=== PATIENT | female | born 1945 | race Caucasian/White ===

== ENCOUNTER → 2017-10-06 06:12 | Outpatient (CLI) | payer MEDICARE, OTHER, SELFPAY ==
--- NOTE | 2017-10-06 14:08 | NEURO ---
NCS and/or EMG Patient Report Ordering Doctor: Salvador Barber DATE OF SERVICE: 10/06/17 Heather Brady is a 72-year-old female presents for electrodiagnostic testing of both upper limbs. She has chief complaint of numbness and tingling in both hands, worse in the left side Electrodiagnostic findings: Median motor nerve demonstrates prolonged distal latency with normal amplitude and conduction velocity on the left side. The right median motor nerve demonstrates prolonged distal latency with normal amplitude and reduced conduction velocity. Normal ulnar motor response bilaterally. Prolonged median sensory latencies are noted bilaterally. Normal ulnar and radial sensory responses. Prolonged right median F wave. Needle EMG testing reveals no evidence of denervation in any muscles muscles tested including the cervical paraspinals. Electrodiagnostic impression: This is an abnormal study in the upper limbs. 1. Electrodiagnostic findings demonstrate bilateral median mononeuropathy. This is consistent with a moderate to advanced right carpal tunnel syndrome and a moderate left carpal tunnel syndrome. 2. No electrodiagnostic evidence is noted for cervical radiculopathy. If there are any further questions, please do not hesitate to contact me..
== END ==
PROVIDERS: Family Provider Family Medicine; PCP Family Medicine; Visit Provider Family Medicine
DX: G56.03 Carpal tunnel syndrome, bilateral upper limbs (principal)
CPT/HCPCS: 95886; 95912

== ENCOUNTER → 2017-10-27 11:36 | Outpatient (CLI) | payer MEDICARE, OTHER, SELFPAY ==
[2017-10-27 12:53] LABS: ALB/GLOB Ratio 1.2 RATIO (0.9-2.4); AST(SGOT) 32 U/L (15-37); Alanine Aminotransfer ALT/SGPT 43 U/L (13-56); Albumin, Serum 3.5 g/dL (3.2-5.0); Alkaline Phosphatase 126 U/L (45-117); Anion Gap 10 (5-15); BUN 20 mg/dL (7-18); Calcium,Total 8.6 mg/dL (8.5-10.1); Chloride 107 mmol/L (98-107); Creatinine, Serum 0.91 mg/dL (0.55-1.02); EST Glomerular Filtration Rate 64 mL/min (>60); Est Glom Filt Rate - Afr Amer 78 mL/min (>60); Glucose 159 mg/dL (74-106); Potassium 3.6 mmol/L (3.5-5.1); Protein, Total 6.5 g/dL (6.4-8.2); Sodium Level 142 mmol/L (136-145)
== END ==
PROVIDERS: Family Provider Family Medicine; PCP Family Medicine; Visit Provider Family Medicine
DX: I10 Essential (primary) hypertension (principal)
CPT/HCPCS: 36415; 80053

== ENCOUNTER → 2018-03-14 10:35 | Outpatient (CLI) | payer MEDICARE, OTHER, SELFPAY ==
[2018-03-14 12:19] LABS: AST(SGOT) 27 U/L (15-37); Alanine Aminotransfer ALT/SGPT 34 U/L (13-56); Albumin, Serum 3.7 g/dL (3.2-5.0); Alkaline Phosphatase 114 U/L (45-117); Anion Gap 8 (5-15); BUN 17 mg/dL (7-18); BUN/Creat Ratio 22.4 RATIO (10-20); Bilirubin, Direct 0.28 mg/dL (0.00-0.30); Calcium,Total 8.6 mg/dL (8.5-10.1); Chloride 107 mmol/L (98-107); Creatinine, Serum 0.76 mg/dL (0.55-1.02); EST Glomerular Filtration Rate 79 mL/min (>60); Est Glom Filt Rate - Afr Amer 96 mL/min (>60); Globulin 3.1 g/dL (2.2-4.2); Glucose 94 mg/dL (74-106); Protein, Total 6.8 g/dL (6.4-8.2); Sodium Level 143 mmol/L (136-145); Thyroid Stim Hormone (TSH) 2.32 uIU/mL (0.358-3.74)
== END ==
PROVIDERS: Family Provider Family Medicine; PCP Family Medicine; Visit Provider Family Medicine
DX: I10 Essential (primary) hypertension (principal); E03.9 Hypothyroidism, unspecified; E78.5 Hyperlipidemia, unspecified
CPT/HCPCS: 36415; 80048; 80076; 84443

== ENCOUNTER 2018-04-13 13:30 | Outpatient (RCR) | payer MEDICARE, OTHER, SELFPAY ==
--- NOTE | 2018-03-23 09:25 | HP.OTEVAL_ITS ---
Patient's Visit Information DONOVAN RED is a 72 year old F, referred to Occupational Therapy by Salvador Barber, with a diagnosis of R hand swelling/decreased ROM R crpl tnl. Date of Evaluation: 03/22/18 Occupational Therapist: Abril Sim - Subjective Subjective: Pt seen for initial occupational therapy evaluation for increased pain and stiffness R hand. Pt states specific movements cause pain 10/10 but no other pain when at rest. Pt had carpel tunnel sx beginning of this year for L (November) and R hand (December) by Dr. Christianson. Pt states no numbness or tingling R hand. Pt states noticed increase in edema R hand and difficult time moving digits 3 and 4. Pt states having difficulty opening containers. Pt states has been washing goel ok. Pt lives w/ spouse 1 story house. Indep w/ BADLs/IADLs. Occassionally has pain with cutting food. - Pain R hand 10 Pain Intensity Range: 10 - Objective Objective/Observation: Pt R hand dominent. Having difficulty opening containers. Pt states has been washing goel ok. Pt lives w/ spouse 1 story house. Indep w/ BADLs/IADLs. Occassionally has pain with cutting food. Increased pain R hand started beginning of this year, Dr. Christianson thought might be from carpel tunnel so pt went through with carpel tunnel sx but continued to have increased pain primarily 2 middle fingers. Slight edema noted R hand/wrist. - ROM Wrist: L ext 40/flex 90, R ext 50/flex 108 ROM Comments: L MP flexion 2nd digit 70, 3rd digit 71, 4th digit 75 5th digit 68. L PIP flexion 2nd digit 54, 3rd digit 52, 4th digit 45, 5th digit 65. R MP flexion 2nd digit 85, 3rd digit 84, 4th digit 93, 5th digit 105. R PIP flexion 2nd digit 57, 3rd digit 61, 4th digit 52, 5th digit 54 - Strength Tomb Maker Helper: L 30#, R 10# Lateral Pinch: L 8#, R 8# Tripod Pinch: L 2#, R 2# Strength Comments: Pt demo decreased patient service associate strength R hand and R hand dominent - Edema Other: Slight edema noted R hand vs L hand, no pitting edema noted - Sensation Sensation Comments: No numbness or tingling R hand - DASH-Disabilities of Arm, Shoulder& Hand DASH Sum: 43 - Goals Goal:: Pt will progress w/ R hand patient service associate strength by 20# to assist with functional living tasks by d/c from OT services. Goal:: Pt will progress w/ R hand ROM flexion of digits 3 and 4 MP joints by 15 ' to increase functional independence with BADL tasks by d/c from OT services. Goal:: Pt will demo no pain R hand greater than 1/10 with movement by d/c from OT services. Goal:: Pt will be educated on joint protection/energy conservation techniques for R hand w/ good understanding and demo 100%x. Goal:: Pt will be educated on R hand HEP with good understanding and demo 100%x. - Rehabilitation General Assessment: Pt demo with R hand pain with sparatic movements, decreased ROM of R digits 3 and 4 with increased edema and decreased patient service associate strength all indicating a need for skilled OT interventions to increase R hand strength and ROM with decreasing pain R hand and education on HEP and energy conservation techniques. Rehabilitation Potential: Good - Anticipated Interventions Anticipated Interventions: A/AAROM/PROM, Strengthening, Edema Control, Massage, Modalities, Orthoses, Joint Protection/Energy Conservation, Fine Motor Coord/ Chilo, ADL Training, Education re assistive Equipment, Education re Self Massage Techniques, Home Program - Visit Plan Frequency: 1-2x /Week Duration: 4 Weeks General Plan: decrease R hand pain, increase R hand patient service associate strength, educate on adaptive techniques and compensatory strategies for decreasing R hand pain, increase R hand ROM TEXT: Thank you for the opportunity to evaluate your patient. For Medicare and Medicare HMO plans, please review the plan of care and approve it. It will need to be FAXED BACK to us at [phone] for Medicare purposes. Please let me know if there are questions or concerns regarding this plan of care. Physician Signature: Date:
--- NOTE | 2018-09-29 12:04 | HP.OT.NRP ---
HP - Discharge Summary - Patient Information DONOVAN RED was seen in my office for initial evaluation on 03/22/18. The following Plan of Care was established for this patient: Initial Frequency: 1-2x /Week Initial Duration: 4 Weeks Plan: cont w/ prior POC - Anticipated Interventions Anticipated Interventions: A/AAROM/PROM, Strengthening, Edema Control, Massage, Modalities, Orthoses, Joint Protection/Energy Conservation, Fine Motor Coord/Chilo, ADL Training, Education re assistive Equipment, Education re Self Massage Techniques, Home Program This patient was last seen in our office 04/13/18. Pertinent comments regarding their Occupational therapy will appear below: Pt last seen 04/13/18. Pt was participating with direct OT services to increase R hand education assistant strength and decrease R hand pain. Pt had been educated on theraputty exercises to complete to increase R hand education assistant strength. Pt did not meet all goals secondary to non-returning. D/C OT services at this time. At this point I will be discontinuing this patient from occupational therapy. I would be happy to see this patient again in the future if found appropriate by the physician. Thank you! Abril Sim
== END 2018-04-13 19:00 | disposition home or self-care (01) ==
LOC: OT 13:30
PROVIDERS: Family Provider Family Medicine; PCP Family Medicine; Visit Provider Family Medicine
DX: M79.89 Other specified soft tissue disorders (principal); M25.60 Stiffness of unspecified joint, not elsewhere classified
CPT/HCPCS: 97035; 97110; 97140; 97165; 97166; 97530; 97760

== ENCOUNTER → 2018-09-14 10:55 | Outpatient (CLI) | payer MEDICARE, OTHER, SELFPAY ==
[2017-11-30 13:39] VITALS: BMI 34.4
[2018-09-14 12:37] LABS: Thyroid Stim Hormone (TSH) 1.07 uIU/mL (0.358-3.74)
== END ==
PROVIDERS: Family Provider Family Medicine; PCP Family Medicine; Visit Provider Family Medicine
DX: E03.9 Hypothyroidism, unspecified (principal)
CPT/HCPCS: 36415; 84443

== ENCOUNTER → 2018-10-21 10:36 | Outpatient (CLI) | payer MEDICARE, OTHER, SELFPAY ==
[2018-10-21 09:48] VITALS: BMI 36.0
--- NOTE | 2018-10-21 10:39 | RAD_ITS ---
STUDY: X-RAY CHEST REASON FOR EXAM: Female, 73 years old. Chest pain and cough TECHNIQUE: PA and lateral views of the chest. COMPARISON: None. FINDINGS: There are interstitial fibrotic changes of the lungs. There is no demonstrated pleural abnormality. Normal size heart. Normal mediastinum and karlo. Normal visualized pulmonary arteries. Normal visualized aortic arch and descending thoracic aorta. There are diffuse degenerative changes of the visualized thoracic spine. Evidence of previous bilateral rotator cuff repair There is no demonstrated abnormality of the visualized soft tissue structures of the upper abdomen. RAD/Chest PA and Lateral IMPRESSION: Chronic changes, no superimposed acute pulmonary process Electronically Signed: Héctor Whelan MD at 15:33 EST , Service support ,
== END ==
PROVIDERS: Family Provider Family Medicine; PCP Family Medicine; Referring Provider Nurse Practitioner Family; Visit Provider Nurse Practitioner Family
DX: M25.512 Pain in left shoulder (principal)
CPT/HCPCS: 71046

== ENCOUNTER → 2019-02-10 | Outpatient (CLI) | payer MEDICARE, OTHER, SELFPAY ==
[2018-10-21 09:48] VITALS: BMI 36.0
--- NOTE | 2019-02-10 11:10 | RAD_ITS ---
STUDY: X-RAY - THORACIC SPINE REASON FOR EXAM: Female, 73 years old. Mid back pain. TECHNIQUE: 3 view(s) of the thoracic spine were obtained. COMPARISON: None. FINDINGS: Normal kyphosis of the thoracic spine. There is no substantial scoliosis. There is multilevel endplate spondylosis of the thoracic vertebrae. There is multilevel disc space narrowing of the thoracic spine. The soft tissue structures are unremarkable. RAD/Thoracic Spine 3 Views IMPRESSION: Degenerative changes. Electronically Signed: Niyah Allison MD at 23:21 EDT Tel , Service support ,
--- NOTE | 2019-02-10 11:19 | RAD_ITS ---
STUDY: X-RAY - LUMBAR SPINE REASON FOR EXAM: Female, 73 years old. Mid back pain. TECHNIQUE: 5 view(s) of the lumbar spine were obtained. COMPARISON: None FINDINGS: Normal lumbar lordosis. There is mild dextroscoliosis. There is minimal retrolisthesis of L5 in respect to L4 and S1. There is mild multilevel endplate spondylosis of the lumbar vertebrae. There is severe disc space narrowing of L1-L2, L2-L3, L4-L5 and L5-S1. There is no demonstrated fracture. There is no demonstrated spondylolysis of the pars interarticulares. There is atherosclerotic calcification of the abdominal aorta without a demonstrated aneurysm. RAD/L/S Spine Min 4 Views IMPRESSION: Degenerative changes of the spine, as detailed above. Electronically Signed: Boni Domínguez MD at 11:23 EDT Tel , Service support ,
== END | disposition home or self-care (01) ==
LOC: RAD 10:40
PROVIDERS: Family Provider Family Medicine; PCP Family Medicine; Referring Provider Anesthesiology Pain Medicine; Visit Provider Anesthesiology Pain Medicine
DX: M51.37 Other intervertebral disc degeneration, lumbosacral region (principal)
CPT/HCPCS: 72072; 72110

== ENCOUNTER → 2019-03-13 | Outpatient (CLI) | payer MEDICARE, OTHER, SELFPAY ==
[2018-10-21 09:48] VITALS: BMI 36.0
--- NOTE | 2019-03-13 12:02 | RAD_ITS ---
STUDY: X-RAY - THORACIC SPINE REASON FOR EXAM: Female, 73 years old. Radiculopathy TECHNIQUE: 5 view(s) of the thoracic spine were obtained. COMPARISON: 02/10/2019 FINDINGS: Normal alignment. Diffuse spondylosis. No compression deformities are seen. No abnormal motion between flexion and extension. RAD/Thoracic Spine Min 4 Views IMPRESSION: Diffuse spondylosis with normal alignment and no evidence of abnormal motion between flexion and extension. Electronically Signed: Corky Braun MD at 16:42 EDT Tel , Service support ,
== END | disposition home or self-care (01) ==
LOC: RAD 11:56
PROVIDERS: Family Provider Family Medicine; PCP Family Medicine; Referring Provider Anesthesiology Pain Medicine; Visit Provider Anesthesiology Pain Medicine
DX: M51.34 Other intervertebral disc degeneration, thoracic region (principal); M54.14 Radiculopathy, thoracic region
CPT/HCPCS: 72074

== ENCOUNTER → 2019-04-28 | Outpatient (CLI) | payer MEDICARE, OTHER, SELFPAY ==
[2018-10-21 09:48] VITALS: BMI 36.0
[2019-04-28 13:01] LABS: Vitamin D,25 Hydroxy 47.8 ng/mL (29.95-100.01)
[2019-04-28 13:03] LABS: Anion Gap 7 (5-15); BUN 23 mg/dL (7-18); BUN/Creat Ratio 29.7 RATIO (10-20); Calcium,Total 9.2 mg/dL (8.5-10.1); Chloride 107 mmol/L (98-107); Cholesterol 163 mg/dL (200); Creatinine, Serum 0.77 mg/dL (0.55-1.02); EST Glomerular Filtration Rate 77 mL/min (>60); Est Glom Filt Rate - Afr Amer 93 mL/min (>60); Glucose 98 mg/dL (74-106); High Density Lipoprotein 73 mg/dL; Potassium 3.9 mmol/L (3.5-5.1); Sodium Level 143 mmol/L (136-145); Thyroid Stim Hormone (TSH) 1.68 uIU/mL (0.358-3.74); Triglycerides 111 mg/dL; Very Low Density Lipoprotein 22 mg/dL (5-40)
== END | disposition home or self-care (01) ==
LOC: MFPLAB 10:54
PROVIDERS: Family Provider Family Medicine; PCP Family Medicine; Referring Provider Family Medicine; Visit Provider Family Medicine
DX: Z00.00 Encounter for general adult medical examination without abnormal findings (principal); E03.9 Hypothyroidism, unspecified; E55.9 Vitamin D deficiency, unspecified
CPT/HCPCS: 36415; 80048; 80061; 82306; 84443

== ENCOUNTER → 2019-07-27 12:15 | Outpatient (CLI) | payer MEDICARE, OTHER, SELFPAY ==
[2018-10-21 09:48] VITALS: BMI 36.0
--- NOTE | 2019-07-27 12:19 | RAD_ITS ---
STUDY: X-RAY - THORACIC SPINE REASON FOR EXAM: Female, 73 years old. Neck pain TECHNIQUE: 3 view(s) of the thoracic spine were obtained. COMPARISON: March 13, 2019 FINDINGS: Normal kyphosis of the thoracic spine. There is no substantial scoliosis. There is multilevel endplate spondylosis of the thoracic vertebrae. Normal disc space heights. The soft tissue structures are unremarkable. RAD/Thoracic Spine 3 Views IMPRESSION: Spondylosis Electronically Signed: Celso Wright MD at 23:49 EST , Service support ,
== END ==
PROVIDERS: Family Provider Family Medicine; PCP Family Medicine; Referring Provider Family Medicine; Visit Provider Family Medicine
DX: M54.9 Dorsalgia, unspecified (principal)
CPT/HCPCS: 72072

== ENCOUNTER → 2019-11-01 10:22 | Outpatient (CLI) | payer MEDICARE, OTHER, SELFPAY ==
[2018-10-21 09:48] VITALS: BMI 36.0
[2019-11-01 12:43] LABS: Anion Gap 5 (5-15); BUN 16 mg/dL (7-18); BUN/Creat Ratio 18.9 RATIO (10-20); Calcium,Total 9.1 mg/dL (8.5-10.1); Chloride 107 mmol/L (98-107); Cholesterol 142 mg/dL (200); Creatinine, Serum 0.85 mg/dL (0.55-1.02); EST Glomerular Filtration Rate 69 mL/min (>60); Est Glom Filt Rate - Afr Amer 84 mL/min (>60); Free T3 2.1 pg/mL (2.18-3.98); Glucose 106 mg/dL (74-106); High Density Lipoprotein 66 mg/dL; Potassium 3.9 mmol/L (3.5-5.1); Sodium Level 140 mmol/L (136-145); T4 Free Direct 1.37 ng/dL (0.76-1.46); Thyroid Stim Hormone (TSH) 2.35 uIU/mL (0.358-3.74); Triglycerides 89 mg/dL; Very Low Density Lipoprotein 18 mg/dL (5-40)
== END ==
PROVIDERS: PCP Family Medicine; Referring Provider Family Medicine; Visit Provider Family Medicine
DX: E03.9 Hypothyroidism, unspecified (principal); I10 Essential (primary) hypertension
CPT/HCPCS: 36415; 80048; 80061; 84439; 84443; 84481

== ENCOUNTER → 2020-05-16 11:05 | Outpatient (CLI) | payer MEDICARE, OTHER, SELFPAY ==
[2018-10-21 09:48] VITALS: BMI 36.0
[2020-05-16 13:15] LABS: Anion Gap 5 (5-15); BUN 19 mg/dL (7-18); BUN/Creat Ratio 25.4 RATIO (10-20); Calcium,Total 9.3 mg/dL (8.5-10.1); Chloride 105 mmol/L (98-107); Cholesterol 152 mg/dL (200); Creatinine, Serum 0.75 mg/dL (0.55-1.02); EST Glomerular Filtration Rate 80 mL/min (>60); Est Glom Filt Rate - Afr Amer 97 mL/min (>60); Free T3 2.3 pg/mL (2.18-3.98); Glucose 92 mg/dL (74-106); High Density Lipoprotein 68 mg/dL; Potassium 3.9 mmol/L (3.5-5.1); Sodium Level 140 mmol/L (136-145); T4 Total, Thyroxin 13.1 ug/dL (4.8-13.9); Thyroid Stim Hormone (TSH) 2.66 uIU/mL (0.358-3.74); Triglycerides 96 mg/dL; Very Low Density Lipoprotein 19 mg/dL (5-40)
== END ==
PROVIDERS: PCP Family Medicine; Referring Provider Family Medicine; Visit Provider Family Medicine
DX: I10 Essential (primary) hypertension (principal); E03.9 Hypothyroidism, unspecified
CPT/HCPCS: 36415; 80048; 80061; 84436; 84443; 84481

== ENCOUNTER → 2020-08-08 11:01 | Outpatient (CLI) | payer MEDICARE, OTHER, SELFPAY ==
[2018-10-21 09:48] VITALS: BMI 36.0
[2020-08-08 12:12] LABS: Erythrocyte Sedimentation Rate 3 mm/hr (0-30)
[2020-08-08 12:14] LABS: Absolute Lymphocyte Count 1.68 X10^3/uL (0.83-4.51); Absolute Neutrophil Count 3.9 X10^3/uL (2.0-7.7); Basophil# 0.03 X10^3/uL; Basophil% 0.5 % (0-1); Eosinophil# 0.18 X10^3/uL; Eosinophils% 2.9 % (0-5); Hematocrit 40.1 % (37-47); Hemoglobin 12.8 g/dL (12.0-15.0); Lymphocyte # 1.68 X10^3/ul (4.0); Mean Corp Hgb Conc 31.9 g/dL (32-36); Mean Corpuscular Hgb 30.9 pg (27.0-32.0); Mean Corpuscular Volume 96.9 fL (81-99); Mean Platelet Vol. 10.9 fl (6.2-12.0); Monocyte# 0.44 X10^3/uL; Monocyte% 7.1 % (0-10); NRBC Flagged by Analyzer 0 % (0-5); Neutrophil # 3.85 X10^3/uL (2.7-7.7); Neutrophil % 61.9 % (47-70); Platelet Count 220 K/mm3 (150-450); RBC Distribution Width CV 13.2 % (11.6-14.6); RBC Distribution Width SD 47.4 fl (35.1-43.9); Red Blood Count 4.14 M/mm3 (4.2-5.4); White Blood Count 6.2 K/mm3 (4.4-11.0)
[2020-08-08 12:50] LABS: CRP < 2.90 mg/L (0.0-3.0)
== END ==
PROVIDERS: PCP Family Medicine; Referring Provider Physician Assistant; Visit Provider Physician Assistant
DX: Z96.652 Presence of left artificial knee joint (principal)
CPT/HCPCS: 36415; 85025; 85652; 86140

== ENCOUNTER → 2020-09-05 11:56 | Outpatient (CLI) | payer MEDICARE, OTHER, SELFPAY ==
[2018-10-21 09:48] VITALS: BMI 36.0
--- NOTE | 2020-09-05 12:00 | RAD_ITS ---
STUDY: X-RAY - CERVICAL SPINE REASON FOR EXAM: Female, 74 years old. neck pain, patient states Hx of neck injury with ruptured discs many years ago TECHNIQUE: 5 view(s) of the cervical spine were obtained. COMPARISON: None FINDINGS: Normal anterior atlantoaxial articulation. Normal odontoid process. There is straightening of the normal cervical lordosis. 2 mm of anterolisthesis of C4 on C5. 2 mm retrolisthesis of C5 on C6. There is multi-level endplate spondylosis. There is multi-level degenerative disc disease with multilevel disc space narrowing. Normal visualized intervertebral neuroforamina. The soft tissue structures are unremarkable. RAD/Cerv Spine 4 or 5 Views IMPRESSION: Moderate degenerative disc disease with straightening of the normal lordotic curvature in 2 mm of anterolisthesis of C4 on C5 and 2 mm retrolisthesis of C5 on C6. Electronically Signed: Edouard Melvin MD at 16:49 EST Tel , Service support ,
== END ==
PROVIDERS: PCP Family Medicine; Referring Provider Family Medicine; Visit Provider Family Medicine
DX: M54.2 Cervicalgia (principal)
CPT/HCPCS: 72050

== ENCOUNTER → 2020-11-13 09:58 | Outpatient (CLI) | payer MEDICARE, OTHER, SELFPAY ==
[2018-10-21 09:48] VITALS: BMI 36.0
[2020-11-13 12:58] LABS: Anion Gap 6 (5-15); BUN 20 mg/dL (7-18); BUN/Creat Ratio 24.4 RATIO (10-20); Calcium,Total 9.5 mg/dL (8.5-10.1); Chloride 107 mmol/L (98-107); Cholesterol 164 mg/dL (200); Creatinine, Serum 0.82 mg/dL (0.55-1.02); EST Glomerular Filtration Rate 72 mL/min (>60); Est Glom Filt Rate - Afr Amer 87 mL/min (>60); Free T3 1.9 pg/mL (2.18-3.98); Glucose 99 mg/dL (74-106); High Density Lipoprotein 71 mg/dL; Potassium 4.1 mmol/L (3.5-5.1); Sodium Level 143 mmol/L (136-145); T4 Free Direct 1.14 ng/dL (0.76-1.46); Thyroid Stim Hormone (TSH) 2.19 uIU/mL (0.358-3.74); Triglycerides 85 mg/dL; Very Low Density Lipoprotein 17 mg/dL (5-40)
== END ==
PROVIDERS: PCP Family Medicine; Referring Provider Family Medicine; Visit Provider Family Medicine
DX: I10 Essential (primary) hypertension (principal); E03.9 Hypothyroidism, unspecified
CPT/HCPCS: 36415; 80048; 80061; 84439; 84443; 84481

== ENCOUNTER → 2020-12-19 16:02 | Outpatient (CLI) | payer MEDICARE, OTHER, SELFPAY ==
[2018-10-21 09:48] VITALS: BMI 36.0
--- NOTE | 2020-12-19 16:06 | RAD_ITS ---
HISTORY: PAIN ADDITIONAL HISTORY: None provided. EXAMINATION/TECHNIQUE: XR Hip Unilateral with Pelvis when performed; 2-3 Views Right Number of images including paperwork: 3 COMPARISON: None FINDINGS: BONES: No acute fracture. JOINTS: No subluxation. Mild to moderate degenerative changes of the hips. Chondrocalcinosis. Degenerative changes of the visible spine. SOFT TISSUES: No distinct foreign body. RAD/HIP, UNI W/ Pelvis 2-3 Views IMPRESSION: Degenerative changes without acute osseous abnormality. at 0005 Reported and signed by: Olena Chavez MD Electronically Signed: Olena Chavez MD at 0:05 EDT Tel , Service support ,
--- NOTE | 2020-12-19 16:07 | RAD_ITS ---
STUDY: X-RAY - RIGHT SHOULDER REASON FOR EXAM: Female, 75 years old. PAIN TECHNIQUE: 4 view(s) of the shoulder. COMPARISON: None. FINDINGS: Normal glenohumeral articulation. There is hypertrophic osteoarthrosis of the acromioclavicular joint with inferior osseous spur formation. Normal acromion. Decreased distance between the humeral head and acromion suggestive of rotator cuff pathology. There are metallic clips in the humeral head. Normal humeral head and visualized proximal humerus. The soft tissue structures are unremarkable. Normal visualized pulmonary apex. RAD/Shoulder min 2 Views IMPRESSION: Degenerative changes of the acromioclavicular joint. Findings suggestive of rotator cuff pathology. Electronically Signed: Pa Lewis MD at 15:32 EDT , Service support ,
== END ==
PROVIDERS: PCP Family Medicine; Referring Provider Family Medicine; Visit Provider Family Medicine
DX: M25.511 Pain in right shoulder (principal); M25.551 Pain in right hip
CPT/HCPCS: 73030; 73502

== ENCOUNTER → 2021-02-05 09:33 | Outpatient (CLI) | payer MEDICARE, OTHER, SELFPAY ==
[2018-10-21 09:48] VITALS: BMI 36.0
[2021-02-05 12:28] LABS: Free T3 2.6 pg/mL (2.18-3.98); T4 Free Direct 1.26 ng/dL (0.76-1.46); Thyroid Stim Hormone (TSH) 0.42 uIU/mL (0.358-3.74)
== END ==
PROVIDERS: PCP Family Medicine; Referring Provider Family Medicine; Visit Provider Family Medicine
DX: E03.9 Hypothyroidism, unspecified (principal)
CPT/HCPCS: 36415; 84439; 84443; 84481

== ENCOUNTER → 2021-03-20 10:46 | Outpatient (CLI) | payer MEDICARE, OTHER, SELFPAY ==
[2021-03-07 11:13] VITALS: BMI 32.9
--- NOTE | 2021-03-20 10:47 | ECHOD_ITS ---
Version 2 Reason For Study: HYPERTENSION Procedure This was a 2D Doppler, Color Flow transthoracic echocardiogram. Exam performed in department. Left Ventricle Normal LV size. Left ventricular systolic function is normal. The estimated ejection fraction is 55 %. Stage 1 diastolic dysfunction. No regional wall motion abnormalities noted. Right Ventricle Normal RV size. Normal systolic function. Atria Normal left atrium. Normal right atrium. Mitral Valve Normal mitral valve. Tricuspid Valve Normal tricuspid valve. Mild (1+) tricuspid valve insufficiency. Pulmonary artery systolic pressure is 28 mmHg. Aortic Valve Normal aortic valve. Trisinus/trileaflet aortic valve. Pulmonic Valve Normal pulmonic valve. Great Vessels Normal aortic root. The pulmonary artery is normal size. Normal inferior vena cava. Pericardium/Pleural No pericardial effusion. MMode/2D Measurements & Calculations LVIDd: 4.4 cm IVSd: 1.1 cm Ao root diam: 3.2 cm LVIDs: 2.9 cm LVPWd: 1.0 cm RVDd: 2.9 cm FS: 33.7 % LAV(MOD-bp): 37.7 ml LVAd ap4: 27.5 cm2 SV(MOD-sp4): 49.2 ml LAV(MOD-bp) Indexed: 19.3 ml/m2 LVLd ap4: 7.8 cm LAV(MOD-sp2): 34.8 ml EDV(MOD-sp4): 79.0 ml LAV(MOD-sp4): 33.0 ml EDV(sp4-el): 82.5 ml LVAs ap4: 15.3 cm2 LVLs ap4: 6.6 cm ESV(MOD-sp4): 29.8 ml ESV(sp4-el): 30.2 ml EF(MOD-sp4): 62.3 % EF(sp4-el): 63.4 % SV(sp4-el): 52.3 ml LA A4 area: 13.4 cm2 LA dimension(2D): 3.2 cm RA A4 area: 12.3 cm2 Time Measurements MV dec time: 0.20 sec Doppler Measurements & Calculations MV E max colin: 56.2 cm/sec Lat Peak E' Colin: 9.9 cm/sec Med Peak E' Colin: 5.6 cm/sec MV A max colin: 90.7 cm/sec E/E' lat: 5.7 E/E' med: 10.0 MV E/A: 0.62 Ao V2 max: 138.9 cm/sec LV V1 max: 107.5 cm/sec PA V2 max: 76.9 cm/sec Ao max P.7 mmHg LV V1 max P.6 mmHg TR max colin: 247.2 cm/sec TR max P.4 mmHg ECHO/Echo Complete Interpretation Summary Normal LV size. Left ventricular systolic function is normal. The estimated ejection fraction is 55 %. Stage 1 diastolic dysfunction. Pulmonary artery systolic pressure is 28 mmHg. Structurally normal valves. Ordering Physician: Albert Sweeney Referring Physician: TOMAS WALLER Performed By: Devorah Hannah RDCS
== END ==
PROVIDERS: PCP Family Medicine; Referring Provider Internal Medicine Cardiovascular Disease; Visit Provider Internal Medicine Cardiovascular Disease
DX: Z79.899 Other long term (current) drug therapy (principal)
CPT/HCPCS: 93306

== ENCOUNTER → 2021-05-19 10:33 | Outpatient (CLI) | payer MEDICARE, OTHER, SELFPAY ==
[2021-05-19 12:52] LABS: Anion Gap 8 (5-15); BUN 23 mg/dL (7-18); BUN/Creat Ratio 30.9 RATIO (10-20); Calcium,Total 9.4 mg/dL (8.5-10.1); Chloride 105 mmol/L (98-107); Cholesterol 162 mg/dL (200); Creatinine, Serum 0.74 mg/dL (0.55-1.02); EST Glomerular Filtration Rate 80 mL/min (>60); Est Glom Filt Rate - Afr Amer 97 mL/min (>60); Glucose 103 mg/dL (74-106); High Density Lipoprotein 77 mg/dL; Sodium Level 141 mmol/L (136-145); Thyroid Stim Hormone (TSH) 0.87 uIU/mL (0.358-3.74); Triglycerides 103 mg/dL; Very Low Density Lipoprotein 21 mg/dL (5-40)
== END ==
PROVIDERS: PCP Family Medicine; Referring Provider Family Medicine; Visit Provider Family Medicine
DX: I10 Essential (primary) hypertension (principal); E03.9 Hypothyroidism, unspecified
CPT/HCPCS: 36415; 80048; 80061; 84443

== ENCOUNTER 2021-08-06 14:02 | Emergency (ER) | payer MEDICARE, OTHER, SELFPAY ==
[2021-08-06 14:03] VITALS: BP 131/71; PULSE 79; RESP 16; TEMP 36.6; O2SAT 98; BMI 32.4
[2021-08-06 14:33] LABS: Absolute Lymphocyte Count 1.28 X10^3/uL (0.83-4.51); Absolute Neutrophil Count 5.3 X10^3/uL (2.0-7.7); Basophil# 0.03 X10^3/uL; Basophil% 0.4 % (0-1); Eosinophil# 0.12 X10^3/uL; Eosinophils% 1.7 % (0-5); Hematocrit 39.7 % (37-47); Hemoglobin 12.7 g/dL (12.0-15.0); Lymphocyte # 1.28 X10^3/ul (0.83-4.51); Lymphocyte % 17.6 % (19-41); Mean Corpuscular Hgb 30.6 pg (27.0-32.0); Mean Corpuscular Volume 95.7 fL (81-99); Mean Platelet Vol. 10.6 fl (6.2-12.0); Monocyte# 0.49 X10^3/uL; Monocyte% 6.7 % (0-10); NRBC Flagged by Analyzer 0 % (0-5); Neutrophil # 5.33 X10^3/uL (2.7-7.7); Neutrophil % 73.3 % (47-70); Platelet Count 238 K/mm3 (150-450); RBC Distribution Width CV 13.1 % (11.6-14.6); RBC Distribution Width SD 46.1 fl (35.1-43.9); Red Blood Count 4.15 M/mm3 (4.2-5.4); White Blood Count 7.3 K/mm3 (4.4-11.0)
[2021-08-06 14:50] LABS: Anion Gap 7 (5-15); BUN 19 mg/dL (7-18); BUN/Creat Ratio 23.7 RATIO (10-20); Calcium,Total 9.1 mg/dL (8.5-10.1); Chloride 109 mmol/L (98-107); EST Glomerular Filtration Rate 74 mL/min (>60); Est Glom Filt Rate - Afr Amer 89 mL/min (>60); Estimated Creatinine Clearance 50.85 ml/min; Glucose 135 mg/dL (74-106); Potassium 3.9 mmol/L (3.5-5.1); Sodium Level 144 mmol/L (136-145)
--- NOTE | 2021-08-06 15:12 | EKG12_ITS ---
Test Reason : NEURO Blood Pressure : / mmHG Vent. Rate : 062 BPM Atrial Rate : 062 BPM P-R Int : 182 ms QRS Dur : 112 ms QT Int : 404 ms P-R-T Axes : 047 -16 027 degrees QTc Int : 410 ms Normal sinus rhythm Normal ECG Confirmed by LEAH JUÁREZ, CHUN ([id number]), field map editor KRISTINE ALEMAN ([id number]) on 08/11/2021 9:19:16 AM Referred By: ISMA Confirmed By:NORA LYNN MD
--- NOTE | 2021-08-06 15:12 | CT_ITS ---
STUDY: CTA HEAD AND NECK WITH CONTRAST REASON FOR EXAM: Female, 75 years old. Stroke RADIATION DOSAGE (If Supplied By Facility): CTDIvol = ( 27.73 ) mGy, DLP = ( 1448.10 ) mGycm TECHNIQUE: CT angiography was performed with a multi-detector CT scanner. Data acquisition was obtained from the skull base through the vertex following intravenous administration of IV 100mL [id number]-[id number]. MIP images were reconstructed from the axial data set. Post-processing of the angiographic images was performed, with multiplanar reformation and 3D reconstruction. Individualized dose optimization techniques were used for this CT. COMPARISON: No relevant priors. FINDINGS: Normal bilateral petrous carotid arteries. There is calcified plaque formation of the right cavernous carotid artery, without a cross-sectional luminal stenosis. There is calcified plaque formation of the left cavernous carotid artery, without a cross-sectional luminal stenosis. Normal right A1 segments of the anterior cerebral artery. Normal left A1 segments of the anterior cerebral artery. Normal intact anterior communicating artery (ACOM). Normal bilateral A2 segments of the anterior cerebral arteries. Normal right M1 and M2 segments of the middle cerebral arteries, with a normal M1 bifurcation. Normal left M1 and M2 segments of the middle cerebral arteries, with a normal M1 bifurcation. Normal right posterior communicating artery (PCOM). Normal left posterior communicating artery (PCOM). Normal bilateral vertebral arteries. Normal basilar artery with a normal basilar bifurcation. The visualized bilateral superior cerebellar (SCA) arteries are normal. Normal bilateral P1, P2 and visualized P3 segments of the posterior cerebral arteries. There is no demonstrated aneurysm of the [place]. Atherosclerotic calcification of the vertebral arteries and cavernous portions of the common carotid arteries bilaterally. Mild degree of cerebral atrophy. AORTIC ARCH: Normal visualized aortic arch. Normal origins of the brachiocephalic, left common carotid, and left subclavian arteries. RIGHT CAROTID ARTERIES: Normal right common carotid artery (CCA). Normal right common carotid bulb. Normal origin of the right internal carotid (ICA) artery without a hemodynamically significant stenosis. Normal visualized cervical portion of the right internal carotid artery. Normal origin of the right external carotid artery (ECA). LEFT CAROTID ARTERIES: Normal left common carotid artery (CCA). Normal left common carotid bulb. Normal origin of the left internal carotid (ICA) artery without a hemodynamically significant stenosis. Normal visualized cervical portion of the left internal carotid artery. Normal origin of the left external carotid artery (ECA). VERTEBRAL ARTERIES: Normal bilateral vertebral arteries. CT/CTA Head AND Neck W/ Contrast IMPRESSION: Cerebral atrophy. Electronically Signed: Pa Lewis MD at 15:47 EST , Service support ,
--- NOTE | 2021-08-06 15:16 | EX.ED.DYSGE1 ---
HPI History of Present Illness Chief Complaint: Neuro S/Sx Informant: patient Onset/Context/Timing Onset: Today Current Severity: Mild Maximum Severity: Mild Narrative Narrative: Patient presents with concerns for her balance. She states yesterday she just felt off but has a hard time explaining what was wrong. This morning she woke up and felt like her balance was off, she was veering to the right or left when she walked. When she went to bed at midnight last evening she was able to walk normally. When she got up at 830 this morning she noted her gait was slightly altered. Patient did have a TIA 11 years ago and is currently on Plavix. She denies focal weakness, paresthesias, difficulty speaking or swallowing. [facility] Medical History Bone spur of ankle Dyslipidemia History of torn meniscus of right knee HTN (hypertension) Hyperlipidemia Patent foramen ovale Rotator cuff insufficiency of right shoulder TIA (transient ischemic attack) Home Medications clopidogrel 75 mg PO DAILY 05/13/14 [History Last Taken Unknown] losartan 100 mg PO DAILY 05/13/14 [History Last Taken Unknown] metoprolol succinate 25 mg PO DAILY 05/13/14 [History Last Taken Unknown] cholecalciferol (vitamin D3) 50 mcg (2,000 unit) capsule 2,000 unit PO DAILY 10/21/18 [History Last Taken Unknown] melatonin 10 mg capsule 10 mg PO HS PRN 10/21/18 [History Last Taken Unknown] multivitamin 1 tab PO DAILY 10/21/18 [History Last Taken Unknown] ascorbic acid (vitamin C) 500 mg capsule,extended release 1,000 mg PO DAILY cap 03/07/21 [History Last Taken Unknown] atorvastatin 80 mg tablet 80 mg PO QHS 90 Days #90 tab 03/07/21 [History Last Taken Unknown] calcium carbonate 600 mg calcium (1,500 mg) tablet 1,200 mg PO DAILY tab 03/07/21 [History Last Taken Unknown] gabapentin 800 mg tablet 1,600 mg PO QHS 90 Days #180 tab 03/07/21 [History Last Taken Unknown] levothyroxine 125 mcg tablet 125 mcg PO DAILY tab 03/07/21 [History Last Taken Unknown] nortriptyline 50 mg capsule 50 mg PO QHS cap 03/07/21 [History Last Taken Unknown] omeprazole 20 mg capsule,delayed release 40 mg PO QDAY cap 03/07/21 [History Last Taken Unknown] polyethylene glycol 3350 17 gram/dose oral powder 17 g PO DAILY 03/07/21 [History Last Taken Unknown] Allergy/AdvReac Type Severity Reaction Status Date / Time codeine AdvReac Severe Nausea Verified 08/06/21 14:03 morphine AdvReac Severe Nausea Verified 08/06/21 14:03 Family History Father Non-Hodgkin lymphoma Brother Leukemia Sister Breast cancer Mother Uterine cancer Other Cancer Heart disease Surgical History H/O section H/O left knee surgery History of bilateral carpal tunnel release History of cholecystectomy History of hip surgery History of left knee replacement History of nasal surgery Social History Smoking Status: Never smoker alcohol intake: current alcohol intake frequency: holidays/special occasions only substance use type: does not use caffeine: Yes Type: other Number of servings: 2 ROS ROS ED Constitutional Constitutional ED: Denies chills or fever(s) Eyes Eyes: Denies change in vision ENT ENT ED: Denies sore throat Cardiovascular Cardiovascular: Denies chest pain Respiratory/Chest Respiratory/Chest: Denies cough or dyspnea Gastrointestinal Gastrointestinal: Denies abdominal pain, diarrhea, nausea or vomiting Genitourinary Genitourinary ED: Denies dysuria Musculoskeletal Musculoskeletal: Denies back pain Integumentary Denies rash Neurologic Neurologic: Reports other Details: Balance problem ; Denies headache(s) or weakness Psychiatric Psychiatric: Denies anxiety or depression Allergic/Immunologic Allergic/Immunologic ED: Denies urticaria EXAM Physical Exam Const Vital Signs: 08/06/21 14:03 Temperature 97.8 F Temperature Source Temporal Pulse Rate 79 Respiratory Rate 16 Blood Pressure 131/71 H Blood Pressure Mean 91 Pulse Ox 98 Oxygen Delivery Method Room Air Positive well nourished and well developed General Appearance ED: well developed HEENT Reports normocephalic and head/scalp atraumatic Eyes PERRL and EOMs intact bilaterally Neck supple Chest Wall inspection of chest normal and palpation of chest normal Resp normal respiratory effort and clear to auscultation bilaterally Cardio regular rate and regular rhythm GI normal to inspection, nondistended, normoactive bowel sounds Palpation: soft Back/Spine no CVA tenderness Extremity normal to inspection Neuro oriented x3 and no sensory deficits noted Neuro Narrative: NIH equals 0 at time of my initial exam. Sensorium / Orientation: alert Motor Exam: strength 5/5 throughout Psych mental status grossly normal Skin no rashes or lesions noted MDM MDM MDM Narrative Medical decision making narrative: Lab work, EKG, CTA head and neck obtained. Lab Data Attestation: I reviewed the patient's lab results. Labs: Laboratory Results - last 24 hr 08/06/21 08/06/21 14:26 14:26 WBC 7.3 RBC 4.15 L Hgb 12.7 Hct 39.7 MCV 95.7 MCH 30.6 MCHC 32.0 RDW Std Deviation 46.1 H RDW Coeff of Dalila 13.1 Plt Count 238 MPV 10.6 Immature Gran % (Auto) 0.300 Neut % (Auto) 73.3 H Lymph % (Auto) 17.6 L Webster % (Auto) 6.7 Eos % (Auto) 1.7 Baso % (Auto) 0.4 Absolute Neuts (auto) 5.3 Absolute Lymphs (auto) 1.28 Nucleated RBC % 0 Sodium 144 Potassium 3.9 Chloride 109 H Carbon Dioxide 28.0 Anion Gap 7 BUN 19 H Creatinine 0.80 Estim Creat Clear Calc 50.85 Est GFR (MDRD) Af Amer 89 Est GFR (MDRD) Non-Af 74 BUN/Creatinine Ratio 23.7 H Glucose 135 H Calcium 9.1 Radiography Diagnostic Testing: Clinical Impression(s) from Imaging Studies Head/Neck CTA 08/06/21 15:12 IMPRESSION: Cerebral atrophy. Electronically Signed: Pa Lewis MD at 15:47 EST , Service support , EKG Initial EKG: Attestation: I personally reviewed and interpreted this EKG as follows: Interpretation: Sinus Rhythm (Sinus at 62 with no acute ischemia.) Treatment and Re-Evaluation Comments:: Repeat examination patient has no complaints. She was able to ambulate to the restroom and back with no difficulty with balance. Nursing staff states they did not appreciate any balance problems. Patient has negative work-up at this time including a normal CTA of the head and neck. She is already on Plavix. I did suggest close follow-up for outpatient MRI and obvious return if symptoms worsen. She is in agreement with this plan. Discharge Plan Triage Chief Complaint: Neuro S/Sx ED Provider: Chio Stuart Dx/Rx/DC Orders Clinical Impression: Brain TIA Instructions: ED TIA: Transient Ischemic Attack Prescriptions: No Action gabapentin 800 mg tablet 1,600 mg PO QHS 90 Days Qty: 180 RF: 0 omeprazole 20 mg capsule,delayed release(DR/EC) 40 mg PO QDAY RF: 0 multivitamin tablet 1 tab PO DAILY RF: 0 melatonin 10 mg capsule 10 mg PO HS PRNRF: 0 cholecalciferol (vitamin D3) 2,000 unit capsule 2,000 unit PO DAILY RF: 0 atorvastatin 80 mg tablet 80 mg PO QHS 90 Days Qty: 90 RF: 0 calcium carbonate [Calcium 600] 600 mg calcium (1,500 mg) tablet 1,200 mg PO DAILY RF: 0 ascorbic acid (vitamin C) [Vitamin C] 500 mg capsule, extended release 1,000 mg PO DAILY RF: 0 nortriptyline 50 mg capsule 50 mg PO QHS RF: 0 levothyroxine 125 mcg tablet 125 mcg PO DAILY RF: 0 polyethylene glycol 3350 [Miralax] 17 gram/dose powder 17 g PO DAILY RF: 0 clopidogrel 75 MG tablet 75 mg PO DAILY RF: 0 metoprolol succinate 25 MG tablet extended release 24 hr 25 mg PO DAILY RF: 0 losartan 100 MG tablet 100 mg PO DAILY RF: 0 Primary Care Provider: Salvador Barber Referrals: Salvador Barber MD [Primary Care Provider] - As soon as possible Disposition Disposition: Home, Self Care
[2021-08-06 15:29] VITALS: BMI 32.4
[2021-08-06 16:43] VITALS: BP 135/76; PULSE 63; RESP 19; O2SAT 99
== END 2021-08-06 16:48 | disposition home or self-care (01) ==
PROVIDERS: Emergency Provider Emergency Medicine; PCP Family Medicine
DX: G45.9 Transient cerebral ischemic attack, unspecified (principal); I10 Essential (primary) hypertension; E78.5 Hyperlipidemia, unspecified; Q21.1 Atrial septal defect; Z86.73 Personal history of transient ischemic attack (TIA), and cerebral infarction without residual deficits; Z79.02 Long term (current) use of antithrombotics/antiplatelets; Z79.899 Other long term (current) drug therapy
CPT/HCPCS: 70496; 70498; 80048; 85025; 93005; 99284; Q9967; A4216

== ENCOUNTER → 2021-08-07 14:23 | Outpatient (CLI) | payer MEDICARE, OTHER, SELFPAY ==
--- NOTE | 2021-08-07 14:25 | MRI_ITS ---
We are attempting to reach an attending provider to discuss findings. An addendum with communication details will be sent when the communication is complete. EXAM: MR HEAD WITHOUT INTRAVENOUS CONTRAST CLINICAL INDICATION: TIA TECHNIQUE: Multiplanar and multisequence MR images of the brain were obtained without intravenous contrast. This report was created using [employer] report generation technology. COMPARISON: 05.14.14 MRI and cta head 08.06.21 FINDINGS: BRAIN AND EXTRA-AXIAL SPACES: There is abnormal diffusion weighted signal in the Right medial cerebellar hemisphere. There is a correlation abnormal area of low ADC signal. This is consistent for an ischemic infarction. No intra- or extra-axial hemorrhage. No intracranial mass or mass effect. Ventricles are appropriate for age. No hydrocephalus. Basal cisterns are patent. SELLA: Unremarkable. Normal sella turcica, pituitary gland, infundibular stalk, optic chiasm and hypothalamus. AUDITORY SYSTEM: Unremarkable. The internal auditory canals are patent. BONES/JOINTS: Unremarkable. No discrete lytic or blastic abnormalities. SINUSES: Unremarkable as visualized. Clear. MASTOID AIR CELLS: Unremarkable as visualized. Clear. ORBITS: Unremarkable as visualized. Both globes, extraocular muscles, optic nerves and retrobulbar fat appear unremarkable. VASCULATURE: Unremarkable as visualized. Normal flow voids in the major intracranial circulation. MRI/Brain without Contrast IMPRESSION: Focal acute ischemic infarction of the Right medial cerebellar hemisphere. Electronically Signed: Agustin Yarbrough MD at 15:40 EST , Service support ,
== END ==
PROVIDERS: PCP Family Medicine; Visit Provider Family Medicine
DX: G45.9 Transient cerebral ischemic attack, unspecified (principal)
CPT/HCPCS: 70551

== ENCOUNTER → 2021-08-12 11:47 | Outpatient (CLI) | payer MEDICARE, OTHER, SELFPAY | PROVIDERS: PCP Family Medicine; Referring Provider Family Medicine; Visit Provider Psychiatry & Neurology Neurology | DX: I67.9 Cerebrovascular disease, unspecified (principal) | CPT/HCPCS: 36415 ==

== ENCOUNTER 2021-08-26 09:47 | Outpatient (RCR) | payer MEDICARE, OTHER, SELFPAY ==
--- NOTE | 2021-08-26 09:54 | BH.COMM_ITS ---
Communication Note - Communication with Client Communication Note: Met with patient to complete initial paperwork. No sig nificant changes since pre-admission screening. Completed [place] Suicide Screening. Low risk. No hx of SI/HI, plan or intent. Denies any current SI/HI. Case discussed with Dr. Russell with plan to admit to IOP level of care with dx of Generalized Anxiety Disorder F41.1
--- NOTE | 2021-08-26 09:54 | BH.COMM ---
Communication Note - Communication with Client Communication Note: Met with patient to complete initial paperwork. No significant changes since pre-admission screening. Completed [place] Suicide Screening. Low risk. No hx of SI/HI, plan or intent. Denies any current SI/HI. Case discussed with Dr. Russell with plan to admit to [facility] level of care with dx of Generalized Anxiety Disorder F41.1
--- NOTE | 2021-08-26 09:56 | BH.MTP_ITS ---
Master Treatment Plan - Patient Information Program Physician:: Dr. Litzy Russell Primary Therapist:: ROSI Rubio - Psychiatric Diagnoses Psychiatric Diagnoses:: 1. Generalized anxiety disorder. 2. Adjustment disorder with mixed anxiety and depressed mood (F 43.23) Diagnosis Code(s):: F41.1 - Estimated LOS Estimated LOS (in weeks):: 6 Problem/Goal #1 - Problem/Goal #1 Stated Goal:: Client will reduce overall frequency, intensity, and duration of anxiety to improve functioning. Description of Barriers: Pt feelings of disconnect and irrational guilt/feeling like a burden could be hindrance to progress given pt is struggling with attending IOP tx due to feeling like a burden for needing transportation from her . Coronavirus pandemic and pt physical health could be a barrier to progress because hinders pt's ability to leave the house and increases isolation. Pt reports difficulties in keeping up during group and struggles with connecting with materials discussed. Functional Impact: Pt's mental health symptoms are impacting her ability to find enjoyment in daily activities, causing unnecessary guilt and anxiety which has begun to impact her friendships and relationship with her , led to increased isolation and loneliness, may be contributing to increased physical pain, and resulted in difficulty completing household responsibilities. - Objectives Objective #1 Stated Objective: Client will learn and implement 2-3 calming skills to reduce overall anxiety and manage anxiety symptoms. Interventions: Therapist will teach client calming/relaxation skills and how to apply these skills to everyday life. Discharge Criteria: Client will have achieved this goal when can verbalize at least 2 calming strategies and reports skills successfully helping reduce anxious symptoms. Target Date: 10/07/21 Review Date: 09/23/21 Objective #2 Stated Objective: Pt will decrease anxious symptoms AEB pt?s score on the DSM 5 cross-cutting measure improve pt?s daily functioning. Interventions: Through groups and individual therapy, pt will be provided education about anxiety?s impact on body, common physiological reaction to anxiety, and distorted thinking patterns which reinforce anxiety. Therapist will teach pt appropriate breathing techniques and build healthy coping skills to manage daily anxieties, as well as aid pt in identifying and replacing personal distortions. Discharge Criteria: Pt will have met this goal when pt?s score on the DSM 5 cross cutting measure for anxiety has been decreased and per pt?s report daily functioning has improved. Target Date: 10/07/21 Review Date: 09/23/21 Problem/Goal #2 - Problem/Goal #2 Stated Goal:: Client will reduce depression, feelings of loneliness, and isolation through Intensive Outpatient Program. Description of Barriers: Pt feelings of disconnect and irrational guilt/feeling like a burden could be hindrance to progress given pt is struggling with attending IOP tx due to feeling like a burden for needing transportation from her . Coronavirus pandemic and pt physical health could be a barrier to progress because hinders pt's ability to leave the house and increases isolation. Pt reports difficulties in keeping up during group and struggles with connecting with materials discussed. Functional Impact: Pt's mental health symptoms are impacting her ability to find enjoyment in daily activities, causing unnecessary guilt and anxiety which has begun to impact her friendships and relationship with her , led to increased isolation and loneliness, may be contributing to increased physical pain, and resulted in difficulty completing household responsibilities. - Objectives Objective #1 Stated Objective: Client will learn and utilize 2-3 healthy coping strategies, including one activity of personal enjoyment, to manage depressive symptoms as shown by reduction of DSM-5 scores. Interventions: Therapist will help client identify triggers and warning signs of depression and will teach client various coping skills to manage client?s symptoms and give client tangible resources to use to regulate emotions. Therapist will help client explore activities enjoys engaging in and help conn ect to those activities. Discharge Criteria: Client will have achieved this goal when can verbalize at least 2 healthy coping strategies and reports coping skills successfully helping reduce depressive symptoms. Target Date: 10/07/21 Review Date: 09/23/21 Objective #2 Stated Objective: Client will identify and replace 2-3 negative thinking patterns that reinforce depressive symptoms, self-hate, and negative self-talk. Interventions: Therapist will assist client in recognizing triggers for increased self-deprecating and depressive thought patterns. Therapist will help client explore connection between thoughts, feelings, and actions and help client reframe depressive thought patterns. Discharge Criteria: Will have achieved goal when client can identify and successfully reframe 2-3 negative or distorted thought patterns reinforcing de pressive sx. Target Date: 10/07/21 Review Date: 09/23/21
--- NOTE | 2021-08-26 09:56 | BH.PSA ---
Development & Family of Origin - Family History Family History: Family History (Last Reviewed 08/12/21 @ 10:11 by Bonita Rubin) Father Non-Hodgkin lymphoma Brother Leukemia Sister Breast cancer Mother Uterine cancer Other Cancer Heart disease Suicide Assessment Treatment Plan Recommendations
--- NOTE | 2021-08-26 09:56 | BH.MDN ---
Multi-Disciplinary Note - Note 60-min Individual Time Started:: 08:30 Date: 08/26/21 Purpose of session/treatment goals addressed:: The purpose of this session was to gather information on client's current stressors, symptoms, and treatment goals. Another goal was to build rapport and provide psychoeducation on depression. Additionally, completed intake paperwork and CSSR risk assessment and lethal means screening. Eye Contact:: Good Motor Activity:: Appropriate Appearance:: Casual Speech:: Appropriate Mood:: Anxious, Dysthymic Affect:: Congruent Thoughts:: Linear, Logical, No evidence of hallucinations/delusions noted Staff Interventions:: motivational interviewing, psychoeducation on: - Depression, rapport building, strengths perspective, treatment planning, completed risk assessment / safety planning - completed CSSR, goal setting, other - initial paperwork Client Response:: Client responded well to session, open to meeting with therapist. Client reports looking forward to beginning group therapy and learning skills for better managing her symptoms of anxiety and depression. Discussed ?I never thought I had depression but know that I look back I?m starting to think I have?. Shared she was referred to the [facility] program by her PCP, Dr. Mccrary, after an incident in which she began experiencing increased anxiety ?that just wouldn?t go away?. Shared she is a ?worrier? by nature and her describes her as ?worrying about what she?s going to worry about?; but, recently has found her symptoms more difficult to manage. Client struggled with minimizing the extent of her anxiety and depression throughout the discussion but with time became more open to sharing. Expressed that her primary stressors and worries right now include; a recent stroke which she is still recovering from, worry she will be more isolated as a result of a nationwide influx in COVID-19 cases, a decline in her best friend?s healthy and memory, the health of a nephew how has been battling an unknown life-threatening illness, feeling disconnected from her , and not knowing what to do with herself/boredom. Client described feeling some of her symptoms have improve since beginning Trazodone a few weeks ago, as she had been struggling significantly with sleep over the past year. At time of session, client currently endorsing, feeling down/depressed most days, isolation and loneliness, sadness, difficulties finding enjoyment in activities, ruminating thoughts and increased worry, boredom, and lacking a sense of purpose. Shared that she is hopeful the IOP program will help her feel more enjoyment out of daily life, find activities she enjoys, better manage her anxiety, and feel more connected with her . Shared that her is ?a good judi? and ?very supportive? but is ?a loner? and doesn?t understand mental health or know how to best support her. Receptive of psychoeducation on depression and working to identify aspects of her current routine that may be contributing to maintaining depressive symptoms. Connected with relationship between boredom, and depression. Reports primary goals as improving engagement in healthy activities, increasing socialization with supports, and finding healthy ways for managing anxiety. Risks/Concerns:: Client denies any history of or current suicidal ideation, plan, or intent. No hx of self-harming. Completed initial paperwork. No significant changes since pre-admission screening. Denies any homicidal ideation, plan, or intent. Reports her family as primary protective factors. Completed [place] Suicide Screening with low risk. Future-oriented. Progress Toward Goals/Plan:: Client reports looking forward to the IOP program and discussed wanting to learn new skills for reducing boredom, depression, and better managing anxiety. Client?s first day of IOP tx, so no significant progress noted. Client endorses depressive symptoms such as loneliness, isolation, lack of purpose, and not feeling connected with others. Anxiety issues include worrying about ?everything? especially the health of her loved ones, restlessness, difficulties with sleep, and ruminating thoughts. Client would like to work on improving her relationship with self, learn coping skills, finding activities she enjoys, and feel more connected with her spouse. Client will continue IOP tx to prevent decompensation, improve mood stability, and learn healthy coping skills for decreasing depression and anxiety. Time Stopped:: 09:30
--- NOTE | 2021-08-26 10:15 | BH.SGPN.GN ---
Behaviors/Verbalizations/Mental Status: []Client alert and oriented, casually dressed and groomed. Eye contact good. Motor activity appropriate. Speech within normal limits. Affect congruent, mood anxious and depressed. Thoughts linear, logical, no signs of hallucinations or delusions Client Response/Progress/Benefit: [] Client was attentive throughout and taking notes. First day in IOP treatment and therefore remained passive throughout discussion portions of session. Appeared to connect with group topic of perspective and the impacts of one?s perspective on mental health. This is evidenced by nodding head at times and taking notes. Client attentive as the group worked to identify impact of a negative perspective which included: not believing treatment will work, giving up, negative self-talk, and unhealthy coping. Client appeared to benefit from increasing understanding of mental health benefits of a positive perspective. Shared feeling the group environment was encouraging but that she felt somewhat anxious to keep up with discussion. Responded well to support from fellow participants. Will continue IOP tx to continue to increase mental health insight and repertoire of healthy coping skills, improve symptom management, and prevent decompensation. Narrative Note: []
--- NOTE | 2021-08-26 11:15 | BH.SGPN.GN ---
Behaviors/Verbalizations/Mental Status: []Client alert and oriented, neatly dressed and groomed. Eye contact good. Motor activity appropriate. Speech within normal limits. Affect constricted, mood anxious. Thoughts linear, logical, no signs of hallucinations or delusions. Client Response/Progress/Benefit: []Pt did well to remain attentive throughout session, AEB providing input throughout discussion. Engaged as group reviewed the importance of taking a strengths-based approach in order to foster a healthier perspective and better manage mental health symptoms. Completed strengths exploration worksheet and identified personal strengths to include: honesty, sarcasm, common sense, self-control, empathy, and gratitude. Pt reported she will build her strengths by reaching out to healthy supports for validation. Benefited from identifying personal strengths and strategies for enhancing use of identified strengths. Pt?s fist day of IOP tx. Pt to continue IOP tx to prevent decompensation, improve overall functioning, and gain healthy coping skills. Narrative Note: []
--- NOTE | 2021-08-27 09:00 | BH.SGPN.GN ---
Behaviors/Verbalizations/Mental Status: [] Eye contact is good. Motor activity is appropriate. Appearance is casual. Speech is Appropriate. Mood is anxious. Affect is congruent. Thoughts are linear and logical. No evidence of psychosis. Reviewed daily check in sheet and pt denies any suicidal thoughts or intent. Client Response/Progress/Benefit: [] Pt participated when prompted. Attentive. Daily symptom tracker notes 10/11 for anxiety. This was patient first process group. She reports that she is here to work on her anxiety which leads to restlessness, rumination, and impacts her daily functioning. States I'm not sure why it started impacting me now ... I'm too old for this. Group was supportive and empathized with her concerns and anxiety which was beneficial. No progress noted. Will continue in IOP to prevent decompensation, provide support, increase healthy coping, and improve functioning. Narrative Note: []
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
[2021-08-27 11:59] VITALS: BP 173/77; PULSE 69
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
--- NOTE | 2021-08-27 12:41 | BH.DR.ITP ---
Initial Treatment Plan Patient Information Visit Information: ADMISSION DATE: EXPECTED LOS: 4-6 weeks Problems/Symptoms Problem #1:: Anxiety Symptom:: Worry, rumination, racing thoughts, Problem #2:: Depression Symptom:: Sadness, biological disruption of sleep and appetite, low energy, decreased concentration
--- NOTE | 2021-09-01 09:05 | BH.SGPN.GN ---
Behaviors/Verbalizations/Mental Status: []Client alert and oriented, neatly dressed and groomed. Eye contact fair. Motor activity appropriate. Speech within normal limits. Affect constricted, mood anxious. Thoughts linear, logical, no signs of hallucinations or delusions. Reviewed client?s symptom tracker, no risk for suicidal ideation, plan, or intent as of 09/01/21 Client Response/Progress/Benefit: []Client responded well to session, receptive to support from peers. Client reports feeling anxious this morning and shared I only feel anxious when I come here. Client reports she feels this way because this is new to me and client shared feeling guilty that her brings her here and has to wait. Group offered supportive statements and helped client combat guilt. Client shared her holiday was good and client had a fun time with her children. Client is new to [facility] and reports she is still learning the process of group, so client shared she did not know what else to share today. Appeared to benefit from connecting with peers and challenging guilt. Client has been reporting difficulty in the group sessions due difficulty seeing and self-report of a hard time retaining the information. Client will talk with her [facility] therapist Wednesday to discuss the program. Narrative Note: []
--- NOTE | 2021-09-01 10:16 | BH.SGPN.GN ---
Behaviors/Verbalizations/Mental Status: []Eye contact is fair to good. Motor activity is appropriate. Appearance is casual and grooming tended to. Speech is Appropriate. Mood is anxious and overwhelmed. Affect is congruent. Thoughts are often appearing confused and distracted as pt had difficulties in following materials discussed. No evidence of psychosis Client Response/Progress/Benefit: []Pt was a mostly passive participant throughout, discussing difficulties with following materials discussed and often becoming overwhelmed by trying to remember and take-in the information provided. Reports struggling to take notes and often feeling lost throughout session. Pt has requested copies of notes taken by other participants throughout group which has helped in reducing feelings of being overwhelmed some but continues to struggle to connect with topic at hand. Pt at times appears to zone out or shut down as a result, further impeding her ability to make connections with psychoeducational materials. Therapist will meet with pt prior to group next scheduled session to discuss concerns and possible accommodations to improve group experience and engagement. Will continue IOP tx to improve depression management, increase healthy coping skills, and prevent decompensation. Narrative Note: []
--- NOTE | 2021-09-01 11:20 | BH.SGPN.GN ---
Behaviors/Verbalizations/Mental Status: [] Eye contact is good. Motor activity is appropriate. Appearance is casual. Speech is Appropriate. Mood is anxious. Affect is congruent. Thoughts are linear and logical. No evidence of psychosis. Client Response/Progress/Benefit: [] Pt was attentive throughout group discussion and activity. Attentive during psychoeducation on cognitive distortions not discussed in previous group. Pt engaged when prompted by peers to participant in Cognitive Distortions Jeopardy, however struggles to recall information discussed in previous groups. Pt shared with this therapist after group that she is struggling to full comprehend most group topics discussed due to being too old as well as struggles with vision. Group members have been very helpful encouraging participation and taking notes however she reports the IOP is too long and causing her anxiety. We discussed her limited benefit further and she is agreeable to met with program therapist on 08/04/21 to discuss further. Will meet with program therapist on 09/03/21 to discuss if this level of care is most beneficial as she reports struggling to comprehend, anxiety surrounding groups, difficulty with 3 hour sessions, and other obstacles. Narrative Note: []
--- NOTE | 2021-09-03 11:44 | BH.MDN_ITS ---
Multi-Disciplinary Note - Note 60-min Individual Time Started:: 08:58 Date: 09/03/21 Purpose of session/treatment goals addressed:: To address client current symptoms, stressors, and treatment concerns. Additional purpose was to establish aftercare services. Eye Contact:: Good Motor Activity:: Appropriate Appearance:: Neat, Casual Speech:: Appropriate, Soft Mood:: Anxious Affect:: Congruent Thoughts:: Linear, Logical, Other - at times appearing overwhelmed and therapist having to repeat information discussed, No evidence of hallucinations/delusions noted Staff Interventions:: psychoeducation on: - resources in the area, discharge planning, other - provided reassurance regarding guilt about wanting to discharge from IOP services for individual outpatient treatment. Client Response:: Pt receptive of session and remained engaged throughout. Discussed concerns about remaining in the IOP program as she reports difficulties following along with the pace, not understanding materials presented, and struggling to concentrate throughout the duration of group. Pt explained she has had difficulties with memory and concentration since her stroke on 08/06/21 and believes this may be a contributing factor. Went on to discuss guilt about having her drive her to group multiple times a week as she is currently unable to drive due to ongoing medical issues. Discussed that her waits in the car for the 3 hours she attends group, further contributing to feelings of guilt and anxiety. Pt noted that she has felt welcomed and helped by staff and fellow participants while in the program, but feels that she would do better in an individual outpatient setting. Therapist eased pt's anxiety about disappointing program staff and her primary care physician for not completing the program. Discussed alternative outpatient counseling options and worked with pt to schedule an intake appointment with [facility] for 10/03/21. Pt will continue with her PCP for ongoing medication management. Risks/Concerns:: None noted. Pt denies any SI, plan, or intent as of this date 09/03/21 Progress Toward Goals/Plan:: Limited progress due to client voluntarily discha rging for IOP tx after three days of treatment. Client unable to accomplish her treatment goals due to not completing full IOP program. Client reported difficulties in connecting to treatment materials due to struggling to keep up with group pace as well as difficulties with memory and comprehension client attributes to a recent stroke. Time Stopped:: 09:58
--- NOTE | 2021-09-03 14:29 | BH.DS ---
Discharge Summary - Demographics Date of Admission:: 08/26/21 Discharge Date: 09/03/21 Presenting Problems at Admission:: Client is a 75-year-old female who was referred to the [facility] behavioral health IOP program by her primary care doctor due to worsening anxiety which has been decreasing her ability to function well. Client lives with her and states that her is supportive but is a ?loner? and does not understand how to best help support her. Shared her adult children are sometimes able to provide support but often she feels alone. Client indicated that she has struggled with anxiety much of her life but that it grew significantly worse in June,. She has been somewhat down and anxious since the winter 2019 secondary to the Covid pandemic and feeling increasingly isolated from friends and family as a result. Reports an additional stressor as ongoing difficulties with memory and concentration impacting her ability to continue readying which is a primary coping activity. Currently endorses symptoms of feeling down in the evenings, increased difficulties sleeping due to anxiety, ruminating thoughts and worry lasting all day, decreased energy and motivation, reduced motivation, isolation, and guilt about seeking treatment as her provides transportation. Client current symptoms have been impacting her ability to function at baseline and has impacted her ability to complete daily responsibilities. Discharge Diagnoses:: 1. Generalized anxiety disorder. 2. Adjustment disorder with mixed anxiety and depressed mood (F 43.23) Reason for Discharge:: Client voluntarily discharged from IOP program due to difficulties with engagement, increased anxiety in the group environment, transportation issues, and struggling to commit to length of treatment services. Client discussed concerns with this therapist and treatment team. It was determined that client would most benefit from dropping down to individual outpatient level to best meet client?s specific treatment needs. - Treatment Progress During Treatment & Response: Limited progress due to client voluntarily discharging for IOP tx after three days of treatment. Client unable to accomplish her treatment goals due to not completing full IOP program. Client reported difficulties in connecting to treatment materials due to struggling to keep up with group pace as well as difficulties with memory and comprehension client attributes to a recent stroke. Issues Still to be Addressed:: Client can benefit from learning coping skills to manage increased rumination impacting chronic anxiety levels,, as well as focus on depression management skills. Client would additionally benefit from treatment focusing on improving engagement in self-care activities, increase self-kindness, reduce guilt, and learning how to challenge negative thinking. There is a concern that client's mental health will continue to decompensate if client does not take time to address her mental health symptoms. Discharge Recommendations/Instructions:: Client was encouraged to continue with individual outpatient counseling and was connected to [facility]. Client's initial intake session is scheduled for 10/03/21. CLient will continue to follow-up with primary care for ongoing medication management. Discharge Handout: Complete Discharge Handout with client on aftercare options and continuity of care.
== END 2021-09-03 10:33 | disposition home or self-care (01) ==
LOC: BHIOP 09:47
PROVIDERS: PCP Family Medicine; Referring Provider Psychiatry & Neurology Psychiatry; Visit Provider Psychiatry & Neurology Psychiatry
DX: F41.1 Generalized anxiety disorder (principal); F43.23 Adjustment disorder with mixed anxiety and depressed mood
CPT/HCPCS: S9480; 90837; 90853

== ENCOUNTER 2021-11-21 14:46 | Outpatient (CLI) | payer MEDICARE, OTHER, SELFPAY ==
[2021-11-21 18:25] LABS: Anion Gap 4 (5-15); BUN 27 mg/dL (7-18); BUN/Creat Ratio 31.4 RATIO (10-20); Calcium,Total 9.1 mg/dL (8.5-10.1); Chloride 108 mmol/L (98-107); Cholesterol 128 mg/dL (200); Creatinine, Serum 0.86 mg/dL (0.55-1.02); EST Glomerular Filtration Rate 68 mL/min (>60); Est Glom Filt Rate - Afr Amer 82 mL/min (>60); Free T3 2.1 pg/mL (2.18-3.98); Glucose 91 mg/dL (74-106); High Density Lipoprotein 69 mg/dL; Sodium Level 141 mmol/L (136-145); T4 Free Direct 1.66 ng/dL (0.76-1.46); Thyroid Stim Hormone (TSH) 0.32 uIU/mL (0.358-3.74); Triglycerides 70 mg/dL; Very Low Density Lipoprotein 14 mg/dL (5-40)
== END 2021-11-21 23:59 | disposition home or self-care (01) ==
LOC: MFPLAB 14:48
PROVIDERS: PCP Family Medicine; Referring Provider Family Medicine; Visit Provider Family Medicine
DX: E03.9 Hypothyroidism, unspecified (principal); E78.5 Hyperlipidemia, unspecified
CPT/HCPCS: 36415; 80048; 80061; 84439; 84443; 84481

== ENCOUNTER 2021-12-04 15:58 | Outpatient (CLI) | payer MEDICARE, OTHER, SELFPAY ==
--- NOTE | 2021-12-04 16:04 | CT_ITS ---
STUDY: CT Abdomen And Pelvis W/ Contrast Injection 12/04/2021 7:01 PM REASON FOR EXAM: Female, 76 years old. LOW ABD PAIN,DIARRHEA SURG-GB, HX-HTNPAIN DIVERTICULITIS STAT TECHNIQUE: Transaxial images were obtained with oral contrast, and with Oral and IV Gastrografin and 00mL Isovue-370 intravenous contrast. Individualized dose optimization techniques were used for this CT. COMPARISON: None. FINDINGS: There are atherosclerotic calcifications of visualized coronary arteries. The visualized portions of the heart are within normal limits. Normal liver. There is non-visualization of the gallbladder, which may be secondary to either contraction or a prior cholecystectomy. Normal spleen. Normal pancreas. Normal bilateral adrenal glands. No acute findings of the right kidney. There are hypodensities in the left kidney. These are consistent for cysts. No follow up required. Focal wall thickening of the antrum of stomach. This can suggest a gastritis. Normal small intestine. There are multiple colonic diverticula consistent with diverticulosis. The appendix is visualized and appears normal. There are calcifications of the abdominal aorta. This is consistent for atherosclerotic disease. There is no abdominal aortic aneurysm. Normal inferior vena cava. Subcentimeter mesenteric lymph nodes. Normal urinary bladder. There is atrophy of the uterus.There is bilateral neural foraminal stenosis at L4-5 and L5-S1. Vacuum disc phenomenon. There is an umbilical hernia containing fat. There are diffuse degenerative changes of the visualized lumbar spine. IMPRESSION: (NOT LISTED IN ORDER OF SIGNIFICANCE) Gastritis. There are multiple colonic diverticula consistent with diverticulosis Other findings as above. Electronically Signed: Agustin Yarbrough MD at 19:06 EDT , CT/Abdomen/Pelvis WITH Contrast
[2021-12-04 17:59] LABS: Hematocrit 36.5 % (37-47); Mean Corp Hgb Conc 32.9 g/dL (32-36); Mean Corpuscular Hgb 30.8 pg (27.0-32.0); Mean Corpuscular Volume 93.6 fL (81-99); Mean Platelet Vol. 10.7 fl (6.2-12.0); Platelet Count 222 K/mm3 (150-450); RBC Distribution Width CV 13.4 % (11.6-14.6); RBC Distribution Width SD 46.1 fl (35.1-43.9); White Blood Count 7.5 K/mm3 (4.4-11.0)
[2021-12-04 18:42] LABS: ALB/GLOB Ratio 1.4 RATIO (0.9-2.4); AST(SGOT) 30 U/L (15-37); Alanine Aminotransfer ALT/SGPT 30 U/L (13-56); Albumin, Serum 4.1 g/dL (3.2-5.0); Alkaline Phosphatase 107 U/L (45-117); Anion Gap 5 (5-15); BUN 24 mg/dL (7-18); BUN/Creat Ratio 25.8 RATIO (10-20); Calcium,Total 9.1 mg/dL (8.5-10.1); Chloride 106 mmol/L (98-107); Creatinine, Serum 0.93 mg/dL (0.55-1.02); EST Glomerular Filtration Rate 62 mL/min (>60); Est Glom Filt Rate - Afr Amer 75 mL/min (>60); Free T3 1.5 pg/mL (2.18-3.98); Glucose 113 mg/dL (74-106); Lipase 209 U/L (73-393); Potassium 3.9 mmol/L (3.5-5.1); Protein, Total 7.1 g/dL (6.4-8.2); Sodium Level 139 mmol/L (136-145); T4 Total, Thyroxin 12.8 ug/dL (4.8-13.9); Thyroid Stim Hormone (TSH) 1.45 uIU/mL (0.358-3.74)
== END 2021-12-04 23:59 | disposition home or self-care (01) ==
LOC: CT 16:01
PROVIDERS: PCP Family Medicine; Referring Provider Family Medicine; Visit Provider Family Medicine
DX: K57.92 Diverticulitis of intestine, part unspecified, without perforation or abscess without bleeding (principal); E03.9 Hypothyroidism, unspecified; R10.9 Unspecified abdominal pain
CPT/HCPCS: 36415; 74177; 80053; 83690; 84436; 84443; 84481; 85027; Q9967; A4216

== ENCOUNTER 2021-12-19 12:22 | Emergency (ER) | payer MEDICARE, OTHER, SELFPAY ==
[2021-12-19 12:24] VITALS: BP 160/70; PULSE 74; RESP 18; TEMP 36.7; O2SAT 95; BMI 30.3
[2021-12-19 12:29] VITALS: BMI 30.3
--- NOTE | 2021-12-19 12:31 | EKG12_ITS ---
Test Reason : NEURO S/SX Blood Pressure : / mmHG Vent. Rate : 061 BPM Atrial Rate : 061 BPM P-R Int : 190 ms QRS Dur : 110 ms QT Int : 404 ms P-R-T Axes : 035 -12 032 degrees QTc Int : 406 ms Normal sinus rhythm Normal ECG Confirmed by LEAH JUÁREZ, CHUN ([id number]), supervising editor news reel KRISTINE ALEMAN ([id number]) on 12/22/2021 1:55:35 PM Referred By: FREDERIC Confirmed By:NORA LYNN MD
--- NOTE | 2021-12-19 12:33 | EX.ED.DYSGE1 ---
HPI History of Present Illness Chief Complaint: Neuro S/Sx Informant: patient Narrative Narrative: 76-year-old female states that yesterday at 2300 hrs. she began to have a hard feeling in her right jawline. She states that it feels that it goes slightly behind her right ear along the mandible. She states its not tingling. She has had no speech or vision changes since this started. She denies any arm or leg symptoms. She denies any dental pain. She denies any facial twitching. She reports that she had this 13 years ago when she was told that she had a stroke. She states she also had a stroke in August. She denies any rashes. [facility] Medical History Adjustment disorder with mixed anxiety and depressed mood Bone spur of ankle [id number] ultra-rapid metabolizer Degenerative disc disease, cervical Dyslipidemia Generalized anxiety disorder History of torn meniscus of right knee HTN (hypertension) Hyperlipidemia Nosebleed Obstructive sleep apnea on CPAP Occipital headache Patent foramen ovale Rotator cuff insufficiency of right shoulder Stroke TIA (transient ischemic attack) Home Medications losartan 100 mg PO DAILY 05/13/14 [History Last Taken Unknown] metoprolol succinate 25 mg PO DAILY 05/13/14 [History Last Taken Unknown] cholecalciferol (vitamin D3) 50 mcg (2,000 unit) capsule 2,000 unit PO DAILY 10/21/18 [History Last Taken Unknown] melatonin 10 mg capsule 10 mg PO HS PRN 10/21/18 [History Last Taken Unknown] multivitamin 1 tab PO DAILY 10/21/18 [History Last Taken Unknown] ascorbic acid (vitamin C) 500 mg capsule,extended release 1,000 mg PO DAILY cap 03/07/21 [History Last Taken Unknown] atorvastatin 80 mg tablet 80 mg PO QHS 90 Days #90 tab 03/07/21 [History Last Taken Unknown] calcium carbonate 600 mg calcium (1,500 mg) tablet 1,200 mg PO DAILY tab 03/07/21 [History Last Taken Unknown] levothyroxine 125 mcg tablet 112 mcg PO DAILY tab 03/07/21 [History Last Taken Unknown] polyethylene glycol 3350 17 gram/dose oral powder 17 g PO DAILY 03/07/21 [History Last Taken Unknown] clonazepam 0.5 mg tablet 0.5 mg PO BID 12/07/21 [History Last Taken Unknown] trazodone 150 mg tablet 150 mg PO DAILY 08/12/21 [History Last Taken Unknown] aspirin 81 mg tablet,delayed release 162 mg PO DAILY tab 09/23/21 [History Last Taken Unknown] pantoprazole 20 mg tablet,delayed release 20 mg PO DAILY #90 tab 09/23/21 [Rx Last Taken Unknown] sertraline 50 mg tablet 50 mg PO DAILY tab 10/27/21 [History Last Taken Unknown] famotidine 20 mg tablet 20 mg PO QHS 12/16/21 [History Last Taken Unknown] baclofen 10 mg PO QHS 12/19/21 [History Last Taken Unknown] Allergy/AdvReac Type Severity Reaction Status Date / Time codeine AdvReac Severe Nausea Verified 12/19/21 12:27 morphine AdvReac Severe Nausea Verified 12/19/21 12:27 Family History (Updated 12/16/21 @ 15:41 by Rosemarie Robledo ELECTROPLATING LABORER, ELECTROPLATING LABORER-C) Father Non-Hodgkin lymphoma Heart disease Brother Leukemia Sister Breast cancer Mother Uterine cancer Other Cancer Surgical History H/O section H/O left knee surgery History of bilateral carpal tunnel release History of cholecystectomy History of left knee replacement History of nasal surgery Social History Smoking Status: Never smoker alcohol intake: current alcohol intake frequency: holidays/special occasions only substance use type: does not use caffeine: Yes Type: other Number of servings: 2 ROS ROS ED Constitutional Constitutional ED: Denies chills, fever(s) or weight loss Eyes Eyes: Denies change in vision or diplopia ENT ENT ED: Denies ear pain, rhinorrhea or sore throat Cardiovascular Cardiovascular: Denies chest pain, orthopnea, palpitations or racing heartbeat Respiratory/Chest Respiratory/Chest: Denies cough, dyspnea or orthopnea Gastrointestinal Gastrointestinal: Denies abdominal pain, diarrhea, nausea or vomiting Genitourinary Genitourinary ED: Denies dysuria, hematuria or urinary frequency Musculoskeletal Musculoskeletal: Denies arthralgias or myalgias Integumentary Denies abscess or rash Neurologic Neurologic: Reports paresthesias; Denies headache(s) or weakness Psychiatric Psychiatric: Denies anxiety, depression, suicidal ideation or suicidal thoughts Endocrine Endocrinology: Denies polydipsia, polyphagia or polyuria Allergic/Immunologic Allergic/Immunologic ED: Denies mouth swelling, tongue swelling or urticaria EXAM Physical Exam Const Vital Signs: 12/19/21 12:24 Temperature 98.1 F Temperature Source Temporal Pulse Rate 74 Respiratory Rate 18 Blood Pressure 160/70 H Blood Pressure Mean 100 Pulse Ox 95 Oxygen Delivery Method Room Air Positive well nourished and well developed General Appearance ED: well developed HEENT Reports normocephalic, head/scalp atraumatic, TM's clear and moist mucous membranes HEENT Narrative: I do not appreciate any rash or swelling along the mandible or periauricular area able to smile. Able to raise her eyebrows. Negative for trauma Tympanic Membrane ED: Yes TM's clear Eyes PERRL and EOMs intact bilaterally Neck no lymphadenopathy, supple and no JVD Resp normal respiratory effort and clear to auscultation bilaterally Cardio regular rate, regular rhythm and no murmurs GI normal to inspection, nondistended, normoactive bowel sounds and non-tender Palpation: soft Back/Spine no CVA tenderness and normal ROM Extremity normal to inspection General Extremety ED: Negative for edema General Extremity: Negative for edema Neuro oriented x3, CN's II-XII intact bilaterally and no sensory deficits noted Neuro Narrative: NIH 0 Sensorium / Orientation: alert; Negative for orientation impaired Motor Exam: strength 5/5 throughout Psych mental status grossly normal Mood & Affect: Negative for depressed or tearful Skin no rashes or lesions noted and no wounds MDM MDM MDM Narrative Medical decision making narrative: CT of brain was negative for acute. CBC shows a normal white count of 8.8. Electrolytes showed a potassium of 4.5 calcium 9.5 glucose 9.5. Troponin negative. Interpretation the chest x-ray is no acute process. Her EKG is a normal sinus rhythm. Patient has a NIH of 1. She continues to say that she feels a hardness along her mandible. I do not feel that this is really specific or sensitive for anything I do not think it represents stroke as there is no deficit. Patient was advised to monitor for rash or pain any neurologic changes. Lab Data Attestation: I reviewed the patient's lab results. Labs: Laboratory Results - last 24 hr 12/19/21 12/19/21 12:25 12:25 WBC 8.8 RBC 4.20 Hgb 12.7 Hct 38.1 MCV 90.7 MCH 30.2 MCHC 33.3 RDW Std Deviation 45.6 H RDW Coeff of Dalila 13.7 Plt Count 237 MPV 10.8 Immature Gran % (Auto) 0.300 Neut % (Auto) 65.9 Lymph % (Auto) 23.0 Tillman % (Auto) 8.4 Eos % (Auto) 1.9 Baso % (Auto) 0.5 Absolute Neuts (auto) 5.8 Absolute Lymphs (auto) 2.02 Nucleated RBC % 0 Sodium 140 Potassium 4.5 Chloride 108 H Carbon Dioxide 28.0 Anion Gap 4 L BUN 25 H Creatinine 0.76 Estim Creat Clear Calc 40.04 Est GFR (MDRD) Af Amer 94 Est GFR (MDRD) Non-Af 78 BUN/Creatinine Ratio 32.7 H Glucose 94 Calcium 9.5 Total Bilirubin 1.80 H AST 29 ALT 26 Alkaline Phosphatase 138 H Troponin I High Sens < 3 L Total Protein 6.9 Albumin 3.8 Globulin 3.1 Albumin/Globulin Ratio 1.2 Radiography Diagnostic Testing: Clinical Impression(s) from Imaging Studies Brain CT 12/19/21 12:50 IMPRESSION: Chronic involutional changes of the brain. Electronically Signed: Pa Lewis MD at 13:14 EDT , Chest X-Ray 12/19/21 12:52 IMPRESSION: No acute abnormality is seen. Electronically Signed: Pa Lewis MD at 13:07 EDT , EKG Initial EKG: Attestation: I personally reviewed and interpreted this EKG as follows: Comments: Normal sinus rhythm with a ventricular rate of 61 bpm Discharge Plan Triage Chief Complaint: Neuro S/Sx ED Provider: Samuel Gonzalez Dx/Rx/DC Orders Clinical Impression: Facial paresthesia Instructions: ED Paraesthesias Prescriptions: No Action multivitamin tablet 1 tab PO DAILY RF: 0 melatonin 10 mg capsule 10 mg PO HS PRN (Reason: Insomnia) RF: 0 cholecalciferol (vitamin D3) 2,000 unit capsule 2,000 unit PO DAILY RF: 0 atorvastatin 80 mg tablet 80 mg PO QHS 90 Days Qty: 90 RF: 0 calcium carbonate [Calcium 600] 600 mg calcium (1,500 mg) tablet 1,200 mg PO DAILY RF: 0 ascorbic acid (vitamin C) [Vitamin C] 500 mg capsule, extended release 1,000 mg PO DAILY RF: 0 levothyroxine 125 mcg tablet 112 mcg PO DAILY RF: 0 polyethylene glycol 3350 [Miralax] 17 gram/dose powder 17 g PO DAILY RF: 0 trazodone 150 mg tablet 150 mg PO DAILY RF: 0 clonazepam 0.5 mg tablet 0.5 mg PO BID RF: 0 pantoprazole 20 mg tablet,delayed release (DR/EC) 20 mg PO DAILY Qty: 90 RF: 2 aspirin [Adult Low Dose Aspirin] 81 mg tablet,delayed release (DR/EC) 162 mg PO DAILY RF: 0 sertraline 50 mg tablet 50 mg PO DAILY RF: 0 famotidine 20 mg tablet 20 mg PO QHS RF: 0 metoprolol succinate 25 MG tablet extended release 24 hr 25 mg PO DAILY RF: 0 losartan 100 MG tablet 100 mg PO DAILY RF: 0 baclofen 5 mg tablet 10 mg PO QHS RF: 0 Primary Care Provider: Salvador Barber Referrals: Salvador Barber MD [Primary Care Provider] - 3-5 Days if not improving Disposition Disposition: Home, Self Care
[2021-12-19 12:46] LABS: Absolute Lymphocyte Count 2.02 X10^3/uL (0.83-4.51); Absolute Neutrophil Count 5.8 X10^3/uL (2.0-7.7); Basophil# 0.04 X10^3/uL; Basophil% 0.5 % (0-1); Eosinophil# 0.17 X10^3/uL; Eosinophils% 1.9 % (0-5); Hematocrit 38.1 % (37-47); Hemoglobin 12.7 g/dL (12.0-15.0); Lymphocyte # 2.02 X10^3/ul (0.83-4.51); Mean Corp Hgb Conc 33.3 g/dL (32-36); Mean Corpuscular Hgb 30.2 pg (27.0-32.0); Mean Corpuscular Volume 90.7 fL (81-99); Mean Platelet Vol. 10.8 fl (6.2-12.0); Monocyte# 0.74 X10^3/uL; Monocyte% 8.4 % (0-10); NRBC Flagged by Analyzer 0 % (0-5); Neutrophil # 5.79 X10^3/uL (2.7-7.7); Neutrophil % 65.9 % (47-70); Platelet Count 237 K/mm3 (150-450); RBC Distribution Width CV 13.7 % (11.6-14.6); RBC Distribution Width SD 45.6 fl (35.1-43.9); White Blood Count 8.8 K/mm3 (4.4-11.0)
--- NOTE | 2021-12-19 12:50 | CT_ITS ---
STUDY: CT BRAIN WITHOUT CONTRAST REASON FOR EXAM: Female, 76 years old. Right facial paresthesia RADIATION DOSAGE (If Supplied By Facility): CTDIvol = ( 44.99 ) mGy, DLP = ( 779.24 ) mGycm TECHNIQUE: Transaxial CT imaging of the brain was performed without administration of intravenous contrast material. Individualized dose optimization techniques were used for this CT. COMPARISON: Comparison is made with prior study dated 10/08/2015. FINDINGS: Normal soft tissue structures. Normal calvarium. There is mild cerebral atrophy with widening of the extra-axial spaces and ventricular dilatation. There are areas of decreased attenuation within the white matter tracts of the supratentorial brain, consistent with microvascular disease changes. Stable punctate calcification in the anterior roof of the third ventricle. Normal basal ganglia and thalami. Normal brainstem. Normal cerebellum. There is no intracranial hemorrhage. There are no findings of an acute ischemic infarction. Atherosclerotic calcification of the vertebral arteries and cavernous portions of the internal carotid arteries bilaterally. Normal visualized paranasal sinuses. CT/Brain/Head without Contrast IMPRESSION: Chronic involutional changes of the brain. Electronically Signed: Pa Lewis MD at 13:14 EDT ,
--- NOTE | 2021-12-19 12:52 | RAD_ITS ---
STUDY: X-RAY CHEST REASON FOR EXAM: Female, 76 years old. Hypertension TECHNIQUE: Single AP portable view of the chest. COMPARISON: Comparison is made with prior examination dated 10/21/2018. FINDINGS: EKG electrodes are seen. The lungs are clear and expanded. There is no demonstrated pleural abnormality. Normal size heart. Normal mediastinum and karlo. Normal visualized pulmonary arteries. There is atherosclerotic calcification of the aortic arch with tortuosity. There are diffuse degenerative changes of the visualized thoracic spine. Metallic anchors are seen overlying both humeral heads suggestive of prior bilateral rotator cuff repair. There is no demonstrated abnormality of the visualized soft tissue structures of the upper abdomen. RAD/Chest 1 View (Portable) IMPRESSION: No acute abnormality is seen. Electronically Signed: Pa Lewis MD at 13:07 EDT ,
[2021-12-19 13:07] LABS: ALB/GLOB Ratio 1.2 RATIO (0.9-2.4); AST(SGOT) 29 U/L (15-37); Alanine Aminotransfer ALT/SGPT 26 U/L (13-56); Albumin, Serum 3.8 g/dL (3.2-5.0); Alkaline Phosphatase 138 U/L (45-117); Anion Gap 4 (5-15); BUN 25 mg/dL (7-18); BUN/Creat Ratio 32.7 RATIO (10-20); Calcium,Total 9.5 mg/dL (8.5-10.1); Chloride 108 mmol/L (98-107); Creatinine, Serum 0.76 mg/dL (0.55-1.02); EST Glomerular Filtration Rate 78 mL/min (>60); Est Glom Filt Rate - Afr Amer 94 mL/min (>60); Estimated Creatinine Clearance 40.04 ml/min; Globulin 3.1 g/dL (2.2-4.2); Glucose 94 mg/dL (74-106); Potassium 4.5 mmol/L (3.5-5.1); Protein, Total 6.9 g/dL (6.4-8.2); Sodium Level 140 mmol/L (136-145); Troponin-I HS < 3 pg/mL (3.0-54.0)
[2021-12-19 14:39] VITALS: BP 148/73; PULSE 61; RESP 18; O2SAT 97
[2021-12-22 08:31] LABS: Bedside Glucose 106 mg/dL (74-106)
== END 2021-12-19 14:42 | disposition home or self-care (01) ==
PROVIDERS: Emergency Provider Emergency Medicine; PCP Family Medicine; Visit Provider Emergency Medicine
DX: R20.2 Paresthesia of skin (principal); E78.5 Hyperlipidemia, unspecified; I10 Essential (primary) hypertension; G47.33 Obstructive sleep apnea (adult) (pediatric); Z86.73 Personal history of transient ischemic attack (TIA), and cerebral infarction without residual deficits; Q21.1 Atrial septal defect; M50.30 Other cervical disc degeneration, unspecified cervical region; F43.23 Adjustment disorder with mixed anxiety and depressed mood; Z79.899 Other long term (current) drug therapy; Z79.82 Long term (current) use of aspirin
CPT/HCPCS: 70450; 71045; 80053; 82962; 84484; 85025; 93005; 99284; A4216

== ENCOUNTER → 2022-03-05 | Outpatient (CLI) | payer MEDICARE, OTHER, SELFPAY ==
--- NOTE | 2022-03-05 13:15 | MRI_ITS ---
STUDY: MRI LUMBAR SPINE WITHOUT CONTRAST REASON FOR EXAM: Female, 76 years old. pain, pre surgical TECHNIQUE: Standardized fat and water weighted pulse sequences were obtained in the sagittal and axial planes. COMPARISON: X-ray 02/16/2022 FINDINGS: T12-L1: Normal endplates. Normal disc height, hydration and morphology. Normal bilateral facet joints. Normal central canal and bilateral lateral recesses. Normal bilateral intervertebral neural foramina. Normal lumbar lordosis. Moderate levoscoliosis centered at L4. Normal conus medullaris that terminates at the L1/L2. L1-2: Mild bilateral facet hypertrophy and severe ligament flavum hypertrophy. Moderate bilobed disc protrusion asymmetric to the left produces moderate spinal stenosis with moderate right lateral recess stenosis with abutment of the right L2 nerve root, severe left lateral recess stenosis with effacement of the left L2 nerve root, mild right neural foraminal stenosis and moderate left neural foraminal stenosis. L2-3: Moderate bilateral facet hypertrophy and severe ligament flavum hypertrophy. 2 mm retrolisthesis of L2 on L3 with a moderate bilobed disc protrusion produces severe spinal stenosis with severe bilateral lateral recess stenosis with effacement of the L3 nerve roots bilaterally and moderate bilateral neural foraminal stenosis. L3-4: Mild bilateral facet V and severe ligament flavum hypertrophy. Moderate broad disc protrusion with with an inferiorly extending central disc extrusion produces severe spinal stenosis with severe bilateral lateral recess stenosis with effacement of the L4 nerve roots bilaterally and moderate bilateral neural foraminal stenosis. L4-5: Severe bilateral facet hypertrophy and moderate ligament flavum hypertrophy. 2 mm of anterolisthesis of L4 on L5 with a moderate broad disc protrusion produces severe spinal stenosis and severe right neural foraminal stenosis and moderate left neural foraminal stenosis. L5-S1: Mild bilateral facet hypertrophy and ligament flavum hypertrophy. 2 mm retrolisthesis of L5 on S1 with a mild broad disc protrusion produces moderate spinal stenosis with moderate bilateral lateral recess stenosis with abutment of the S1 nerve roots bilaterally and moderate bilateral neural foraminal stenosis. Normal visualized sacral ala. Normal visualized paraspinous soft tissue structures. MRI/Spine Lumbar (Routine) IMPRESSION: Moderate levoscoliosis and degenerative disc disease as described above. Electronically Signed: Edouard Melvin MD at 16:49 EDT ,
== END | disposition home or self-care (01) ==
LOC: MRI 13:15
PROVIDERS: PCP Family Medicine; Referring Provider Orthopaedic Surgery; Visit Provider Orthopaedic Surgery
DX: M51.26 Other intervertebral disc displacement, lumbar region (principal)
CPT/HCPCS: 72148

== ENCOUNTER 2022-03-16 10:56 | Observation (INO) | payer MEDICARE, OTHER, SELFPAY ==
--- NOTE | 2022-03-03 13:02 | EKG12_ITS ---
Test Reason : PREOP Blood Pressure : / mmHG Vent. Rate : 067 BPM Atrial Rate : 067 BPM P-R Int : 178 ms QRS Dur : 112 ms QT Int : 402 ms P-R-T Axes : 036 -04 038 degrees QTc Int : 424 ms Normal sinus rhythm Normal ECG Confirmed by NAOMI JUÁREZ, TOMAS ([id number]), food editor KRISTINE ALEMAN ([id number]) on 03/04/2022 8:53:01 AM Referred By: Hari Christie Confirmed By:TOMAS SALGADO MD
[2022-03-03 13:44] LABS: Absolute Lymphocyte Count 1.52 X10^3/uL (0.83-4.51); Absolute Neutrophil Count 5.2 X10^3/uL (2.0-7.7); Basophil# 0.03 X10^3/uL; Basophil% 0.4 % (0-1); Eosinophil# 0.15 X10^3/uL; Eosinophils% 2.1 % (0-5); Hematocrit 37.4 % (37-47); Hemoglobin 12.5 g/dL (12.0-15.0); Lymphocyte # 1.52 X10^3/ul (0.83-4.51); Lymphocyte % 20.9 % (19-41); Mean Corp Hgb Conc 33.4 g/dL (32-36); Mean Corpuscular Hgb 31.3 pg (27.0-32.0); Mean Corpuscular Volume 93.5 fL (81-99); Mean Platelet Vol. 10.4 fl (6.2-12.0); Monocyte# 0.41 X10^3/uL; Monocyte% 5.6 % (0-10); NRBC Flagged by Analyzer 0 % (0-5); Neutrophil # 5.15 X10^3/uL (2.7-7.7); Neutrophil % 70.7 % (47-70); Platelet Count 213 K/mm3 (150-450); RBC Distribution Width CV 13.9 % (11.6-14.6); RBC Distribution Width SD 48.7 fl (35.1-43.9); White Blood Count 7.3 K/mm3 (4.4-11.0)
[2022-03-03 13:53] LABS: International Normalized Ratio 1.1; Partial Thromboplast Time 23.7 Seconds (24.1-36.2); Prothrombin Time (Protime)PT. 13.4 SECONDS (11.7-14.9)
[2022-03-03 14:03] LABS: Anion Gap 7 (5-15); BUN 22 mg/dL (7-18); BUN/Creat Ratio 23.8 RATIO (10-20); Calcium,Total 9.2 mg/dL (8.5-10.1); Chloride 106 mmol/L (98-107); Creatinine, Serum 0.92 mg/dL (0.55-1.02); EST Glomerular Filtration Rate 62 mL/min (>60); Est Glom Filt Rate - Afr Amer 76 mL/min (>60); Glucose 183 mg/dL (74-106); Sodium Level 141 mmol/L (136-145)
[2022-03-03 14:20] LABS: AST(SGOT) 23 U/L (15-37); Alanine Aminotransfer ALT/SGPT 21 U/L (13-56); Alkaline Phosphatase 91 U/L (45-117); Bilirubin, Direct 0.39 mg/dL (0.00-0.30); Globulin 2.9 g/dL (2.2-4.2); Magnesium 2.2 mg/dL (1.6-2.6); Protein, Total 6.9 g/dL (6.4-8.2); Thyroid Stim Hormone (TSH) 1.61 uIU/mL (0.358-3.74)
[2022-03-03 14:44] LABS: HIV - WCH Non-Reactive (Nonreactive); Hepatitis B Surface Antibody Non-Reactive; Hepatitis C Antibody Non-Reactive (Nonreactive)
[2022-03-05 10:43] LABS: Hepatitis A AB, Total Negative (Negative)
--- NOTE | 2022-03-13 10:24 | PCM.HP.BLA ---
History and Physical Addendum MR#: [id number] Acct: [id number] Name:DONOVAN CROOKS Rep #: [id number] : 1945 ? ? Provider: Dr. Hari Christie, DO Age/Sex:? 76/F ? ? [place] [facility] [place] Status: Signed Intake Vital Signs ? 02/16/2210:33 Height 5 ft 4 in Weight: 179 lb BMI 30.7 Intake Visit Reasons:?low back pain Is patient in pain?: Yes Pain scale (1-10): 10 Allergies codeine Adverse Reaction (Severe, Verified 12/19/21 12:27) Nauseamorphine Adverse Reaction (Severe, Verified 12/19/21 12:27) Nausea Medications losartan 100 mg PO DAILY 05/13/14 [History Confirmed 02/16/22] metoprolol succinate 25 mg PO DAILY 05/13/14 [History Confirmed 02/16/22] cholecalciferol (vitamin D3) 50 mcg (2,000 unit) capsule 2,000 unit PO DAILY 10/21/18 [History Confirmed 02/16/22] melatonin 10 mg capsule 10 mg PO HS PRN 10/21/18 [History Confirmed 02/16/22] multivitamin 1 tab PO DAILY 10/21/18 [History Confirmed 02/16/22] ascorbic acid (vitamin C) 500 mg capsule,extended release 1,000 mg PO DAILY? cap 03/07/21 [History Confirmed 02/16/22] atorvastatin 80 mg tablet 80 mg PO QHS 90 Days #90 tab 03/07/21 [History Confirmed 02/16/22] calcium carbonate 600 mg calcium (1,500 mg) tablet 1,200 mg PO DAILY? tab 03/07/21 [History Confirmed 02/16/22] levothyroxine 125 mcg tablet 112 mcg PO DAILY? tab 03/07/21 [History Confirmed 02/16/22] clonazepam 0.5 mg tablet 0.5 mg PO BID 08/12/21 [History Confirmed 02/16/22] trazodone 150 mg tablet 150 mg PO DAILY 08/12/21 [History Confirmed 02/16/22] aspirin 81 mg tablet,delayed release 162 mg PO DAILY? tab 09/23/21 [History Confirmed 02/16/22] pantoprazole 20 mg tablet,delayed release 20 mg PO DAILY #90 tab 09/23/21 [Rx Confirmed 02/16/22] sertraline 50 mg tablet 50 mg PO DAILY? tab 10/27/21 [History Confirmed 02/16/22] famotidine 20 mg tablet 20 mg PO QHS 12/16/21 [History Confirmed 02/16/22] baclofen 10 mg PO QHS 12/19/21 [History Confirmed 02/16/22] PFSH Medical History? Adjustment disorder with mixed anxiety and depressed mood Bone spur of ankle [id number] ultra-rapid metabolizer Degenerative disc disease, cervical Dyslipidemia Generalized anxiety disorder History of torn meniscus of right knee HTN (hypertension) Hyperlipidemia Nosebleed Obstructive sleep apnea on CPAP Occipital headache Patent foramen ovale Rotator cuff insufficiency of right shoulder Stroke TIA (transient ischemic attack) Surgical History? H/O section H/O left knee surgery History of bilateral carpal tunnel release History of cholecystectomy History of left knee replacement History of nasal surgery Family History?(Updated 12/16/21 @ 15:41 by Rosemarie Robledo CATHODE MAKER, CATHODE MAKER-C) Father Non-Hodgkin lymphoma Heart diseaseBrother LeukemiaSister?? Breast cancerMother Uterine cancerOther Cancer Social History? Smoking Status:? Never smoker alcohol intake:? current alcohol intake frequency: holidays/special occasions only substance use type:? does not use caffeine:? Yes Type: other Number of servings: 2 HPI low back pain Details: Parts of this documentation were recorded by a scribe, this documentation accurately reflects the service provided and the decisions made by me, Dr. Hari Christie, 02/16/22 1025. DONOVAN BRADY is a 76 year old F here today new patient for low back pain and left leg pain. Patient notes that she has pain over her lateral foot, lateral calf, lateral thigh and into her tailbone. Patient states that she has had pain for a few months with her pain progressively worsening. Patient has increased pain with sitting and bending over. She is unable to drive her car due to her pain. Patient has tried heating which is helpful. She has had a caudal injection by Dr Ludwig in December which was not helpful. Patient denies any recent physical therapy. Patient denies any home care administrator. Patient had an MRI which she brought with her. Patient had xrays in 2019. Mrs. Brady is a most pleasant lady 76 years old and has a chief complaint of pain in the left side of her back that radiates in her buttocks and down her left leg and what seems to be an S1 dermatome.? This is been going on for some time and is gradually gotten worse over time.? The epidurals that she has had in the past have not helped her of late.? Medrol Dosepaks have not helped her either.? Even Vicodin does not seem to have helped her much.? She is quite miserable.? She denies any bowel or bladder dysfunction.? She denies history of unexplained weight loss night fever sweats or chills. On examination she has more pain with extension and flexion of her lumbar spine.? She has reasonable motor strength of all the major muscle groups of both lower extremities.? Barely has perceptible Achilles and posterior tibialis and patellar reflexes bilaterally.? She has no long tract signs.? Clonus is absent Babinski's are downgoing.? She can stand on her toes and she can stand on her heels. Reviewed her MRI scan.? The quality was questionable.? Nonetheless it was enough to see that she has a disc protrusion at L5-S1 on the left side which seems to be consistent with the pain down her leg.? However she has severe stenosis at L4-5 and almost as severe at L3-4.? She will need all 3 levels decompressed.? I believe that I will order a new MRI scan of the lumbar spine to get better study prior to her surgery.? I will see her again 1 week before the surgery. Coding Level of Care Code
[2022-03-16] VITALS (11 sets, daily range): BP systolic 111–135; BP diastolic 52–73; PULSE 62–80; RESP 15–18; TEMP 36–36.6; O2SAT 94–100; BMI 29.5
--- NOTE | 2022-03-16 06:30 | RAD_ITS ---
STUDY: X-RAY - LUMBAR SPINE REASON FOR EXAM: Female, 76 years old. LAMINECTOMY L5-S1, DECOMPRESSION LAMINECTOMY L3-5, LEFT TECHNIQUE: 1 view(s) of the lumbar spine were obtained. COMPARISON: Comparison is made with prior study dated 02/16/2022. FINDINGS: The localization instrument is seen posterior to the L4-L5 disc space level. RAD/Spine 1 View Any Level IMPRESSION: The localization instrument is seen posterior to the L4-L5 disc space level. Electronically Signed: Pa Lewis MD at 9:17 EDT ,
[2022-03-16] MEDS: Lactated Ringers 1,000 ML 15 ML IV ×2 (06:37→09:00)
[2022-03-16] MEDS: Acetaminophen 500 MG Tablet 1000 MG PO ×3 (06:37→22:09)
[2022-03-16 07:00] LABS: Bedside Glucose 87 mg/dL (74-106)
[2022-03-16] MEDS: Cefazolin 2 GM in 0.9% Normal Saline 100 ML IV (08:00)
[2022-03-16] MEDS: THROMBIN (RECOMBINANT) 20,000 UNIT VIAL 20000 UNIT TOPICAL (08:20)
--- NOTE | 2022-03-16 11:05 | OP.PCM_ITS ---
Report of Operation Description of Surgical Findings:: Preoperative diagnosis: Severe spinal stenosis L4-5 and L3-4 Postoperative diagnosis: The same Procedures: #1 lumbar laminectomy decompression L4-5 CPT code 06276 #2 lumbar laminectomy decompression L3-4 CPT code 03491/51 Surgeon: Dr. Christie certified surgical tech/first assistant: Megan LUTHER Anesthesia: General endotracheal administered by [facility] Estimated blood loss: 100 cc Drains: Medium Hemovac Complications: None Procedure: Patient was taken to the OR where she was placed under general endotracheal anesthesia. Neuro monitoring placed their leads to the patient. A Sanford catheter was inserted. We then placed her in the prone position on the Derrell frame. After appropriate positioning with care to protect her bony prominences her breasts her brachial plexus bilaterally and the ulnar nerves bilaterally and the cervical spine and facial features the back was prepped and draped in standard fashion. I then made a longitudinal incision centered over what I thought would be L4-5. Subcutaneous tissues were incised the length of the skin incision I then opened the lumbar fascia using cautery to the left of the spinous processes elevated the paravertebral muscles off of the spinous process and lamina of 4. I then put a marker at the interspace between L4-5 took an intraoperative x-ray. This was confirmed by radiology that it was indeed at L4-5. I went ahead and extended the incision cephalad opened the lumbar fascia to the left of the spinous process of L3 and out over the lamina of L3. Bleeders were controlled with cautery. Thorough irrigation was carried out we then packed the left side and we opened the right side elevating the paravertebral muscles off of the lamina of 4 and the lamina of L3. Again thorough irrigation was carried out we then put the super slide retractors in place. We then removed the spinous process of L4 and the spinous process of L3. This was done using double-action rongeurs we then thinned down the lamina at both levels on both sides. Again using double-action rongeurs. I then elevated the ligamentum flavum off the underside of the lamina of L4 I started with a laminectomy using both #3 is #4's and even #5 Kerrisons to perform the laminectomy. I then split the ligamentum flavum in the midline note that it was quite severe stenosis and great care was taken to try to prevent a tear of the dura. I began the removal using 45 degree Kerrison rongeurs. I oftentimes placed cottonoids under it between the dura and the ligamentum flavum to protect the dura. Completely opened the right side from the left side of the patient where I was standing. Left side would be finished when I moved to the other side of the table. In the meantime however I did the same thing at L3 releasing the ligamentum flavum off the underside of the lamina carried out the laminotomy laminectomy with 45 degree Kerrison rongeurs again the ligamentum flavum was split in the middle and cottonoids were used to protect it as I remove the ligamentum flavum all the way out to the lateral recess on the right side and some on the left. I then moved to the opposite side of the table went back to the L4 and removed the remaining ligamentum flavum with 45 degree Kerrison rongeurs this was done also at the L3 level this completely opened up the canal and we could see the difference from the beginning until we finish the case. Thorough irrigation was carried out. Bleeders were controlled with bipolar cautery and thrombin-soaked Gelfoam. Neotic membranes were placed at both laminotomy sites followed by Gelfoam placed over the top of this. A medium Hemovac drain was inserted. I then closed the lumbar fascia using [id number] suture with #1 Vicryl followed by closure of subcutaneous tissues in layers with first 0 Vicryl for the deep layer and 2-0 Vicryl for the upper layer in interrupted fashion. The skin was approximated using skin clips sterile dressings were applied the Hemovac drain was secured. She was then recovered in the OR moved to her hospital bed and taken to recovery in satisfactory condition. This end of operative summary on Heather Brady. This is Dr. Christie dictating.
[2022-03-16] MEDS: Lactated Ringers 1,000 ML 100 ML IV (14:26)
--- NOTE | 2022-03-16 16:25 | PCM.PN.HOSP ---
Subjective Subjective Patient is a 76-year-old lady with past medical history is again for severe spinal stenosis involving L4-5 and L3-4 who underwent lumbar laminectomy decompression involving L4-5 and L3-4. The hospitalist service was consulted to assist with management of patient medical comorbidities Objective Data Objective Data Vital Signs: Vital Signs Temp Pulse Resp BP Pulse Ox O2 Del Method O2 Flow Rate 97.6 F L 73 15 125/63 H 100 Nasal Cannula 2 03/16/22 14:57 03/16/22 14:57 03/16/22 14:57 03/16/22 14:57 03/16/22 14:57 03/16/22 14:57 03/16/22 14:57 Oxygen Flow Rate (L/min) 2 Oxygen Delivery Method Nasal Cannula Weight: 77.9 kg Body Mass Index (BMI) 29.5 Intake & Output: Intake and Output for Last 24 Hours 03/14/22 03/15/22 03/16/22 23:59 23:59 23:59 Intake Total 1212 / 1212 Output Total 390 / 390 Balance 822 / 822 Medical Nutrition Assessment Dietitian: Malnutrition Criteria Met Start: 03/16/22 15:20 Freq: Status: Active Protocol: Document 03/16/22 15:21 HENRY (Rec: 03/16/22 15:21 SLA [id number]) Nutrition Malnutrition Evidence of Malnutrition Exists Yes Malnutrition (severe): Acute Illness/Injury Evidenced By Suboptimal Energy Intake ( Severe),Weight Loss (Severe), Physical Changes (Mild) Clinical Problem Acute Disease or Injury Related Malnutrition Etiology related to inadequate energy intake Signs/Symptoms as evidenced by est po intake meeting <75% of energy needs and 12.5% unintended wt loss; appears to have fat/muscle loss in upper arms, temporal/ orbital/buccal areas on face. Status Active Problem Recommendation Dietitian Recommendations/Changes Will continue liberal Regular diet Will continue Ensure Surgery w / medpass tid for increased nutrition if consumed. Lab / Micro Data Result Diagrams: 03/03/22 13:19 03/03/22 13:19 Labs: Laboratory Results - last 24 hr 03/16/22 06:17: POC Glucose 87 Micro: Microbiology 03/03/22 13:19 Swab (Method) Nasal Screen MRSA/MSSA - Final Radiography Diagnostic Testing: Radiology Impression Spine X-Ray 03/16/22 06:30 IMPRESSION: The localization instrument is seen posterior to the L4-L5 disc space level. Electronically Signed: Pa Lewis MD at 9:17 EDT , Physical Exam Narrative GENERAL: cooperative HEENT: Atraumatic; EYES; Anicteric, Normal Conjunctiva NECK; supple, normal thyroid, RESPIRATORY: Diminished to auscultation CARDIOVASCULAR: Regular S1 S2, GI: soft, normoactive bowel sounds, : No Renal angle tenderness; EXTREMITIES: No edema, no clubbing, MUSCULOSKELETAL: no muscle wasting NEURO: Awake; no lateralizing signs. SKIN: No Rash PSYCH; Flat affect Assessment & Plan Assessment/Plan (1) Spinal stenosis of lumbar region at multiple levels: PLAN: Plan Patient is a 76-year-old lady with past medical history is again for severe spinal stenosis involving L4-5 and L3-4 who underwent lumbar laminectomy decompression involving L4-5 and L3-4. The hospitalist service was consulted to assist with management of patient medical comorbidities 1. Spinal stenosis ? Status post lumbar laminectomy decompression involving L4-5 and L3-[address] Christie on 03/16/2022 2. Hypertension - Blood pressure controlled, home medications continued with dose adjustment as needed 3. Dyslipidemia -Patient is on statin therapy, continued at home dose 4. Hypothyroidism - Patient is on levothyroxine home dose continued 5. DVT prophylaxis ? Bilateral SCDs Charges/Coding Visit Charges Inpatient E&M: 30553 Subs Hosp L2
[2022-03-16] MEDS: Cefazolin 1 GM/50 ML BAG IV (17:09)
[2022-03-16] MEDS: Ensure Surgery 237 ML LIQUID PO (17:10)
[2022-03-16] MEDS: traMADol 50 MG Tablet PO (20:47)
[2022-03-16] MEDS: clonazePAM 0.5 MG Tablet PO (22:09)
[2022-03-16] MEDS: Losartan Potassium 100 MG Tablet PO (22:09)
[2022-03-16] MEDS: Atorvastatin Calcium 80 MG Tablet PO (22:09)
[2022-03-16] MEDS: Famotidine 20 MG Tablet PO (22:09)
[2022-03-16] MEDS: traZODone 50 MG Tablet 150 MG PO (22:10)
[2022-03-17] MEDS: Lactated Ringers 1,000 ML 100 ML IV (01:13)
[2022-03-17] MEDS: Cefazolin 1 GM/50 ML BAG IV (01:19)
[2022-03-17] MEDS: Acetaminophen 500 MG Tablet 1000 MG PO ×3 (05:13→20:52)
[2022-03-17] MEDS: Levothyroxine 112 MCG Tablet PO (05:14)
[2022-03-17 06:00] VITALS: BP 135/60; PULSE 64; RESP 16; TEMP 36.6; O2SAT 97
[2022-03-17 07:20] VITALS: O2SAT 97
--- NOTE | 2022-03-17 07:27 | PN.HOSP_ITS ---
Subjective Subjective Postoperative day 1. Patient seen complains of some stiffness in the low back Objective Data Objective Data Vital Signs: Vital Signs Temp Pulse Resp BP Pulse Ox O2 Del Method O2 Flow Rate 98 F 64 16 135/60 H 97 Room Air 3 03/17/22 06:00 03/17/22 06:00 03/17/22 06:00 03/17/22 06:00 03/17/22 06:00 03/17/22 06:00 03/16/22 15:52 Oxygen Flow Rate (L/min) 3 Oxygen Delivery Method Room Air Weight: 77.9 kg Body Mass Index (BMI) 29.5 Intake & Output: Intake and Output for Last 24 Hours 03/15/22 03/16/22 03/17/22 23:59 23:59 23:59 Intake Total 1535.33 / 1535.33 776.67 / 776.67 Output Total 750 / 1680 1405 / 1405 Balance 785.33 / -144.67 -628.33 / -628.33 Medical Nutrition Assessment Dietitian: Malnutrition Criteria Met Start: 03/16/22 15:20 Freq: Status: Active Protocol: Document 03/16/22 15:21 [facility] (Rec: 03/16/22 15:21 [facility] [id number]) Nutrition Malnutrition Evidence of Malnutrition Exists Yes Malnutrition (severe): Acute Illness/Injury Evidenced By Suboptimal Energy Intake ( Severe),Weight Loss (Severe), Physical Changes (Mild) Clinical Problem Acute Disease or Injury Related Malnutrition Etiology related to inadequate energy intake Signs/Symptoms as evidenced by est po intake meeting <75% of energy needs and 12.5% unintended wt loss; appears to have fat/muscle loss in upper arms, temporal/ orbital/buccal areas on face. Status Active Problem Recommendation Dietitian Recommendations/Changes Will continue liberal Regular diet Will continue Ensure Surgery w / medpass tid for increased nutrition if consumed. Lab / Micro Data Result Diagrams: 03/03/22 13:19 03/03/22 13:19 Micro: Microbiology 03/03/22 13:19 Swab (Method) Nasal Screen MRSA/MSSA - Final Radiography Diagnostic Testing: Radiology Impression Spine X-Ray 03/16/22 06:30 IMPRESSION: The localization instrument is seen posterior to the L4-L5 disc space level. Electronically Signed: Pa Lewis MD at 9:17 EDT , Physical Exam Narrative GENERAL: cooperative HEENT: Atraumatic; EYES; Anicteric, Normal Conjunctiva NECK; supple, normal thyroid, RESPIRATORY: Diminished to auscultation CARDIOVASCULAR: Regular S1 S2, GI: soft, normoactive bowel sounds, : No Renal angle tenderness; EXTREMITIES: No edema, no clubbing, MUSCULOSKELETAL: no muscle wasting NEURO: Awake; no lateralizing signs. SKIN: No Rash PSYCH; Flat affect Assessment & Plan Assessment/Plan (1) Spinal stenosis of lumbar region at multiple levels: PLAN: Plan Patient is a 76-year-old lady with past medical history is again for severe spinal stenosis involving L4-5 and L3-4 who underwent lumbar laminectomy decompression involving L4-5 and L3-4. The hospitalist service was consulted to assist with management of patient medical comorbidities 1. Spinal stenosis ? Status post lumbar laminectomy decompression involving L4-5 and L3-[address] Christie on 03/16/2022 2. Hypertension - Blood pressure controlled, home medications continued with dose adjustment as needed 3. Dyslipidemia -Patient is on statin therapy, continued at home dose 4. Hypothyroidism - Patient is on levothyroxine home dose continued 5. DVT prophylaxis ? Bilateral SCDs 6. Obstructive sleep apnea ? Patient is on CPAP at night Charges/Coding Visit Charges Inpatient E&M: 47096 Subs Hosp L2
[2022-03-17 09:23] VITALS: PULSE 64
[2022-03-17] MEDS: Pantoprazole Sodium 20 MG Tablet PO (09:23)
[2022-03-17] MEDS: Sertraline 50 MG Tablet PO (09:23)
[2022-03-17] MEDS: Metoprolol(XL)Succ 25 MG Tablet PO (09:23)
[2022-03-17] MEDS: clonazePAM 0.5 MG Tablet PO ×2 (09:27→20:56)
[2022-03-17] MEDS: Ensure Surgery 237 ML LIQUID PO ×2 (09:27→15:47)
--- NOTE | 2022-03-17 10:20 | CASEMGMT ---
RN CM Face to Face with patient for initial transition planning/care coordination assessment. RN CM introduced self and role at [facility]. Patient sitting in chair, alert and oriented. Patient willing to participate in assessment and is able to answer all questions appropriately. Care providers, pharmacy, and demographics verified. Patient wishes to discharge home, denies need for home health at this time. Patient states she has no further needs or concerns at this time. CM to follow for discharge planning needs that may arise. PCP: Sunil Specialists: Pratik, spinal surgeon; Patel, population geneticist; Sergey, Neuro; Stephan, rotary furnace tender Preferred Pharmacy: [facility] Insurance: [employer], [employer] Prescription Benefit: yes Living Will/HPOA: yes, Jaziel Brady LNOK: Living Arrangements: Patient lives with in a single story home with 2 steps and railingx2 to enter the home. Patient states she was independent at home prior to surgery Transportation: self, DME/HHC: Patient states she has shower chair, raised toilet, grab bars, walker, cpap at home. Patient states her walker is older and would like a FWW. DME agencies reviewed with patient and prefers [employer]. CM to assist patient with new walker. Disposition Plan: Patient to discharge home with family support and follow-up plans in place. Anita HICKEY, RN, CM
--- NOTE | 2022-03-17 10:25 | CASEMGMT ---
NITHYA CM in to complete HUMPHREY form with patient. RN JOSE explained HUMPHREY form to patient, patient voiced understanding. Patient signed HUMPHREY form and filed in chart. Patient provided with copy of signed HUMPHREY form. Patient had no further questions or concerns at this time.
[2022-03-17 11:00] VITALS: BP 143/80; PULSE 71; RESP 16; TEMP 36.3; O2SAT 99
--- NOTE | 2022-03-17 15:09 | PCM.PN.ORT ---
Objective Data Objective Data Postop day 9 or 1. Patient is seen on rounds and she is doing quite well. She has been up and walking around the hallways with her walker and has hardly any complaints. She relates that her leg pain is all gone. She is very pleased about that as I am to. Her back pain is tolerable. I told her to continue her ambulation I do not feel that she is quite ready to go home just yet. I will see her tomorrow around noon time and hopefully be able to send her home. I will change her dressings and remove her drain at that time as the drain is not ready to come out today. Neuro is intact in both lower extremities. The dressing is dry. I will see her again tomorrow. Vital Signs: Vital Signs Temp Pulse Resp BP Pulse Ox O2 Del Method O2 Flow Rate 97.3 F L 71 16 143/80 H 99 Room Air 3 03/17/22 11:00 03/17/22 11:00 03/17/22 11:00 03/17/22 11:00 03/17/22 11:00 03/17/22 11:00 03/16/22 15:52 Oxygen Flow Rate (L/min) 3 Oxygen Delivery Method Room Air Weight: 171 lb 11.841 oz Body Mass Index (BMI) 29.5 Intake & Output: Intake and Output for Last 24 Hours 03/15/22 03/16/22 03/17/22 23:59 23:59 23:59 Intake Total 1535.33 / 1535.33 2776.67 / 2776.67 Output Total 750 / 1680 1405 / 1405 Balance 785.33 / -144.67 1371.67 / 1371.67 Medical Nutrition Assessment Dietitian: Malnutrition Criteria Met Start: 03/16/22 15:20 Freq: Status: Active Protocol: Document 03/16/22 15:21 HENRY (Rec: 03/16/22 15:21 HENRY [id number]) Nutrition Malnutrition Evidence of Malnutrition Exists Yes Malnutrition (severe): Acute Illness/Injury Evidenced By Suboptimal Energy Intake ( Severe),Weight Loss (Severe), Physical Changes (Mild) Clinical Problem Acute Disease or Injury Related Malnutrition Etiology related to inadequate energy intake Signs/Symptoms as evidenced by est po intake meeting <75% of energy needs and 12.5% unintended wt loss; appears to have fat/muscle loss in upper arms, temporal/ orbital/buccal areas on face. Status Active Problem Recommendation Dietitian Recommendations/Changes Will continue liberal Regular diet Will continue Ensure Surgery w / medpass tid for increased nutrition if consumed. Lab / Micro Data Result Diagrams: 03/03/22 13:19 03/03/22 13:19 Micro: Microbiology 03/03/22 13:19 Swab (Method) Nasal Screen MRSA/MSSA - Final
[2022-03-17 17:00] VITALS: BP 125/75; PULSE 76; RESP 16; TEMP 36.4; O2SAT 99
[2022-03-17 20:48] VITALS: BP 142/60; PULSE 79; RESP 18; TEMP 36.7; O2SAT 99
[2022-03-17] MEDS: Atorvastatin Calcium 80 MG Tablet PO (20:52)
[2022-03-17] MEDS: Fluticasone 0.05% 1 SPRAY NASAL.SRY 2 SPRAY NASAL (20:52)
[2022-03-17] MEDS: Famotidine 20 MG Tablet PO (20:53)
[2022-03-17] MEDS: Losartan Potassium 100 MG Tablet PO (20:53)
[2022-03-17] MEDS: traZODone 50 MG Tablet 150 MG PO (22:20)
[2022-03-18 03:37] VITALS: BP 122/53; PULSE 78; RESP 18; TEMP 36.4; O2SAT 98
[2022-03-18] MEDS: Acetaminophen 500 MG Tablet 1000 MG PO ×2 (06:10→13:33)
[2022-03-18] MEDS: Levothyroxine 112 MCG Tablet PO (06:10)
--- NOTE | 2022-03-18 07:27 | PCM.PN.HOSP ---
Subjective Subjective Patient seen had a relatively unremarkable night. Pain is well tolerated. Objective Data Objective Data Vital Signs: Vital Signs Temp Pulse Resp BP Pulse Ox O2 Del Method O2 Flow Rate 97.6 F L 78 18 122/53 H 98 Room Air 3 03/18/22 03:37 03/18/22 03:37 03/18/22 03:37 03/18/22 03:37 03/18/22 03:37 03/18/22 03:40 03/16/22 15:52 Oxygen Flow Rate (L/min) 3 Oxygen Delivery Method Room Air Weight: 77.9 kg Body Mass Index (BMI) 29.5 Intake & Output: Intake and Output for Last 24 Hours 03/16/22 03/17/22 03/18/22 23:59 23:59 23:59 Intake Total 1535.33 / 1535.33 2776.67 / 2776.67 Output Total 750 / 1680 2004 0 / 0 Balance 785.33 / -144.67 771.67 / 771.67 0 / 0 Medical Nutrition Assessment Dietitian: Malnutrition Criteria Met Start: 03/16/22 15:20 Freq: Status: Active Protocol: Document 03/16/22 15:21 [facility] (Rec: 03/16/22 15:21 [facility] [id number]) Nutrition Malnutrition Evidence of Malnutrition Exists Yes Malnutrition (severe): Acute Illness/Injury Evidenced By Suboptimal Energy Intake ( Severe),Weight Loss (Severe), Physical Changes (Mild) Clinical Problem Acute Disease or Injury Related Malnutrition Etiology related to inadequate energy intake Signs/Symptoms as evidenced by est po intake meeting <75% of energy needs and 12.5% unintended wt loss; appears to have fat/muscle loss in upper arms, temporal/ orbital/buccal areas on face. Status Active Problem Recommendation Dietitian Recommendations/Changes Will continue liberal Regular diet Will continue Ensure Surgery w / medpass tid for increased nutrition if consumed. Lab / Micro Data Result Diagrams: 03/03/22 13:19 03/03/22 13:19 Micro: Microbiology 03/03/22 13:19 Swab (Method) Nasal Screen MRSA/MSSA - Final Physical Exam Narrative GENERAL: cooperative HEENT: Atraumatic; EYES; Anicteric, Normal Conjunctiva NECK; supple, normal thyroid, RESPIRATORY: Diminished to auscultation CARDIOVASCULAR: Regular S1 S2, GI: soft, normoactive bowel sounds, : No Renal angle tenderness; EXTREMITIES: No edema, no clubbing, MUSCULOSKELETAL: no muscle wasting NEURO: Awake; no lateralizing signs. SKIN: No Rash PSYCH; Flat affect Assessment & Plan Assessment/Plan (1) Spinal stenosis of lumbar region at multiple levels: PLAN: Plan Patient is a 76-year-old lady with past medical history is again for severe spinal stenosis involving L4-5 and L3-4 who underwent lumbar laminectomy decompression involving L4-5 and L3-4. The hospitalist service was consulted to assist with management of patient medical comorbidities 1. Spinal stenosis ? Status post lumbar laminectomy decompression involving L4-5 and L3-[address] Christie on 03/16/2022 2. Hypertension - Blood pressure controlled, home medications continued with dose adjustment as needed 3. Dyslipidemia -Patient is on statin therapy, continued at home dose 4. Hypothyroidism - Patient is on levothyroxine home dose continued 5. DVT prophylaxis ? Bilateral SCDs 6. Obstructive sleep apnea ? Patient is on CPAP at night Charges/Coding Visit Charges Inpatient E&M: 08039 Subs Hosp L2
[2022-03-18 07:45] VITALS: O2SAT 97
[2022-03-18] MEDS: Ensure Surgery 237 ML LIQUID PO (08:37)
[2022-03-18] MEDS: Sertraline 50 MG Tablet PO (08:40)
[2022-03-18 08:41] VITALS: PULSE 69
[2022-03-18] MEDS: Metoprolol(XL)Succ 25 MG Tablet PO (08:41)
[2022-03-18] MEDS: Pantoprazole Sodium 20 MG Tablet PO (08:41)
[2022-03-18] MEDS: clonazePAM 0.5 MG Tablet PO (08:44)
--- NOTE | 2022-03-18 09:08 | CASEMGMT ---
Faxed [email or web address] rx for FWW at this time with request to be delivered to the room for dc today. Also emailed [employer] at local [employer].
[2022-03-18 09:40] VITALS: BP 146/61; PULSE 71; RESP 18; TEMP 36.8; O2SAT 99
--- NOTE | 2022-03-18 10:45 | CASEMGMT ---
Social Work LW/Medical POA in [facility], Jaziel Brady listed as medical POA. SW printed LW/Medical POA and placed on chart to be scanned into summary tab at discharge. RADHA Douglas
--- NOTE | 2022-03-18 13:10 | DCINST_ITS ---
Discharge Instructions Follow Up Care Test Results: Test results from this visit will be discussed in further detail at your follow- up appointment, if applicable. Discharge Plan Admission Admit Date/Time: 03/16/22 10:56 Primary Reason for Your Visit: back surgery Attending Provider: Hari Christie Primary Care Provider: Salvador Barber Consulting Providers: Thomas Chavez Discharge Orders/Prescriptions Prescriptions: No Action multivitamin tablet 1 tab PO DAILY melatonin 10 mg capsule 10 mg PO HS PRN (Reason: Insomnia) cholecalciferol (vitamin D3) 2,000 unit capsule 2,000 unit PO LUNCH atorvastatin 80 mg tablet 80 mg PO QHS 90 Days Qty: 90 calcium carbonate [Calcium 600] 600 mg calcium (1,500 mg) tablet 1,200 mg PO LUNCH ascorbic acid (vitamin C) [Vitamin C] 500 mg capsule, extended release 500 mg PO BID levothyroxine 125 mcg tablet 112 mcg PO DAILY trazodone 150 mg tablet 150 mg PO QHS clonazepam 0.5 mg tablet 0.5 mg PO BID aspirin [Adult Low Dose Aspirin] 81 mg tablet,delayed release (DR/EC) 162 mg PO DAILY sertraline 50 mg tablet 50 mg PO DAILY famotidine 20 mg tablet 20 mg PO QHS metoprolol succinate 25 MG tablet extended release 24 hr 25 mg PO DAILY losartan 100 MG tablet 100 mg PO QHS pantoprazole 20 mg tablet,delayed release (DR/EC) 20 mg PO DAILY polyethylene glycol 3350 [Miralax] 17 gram/dose Powder 17 g PO QHS Nasacort 55 mcg/actuation Aerosol 55 mcg INTRANASAL QHS hydrocodone-acetaminophen 5-325 mg tablet 0.5 - 1 tab PO TID PRN (Reason: Pain) Label Comments: TAKE 1/2-1 TABLET BY MOUTH 3 TIMES A DAY NEEDED FOR PAIN Referrals / Follow Up: Salvador Barber MD [Primary Care Provider] - Disposition Disposition (needs filled in before D/C Order can be placed): Home, Self Care
--- NOTE | 2022-03-18 13:12 | PCM.DC.SUM ---
Providers Date of Admission: 03/16/22 Primary Care Physician: Dr. Salvador Barber MD Attending Physician: Jose Antonio was admitted on March 16 and is being discharged on March 18. Date of admission she underwent lumbar laminectomy at L3-4 and L4-5. Operatively she is done very well her leg pain is all gone she has been walking around well. I change her dressing today and remove the drain it is healing well. Gave her and her directions regarding her activities when to shower when to return to my clinic etc. I will give her tramadol for pain as its all she has needed in the hospital. He was told that she could eat a regular diet. She is to remove the dressing on Wednesday and on Wednesday she can start taking showers. This is the end of discharge summary on Heather Brady. This is Dr. Christie dictating. Consultations 03/16/22 12:54 Consult: Hospitalist Routine Consulting Provider: Thomas Chavez Reason for Consult: Medical Management EMERGENT Consult: No MD Notified: Yes Date Notified: 03/16/22 Time Notified: 16:10 Method of Notification: vis spok Reason For Visit: LUMBAR LAMINECTOMY L5-S1 LEFT AND DECOMPRESSION LA Diagnosis Discharge Diagnosis (1) Spinal stenosis of lumbar region at multiple levels: Status: Acute Code(s): M48.061 - Spinal stenosis, lumbar region without neurogenic claudication Medications at Discharge Home Medications losartan 100 mg tablet 100 mg PO QHS HTN 05/13/14 metoprolol succinate 25 mg tablet,extended release 24 hr 25 mg PO DAILY HTN 05/13/14 cholecalciferol (vitamin D3) 50 mcg (2,000 unit) capsule 2,000 unit PO LUNCH supplement 10/21/18 melatonin 10 mg capsule 10 mg PO HS PRN Insomnia 10/21/18 multivitamin 1 tab PO DAILY supplement 10/21/18 ascorbic acid (vitamin C) 500 mg capsule,extended release (Vitamin C) 500 mg PO BID supplement 03/07/21 atorvastatin 80 mg tablet 80 mg PO QHS cholesterol 90 days #90 tabs 03/07/21 calcium carbonate 600 mg calcium (1,500 mg) tablet (Calcium) 1,200 mg PO LUNCH supplement 03/07/21 levothyroxine 125 mcg tablet 112 mcg PO DAILY thyroid 03/07/21 clonazepam 0.5 mg tablet 0.5 mg PO BID anxiety 08/12/21 trazodone 150 mg tablet 150 mg PO QHS rest 08/12/21 aspirin 81 mg tablet,delayed release (Adult Low Dose Aspirin) 162 mg PO DAILY heart health 09/23/21 sertraline 50 mg tablet 50 mg PO DAILY depression 10/27/21 famotidine 20 mg tablet 20 mg PO QHS GERD 12/16/21 hydrocodone-acetaminophen 5-325mg 5mg-325mg 0.5 - 1 tab PO TID PRN Pain 03/02/22 pantoprazole 20 mg tablet,delayed release 20 mg PO DAILY GERD 03/02/22 polyethylene glycol 3350 17 gram/dose oral powder (Miralax) 17 g PO QHS stool softener 03/02/22 triamcinolone acetonide 55 mcg/actuation nasal spray,aerosol 55 mcg intranasal QHS nasal congestion 03/02/22 Medical Records Data Medical Nutrition Assessment Dietitian: Malnutrition Criteria Met Start: 03/16/22 15:20 Freq: Status: Active Protocol: Document 03/16/22 15:21 HENRY (Rec: 03/16/22 15:21 [facility] [id number]) Nutrition Malnutrition Evidence of Malnutrition Exists Yes Malnutrition (severe): Acute Illness/Injury Evidenced By Suboptimal Energy Intake ( Severe),Weight Loss (Severe), Physical Changes (Mild) Clinical Problem Acute Disease or Injury Related Malnutrition Etiology related to inadequate energy intake Signs/Symptoms as evidenced by est po intake meeting <75% of energy needs and 12.5% unintended wt loss; appears to have fat/muscle loss in upper arms, temporal/ orbital/buccal areas on face. Status Active Problem Recommendation Dietitian Recommendations/Changes Will continue liberal Regular diet Will continue Ensure Surgery w / medpass tid for increased nutrition if consumed. Weight / BMI Weight Weight: 171 lb 11.841 oz Body Mass Index (BMI) 29.5 ABG / Lab / Microbiology Data Result Diagrams: 03/03/22 13:19 03/03/22 13:19 Microbiology: Microbiology 03/03/22 13:19 Swab (Method) Nasal Screen MRSA/MSSA - Final Meaningful Use Info Meaningful Use Diagnoses (Choose all that apply): None applicable Discharge Plan Admission Admit Date/Time: 03/16/22 10:56 Primary Reason for Your Visit: back surgery Attending Provider: Hari Christie Primary Care Provider: Salvador Barber Consulting Providers: Thomas Chavez Discharge Orders/Prescriptions Prescriptions: No Action multivitamin tablet 1 tab PO DAILY melatonin 10 mg capsule 10 mg PO HS PRN (Reason: Insomnia) cholecalciferol (vitamin D3) 2,000 unit capsule 2,000 unit PO LUNCH atorvastatin 80 mg tablet 80 mg PO QHS 90 Days Qty: 90 calcium carbonate [Calcium 600] 600 mg calcium (1,500 mg) tablet 1,200 mg PO LUNCH ascorbic acid (vitamin C) [Vitamin C] 500 mg capsule, extended release 500 mg PO BID levothyroxine 125 mcg tablet 112 mcg PO DAILY trazodone 150 mg tablet 150 mg PO QHS clonazepam 0.5 mg tablet 0.5 mg PO BID aspirin [Adult Low Dose Aspirin] 81 mg tablet,delayed release (DR/EC) 162 mg PO DAILY sertraline 50 mg tablet 50 mg PO DAILY famotidine 20 mg tablet 20 mg PO QHS metoprolol succinate 25 MG tablet extended release 24 hr 25 mg PO DAILY losartan 100 MG tablet 100 mg PO QHS pantoprazole 20 mg tablet,delayed release (DR/EC) 20 mg PO DAILY polyethylene glycol 3350 [Miralax] 17 gram/dose Powder 17 g PO QHS Nasacort 55 mcg/actuation Aerosol 55 mcg INTRANASAL QHS hydrocodone-acetaminophen 5-325 mg tablet 0.5 - 1 tab PO TID PRN (Reason: Pain) Label Comments: TAKE 1/2-1 TABLET BY MOUTH 3 TIMES A DAY NEEDED FOR PAIN Referrals / Follow Up: Salvador Barber MD [Primary Care Provider] - Disposition Disposition (needs filled in before D/C Order can be placed): Home, Self Care
== END 2022-03-18 13:53 | disposition home or self-care (01) ==
LOC: SDC 11:22 → MS3 11:22
PROVIDERS: Anesthesiology; Admitting Provider Orthopaedic Surgery; PCP Family Medicine; Referring Provider Orthopaedic Surgery; Visit Provider Orthopaedic Surgery
PROC: (CPT 63030; principal; 2022-03-16 07:00)
DX: M48.061 Spinal stenosis, lumbar region without neurogenic claudication (principal); E88.89 Other specified metabolic disorders; M51.27 Other intervertebral disc displacement, lumbosacral region; F43.23 Adjustment disorder with mixed anxiety and depressed mood; E78.5 Hyperlipidemia, unspecified; I10 Essential (primary) hypertension; G47.33 Obstructive sleep apnea (adult) (pediatric); Z79.899 Other long term (current) drug therapy; Z79.82 Long term (current) use of aspirin; Q21.1 Atrial septal defect; K21.9 Gastro-esophageal reflux disease without esophagitis; E03.9 Hypothyroidism, unspecified; Z79.890 Hormone replacement therapy; R32 Unspecified urinary incontinence; M50.30 Other cervical disc degeneration, unspecified cervical region; G25.81 Restless legs syndrome; Z92.89 Personal history of other medical treatment; R60.0 Localized edema; Z01.818 Encounter for other preprocedural examination; Z86.73 Personal history of transient ischemic attack (TIA), and cerebral infarction without residual deficits; M79.18 Myalgia, other site; R51.9 Headache, unspecified; M19.90 Unspecified osteoarthritis, unspecified site; M77.9 Enthesopathy, unspecified; R25.2 Cramp and spasm
CPT/HCPCS: 63047; 63048; 00670; 36415; 72020; 80048; 80076; 82962; 83735; 84443; 85025; 85610; 85730; 86703; 86706; 86708; 86803; 87081; 93005; 96361; 96365; 96366; 97162; 97530; 97802; 99218; 99251; J7120; G0378; G0463; J2405; J3475; J3490

== ENCOUNTER → 2022-04-14 | Outpatient (CLI) | payer MEDICARE, OTHER, SELFPAY ==
--- NOTE | 2022-04-14 08:03 | VDLE_ITS ---
Reason For Study: pain RIGHT GSV is normal. CFV is compressible, spontaneous, phasic, competent and demonstrates normal augmentation. FV is compressible, spontaneous, phasic, competent and demonstrates normal augmentation. POP V is compressible, spontaneous, phasic, competent and demonstrates normal augmentation. T/P Trunk is compressible. PTV is compressible. RT PerV is compressible. Short segment of the SSV is dilated and noncompressible behind the knee. Procedure This is a venous duplex using B-mode, color flow and spectral Doppler. Exam performed in department. The exam was abbreviated due to the COVID 19 protocol. The exam was diagnostic. A preliminary report was called and/or faxed to Dr. Barber's office. VL/Venous Duplex US, Unilateral Interpretation Summary Deep veins of the right lower extremity are patent and compressible segmentally . There is no evidence of right lower extremity deep vein thrombosis. Valvular competence evelyn ears intact within the proximal deep venous system on the right . The right great saphenous vein a ppears patent and compressible segmentally. Acute superficial thrombophlebitis is noted involving a short segment of the right small saphenous vein in the popliteal area. Ordering Physician: Salvador Barber Performed By: Andrea Aragon RVT
== END | disposition home or self-care (01) ==
LOC: CVS 07:58
PROVIDERS: PCP Family Medicine; Referring Provider Family Medicine; Visit Provider Family Medicine
DX: M79.604 Pain in right leg (principal)
CPT/HCPCS: 93971

== ENCOUNTER → 2022-08-17 | Outpatient (CLI) | payer MEDICARE, OTHER, SELFPAY ==
[2022-08-17 17:53] LABS: Hematocrit 36.7 % (37-47); Hemoglobin 11.5 g/dL (12.0-15.0); Mean Corp Hgb Conc 31.3 g/dL (32-36); Mean Corpuscular Hgb 30.3 pg (27.0-32.0); Mean Corpuscular Volume 96.8 fL (81-99); Mean Platelet Vol. 11.2 fl (6.2-12.0); Platelet Count 248 K/mm3 (150-450); RBC Distribution Width CV 13.4 % (11.6-14.6); RBC Distribution Width SD 48.2 fl (35.1-43.9); Red Blood Count 3.79 M/mm3 (4.2-5.4); White Blood Count 8.3 K/mm3 (4.4-11.0)
[2022-08-17 18:17] LABS: Vitamin B12 391 pg/mL (211-911)
[2022-08-17 18:52] LABS: ALB/GLOB Ratio 1.4 RATIO (0.9-2.4); AST(SGOT) 22 U/L (15-37); Alanine Aminotransfer ALT/SGPT 23 U/L (13-56); Albumin, Serum 3.9 g/dL (3.2-5.0); Alkaline Phosphatase 97 U/L (45-117); Anion Gap 6 (5-15); BUN 22 mg/dL (7-18); BUN/Creat Ratio 28.3 RATIO (10-20); Chloride 104 mmol/L (98-107); Creatinine, Serum 0.78 mg/dL (0.55-1.02); EST Glomerular Filtration Rate 76 mL/min (>60); Est Glom Filt Rate - Afr Amer 92 mL/min (>60); Globulin 2.7 g/dL (2.2-4.2); Glucose 95 mg/dL (74-106); Potassium 3.9 mmol/L (3.5-5.1); Protein, Total 6.6 g/dL (6.4-8.2); Sodium Level 140 mmol/L (136-145); Thyroid Stim Hormone (TSH) 0.65 uIU/mL (0.358-3.74)
[2022-08-21 11:54] LABS: Vitamin B1, Thiamine 148.7 nmol/L (66.5-200.0)
== END | disposition home or self-care (01) ==
LOC: MFPLAB 14:58
PROVIDERS: PCP Family Medicine; Visit Provider Psychiatry & Neurology Neurology
DX: E78.5 Hyperlipidemia, unspecified (principal); G31.84 Mild cognitive impairment of uncertain or unknown etiology
CPT/HCPCS: 36415; 80053; 82607; 82746; 84425; 84443; 85027

== ENCOUNTER → 2022-08-25 | Outpatient (CLI) | payer MEDICARE, OTHER, SELFPAY ==
--- NOTE | 2022-08-25 12:48 | ECHOD_ITS ---
Reason For Study: CEREBROVASCULAR DISEASE Procedure This was a 2D Doppler, Color Flow transthoracic echocardiogram. The exam was of adequate technical quality. Exam performed in department. Left Ventricle Normal LV size. Apical false tendon noted. Left ventricular systolic function is normal. The estimated ejection fraction is 60 %. No evidence for diastolic dysfunction. No regional wall motion abnormalities noted. Right Ventricle Normal RV size. Normal systolic function. Atria Normal left atrium. Normal right atrium. Lipomatous hypertrophy of the atrial septum. No doppler evidence for ASD. Mitral Valve There is mild mitral annular calcification. Normal mitral valve. Trivial mitral valve insufficiency. Tricuspid Valve Normal tricuspid valve. Trivial tricuspid valve insufficiency. Right ventricular systolic pressure estimated to be 35 mmHg. Aortic Valve Trisinus/trileaflet aortic valve. Normal aortic valve. Pulmonic Valve The pulmonic valve is not well visualized. Mild (1+) pulmonic valve insufficiency. Great Vessels Normal sized aortic root. Pericardium/Pleural No pericardial effusion. MMode/2D Measurements & Calculations LVIDd: 4.6 cm IVSd: 0.77 cm Ao root diam: 3.1 cm LVIDs: 2.9 cm LVPWd: 0.79 cm RVDd: 3.3 cm FS: 36.5 % LAV(MOD-bp): 28.6 ml LVAd ap4: 32.3 cm2 SV(MOD-sp4): 64.5 ml LAV(MOD-bp) Indexed: 15.8 ml/m2 LVLd ap4: 8.0 cm LAV(MOD-sp2): 28.0 ml EDV(MOD-sp4): 104.1 ml LAV(MOD-sp4): 26.8 ml EDV(sp4-el): 110.4 ml LVAs ap4: 18.0 cm2 LVLs ap4: 6.8 cm ESV(MOD-sp4): 39.6 ml ESV(sp4-el): 40.6 ml EF(MOD-sp4): 62.0 % EF(sp4-el): 63.2 % SV(sp4-el): 69.7 ml LA A4 area: 12.6 cm2 LA dimension(2D): 3.6 cm RA A4 area: 10.4 cm2 Time Measurements MV dec time: 0.26 sec Doppler Measurements & Calculations MV E max colin: 59.0 cm/sec Lat Peak E' Colin: 9.5 cm/sec Med Peak E' Colin: 7.3 cm/sec MV A max colin: 74.4 cm/sec E/E' lat: 6.2 E/E' med: 8.1 MV E/A: 0.79 Ao V2 max: 114.8 cm/sec LV V1 max: 99.6 cm/sec PA V2 max: 81.6 cm/sec Ao max P.3 mmHg LV V1 max P.0 mmHg TR max colin: 283.5 cm/sec TR max P.2 mmHg ECHO/Echo Complete Interpretation Summary Left ventricular systolic function is normal. The estimated ejection fraction is 60 %. Apical false tendon noted. Lipomatous hypertrophy of the atrial septum. There is mild mitral annular calcification. Trivial mitral valve insufficiency. Trivial tricuspid valve insufficiency. Mild (1+) pulmonic valve insufficiency. Right ventricular systolic pressure estimated to be 35 mmHg. No evidence for diastolic dysfunction. Ordering Physician: Ck Rothman V Referring Physician: Ck Rothman V Performed By: Devorah Hannah RDCS
== END | disposition home or self-care (01) ==
PROVIDERS: PCP Family Medicine; Referring Provider Internal Medicine Pulmonary Disease; Visit Provider Internal Medicine Pulmonary Disease
DX: I67.9 Cerebrovascular disease, unspecified (principal); R09.02 Hypoxemia; G47.33 Obstructive sleep apnea (adult) (pediatric)
CPT/HCPCS: 93306

== ENCOUNTER → 2022-09-16 | Outpatient (CLI) | payer MEDICARE, OTHER, SELFPAY ==
--- NOTE | 2022-09-16 10:24 | MRI_ITS ---
HISTORY: history of stroke, memory difficulty x 6 months. TECHNIQUE: Multiplanar and multisequence MR images of the brain were obtained before and after the intravenous administration of 15 cc Clariscan. 343 images. COMPARISON: CT 12/19/2021, MR 08/07/2021. FINDINGS: BRAIN PARENCHYMA: Mild chronic periventricular white matter changes. Small chronic right cerebellar infarct. No enhancing lesion in the brain parenchyma. No abnormal focus of restricted diffusion. No acute intracranial hemorrhage identified. CSF SPACES: Mild generalized volume loss. No significant midline shift or other mass effect.No extra-axial fluid collection. VASCULAR SYSTEM: Major intracranial flow voids are maintained. PARANASAL SINUSES AND MASTOID AIR CELLS: No significant air fluid levels. ORBITS: Symmetric contents. MRI/Brain W/WO Contrast IMPRESSION: No evidence for acute infarct, acute intracranial hemorrhage, or enhancing intracranial mass. Mild chronic involutional and white matter changes. Electronically Signed: Katie Allison MD at 11:56 EST ,
== END | disposition home or self-care (01) ==
LOC: MRI 10:24
PROVIDERS: PCP Family Medicine; Referring Provider Psychiatry & Neurology Neurology; Visit Provider Psychiatry & Neurology Neurology
DX: Z86.79 Personal history of other diseases of the circulatory system (principal); R90.89 Other abnormal findings on diagnostic imaging of central nervous system; G31.84 Mild cognitive impairment of uncertain or unknown etiology
CPT/HCPCS: 70553; A9575

== ENCOUNTER → 2023-04-15 | Outpatient (CLI) | payer MEDICARE, OTHER, SELFPAY ==
[2023-04-15 16:10] LABS: ALB/GLOB Ratio 0.9 RATIO (0.9-2.4); AST(SGOT) 24 U/L (15-37); Alanine Aminotransfer ALT/SGPT 28 U/L (13-56); Albumin, Serum 3.2 g/dL (3.2-5.0); Alkaline Phosphatase 105 U/L (45-117); Anion Gap 6 (5-15); BUN 22 mg/dL (7-18); BUN/Creat Ratio 24.8 RATIO (10-20); Calcium,Total 8.9 mg/dL (8.5-10.1); Chloride 108 mmol/L (98-107); Creatinine, Serum 0.89 mg/dL (0.55-1.02); EST Glomerular Filtration Rate 65 mL/min (>60); Est Glom Filt Rate - Afr Amer 79 mL/min (>60); Globulin 3.4 g/dL (2.2-4.2); Glucose 87 mg/dL (74-106); Protein, Total 6.6 g/dL (6.4-8.2); Sodium Level 141 mmol/L (136-145); Thyroid Stim Hormone (TSH) 1.44 uIU/mL (0.358-3.74)
== END | disposition home or self-care (01) ==
LOC: MFPLAB 11:53
PROVIDERS: PCP Family Medicine; Visit Provider Family Medicine
DX: R60.9 Edema, unspecified (principal); E03.9 Hypothyroidism, unspecified
CPT/HCPCS: 36415; 80053; 84443

== ENCOUNTER → 2023-05-12 | Outpatient (CLI) | payer MEDICARE, OTHER, SELFPAY ==
--- NOTE | 2023-05-12 12:50 | RAD_ITS ---
INDICATION: R HIP PAIN EXAMINATION/TECHNIQUE: X-RAY - XR Hip Unilateral with Pelvis when performed; 2-3 Views COMPARISON: Prior study dated: Right hip series 12/19/2020 FINDINGS: PELVIC BONES: No displaced fracture, destructive or sclerotic lesions. Sacroiliac joints are unremarkable. No widening of the pubic symphysis. HIPS: Hip joint spaces symmetrically maintained bilaterally. No acute fracture. SOFT TISSUES: No soft tissue swelling or gas. RAD/HIP, UNI W/ Pelvis 2-3 Views IMPRESSION: Stable examination. No acute bony abnormality or significant arthropathy. Electronically Signed: Marcos Rueda MD at 0:15 EDT ,
== END | disposition home or self-care (01) ==
LOC: RAD 12:43
PROVIDERS: PCP Family Medicine; Referring Provider Anesthesiology Pain Medicine; Visit Provider Anesthesiology Pain Medicine
DX: M25.551 Pain in right hip (principal)
CPT/HCPCS: 73502

== ENCOUNTER 2023-06-21 14:30 | Outpatient (CLI) | payer MEDICARE, OTHER, SELFPAY ==
[2023-06-21 17:35] LABS: Absolute Lymphocyte Count 1.14 X10^3/uL (0.83-4.51); Absolute Neutrophil Count 6.8 X10^3/uL (2.0-7.7); Basophil# 0.02 X10^3/uL; Basophil% 0.2 % (0-1); Eosinophil# 0.09 X10^3/uL; Hematocrit 29.4 % (37-47); Hemoglobin 8.8 g/dL (12.0-15.0); Lymphocyte # 1.14 X10^3/ul (0.83-4.51); Lymphocyte % 13.1 % (19-41); Mean Corp Hgb Conc 29.9 g/dL (32-36); Mean Corpuscular Hgb 27.8 pg (27.0-32.0); Mean Platelet Vol. 10.2 fl (6.2-12.0); Monocyte# 0.61 X10^3/uL; NRBC Flagged by Analyzer 0 % (0-5); Neutrophil # 6.78 X10^3/uL (2.7-7.7); Neutrophil % 78.1 % (47-70); Platelet Count 362 K/mm3 (150-450); RBC Distribution Width CV 15.9 % (11.6-14.6); RBC Distribution Width SD 54.6 fl (35.1-43.9); Red Blood Count 3.16 M/mm3 (4.2-5.4); White Blood Count 8.7 K/mm3 (4.4-11.0)
[2023-06-21 17:36] LABS: Erythrocyte Sedimentation Rate 27 mm/hr (0-30)
[2023-06-21 17:49] LABS: Vitamin D,25 Hydroxy 86.9 ng/mL
[2023-06-21 18:02] LABS: ALB/GLOB Ratio 0.7 RATIO (0.9-2.4); AST(SGOT) 25 U/L (15-37); Alanine Aminotransfer ALT/SGPT 24 U/L (13-56); Albumin, Serum 2.9 g/dL (3.2-5.0); Alkaline Phosphatase 101 U/L (45-117); Anion Gap 4 (5-15); BUN 19 mg/dL (7-18); BUN/Creat Ratio 23.1 RATIO (10-20); CPK Total, Creatine Kinase 71 U/L (26-192); Calcium,Total 8.6 mg/dL (8.5-10.1); Chloride 110 mmol/L (98-107); Creatinine, Serum 0.82 mg/dL (0.55-1.02); EST Glomerular Filtration Rate 71 mL/min (>60); Est Glom Filt Rate - Afr Amer 86 mL/min (>60); Globulin 3.9 g/dL (2.2-4.2); Glucose 164 mg/dL (74-106); Protein, Total 6.8 g/dL (6.4-8.2); Sodium Level 142 mmol/L (136-145); Thyroid Stim Hormone (TSH) 2.06 uIU/mL (0.358-3.74)
[2023-06-23 12:08] LABS: ANTINUCLEAR ANTIBODIES DIRECT Negative (Negative)
== END 2023-06-21 23:59 | disposition home or self-care (01) ==
PROVIDERS: PCP Family Medicine; Visit Provider Nurse Practitioner Acute Care
DX: M46.96 Unspecified inflammatory spondylopathy, lumbar region (principal); M79.10 Myalgia, unspecified site; M16.11 Unilateral primary osteoarthritis, right hip; E55.9 Vitamin D deficiency, unspecified
CPT/HCPCS: 36415; 80053; 82306; 82550; 84443; 85025; 85652; 86038; 86140

== ENCOUNTER → 2023-07-09 | Outpatient (CLI) | payer MEDICARE, OTHER, SELFPAY ==
[2023-07-09 17:36] LABS: Absolute Lymphocyte Count 1.39 X10^3/uL (0.83-4.51); Absolute Neutrophil Count 6.5 X10^3/uL (2.0-7.7); Basophil# 0.04 X10^3/uL; Basophil% 0.5 % (0-1); Eosinophil# 0.17 X10^3/uL; Eosinophils% 1.9 % (0-5); Hematocrit 32.6 % (37-47); Hemoglobin 9.8 g/dL (12.0-15.0); Lymphocyte # 1.39 X10^3/ul (0.83-4.51); Lymphocyte % 15.7 % (19-41); Mean Corp Hgb Conc 30.1 g/dL (32-36); Mean Corpuscular Volume 93.1 fL (81-99); Mean Platelet Vol. 10.6 fl (6.2-12.0); Monocyte# 0.69 X10^3/uL; Monocyte% 7.8 % (0-10); NRBC Flagged by Analyzer 0 % (0-5); Neutrophil # 6.51 X10^3/uL (2.7-7.7); Neutrophil % 73.5 % (47-70); Platelet Count 256 K/mm3 (150-450); RBC Distribution Width CV 16.6 % (11.6-14.6); RBC Distribution Width SD 56.4 fl (35.1-43.9); White Blood Count 8.9 K/mm3 (4.4-11.0)
[2023-07-09 18:13] LABS: Iron 34 ug/dL (50-170); Iron Binding Capacity,Total 247 ug/dL (250-450); PERCENT IRON SATURATION 13.8 % (15.0-55.0)
== END | disposition home or self-care (01) ==
LOC: MFPLAB 13:57
PROVIDERS: PCP Family Medicine; Visit Provider Family Medicine
DX: D64.9 Anemia, unspecified (principal)
CPT/HCPCS: 36415; 83540; 83550; 85025

== ENCOUNTER → 2023-07-21 | Outpatient (CLI) | payer MEDICARE, OTHER, SELFPAY ==
[2023-07-21 18:18] LABS: BNP,B-Type NATRIURETIC PEPTIDE 34.1 pg/mL (0-100)
== END | disposition home or self-care (01) ==
LOC: MTLAB 12:49
PROVIDERS: PCP Family Medicine; Referring Provider Internal Medicine Pulmonary Disease; Visit Provider Internal Medicine Pulmonary Disease
DX: R05.9 Cough, unspecified (principal); R06.02 Shortness of breath
CPT/HCPCS: 36415; 83880

== ENCOUNTER → 2023-08-12 | Outpatient (CLI) | payer MEDICARE, OTHER, SELFPAY ==
[2023-08-16 16:08] LABS: Acetylcholine Receptor Binding < 0.03 nmol/L (0.00-0.24)
== END | disposition home or self-care (01) ==
LOC: MTLAB 13:18
PROVIDERS: PCP Family Medicine; Referring Provider Family Medicine; Visit Provider Family Medicine
DX: H02.403 Unspecified ptosis of bilateral eyelids (principal)
CPT/HCPCS: 36415; 84238

== ENCOUNTER → 2023-08-18 | Outpatient (CLI) | payer MEDICARE, OTHER, SELFPAY ==
--- NOTE | 2023-08-18 10:14 | RAD_ITS ---
INDICATION: INFLAMMATORY POLYARTHROPATHY -- ATTN WRIST EXAMINATION/TECHNIQUE: X-RAY - LEFT XR Hand Min 3 Views 3 VIEWS COMPARISON: No relevant prior comparison study available FINDINGS: SOFT TISSUES: No soft tissue swelling or gas. No radiopaque foreign body. BONES/JOINTS: No acute fracture or subluxation.. Normal alignment throughout the hand. The carpal rows are well aligned. Small osteophytes with mild narrowing throughout the interphalangeal joints. Mild degenerative change at the triscaphe joint and first carpometacarpal joint with osteophytes present. Mild chondrocalcinosis at the TFCC. No sclerotic or destructive changes observed. RAD/Hand Min 3 Views IMPRESSION: Mild degenerative change of the hand and wrist. No osseous erosions. Mild chondrocalcinosis at the TFCC. Electronically Signed: Romel Wilkins MD at 17:36 EST ,
--- NOTE | 2023-08-18 10:14 | RAD_ITS ---
INDICATION: INFLAMMATORY POLYARTHROPATHY -- ATTN WRIST EXAMINATION/TECHNIQUE: X-RAY - RIGHT XR Hand Min 3 Views 3 VIEWS COMPARISON: No relevant prior comparison study available FINDINGS: SOFT TISSUES: No soft tissue swelling or gas. No radiopaque foreign body. BONES/JOINTS: No acute fracture or subluxation.. Normal alignment throughout the hand. The carpal rows are well aligned. Mild narrowing and osteophytes of the interphalangeal joints. Mild degenerative change of the triscaphe joint and first carpometacarpal joint.. No sclerotic or destructive changes observed. RAD/Hand Min 3 Views IMPRESSION: Mild degenerative change of the interphalangeal joints and at the wrist. No osseous erosion. Electronically Signed: Romel Wilkins MD at 17:35 EST ,
--- NOTE | 2023-08-18 10:14 | RAD_ITS ---
INDICATION: Bilateral primary osteoarthritis of hip -- ATTN HIPS EXAMINATION/TECHNIQUE: X-RAY - XR Pelvis 1 or 2 Views COMPARISON: Prior study dated: 05/12/2023 FINDINGS: PELVIC BONES: No displaced fracture, destructive or sclerotic lesions. Note that overlapping bowel shadows may however obscure fine detail. Sacroiliac joints are unremarkable. No widening of the pubic symphysis. HIPS: The hips are well aligned. Mild to moderate degenerative change at both hips with subchondral sclerosis and osteophytes present. No significant narrowing. No displaced fracture seen in this frontal view. SOFT TISSUES: No soft tissue swelling or gas. RAD/Pelvis 1 or 2 Views IMPRESSION: No evidence of displaced pelvic or hip fracture. Degenerative change of both hips, unchanged from prior. Electronically Signed: Romel Wilkins MD at 17:34 EST ,
[2023-08-18 12:10] LABS: Absolute Lymphocyte Count 1.49 X10^3/uL (0.83-4.51); Absolute Neutrophil Count 7.5 X10^3/uL (2.0-7.7); Basophil# 0.03 X10^3/uL; Basophil% 0.3 % (0-1); Eosinophil# 0.12 X10^3/uL; Eosinophils% 1.2 % (0-5); Hematocrit 35.8 % (37-47); Hemoglobin 10.6 g/dL (12.0-15.0); Lymphocyte # 1.49 X10^3/ul (0.83-4.51); Lymphocyte % 15.2 % (19-41); Mean Corp Hgb Conc 29.6 g/dL (32-36); Mean Corpuscular Hgb 27.2 pg (27.0-32.0); Mean Corpuscular Volume 91.8 fL (81-99); Mean Platelet Vol. 9.8 fl (6.2-12.0); Monocyte# 0.64 X10^3/uL; Monocyte% 6.5 % (0-10); NRBC Flagged by Analyzer 0 % (0-5); Neutrophil # 7.46 X10^3/uL (2.7-7.7); Neutrophil % 76.3 % (47-70); Platelet Count 343 K/mm3 (150-450); RBC Distribution Width CV 15.9 % (11.6-14.6); RBC Distribution Width SD 53.8 fl (35.1-43.9); White Blood Count 9.8 K/mm3 (4.4-11.0)
[2023-08-18 12:39] LABS: ALB/GLOB Ratio 0.8 RATIO (0.9-2.4); AST(SGOT) 19 U/L (15-37); Alanine Aminotransfer ALT/SGPT 19 U/L (13-56); Albumin, Serum 3.3 g/dL (3.2-5.0); Alkaline Phosphatase 117 U/L (45-117); Anion Gap 5 (5-15); BUN 29 mg/dL (7-18); BUN/Creat Ratio 37.4 RATIO (10-20); Calcium,Total 9.2 mg/dL (8.5-10.1); Chloride 107 mmol/L (98-107); Creatinine, Serum 0.78 mg/dL (0.55-1.02); EST Glomerular Filtration Rate 76 mL/min (>60); Est Glom Filt Rate - Afr Amer 92 mL/min (>60); Globulin 4.1 g/dL (2.2-4.2); Glucose 90 mg/dL (74-106); Potassium 4.1 mmol/L (3.5-5.1); Protein, Total 7.4 g/dL (6.4-8.2); Rheumatoid Factor < 10.0 IU/mL (<15); Sodium Level 141 mmol/L (136-145)
[2023-08-18 15:42] LABS: Hepatitis B Surface Antibody Non-Reactive; Hepatitis B Surface Antigen Non-Reactive (Nonreactive); Hepatitis C Antibody Non-Reactive (Nonreactive)
[2023-08-19 12:09] LABS: CCP IgG Antibodies 2 units (0-19)
== END | disposition home or self-care (01) ==
LOC: MTLAB 10:12
PROVIDERS: PCP Family Medicine; Referring Provider Internal Medicine Rheumatology; Visit Provider Internal Medicine Rheumatology
DX: M06.4 Inflammatory polyarthropathy (principal); M17.0 Bilateral primary osteoarthritis of knee; M16.0 Bilateral primary osteoarthritis of hip; M47.897 Other spondylosis, lumbosacral region
CPT/HCPCS: 36415; 72170; 73130; 80053; 85025; 86200; 86431; 86706; 86803; 87340

== ENCOUNTER → 2023-10-25 | Outpatient (CLI) | payer MEDICARE, OTHER, SELFPAY ==
--- NOTE | 2023-10-25 15:20 | RAD_ITS ---
INDICATION: Left rib pain, no known injury EXAMINATION/TECHNIQUE: X-RAY - XR Ribs Unilateral Min 2 Views COMPARISON: Chest x-ray 12/19/2021 FINDINGS: SOFT TISSUES: No soft tissue swelling or gas. BONES: No displaced fracture. No sclerotic or destructive changes observed. Stable surgical screws in the left humeral head. VISUALIZED LUNGS: Clear. No pneumothorax. RAD/Ribs Unil 2V No CXR IMPRESSION: No acute bony abnormality. Electronically Signed: Marcos Rueda MD at 17:31 EST ,
== END | disposition home or self-care (01) ==
PROVIDERS: PCP Family Medicine; Referring Provider Family Medicine; Visit Provider Family Medicine
DX: R07.81 Pleurodynia (principal)
CPT/HCPCS: 71100

== ENCOUNTER → 2024-01-10 | Outpatient (CLI) | payer MEDICARE, OTHER, SELFPAY ==
[2024-01-10 15:24] LABS: Absolute Lymphocyte Count 1.69 X10^3/uL (0.83-4.51); Absolute Neutrophil Count 4.8 X10^3/uL (2.0-7.7); Basophil# 0.03 X10^3/uL; Basophil% 0.4 % (0-1); Eosinophil# 0.12 X10^3/uL; Eosinophils% 1.7 % (0-5); Hematocrit 36.9 % (37-47); Hemoglobin 11.9 g/dL (12.0-15.0); Lymphocyte # 1.69 X10^3/ul (0.83-4.51); Lymphocyte % 23.4 % (19-41); Mean Corp Hgb Conc 32.2 g/dL (32-36); Mean Corpuscular Hgb 31.4 pg (27.0-32.0); Mean Corpuscular Volume 97.4 fL (81-99); Mean Platelet Vol. 10.1 fl (6.2-12.0); Monocyte# 0.56 X10^3/uL; Monocyte% 7.8 % (0-10); NRBC Flagged by Analyzer 0 % (0-5); Neutrophil # 4.77 X10^3/uL (2.7-7.7); Platelet Count 279 K/mm3 (150-450); RBC Distribution Width CV 14.8 % (11.6-14.6); RBC Distribution Width SD 51.8 fl (35.1-43.9); Red Blood Count 3.79 M/mm3 (4.2-5.4); White Blood Count 7.2 K/mm3 (4.4-11.0)
[2024-01-10 16:30] LABS: ALB/GLOB Ratio 1.4 RATIO (0.9-2.4); AST(SGOT) 32 U/L (15-37); Alanine Aminotransfer ALT/SGPT 38 U/L (13-56); Albumin, Serum 3.8 g/dL (3.2-5.0); Alkaline Phosphatase 89 U/L (45-117); Anion Gap 6 (5-15); BUN 26 mg/dL (7-18); BUN/Creat Ratio 26.2 RATIO (10-20); Calcium,Total 9.3 mg/dL (8.5-10.1); Chloride 106 mmol/L (98-107); Creatinine, Serum 0.99 mg/dL (0.55-1.02); EST Glomerular Filtration Rate 57 mL/min (>60); Est Glom Filt Rate - Afr Amer 69 mL/min (>60); Globulin 2.8 g/dL (2.2-4.2); Glucose 132 mg/dL (74-106); Protein, Total 6.6 g/dL (6.4-8.2); Sodium Level 139 mmol/L (136-145)
== END | disposition home or self-care (01) ==
LOC: MFPLAB 11:38
PROVIDERS: PCP Family Medicine; Visit Provider Internal Medicine Rheumatology
DX: M06.4 Inflammatory polyarthropathy (principal); Z79.899 Other long term (current) drug therapy
CPT/HCPCS: 36415; 80053; 85025

== ENCOUNTER → 2024-03-07 | Outpatient (CLI) | payer MEDICARE, OTHER, SELFPAY ==
[2024-03-07 17:44] LABS: Absolute Neutrophil Count 5.4 X10^3/uL (2.0-7.7); Basophil# 0.02 X10^3/uL; Basophil% 0.3 % (0-1); Eosinophils% 1.3 % (0-5); Hematocrit 36.7 % (37-47); Hemoglobin 11.8 g/dL (12.0-15.0); Mean Corp Hgb Conc 32.2 g/dL (32-36); Mean Corpuscular Hgb 32.2 pg (27.0-32.0); Mean Corpuscular Volume 100.3 fL (81-99); Mean Platelet Vol. 10.2 fl (6.2-12.0); Monocyte# 0.53 X10^3/uL; Monocyte% 6.9 % (0-10); NRBC Flagged by Analyzer 0 % (0-5); Neutrophil # 5.35 X10^3/uL (2.7-7.7); Neutrophil % 70.1 % (47-70); Platelet Count 251 K/mm3 (150-450); RBC Distribution Width CV 13.9 % (11.6-14.6); RBC Distribution Width SD 50.3 fl (35.1-43.9); Red Blood Count 3.66 M/mm3 (4.2-5.4); White Blood Count 7.6 K/mm3 (4.4-11.0)
[2024-03-07 18:04] LABS: ALB/GLOB Ratio 1.4 RATIO (0.9-2.4); AST(SGOT) 41 U/L (15-37); Alanine Aminotransfer ALT/SGPT 51 U/L (13-56); Alkaline Phosphatase 114 U/L (45-117); Anion Gap 7 (5-15); BUN 23 mg/dL (7-18); Calcium,Total 9.6 mg/dL (8.5-10.1); Chloride 108 mmol/L (98-107); Creatinine, Serum 0.92 mg/dL (0.55-1.02); EST Glomerular Filtration Rate 62 mL/min (>60); Est Glom Filt Rate - Afr Amer 75 mL/min (>60); Globulin 2.8 g/dL (2.2-4.2); Glucose 102 mg/dL (74-106); Potassium 4.6 mmol/L (3.5-5.1); Protein, Total 6.8 g/dL (6.4-8.2); Sodium Level 140 mmol/L (136-145)
== END | disposition home or self-care (01) ==
LOC: MFPLAB 14:27
PROVIDERS: PCP Family Medicine; Visit Provider Internal Medicine Rheumatology
DX: M06.4 Inflammatory polyarthropathy (principal); Z79.899 Other long term (current) drug therapy
CPT/HCPCS: 36415; 80053; 85025

== ENCOUNTER → 2024-03-21 | Outpatient (CLI) | payer MEDICARE, OTHER, SELFPAY ==
--- NOTE | 2024-03-21 09:18 | US_ITS ---
STUDY: ABDOMINAL ULTRASOUND - RIGHT UPPER QUADRANT REASON FOR VISIT: Female, 78 years old ELEVEATED LIVER ENZYME TECHNIQUE: Ultrasound evaluation of the right upper quadrant was performed with real-time and static patricio-scale imaging. TECHNICAL QUALITY: Adequate. COMPARISON: None. FINDINGS: Liver: The liver measures 12.2 cm. There is normal echogenicity of the liver. The bile ducts are within normal limits. There is hepatic color flow. The direction of portal flow is hepatopetal. There is no demonstrated mass lesion. Gallbladder: The patient is status post cholecystectomy. s. Common Bile Duct (C.B.D.): The common bile duct measures 2 mm. Pancreas: Normal size of the head, body and tail of the pancreas. There is normal echogenicity of the pancreas. There is no demonstrated pancreatic mass or cyst. Right Kidney: Normal size of the right kidney. The right kidney measures 10.5 cm. Normal renal cortex. The right cortex measures 1.3 cm. There is no demonstrated renal mass or cyst. There is no right hydronephrosis. US/Abdomen Limited IMPRESSION: Normal right upper quadrant ultrasound examination after cholecystectomy. Electronically Signed: Edouard Melvin MD at 8:41 EDT ,
== END | disposition home or self-care (01) ==
LOC: US 09:15
PROVIDERS: PCP Family Medicine; Referring Provider Internal Medicine Rheumatology; Visit Provider Internal Medicine Rheumatology
DX: M06.4 Inflammatory polyarthropathy (principal); M17.0 Bilateral primary osteoarthritis of knee; M16.0 Bilateral primary osteoarthritis of hip; Z79.899 Other long term (current) drug therapy
CPT/HCPCS: 76705

== ENCOUNTER → 2024-03-28 | Outpatient (CLI) | payer MEDICARE, OTHER, SELFPAY ==
--- NOTE | 2024-03-28 11:02 | MRI_ITS ---
STUDY: MRI LUMBAR SPINE WITH AND WITHOUT CONTRAST REASON FOR EXAM: Female, 78 years old. low back pain; R lumb radic; Hx lumbar laminectomy TECHNIQUE: Standardized fat and water weighted pulse sequences were obtained in the sagittal and axial planes. IV 17cc clariscan was administered for the contrast portion of the examination. COMPARISON: 03/05/2022 FINDINGS: T12-L1: Interval development of a moderate broad disc protrusion which produces moderate spinal stenosis with abutment of the central spinal cord and moderate left neural foraminal stenosis with abutment of the left T12 nerve root laterally. Normal lumbar lordosis. Moderate dextroscoliosis of the thoracolumbar spine. Normal conus medullaris that terminates at the L2. L1-2: Mild bilateral facet hypertrophy and moderate ligament flavum hypertrophy. No change in the moderate bilobed disc protrusion asymmetric to the left which produces moderate spinal stenosis with moderate left lateral recess stenosis and moderate left neural foraminal stenosis. L2-3: Moderate bilateral facet hypertrophy and severe ligament flavum hypertrophy. No change in the 2 mm retrolisthesis of L2 on L3 with a moderate bilobed disc protrusion which produces severe spinal stenosis, severe bilateral lateral recess stenosis with effacement of the L3 nerve roots bilaterally and moderate bilateral neural foraminal stenosis. L3-4: Interval posterior decompression. Severe right facet hypertrophy and mild left facet hypertrophy. 2 mm retrolisthesis of L3 on L4. Markedly improved disc protrusion and a mild bilobed disc protrusion produces mild spinal stenosis relieved by the posterior decompression, moderate right neural foraminal stenosis and mild left neural foraminal stenosis. L4-5: Interval posterior decompression. Moderate bilateral facet hypertrophy. No change in 2 mm of anterolisthesis of L4 on L5 with a mild broad disc protrusion which produces mild spinal stenosis relieved by the posterior decompression, severe right neural foraminal stenosis and mild left neural foraminal stenosis. L5-S1: Mild bilateral facet hypertrophy and moderate ligament flavum hypertrophy. No change in the 2 mm retrolisthesis of L5 on S1 with a mild broad disc protrusion which produces moderate spinal stenosis with moderate bilateral lateral recess stenosis with abutment of the S1 nerve roots bilaterally and moderate bilateral neural foraminal stenosis. Normal visualized sacral ala. Normal visualized paraspinous soft tissue structures. No abnormal contrast enhancement with mass effect or nerve root encasement. MRI/Spine Lumbar W/WO Contrast IMPRESSION: Interval posterior decompression at L3 and L4 with degenerative disc disease as described above. Electronically Signed: Edouard Melvin MD at 10:20 EDT ,
== END | disposition home or self-care (01) ==
LOC: MRI 12:54
PROVIDERS: PCP Family Medicine; Referring Provider Psychiatry & Neurology Neurology; Visit Provider Psychiatry & Neurology Neurology
DX: M54.50 Low back pain, unspecified (principal); M54.16 Radiculopathy, lumbar region; Z98.1 Arthrodesis status
CPT/HCPCS: 72158; A9575

== ENCOUNTER → 2024-04-03 | Outpatient (CLI) | payer MEDICARE, OTHER, SELFPAY ==
[2024-04-03 17:59] LABS: ALB/GLOB Ratio 1.2 RATIO (0.9-2.4); AST(SGOT) 35 U/L (15-37); Alanine Aminotransfer ALT/SGPT 37 U/L (13-56); Albumin, Serum 3.7 g/dL (3.2-5.0); Alkaline Phosphatase 122 U/L (45-117); Anion Gap 6 (5-15); BUN 21 mg/dL (7-18); BUN/Creat Ratio 21.2 RATIO (10-20); Calcium,Total 9.1 mg/dL (8.5-10.1); Chloride 105 mmol/L (98-107); Creatinine, Serum 0.99 mg/dL (0.55-1.02); EST Glomerular Filtration Rate 57 mL/min (>60); Est Glom Filt Rate - Afr Amer 69 mL/min (>60); Globulin 3.1 g/dL (2.2-4.2); Glucose 153 mg/dL (74-106); Potassium 3.9 mmol/L (3.5-5.1); Protein, Total 6.8 g/dL (6.4-8.2); Sodium Level 140 mmol/L (136-145)
== END | disposition home or self-care (01) ==
LOC: MFPLAB 14:25
PROVIDERS: PCP Family Medicine; Visit Provider Internal Medicine Rheumatology
DX: M06.4 Inflammatory polyarthropathy (principal); M17.0 Bilateral primary osteoarthritis of knee; M16.0 Bilateral primary osteoarthritis of hip; Z79.899 Other long term (current) drug therapy
CPT/HCPCS: 36415; 80053

== ENCOUNTER → 2024-05-29 | Outpatient (CLI) | payer MEDICARE, OTHER, SELFPAY ==
[2024-05-29 15:31] LABS: Absolute Lymphocyte Count 1.39 X10^3/uL (0.83-4.51); Absolute Neutrophil Count 4.5 X10^3/uL (2.0-7.7); Basophil# 0.03 X10^3/uL; Basophil% 0.5 % (0-1); Eosinophil# 0.17 X10^3/uL; Eosinophils% 2.6 % (0-5); Hematocrit 34.3 % (37-47); Hemoglobin 10.9 g/dL (12.0-15.0); Lymphocyte # 1.39 X10^3/ul (0.83-4.51); Lymphocyte % 20.9 % (19-41); Mean Corp Hgb Conc 31.8 g/dL (32-36); Mean Corpuscular Hgb 31.5 pg (27.0-32.0); Mean Corpuscular Volume 99.1 fL (81-99); Mean Platelet Vol. 9.9 fl (6.2-12.0); Monocyte# 0.49 X10^3/uL; Monocyte% 7.4 % (0-10); NRBC Flagged by Analyzer 0 % (0-5); Neutrophil # 4.53 X10^3/uL (2.7-7.7); Neutrophil % 68.1 % (47-70); Platelet Count 252 K/mm3 (150-450); RBC Distribution Width CV 13.8 % (11.6-14.6); RBC Distribution Width SD 49.4 fl (35.1-43.9); Red Blood Count 3.46 M/mm3 (4.2-5.4); White Blood Count 6.6 K/mm3 (4.4-11.0)
[2024-05-29 16:04] LABS: ALB/GLOB Ratio 1.4 RATIO (0.9-2.4); AST(SGOT) 24 U/L (15-37); Alanine Aminotransfer ALT/SGPT 24 U/L (13-56); Albumin, Serum 3.7 g/dL (3.2-5.0); Alkaline Phosphatase 117 U/L (45-117); Anion Gap 4 (5-15); BUN 22 mg/dL (7-18); BUN/Creat Ratio 22.9 RATIO (10-20); Calcium,Total 9.3 mg/dL (8.5-10.1); Chloride 107 mmol/L (98-107); Creatinine, Serum 0.96 mg/dL (0.55-1.02); EST Glomerular Filtration Rate 59 mL/min (>60); Est Glom Filt Rate - Afr Amer 72 mL/min (>60); Globulin 2.7 g/dL (2.2-4.2); Glucose 101 mg/dL (74-106); Potassium 4.2 mmol/L (3.5-5.1); Protein, Total 6.4 g/dL (6.4-8.2); Sodium Level 140 mmol/L (136-145)
== END | disposition home or self-care (01) ==
LOC: MFPLAB 12:16
PROVIDERS: PCP Family Medicine; Visit Provider Internal Medicine Rheumatology
DX: M06.4 Inflammatory polyarthropathy (principal); Z79.899 Other long term (current) drug therapy
CPT/HCPCS: 36415; 80053; 85025

== ENCOUNTER 2024-06-21 10:02 | Outpatient (CLI) | payer MEDICARE, OTHER, SELFPAY ==
--- NOTE | 2024-06-21 10:16 | BD_ITS ---
STUDY: DUAL ENERGY X-RAY ABSORPTIOMETRY / DXA REASON FOR EXAM: Female, 78 years old. 733.00OsteoporosisBONE DENSITY REASON FOR EXAM TECHNIQUE: Bone Mineral Density (BMD) measurements of lumbar spine and bilateral hips were obtained. COMPARISON: None. FINDINGS: Lumbar Spine (L1-L4): g/cm2 (1.181) / T-score (1.2) / Z-score (3.9) Findings are suggestive of normal bone density with a low fracture risk. Left Femur Total: g/cm2 (0.819) / T-score (-1.0) / Z-score (1.1) Left Femoral Neck: g/cm2 (0.717) / T-score (-1.2) / Z-score (1.1) Right Femur Total: g/cm2 (0.868) / T-score (-0.6) / Z-score (1.5) Right Femoral Neck: g/cm2 (0.818) / T-score (-0.3) / Z-score (2.1) BD/Dexa Bone Density Study IMPRESSION: The patient is considered osteopenic as outlined below according to World Amadou Organization (WHO) criteria with a low fracture risk. Reference Information: The T-score is the number of standard deviations above or below the standard which is normal for young adults at their peak bone mineral density. The World Health Organization (WHO) interprets the T-scores as follows: Above -1 Normal bone density Between -1 and -2.5 Osteopenia Equal to / or below -2.5 Osteoporosis As a practical clinical guideline, osteopenia may be graded as follows: Mild -1 through -1.5 Moderate -1.6 through -2.0 Severe -2.1 through -2.4 The Z-score is the number of standard deviations above or below age-matched controls. A Z-score of less than -1.5 would be considered abnormal. References: 1. NIH Osteoporosis and Related Bone Diseases www osteo.org 2. International Society for Clinical Densitometry www iscd.org 3. National Osteoporosis Foundation www nof.org Electronically Signed: Pa Lewis MD at 13:19 EDT ,
== END 2024-06-21 23:59 | disposition home or self-care (01) ==
LOC: OPBD 10:06
PROVIDERS: PCP Family Medicine; Referring Provider Family Medicine; Visit Provider Family Medicine
DX: M81.0 Age-related osteoporosis without current pathological fracture (principal)
CPT/HCPCS: 77080

== ENCOUNTER 2024-06-27 12:00 | Outpatient (RCR) | payer MEDICARE, OTHER, SELFPAY ==
--- NOTE | 2024-05-24 15:30 | HP.PTEVAL ---
Patient's Visit Information Visit Information Visit Information: DONOVAN RED is a 78 year old F referred to Physical Therapy by Dr. Herson Macedo MD with a diagnosis of SPINAL STENOSIS ,SPONDYLOLISTEHISIS ,LUMBAR ,SCOLIOSIS. Date of Evaluation: 05/24/24 Physical Therapist: Jaziel Vann, PT, Cert MDT, OCS Visit Plan Frequency: 2x /Week Duration: 4 Weeks Plan: PT INTERVENTIONS MODALITIES FOR PAIN DLS ,POSTURAL EX'S ,LE FLEXABILITY AND ACTIVITY MODIFICATION Subjective Subjective: This 78 y/o female presents to physical therapy with lumbar radicular symptoms right leg. Patient for many years 40 years. Patient has had lumbar surgery laminectomy ~ [address] rear[address] Patient has had Dr Lowe pain management ~ 10 years multiple injections and ablashia . Patient seen DR Macedo had MRI DDD ,spondylolisthesis ,severe stenosis. Patient DR recommended PT but has complications in order to have surgery. Patient has multiple comorbities to influence condition one density will increase her risk for hardware failure. Patient has multiple strokes and is on Plavix and also has cardiac comorbidities which will increase risk. DR Dickey recommended pain pump and possible pain stimulator. Patient pain location located right glut to hip leg described as stabbing. Aggravating factors walking/standing 5mins . Alleviating factors rest. Denies paresthesia/tingling-. Bowel/bladder-. Coughing/sneezing -.Patient pain can affects sleeping unable to lay on side. Patient pain affects QOL and function. Pain goals control pain. SOCIAL: VOCATION: RETIRED Pain Right Back: Pain Intensity (Out of 10): 9 Pain Intensity Range: 10 Right Lower Extremity: Pain Intensity (Out of 10): 9 Objective Objective: POSTURE: mild forward posture scoliosis hips/knee flexed GAIT: mild forward posture scoliosis hips/knee flexed slow uli with antalgic gait SYMMETRIES : pelvis/hips NEURO: denies paresthesia/tingling , reflexes L3-4,L4-5,L5-S1 1/3 MMT: quads/hams 4/5 ,hip flexion 4-/5 ,ankle 4/5 FLEXABILITY: hamstrings mod tight PROM: hip IR 10 degrees LUMBAR ROM: flexion min loss ,extension severe loss ,side glides min loss Special Tests L/S Slump test left side: Negative L/S Slump test right side: Negative L/S Left Straight Leg Raise: Negative L/S Right Straight Leg Raise: Negative Balance/Special Test Scores Oswestry Low Back Score: 26 Goals Goal 1:: Patient to be I with HEP Goal Time Frame: 4-6 Weeks Goal 2:: Patient to demonstrate 40 % improvement with less pain and improved function Goal Time Frame: 4-6 Weeks Goal 3:: Patient to improve back oswestry score by 3-5 points to improve QOL. Goal Time Frame: 4-6 Weeks Goal 4:: Patient to improve lumbar ROM for function of recovery to put on shoes Goal Time Frame: 4-6 Weeks Goal 5:: Patient to be able to walk/stand > 5 MINS to improve QOL and function Goal Time Frame: 4-6 Weeks Rehabilitation Potential Physical Therapy Diagnosis: This patient has multiple complexity issue to influence condition along severe stenosis and involved lumbar spine thus unable to have surgery due to complications with pain poor ROM ,weakness affects walking/standing impairs housework activities thus benefit from skilled PT Rehabilitation Potential: Fair Anticipated Interventions Patient/Client Instruction: Educate patient on: Condition and Plan of Care For the Purpose of:: To decrease pain, To increase ROM, To improve muscle performance and motor function, To improve ability to perform ADL's, To increase tolerance to activity/condition/position, To improve ability of physical actions for home/community/work/leisure, To improve gait and locomotor functions, To improve health of tissue, To decrease soft tissue restriction, To increase flexibility/ROM, To reduce risk of recurrence, To improve health and function and To improve tolerance to ADL's Therapeutic Exercise to Include: Strength training, Endurance training, Balance training, Postural training, Flexibilty training and Dynamic Lumbar Stabilization For the Purpose of:: To decrease swelling/inflammation, To increase ROM, To improve nutrient delivery to tissue, To increase oxygenation perfusion, To improve muscle performance and motor function, To increase tolerance to activity/condition/position, To improve ability of physical actions for home/community/work/leisure, To improve health of tissue, To decrease soft tissue restriction, To increase flexibility/ROM, To reduce risk of recurrence and To improve tolerance to ADL's TENS: Yes IF ES: Yes Cryotherapy (ice pack, ice massage): Yes Thermo therapy (hot pack): Yes For the Purpose of:: To decrease pain, To increase ROM, To improve health of tissue and To decrease soft tissue restriction Text: Thank you for the opportunity to evaluate your patient. For Medicare and Medicare HMO plans, please review the plan of care and approve it. It will need to be FAXED BACK to us at [phone] for Medicare purposes. For Medicare only, by signing this I certify the plan of care. Please let me know if there are questions or concerns regarding this plan of care. Physician Signature: Date:
--- NOTE | 2024-08-16 13:31 | HP.PT.NRP ---
Patient Information Patient Information: DONOVAN RED was seen in my office for initial evaluation on 05/24/24. The following Plan of Care was established for this patient: POC Established Initial Frequency: 2x /Week Initial Duration: 4 Weeks Anticipated Interventions Patient/Client Instruction: Educate patient on: Condition and Plan of Care For the Purpose of:: To decrease pain, To increase ROM, To improve muscle performance and motor function, To improve ability to perform ADL's, To increase tolerance to activity/condition/position, To improve ability of physical actions for home/community/work/leisure, To improve gait and locomotor functions, To improve health of tissue, To decrease soft tissue restriction, To increase flexibility/ROM, To reduce risk of recurrence, To improve health and function and To improve tolerance to ADL's Therapeutic Exercise to Include: Strength training, Endurance training, Balance training, Postural training, Flexibilty training and Dynamic Lumbar Stabilization For the Purpose of:: To decrease swelling/inflammation, To increase ROM, To improve nutrient delivery to tissue, To increase oxygenation perfusion, To improve muscle performance and motor function, To increase tolerance to activity/condition/position, To improve ability of physical actions for home/community/work/leisure, To improve health of tissue, To decrease soft tissue restriction, To increase flexibility/ROM, To reduce risk of recurrence and To improve tolerance to ADL's TENS: Yes IF ES: Yes Cryotherapy (ice pack, ice massage): Yes Thermo therapy (hot pack): Yes For the Purpose of:: To decrease pain, To increase ROM, To improve health of tissue and To decrease soft tissue restriction Last Seen Last Seen: This patient was last seen in our office . Pertinent comments regarding their Physical therapy will appear below: Patient was seen for PT for back pain with DLS ,strengthening thus d/c to HEP At this point I will be discontinuing this patient from physical therapy. I would be happy to see this patient again in the future if found appropriate by the physician. Thank you! Jaziel Vann, PT, Cert MDT, OCS Balance/Gait/Functional tests Balance/Special Test Scores Oswestry Low Back Score: 16
== END 2024-06-27 19:00 | disposition home or self-care (01) ==
LOC: PT 12:00
PROVIDERS: PCP Family Medicine; Referring Provider Orthopaedic Surgery Orthopaedic Surgery of the Spine; Visit Provider Orthopaedic Surgery Orthopaedic Surgery of the Spine
DX: M48.062 Spinal stenosis, lumbar region with neurogenic claudication (principal); M43.16 Spondylolisthesis, lumbar region; M41.56 Other secondary scoliosis, lumbar region
CPT/HCPCS: 97110; 97162; 97530

== ENCOUNTER → 2024-07-19 | Outpatient (CLI) | payer MEDICARE, OTHER, SELFPAY ==
--- NOTE | 2024-07-19 13:14 | BI_ITS ---
MAMMOGRAPHY - BILATERAL SCREENING REASON FOR EXAM: Female, 78 years old. Routine annual screening examination. PERTINENT HISTORY: Sister with breast cancer. Aunt with breast cancer. TECHNIQUE: Digital bilateral breast christina (3D mammographic acquisition) in the CC and MLO projections. 2-D mediolateral oblique (MLO) and craniocaudad (CC) views of both breasts were obtained. CAD: Full Field Digital Mammography with Computer Added Detection was performed. COMPARISON: Comparison is made with prior outside examination dated May 13, 2022. FINDINGS: Breast Composition: There are scattered areas of fibroglandular density. There are no dominant masses or suspicious calcifications. Stable partially calcified nodule in the upper lateral aspect of the right breast suggestive of fibroadenoma. No other significant abnormalities are identified. There has been no significant change since the prior study. BI/SCRN MAMM (CAD)W/CHRISTINA BILAT IMPRESSION: Stable bilateral screening mammogram. Yearly follow-up mammogram recommended. (A) ASSESSMENT CATEGORY: BIRADS Category 2: Benign. A letter regarding these results will be sent to the patient by the facility within 30 days. Approximately 10% of breast cancers are not detected by mammography. A normal mammogram should not delay biopsy of a clinically suspicious abnormality. [id number] Electronically Signed: Pa Lewis MD at 14:51 EST ,
== END | disposition home or self-care (01) ==
PROVIDERS: PCP Family Medicine
DX: Z12.31 Encounter for screening mammogram for malignant neoplasm of breast (principal)
CPT/HCPCS: 77063; 77067

== ENCOUNTER → 2024-07-31 | Outpatient (CLI) | payer MEDICARE, OTHER, SELFPAY ==
[2024-07-31 15:16] LABS: Absolute Lymphocyte Count 1.65 X10^3/uL (0.83-4.51); Absolute Neutrophil Count 5.2 X10^3/uL (2.0-7.7); Basophil# 0.05 X10^3/uL; Basophil% 0.6 % (0-1); Eosinophil# 0.25 X10^3/uL; Eosinophils% 3.2 % (0-5); Hematocrit 35.7 % (37-47); Hemoglobin 11.6 g/dL (12.0-15.0); Lymphocyte # 1.65 X10^3/ul (0.83-4.51); Lymphocyte % 21.3 % (19-41); Mean Corp Hgb Conc 32.5 g/dL (32-36); Mean Corpuscular Hgb 32.2 pg (27.0-32.0); Mean Corpuscular Volume 99.2 fL (81-99); Mean Platelet Vol. 10.3 fl (6.2-12.0); Monocyte# 0.58 X10^3/uL; Monocyte% 7.5 % (0-10); NRBC Flagged by Analyzer 0 % (0-5); Neutrophil # 5.16 X10^3/uL (2.7-7.7); Neutrophil % 66.9 % (47-70); Platelet Count 243 K/mm3 (150-450); RBC Distribution Width CV 14.4 % (11.6-14.6); RBC Distribution Width SD 52.6 fl (35.1-43.9); White Blood Count 7.7 K/mm3 (4.4-11.0)
[2024-07-31 15:31] LABS: ALB/GLOB Ratio 1.2 RATIO (0.9-2.4); AST(SGOT) 25 U/L (15-37); Alanine Aminotransfer ALT/SGPT 34 U/L (13-56); Albumin, Serum 3.6 g/dL (3.2-5.0); Alkaline Phosphatase 112 U/L (45-117); Anion Gap 4 (5-15); BUN 22 mg/dL (7-18); BUN/Creat Ratio 26.4 RATIO (10-20); Calcium,Total 9.1 mg/dL (8.5-10.1); Chloride 108 mmol/L (98-107); Creatinine, Serum 0.83 mg/dL (0.55-1.02); EST Glomerular Filtration Rate 70 mL/min (>60); Est Glom Filt Rate - Afr Amer 85 mL/min (>60); Glucose 89 mg/dL (74-106); Potassium 4.3 mmol/L (3.5-5.1); Protein, Total 6.6 g/dL (6.4-8.2); Sodium Level 141 mmol/L (136-145)
== END | disposition home or self-care (01) ==
LOC: MFPLAB 12:16 → MTLAB 12:38
PROVIDERS: PCP Family Medicine; Referring Provider Internal Medicine Rheumatology; Visit Provider Internal Medicine Rheumatology
DX: M06.4 Inflammatory polyarthropathy (principal); M17.0 Bilateral primary osteoarthritis of knee; M16.0 Bilateral primary osteoarthritis of hip; Z79.899 Other long term (current) drug therapy
CPT/HCPCS: 36415; 80053; 85025

== ENCOUNTER → 2024-10-30 | Outpatient (CLI) | payer MEDICARE, OTHER, SELFPAY ==
[2024-10-30 18:27] LABS: T4 Free Direct 1.24 ng/dL (0.76-1.46)
== END | disposition home or self-care (01) ==
LOC: MFPLAB 14:44
PROVIDERS: PCP Family Medicine; Referring Provider Family Medicine; Visit Provider Family Medicine
DX: E03.9 Hypothyroidism, unspecified (principal)
CPT/HCPCS: 36415; 84439; 84443; 84481

== ENCOUNTER → 2024-11-09 | Outpatient (CLI) | payer MEDICARE, OTHER, SELFPAY ==
[2024-11-09 17:41] LABS: Absolute Neutrophil Count 4.6 X10^3/uL (2.0-7.7); Basophil# 0.03 X10^3/uL; Basophil% 0.4 % (0-1); Eosinophil# 0.21 X10^3/uL; Eosinophils% 2.9 % (0-5); Hematocrit 36.8 % (37-47); Hemoglobin 11.8 g/dL (12.0-15.0); Lymphocyte % 24.8 % (19-41); Mean Corp Hgb Conc 32.1 g/dL (32-36); Mean Corpuscular Hgb 32.1 pg (27.0-32.0); Mean Platelet Vol. 10.5 fl (6.2-12.0); Monocyte# 0.55 X10^3/uL; Monocyte% 7.6 % (0-10); NRBC Flagged by Analyzer 0 % (0-5); Neutrophil # 4.64 X10^3/uL (2.7-7.7); Platelet Count 249 K/mm3 (150-450); RBC Distribution Width CV 13.9 % (11.6-14.6); RBC Distribution Width SD 50.1 fl (35.1-43.9); Red Blood Count 3.68 M/mm3 (4.2-5.4); White Blood Count 7.3 K/mm3 (4.4-11.0)
[2024-11-09 20:06] LABS: ALB/GLOB Ratio 1.7 RATIO (0.9-2.4); AST(SGOT) 34 U/L (<=31); Alanine Aminotransfer ALT/SGPT 26 U/L (<=34); Albumin, Serum 4.3 g/dL (3.4-4.8); Alkaline Phosphatase 123 U/L (35-104); Anion Gap 14 (5-15); BUN 25 mg/dL (4-19); BUN/Creat Ratio 25.3 RATIO (10-20); Calcium,Total 9.7 mg/dL (7.6-11.0); Carbon Dioxide 24.4 mmol/L (21.0-32.0); Chloride 103 mmol/L (98-108); EST Glomerular Filtration Rate 57 (>60); Globulin 2.4 g/dL (2.2-4.2); Glucose 119 mg/dL (70-99); Protein, Total 6.7 g/dL (5.9-8.4); Sodium Level 142 mmol/L (133-145); Total Bilirubin 1.45 mg/dL (0.00-1.30)
== END | disposition home or self-care (01) ==
LOC: MFPLAB 15:18
PROVIDERS: PCP Family Medicine; Visit Provider Internal Medicine Rheumatology
DX: M06.4 Inflammatory polyarthropathy (principal); I10 Essential (primary) hypertension; Z79.899 Other long term (current) drug therapy
CPT/HCPCS: 36415; 80053; 85025

== ENCOUNTER → 2024-11-16 | Outpatient (CLI) | payer MEDICARE, OTHER, SELFPAY ==
--- NOTE | 2024-11-16 10:33 | US_ITS ---
PROCEDURE: ABDOMEN LIMITED REASON FOR EXAM: ELEVATED LIVER ENZ/LONG-TERM DRUG TX COMPARISON: None FINDINGS: Liver: Grossly normal size and echotexture. Gallbladder: Surgically absent. Common bile duct: Normal measuring 7.8 mm. This is normal for the post cholecystectomy state.. Pancreas: Visualized portions are sonographically unremarkable. Visualized portions of the right kidney are unremarkable. No right upper quadrant ascites. US/Abdomen Limited IMPRESSION: Status post cholecystectomy. No acute abnormality is seen. Reading Location: [id number]
== END | disposition home or self-care (01) ==
LOC: US 10:27
PROVIDERS: PCP Family Medicine; Referring Provider Internal Medicine Rheumatology; Visit Provider Internal Medicine Rheumatology
DX: R74.8 Abnormal levels of other serum enzymes (principal); Z79.899 Other long term (current) drug therapy
CPT/HCPCS: 76705

== ENCOUNTER → 2025-01-05 | Outpatient (CLI) | payer MEDICARE, OTHER, SELFPAY ==
[2025-01-05 17:53] LABS: Absolute Lymphocyte Count 1.48 X10^3/uL (0.83-4.51); Absolute Neutrophil Count 4.4 X10^3/uL (2.0-7.7); Basophil# 0.03 X10^3/uL; Basophil% 0.5 % (0-1); Eosinophil# 0.16 X10^3/uL; Eosinophils% 2.4 % (0-5); Hematocrit 34.9 % (37-47); Hemoglobin 11.2 g/dL (12.0-15.0); Lymphocyte # 1.48 X10^3/ul (0.83-4.51); Lymphocyte % 22.3 % (19-41); Mean Corp Hgb Conc 32.1 g/dL (32-36); Mean Corpuscular Hgb 32.1 pg (27.0-32.0); Mean Platelet Vol. 10.4 fl (6.2-12.0); Monocyte# 0.48 X10^3/uL; Monocyte% 7.2 % (0-10); NRBC Flagged by Analyzer 0 % (0-5); Neutrophil # 4.44 X10^3/uL (2.7-7.7); Platelet Count 232 K/mm3 (150-450); RBC Distribution Width CV 14.3 % (11.6-14.6); RBC Distribution Width SD 52.1 fl (35.1-43.9); Red Blood Count 3.49 M/mm3 (4.2-5.4); White Blood Count 6.6 K/mm3 (4.4-11.0)
== END | disposition home or self-care (01) ==
PROVIDERS: PCP Family Medicine; Referring Provider Internal Medicine Pulmonary Disease; Visit Provider Internal Medicine Pulmonary Disease
DX: G25.81 Restless legs syndrome (principal)
CPT/HCPCS: 36415; 85025

== ENCOUNTER → 2025-01-11 | Outpatient (CLI) | payer MEDICARE, OTHER, SELFPAY ==
[2025-01-11 17:51] LABS: Absolute Lymphocyte Count 1.72 X10^3/uL (0.83-4.51); Absolute Neutrophil Count 4.7 X10^3/uL (2.0-7.7); Basophil# 0.02 X10^3/uL; Basophil% 0.3 % (0-1); Eosinophil# 0.15 X10^3/uL; Eosinophils% 2.1 % (0-5); Hematocrit 34.8 % (37-47); Hemoglobin 11.2 g/dL (12.0-15.0); Lymphocyte # 1.72 X10^3/ul (0.83-4.51); Lymphocyte % 24.3 % (19-41); Mean Corp Hgb Conc 32.2 g/dL (32-36); Mean Corpuscular Hgb 32.3 pg (27.0-32.0); Mean Corpuscular Volume 100.3 fL (81-99); Mean Platelet Vol. 10.4 fl (6.2-12.0); Monocyte# 0.45 X10^3/uL; Monocyte% 6.4 % (0-10); NRBC Flagged by Analyzer 0 % (0-5); Neutrophil # 4.69 X10^3/uL (2.7-7.7); Neutrophil % 66.3 % (47-70); Platelet Count 250 K/mm3 (150-450); RBC Distribution Width CV 13.9 % (11.6-14.6); RBC Distribution Width SD 50.7 fl (35.1-43.9); Red Blood Count 3.47 M/mm3 (4.2-5.4); White Blood Count 7.1 K/mm3 (4.4-11.0)
[2025-01-11 18:05] LABS: ALB/GLOB Ratio 1.7 RATIO (0.9-2.4); AST(SGOT) 29 U/L (<=31); Alanine Aminotransfer ALT/SGPT 21 U/L (<=34); Albumin, Serum 4.1 g/dL (3.4-4.8); Alkaline Phosphatase 115 U/L (35-104); Anion Gap 11 (5-15); BUN 24 mg/dL (4-19); BUN/Creat Ratio 25.1 RATIO (10-20); Calcium,Total 9.5 mg/dL (7.6-11.0); Carbon Dioxide 26.8 mmol/L (21.0-32.0); Chloride 102 mmol/L (98-108); Creatinine, Serum 0.97 mg/dL (0.70-1.20); EST Glomerular Filtration Rate 59 (>60); Globulin 2.5 g/dL (2.2-4.2); Glucose 104 mg/dL (70-99); Potassium 4.2 mmol/L (3.3-5.1); Protein, Total 6.5 g/dL (5.9-8.4); Sodium Level 140 mmol/L (133-145); Total Bilirubin 1.61 mg/dL (0.00-1.30)
== END | disposition home or self-care (01) ==
LOC: MFPLAB 14:56
PROVIDERS: PCP Family Medicine; Visit Provider Internal Medicine Rheumatology
DX: M06.4 Inflammatory polyarthropathy (principal); M17.0 Bilateral primary osteoarthritis of knee; Z79.899 Other long term (current) drug therapy
CPT/HCPCS: 36415; 80053; 85025

== ENCOUNTER → 2025-02-02 | Outpatient (CLI) | payer MEDICARE, OTHER, SELFPAY ==
[2025-02-02 20:37] LABS: ALB/GLOB Ratio 1.6 RATIO (0.9-2.4); AST(SGOT) 27 U/L (<=31); Alanine Aminotransfer ALT/SGPT 16 U/L (<=34); Albumin, Serum 3.9 g/dL (3.4-4.8); Alkaline Phosphatase 91 U/L (35-104); Anion Gap 10 (5-15); BUN 23 mg/dL (4-19); BUN/Creat Ratio 24.3 RATIO (10-20); Calcium,Total 9.2 mg/dL (7.6-11.0); Carbon Dioxide 26.7 mmol/L (21.0-32.0); Chloride 100 mmol/L (98-108); Cholesterol 153 mg/dL (<=200); Creatinine, Serum 0.96 mg/dL (0.70-1.20); EST Glomerular Filtration Rate 59 (>60); Globulin 2.4 g/dL (2.2-4.2); Glucose 80 mg/dL (70-99); High Density Lipoprotein 77 mg/dL; Low Density Lipoprotein Calc. 51 mg/dL; Potassium 4.2 mmol/L (3.3-5.1); Protein, Total 6.3 g/dL (5.9-8.4); Sodium Level 137 mmol/L (133-145); Total Bilirubin 0.78 mg/dL (0.00-1.30); Triglycerides 123 mg/dL; Very Low Density Lipoprotein 25 mg/dL (5-40); cholesterol:hdl ratio screen 1.98
== END | disposition home or self-care (01) ==
LOC: MFPLAB 14:33
PROVIDERS: PCP Family Medicine; Visit Provider Family Medicine
DX: I10 Essential (primary) hypertension (principal); E03.9 Hypothyroidism, unspecified
CPT/HCPCS: 36415; 80053; 80061; 84439; 84443; 84481

== ENCOUNTER → 2025-03-01 | Outpatient (CLI) | payer MEDICARE, OTHER, SELFPAY | END | disposition home or self-care (01) | LOC: LABSPEC 16:16 | PROVIDERS: PCP Family Medicine; Referring Provider Nurse Practitioner Family; Visit Provider Nurse Practitioner Family | DX: N89.8 Other specified noninflammatory disorders of vagina (principal) | CPT/HCPCS: 87070; 87205 ==

== ENCOUNTER → 2025-03-06 | Outpatient (CLI) | payer MEDICARE, OTHER, SELFPAY ==
--- NOTE | 2025-03-06 08:56 | US_ITS ---
EXAM: DIAG MAMM W/CAD, BILAT; BREAST LIMITED UNILATERAL; BILAT BRST CHRISTINA STAND ALONE 03/06/2025 CLINICAL HISTORY: F, Age 79 y/o , BREAST PAIN; PAIN TECHNIQUE: DIAG MAMM W/CAD, BILAT; BREAST LIMITED UNILATERAL; BILAT BRST CHRISTINA STAND ALONE. COMPARISON: Prior exam(s) dated 07/19/2024. FINDINGS: MAMMOGRAM: TISSUE DENSITY: There are scattered areas of fibroglandular density. Bilateral Breast Mammographic Findings: The patient presents with bilateral inferior breast pain. Also, the clinician reports bilateral nipple discoloration. On the present examination, there are no suspicious mammographic findings in the inferior bilateral breast to account for the patient's pain. Also, there are no suspicious mammographic findings in the retroareolar regions of the bilateral breast. Overall, there are no suspicious masses, grouped calcifications or architectural distortions in either breast. ULTRASOUND: Bilateral breast: There are no suspicious sonographic findings in the area of patient's reported pain in the inferior breast bilaterally. Also, there are no suspicious findings in the retroareolar regions of the bilateral breast to account for the patient's nipple discoloration. US/Breast Limited Unilateral IMPRESSION: 1. There are no suspicious mammographic or sonographic findings to account for the patient's bilateral breast pain. Clinical management is recommended for the pain. 2. There are no suspicious mammographic or sonographic findings to account for the patient's bilateral nipple discoloration. Clinical management is recommended. 3. There is no evidence of malignancy in either breast. OVERALL FINAL ASSESSMENT BI-RADS 1: NEGATIVE. RECOMMEND ANNUAL MAMMOGRAPHIC SCREENING. RECOMMENDATION: Routine annual follow-up in 1 Year A letter with findings and recommendations will be mailed to the patient. Reading Location: [id number]
--- NOTE | 2025-03-06 09:00 | BI_ITS ---
EXAM: DIAG MAMM W/CAD, BILAT; BREAST LIMITED UNILATERAL; BILAT BRST CHRISTINA STAND ALONE 03/06/2025 CLINICAL HISTORY: F, Age 79 y/o , BREAST PAIN; PAIN TECHNIQUE: DIAG MAMM W/CAD, BILAT; BREAST LIMITED UNILATERAL; BILAT BRST CHRISTINA STAND ALONE. COMPARISON: Prior exam(s) dated 07/19/2024. FINDINGS: MAMMOGRAM: TISSUE DENSITY: There are scattered areas of fibroglandular density. Bilateral Breast Mammographic Findings: The patient presents with bilateral inferior breast pain. Also, the clinician reports bilateral nipple discoloration. On the present examination, there are no suspicious mammographic findings in the inferior bilateral breast to account for the patient's pain. Also, there are no suspicious mammographic findings in the retroareolar regions of the bilateral breast. Overall, there are no suspicious masses, grouped calcifications or architectural distortions in either breast. ULTRASOUND: Bilateral breast: There are no suspicious sonographic findings in the area of patient's reported pain in the inferior breast bilaterally. Also, there are no suspicious findings in the retroareolar regions of the bilateral breast to account for the patient's nipple discoloration. BI/Bilat Brst Christina Stand Alone IMPRESSION: 1. There are no suspicious mammographic or sonographic findings to account for the patient's bilateral breast pain. Clinical management is recommended for the pain. 2. There are no suspicious mammographic or sonographic findings to account for the patient's bilateral nipple discoloration. Clinical management is recommended. 3. There is no evidence of malignancy in either breast. OVERALL FINAL ASSESSMENT BI-RADS 1: NEGATIVE. RECOMMEND ANNUAL MAMMOGRAPHIC SCREENING. RECOMMENDATION: Routine annual follow-up in 1 Year A letter with findings and recommendations will be mailed to the patient. Reading Location: [id number]
== END | disposition home or self-care (01) ==
LOC: OPBI 08:54
PROVIDERS: PCP Family Medicine; Referring Provider Nurse Practitioner Family; Visit Provider Nurse Practitioner Family
DX: N64.4 Mastodynia (principal)
CPT/HCPCS: 76642; 77062; 77066; G0279

== ENCOUNTER 2025-03-15 15:05 | Emergency (ER) | payer MEDICARE, OTHER, SELFPAY ==
[2025-03-15 15:05] VITALS: BP 156/74; PULSE 73; RESP 18; TEMP 36.6; O2SAT 97; BMI 34.9
--- NOTE | 2025-03-15 16:40 | ED.VIS.FEGU ---
HPI HPI - Female History of Present Illness Chief Complaint: Vag Bleeding Detail of Chief Complaint: Pelvic cramping and vaginal bleeding Informant: patient Pain Pain: Positive for Pelvic Pain Onset: Today Context: Sudden Onset Timing: Intermittent Quality: Positive for Cramping Location: Suprapubic Current Severity: Mild Maximum Severity: Severe Worsened by: - (Using the restroom) Relieved by: - (Nothing) Bleeding Issue: Positive for Vaginal bleeding; Negative for Passing clots or Passing tissue Onset: Today and Hours Vaginal Discharge Onset: - (Patient seen by nurse practitioner Minnie for mastodynia and vaginal yeast infection March 02, 2025) Associated Symptoms Associated Symptoms: Negative for Dysuria, Frequency, Urgency or Hematuria Narrative Narrative: Patient is an 79-year-old female. She presents because of cramping pain in the suprapubic pelvic area with vaginal bleeding. First noted blood 9 AM. She has not had a Pap smear in some time. She never had abnormal Pap smear. She denies weight loss. She has had some recent weight gain. She denies dysuria, frequency, urgency or hematuria. She denies fever, chills or night sweats. She denies nausea, vomiting or diarrhea. She denies constipation. She denies change in the caliber, consistency or color of her stool. Prior similar symptoms: No Recent Illness/Hospitalization: Yes [facility] Medical History Sacroiliitis Wears partial dentures Arthritis Urinary incontinence Restless legs Injury of head and neck Gastric reflux Non-smoker History of stress test History of echocardiogram Leg cramps History of edema Cardiology follow-up encounter Nosebleed Degenerative disc disease, cervical Occipital headache [id number] ultra-rapid metabolizer Obstructive sleep apnea on CPAP Adjustment disorder with mixed anxiety and depressed mood Generalized anxiety disorder Stroke History of torn meniscus of right knee Rotator cuff insufficiency of right shoulder Bone spur of ankle Hyperlipidemia Patent foramen ovale HTN (hypertension) TIA (transient ischemic attack) Dyslipidemia Home Medications ?Medication ?Instructions ?Recorded ?Last Taken ?Type losartan 100 mg tablet 100 mg PO QHS HTN 05/13/14 03/15/22 History cholecalciferol (vitamin D3) 50 2,000 unit PO LUNCH supplement 10/21/18 03/15/22 History mcg (2,000 unit) capsule multivitamin 1 tab PO DAILY supplement 10/21/18 03/15/22 History ascorbic acid (vitamin C) 500 mg 500 mg PO BID supplement 03/07/21 03/15/22 History capsule,extended release (Vitamin C) atorvastatin 80 mg tablet 80 mg PO QHS cholesterol 90 days 03/07/21 03/15/22 History #90 tabs calcium carbonate (Calcium 600) 1,200 mg PO LUNCH supplement 03/07/21 03/15/22 History levothyroxine 125 mcg tablet 112 mcg PO DAILY thyroid 03/07/21 03/16/22 History clonazepam 0.5 mg tablet 0.5 mg PO BID anxiety 08/12/21 03/15/22 History trazodone 150 mg tablet 150 mg PO QHS rest 08/12/21 03/15/22 History polyethylene glycol 3350 17 17 g PO QHS stool softener 03/02/22 03/15/22 History gram/dose oral powder (Miralax) triamcinolone acetonide 55 55 mcg intranasal QHS nasal 03/02/22 03/15/22 History mcg/actuation nasal spray,aerosol congestion mv-mn-folic 200 mcg-vit K 15 cap PO 02/25/23 Unknown History mcg-lutein 5 mg-zeaxanthin 1 mg capsule (PreserVision AREDS 2 Plus Multivit) duloxetine 60 mg capsule,delayed 60 mg PO DAILY 09/23/23 Unknown History release folic acid 1 mg tablet 2 mg PO DAILY 09/23/23 Unknown History furosemide 20 mg tablet 20 mg PO DAILY 09/23/23 Unknown History montelukast 10 mg tablet 10 mg PO QHS 09/23/23 Unknown History cetirizine 10 mg capsule (Zyrtec) 10 mg PO DAILY PRN 05/04/24 Unknown History oxycodone-acetaminophen 5 mg-325 1 tab PO TID PRN 05/04/24 Unknown History mg tablet sennosides 8.6 mg tablet (Senna 8.6 mg PO QDAY 05/04/24 Unknown History Laxative) clopidogrel 75 mg tablet 75 mg PO .Every other day #45 tabs 12/14/24 Unknown Rx pantoprazole 20 mg tablet,delayed 20 mg PO DAILY #90 tabs 12/24/24 Unknown Rx release baclofen 20 mg tablet 10 mg PO QDAY PRN muscle 03/01/25 Unknown History pain/muscle spasm ropinirole 0.25 mg tablet 0.25 mg PO QHS 03/01/25 Unknown History fluconazole 150 mg tablet 150 mg PO Q3D 2 doses #2 tabs 03/05/25 Unknown Rx Allergy/AdvReac Type Severity Reaction Status Date / Time oxycodone (From Percocet) Allergy Other Verified 03/15/25 15:07 codeine AdvReac Severe Nausea Verified 03/15/25 15:07 morphine AdvReac Severe Nausea Verified 03/15/25 15:07 Family History Father Non-Hodgkin lymphoma Heart disease Brother Leukemia Sister Breast cancer Mother Uterine cancer Other Cancer Surgical History History of cataract extraction (~02/2023) History of back surgery History of hip surgery History of meniscectomy of right knee History of rotator cuff surgery History of Achilles tendon repair History of nasal surgery History of bilateral carpal tunnel release History of left knee replacement History of cholecystectomy H/O left knee surgery H/O section Social History (Updated 03/15/25 @ 16:[address] Kobi Drake MD) household members: spouse Smoking Status: Never smoker second hand exposure: No alcohol intake: current alcohol intake frequency: holidays/special occasions only substance use type: does not use caffeine: Yes Type: other Number of servings: 2 dianna/hoahaoism: Rastafarian seatbelt use: always ROS ROS ED Constitutional Constitutional ED: Denies chills, fever(s), subjective or sweats Gastrointestinal Gastrointestinal: Reports abdominal pain; Denies diarrhea, melena, nausea or vomiting Genitourinary Genitourinary ED: Reports other Details: HPI narrative ; Denies dysuria, hematuria or urinary frequency Integumentary Denies Abrasions or rash Neurologic Neurologic: Denies paresthesias or weakness Hematologic/Lymphatic Hematologic/Lymphatic: Reports other Details: Patient is on Plavix every other day. She is on no antithrombotic. ; Denies easy bleeding or easy bruising EXAM Physical Exam Const Vital Signs: 03/15/25 15:05 03/15/25 17:05 03/15/25 18:57 Temperature 97.8 F Temperature Source Oral Pulse Rate 73 72 65 Respiratory Rate 18 18 Blood Pressure 156/74 H 165/78 H 159/72 H Blood Pressure Mean 101 107 101 Pulse Ox 97 99 Oxygen Delivery Method Room Air Room Air Positive well nourished and well developed General Appearance ED: well developed and NAD; Negative for pallor HEENT Reports moist mucous membranes HEENT Narrative: Head is atraumatic normocephalic. Ears normal. Eyes PERRL and EOMs intact bilaterally General Eye ED: Negative for pale conjunctiva or scleral icterus Neck no lymphadenopathy, supple and no JVD Chest Wall inspection of chest normal and palpation of chest normal Resp normal respiratory effort and clear to auscultation bilaterally Cardio regular rate, regular rhythm, S1 normal heart sound, no murmurs and no JVD GI normal to inspection, nondistended, normoactive bowel sounds, soft to palpation, non-distended and no masses; Negative for non-tender Palpation: tender suprapubic Narrative: External genitalia appears normal. There is blood noted at the introitus and labia. Speculum exam reveals blood to be coming from the cervix. Exam is limited because of her limited mobility and body habitus. Bimanual exam was limited. Unable to appreciate size of uterus. Will obtain ultrasound to evaluate her postmenopausal bleeding. 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 Back/Spine no CVA tenderness Extremity normal to inspection and full ROM Neuro oriented x3 and CN's II-XII intact bilaterally Sensorium / Orientation: alert Psych mental status grossly normal Skin no rashes or lesions noted and no wounds General Skin Exam: Negative for jaundice or pallor MDM MDM MDM Narrative Medical decision making narrative: Patient with postmenopausal bleeding. Need to evaluate for cancer. Will perform pelvic exam. Depending on findings obtain ultrasound versus contacting Dr. Salazar who is on-call for [facility]. Reviewed nurse practitioner Minnie's note for OB visit March 02. History & Record Review Additional record(s) reviewed:: Prior outpatient record and Prior labs Lab Data Attestation: I reviewed the patient's lab results. Lab results narrative: H&H reveals mild anemia with normal indices. Labs: Laboratory Results - last 24 hr 03/15/25 16:50 WBC 7.5 RBC 3.52 L Hgb 11.2 L Hct 34.5 L MCV 98.0 MCH 31.8 MCHC 32.5 RDW Std Deviation 49.6 H RDW Coeff of Dalila 14.0 Plt Count 234 MPV 10.1 Immature Gran % (Auto) 0.500 Neut % (Auto) 70.7 H Lymph % (Auto) 20.1 [place] % (Auto) 6.7 Eos % (Auto) 1.5 Baso % (Auto) 0.5 Absolute Neuts (auto) 5.3 Absolute Lymphs (auto) 1.51 Nucleated RBC % 0 Radiography Diagnostic Testing: Clinical Impression(s) from Imaging Studies Transvaginal US 03/15/25 17:45 IMPRESSION: Slightly thickened endometrium containing fluid. Probable small uterine fibroid adjacent to the lower uterine segment measuring 13 x 7 by 11 mm Reading Location: [facility] Management Discussion w/another healthcare provider: Dairy Husbandry Teacher (Spoke with Dr. Bernard. Patient to call the office in the morning for endometrial biopsy.) Discharge Plan Triage Chief Complaint: Vag Bleeding ED Provider: Kobi Drake Dx/Rx/DC Orders Clinical Impression: Abnormal vaginal bleeding in postmenopausal patient, HTN (hypertension), Hyperlipidemia, Fibroid uterus Instructions: Endometrial Biopsy Prescriptions: No Action multivitamin tablet 1 tab PO DAILY cholecalciferol (vitamin D3) 2,000 unit capsule 2,000 unit PO LUNCH atorvastatin 80 mg tablet 80 mg PO QHS 90 Days Qty: 90 calcium carbonate [Calcium 600] 600 mg calcium (1,500 mg) tablet 1,200 mg PO LUNCH ascorbic acid (vitamin C) [Vitamin C] 500 mg capsule, extended release 500 mg PO BID levothyroxine 125 mcg tablet 112 mcg PO DAILY trazodone 150 mg tablet 150 mg PO QHS clonazepam 0.5 mg tablet 0.5 mg PO BID PreserVision AREDS 2 Plus MV 200 mcg-15 mcg- 5 mg-1 mg capsule PO montelukast 10 mg tablet 10 mg PO QHS Patient Comments: 1 TABLET DAILY folic acid 1 mg tablet 2 mg PO DAILY Rx Instructions: Take for 30 days furosemide 20 mg tablet 20 mg PO DAILY duloxetine 60 mg capsule,delayed release(DR/EC) 60 mg PO DAILY sennosides [Senna Laxative] 8.6 mg tablet 8.6 mg PO QDAY oxycodone-acetaminophen 5-325 mg tablet 1 tab PO TID PRN Zyrtec 10 mg capsule 10 mg PO DAILY PRN clopidogrel 75 mg tablet 75 mg PO .Every other day Qty: 45 1RF pantoprazole 20 mg tablet,delayed release (DR/EC) 20 mg PO DAILY Qty: 90 1RF baclofen 20 mg tablet 10 mg PO QDAY PRN (Reason: muscle pain/muscle spasm) ropinirole 0.25 mg tablet 0.25 mg PO QHS losartan 100 MG tablet 100 mg PO QHS polyethylene glycol 3350 [Miralax] 17 gram/dose Powder 17 g PO QHS Nasacort 55 mcg/actuation Aerosol 55 mcg INTRANASAL QHS fluconazole 150 mg tablet 150 mg PO Q3D Qty: 2 0RF Rx Instructions: may repeat second dose 72 hrs after first dose if symptoms persist Primary Care Provider: Salvador Barber Referrals: Chio Snyder DO [Med Staff - Active Staff] - As soon as possible Salvador Barber MD [Primary Care Provider] - Print Language: Maori Disposition Disposition: Home, Self Care
[2025-03-15 17:03] LABS: Hematocrit 34.5 % (37-47); Hemoglobin 11.2 g/dL (12.0-15.0); Immature Granulocytes Count 0.040 X10^3/uL (0.0-0.0); Mean Corp Hgb Conc 32.5 g/dL (32-36); Mean Corpuscular Volume 98.0 fL (81-99); Mean Platelet Vol. 10.1 fl (6.2-12.0); NRBC Flagged by Analyzer 0 % (0-5); Platelet Count 234 K/mm3 (150-450); RBC Distribution Width CV 14.0 % (11.6-14.6); RBC Distribution Width SD 49.6 fl (35.1-43.9); Red Blood Count 3.52 M/mm3 (4.2-5.4); White Blood Count 7.5 K/mm3 (4.4-11.0)
[2025-03-15 17:05] VITALS: BP 165/78; PULSE 72
--- NOTE | 2025-03-15 17:45 | US_ITS ---
PROCEDURE: TRANSVAGINAL NON- 03/15/2025 REASON FOR EXAM: POSTMENOPAUSAL BLEEDING TECHNIQUE: TRANSVAGINAL NON- FINDINGS: The uterus measures 7.4 x 3.5 x 3.7 cm. The right and left ovaries were not visualized. There is no free-fluid. Endometrial thickness is 8 mm which is slightly enlarged for age. There is a small amount of fluid present. US/Transvaginal Non- IMPRESSION: Slightly thickened endometrium containing fluid. Probable small uterine fibroi d adjacent to the lower uterine segment measuring 13 x 7 by 11 mm Reading [facility]
[2025-03-15 18:57] VITALS: BP 159/72; PULSE 65; RESP 18; O2SAT 99
[2025-03-15 19:59] VITALS: BP 180/66; PULSE 66; RESP 16; TEMP 36.6; O2SAT 99
== END 2025-03-15 20:08 | disposition home or self-care (01) ==
PROVIDERS: Emergency Provider Emergency Medicine; PCP Family Medicine; Visit Provider Emergency Medicine
DX: N95.0 Postmenopausal bleeding (principal); D25.9 Leiomyoma of uterus, unspecified; I10 Essential (primary) hypertension; E78.5 Hyperlipidemia, unspecified; K21.9 Gastro-esophageal reflux disease without esophagitis; Z79.890 Hormone replacement therapy; Z79.899 Other long term (current) drug therapy; Z86.73 Personal history of transient ischemic attack (TIA), and cerebral infarction without residual deficits
CPT/HCPCS: 36415; 76830; 85025; 99282

== ENCOUNTER → 2025-03-20 | Outpatient (CLI) | payer MEDICARE, OTHER, SELFPAY ==
--- NOTE | 2025-03-20 16:08 | EMB_PTH ---
PATIENT: DONOVAN RED [id number] AGE/SX: 79/F ROOM: RE03/20/[address]: EVER Duval : 1945 BED: DIS: 03/20/2025 SPEC #: [id number] RECD: 03/20/25 16:47 STATUS: WILD REQ #: [id number] ENRIQUE: 03/20/25 16:[address]: Annalise Salazar NP DEPT: SURGICAL PATHOLOGY RECD BY: Miguel Smith ENTERED: 03/21/25 08:59 SP TYPE: ENDOM BX/C OT DR: Dr. Salvador Barber MD Tissues: A - Endometrium, NOS Procedures: Surgery Specimen Level IV HEADER OPERATION: Endometrial biopsy PRE-OP DIAGNOSIS: Postmenopausal bleeding TISSUE SUBMITTED: A- Endometrial lining MICROSCOPIC DIAGNOSIS A. Endometrium, biopsy: * Few pieces of benign inactive endometrium * Endocervical tissue with chronic endocervicitis MICROSCOPIC DESCRIPTION Slides are reviewed. GROSS DESCRIPTION A. Received in formalin labeled with the patient's name and date of . Designated as EMB is a 2.9 x 1.8 x 0.2 cm aggregate of mucoid material and flecks of of red-brown tissue. Entirely submitted in 1 cassette. [place] 03/21/2025 CPT:38592
--- NOTE | 2025-03-20 16:08 | EMB_PTH ---
PATIENT: DONOVAN RED [facility]: [facility][id number] AGE/SX: 79/F ROOM: RE03/20/[address]: EVER Duval : 1945 BED: DIS: 03/20/2025 SPEC #: [id number] RECD: 03/20/25 16:47 STATUS: WILD REQ #: [id number] ENRIQUE: 03/20/25 16:[address]: Annalise Salazar NP DEPT: SURGICAL PATHOLOGY RECD BY: Miguel Smith ENTERED: 03/21/25 08:59 SP TYPE: ENDOM BX/C OT DR: Dr. Salvador Barber MD Tissues: A - Endometrium, NOS Procedures: Surgery Specimen Level IV HEADER OPERATION: Endometrial biopsy PRE-OP DIAGNOSIS: Postmenopausal bleeding TISSUE SUBMITTED: A- Endometrial lining MICROSCOPIC DIAGNOSIS A. Endometrium, biopsy: * Few pieces of benign inactive endometrium * Endocervical tissue with chronic endocervicitis MICROSCOPIC DESCRIPTION Slides are reviewed. GROSS DESCRIPTION A. Received in formalin labeled with the patient's name and date of . Designated as EMB is a 2.9 x 1.8 x 0.2 cm aggregate of mucoid material and flecks of of red-brown tissue. Entirely submitted in 1 cassette. [place] 03/21/2025 CPT:48938
--- OUTSIDE RECORDS SUMMARY | 2025-03-20 22:21 | XMS RPT_ITS | CCD ---
Author Organization [facility] Care Team Providers Care Finance Associate Name Role Phone SUNIL JUÁREZ, DR SALVADOR Enriquez Primary Care Physician [phone] Isra PT, Aruna Unavailable Unavailable SUNIL JUÁREZ, DR SALVADOR Enriquez Attending Unavailparadise WALLER MD, DR SALVADOR Enriquez Primary Care Unavailparadise WALLER MD, DR SALVADOR Enriquez Primary Care Unavailparadise WALLER MD, DR SALVADOR Enriquez Attending Unavailparadise WALLER MD, DR SALVADOR Enriquez Primary Care Unavailparadise WALLER MD, DR SALVADOR Enriquez Attending Unavailparadise WALLER MD, DR SALVADOR Enriquez Primary Care Unavailparadise WALLER MD, DR SALVADOR Enriquez Attending UnavailSalvador Ryan Primary Care Unavailable Salvador Waller Referring Unavailable Marie SENIOR RISK MANAGER, Annalise Attending Unavailable Sunil, Salvador Primary Care Unavailable Salvador Waller Referring Unavailable Herson Macedo Attending Unavailable Keily Winter Referring Unavailable Waller, Salvador Primary Care Unavailable Keily Winter Attending Unavailable Salvador Waller Primary Care Unavailable Albert Sweeney Attending Unavailable Salvador Waller Primary Care Unavailable Salvador Waller Attending Unavailable Salvador Waller Primary Care Unavailable SibiliaHolly V Referring Unavailable SibiliaHolly V Attending Unavailable Salvador Waller Primary Care Unavailable Keily Winter Referring Unavailable Keily Winter Attending Unavailable Chin, Ade Referring Unavailable WallerSalvador bejarano Primary Care Unavailable Chin, Ade Attending Unavailable Sunil, Salvador Primary Care Unavailable Chin, Ade Attending Unavailable Keily Winter Referring Unavailable Waller, Salvador Primary Care Unavailable Keily Winter Attending Unavailable Sunil, Salvador Primary Care Unavailable Keri Hartman Referring Unavailable Keri Hartman Attending Unavailable Sunil, Salvador Primary Care Unavailable Keri Hartman Referring Unavailable Keri Hartman Attending Unavailable Salvador Waller Primary Care Unavailable Chin, Ade Attending Unavailable BOWEN MARIE Referring Unavailable BOWEN MARIE Attending Unavailable Salvador Waller Primary Care Unavailable Velgary, Ade Referring Unavailable Salvador Waller Primary Care Unavailable Chin, Ade Attending Unavailable Salvador Waller Primary Care Unavailable Chin, Ade Attending Unavailable Waller, Salvador Primary Care Unavailable Vellanki, Ade Referring Unavailable Chin, Ade Attending Unavailable Waller, Salvador Primary Care Unavailable Macedo, Herson Referring Unavailable Remington, Herson Attending Unavailable Waller, Salvador Primary Care Unavailable Waller, Salvador Referring Unavailable Waller, Salvador Attending Unavailable Waller, Salvador Primary Care Unavailable Waller, Salvador Referring Unavailable Waller, Salvador Attending Unavailable Waller, Salvador Primary Care Unavailable Vellanki, Ade Attending Unavailable Drake, Kobi Attending Unavailable Sunil, Salvador Primary Care Unavailable Waller, Salvador Primary Care Unavailable Waller, Salvador Referring Unavailable Keri Hartman Attending Unavailable Allergies Allergy Classification Reported Allergen(s) Allergy Type Date of Onset Reaction(s) Facility (8 sources) Acetaminophen / HYDROcodone; Translations: [acetaminophen-hy drocodone] Drug Allergy [facility] (8 sources) Acetaminophen / Propoxyphene; Translations: [acetaminophen-pr opoxyphene] Drug Allergy [facility] (8 sources) Codeine; Translations: [codeine] Drug Allergy [facility] (8 sources) Morphine; Translations: [morphine] Drug Allergy N/V [facility] (8 sources) nabumetone; Translations: [nabumetone] Drug Allergy [facility] (8 sources) oxyCODONE; Translations: [oxycodone] Drug Allergy UPSET STOMACH [facility] (8 sources) rofecoxib; Translations: [rofecoxib] Drug Allergy Nausea (finding) [facility] (8 sources) traMADol; Translations: [tramadol] Drug Allergy Nausea (finding) [facility] (1 source) Codeine Drug Allergy 5 [facility] (1 source) Morphine Drug Allergy 5 [facility] (1 source) oxyCODONE Drug Allergy 5 [facility] Medications Current Medications Medication Drug Class(es) Dates Sig (Normalized) Sig (Original) atorvastatin 80 mg oral tablet (8 sources) HMG-CoA Reductase Inhibitor Start: 06-09-2018 atorvastatin 80 mg oral tablet Dose : 80 mg = 1 tab(s), Oral, qDay, # 30 tab(s), 0 Refill(s) Start Date: 06/09/18 Status: Ordered busPIRone hydrochloride 5 mg oral tablet (3 sources) Start: 09-11-2022 busPIRone 5 mg oral tablet Dose : 5 mg = 1 tab(s), Oral, BID Start Date: 09/11/22 Status: Ordered calcium carbonate 1500 mg oral tablet (5 sources) Start: 09-11-2022 calcium (as carbonate) 600 mg oral tablet Dose : 1,200 mg = 2 tab(s), Oral, qDay Start Date: 09/11/22 Status: Ordered Zyrtec (2 sources) Histamine-1 Receptor Antagonist Start: 06-01-2023 ZyrTEC qDay, 0 Refill(s) Start Date: 06/01/23 Status: Ordered clonazePAM 0.5 mg oral tablet (5 sources) Benzodiazepine Start: 09-11-2022 take 1 dose by mouth twice daily clonazePAM Dose : 0.5 mg =, Oral, BID, 74.2 Start Date: 09/11/22 Status: Ordered clopidogrel 75 mg oral tablet (8 sources) P2Y12 Platelet Inhibitor Start: 06-09-2018 Plavix 75 mg oral tablet Dose : 75 mg = 1 tab(s), Oral, qDay, # 30 tab(s), 0 Refill(s) Start Date: 06/09/18 Status: Ordered famotidine 20 mg oral tablet (2 sources) Histamine-2 Receptor Antagonist Start: 06-01-2023 famotidine 20 mg oral tablet 0 Refill(s) Start Date: 06/01/23 Status: Ordered gabapentin 800 mg oral tablet (3 sources) Anti-epileptic Agent Start: 06-09-2018 gabapentin 800 mg oral tablet Dose : 1,600 mg = 2 tab(s), Oral, qDay, 0 Refill(s) Start Date: 06/09/18 Status: Ordered levothyroxine sodium 0.112 mg oral tablet (8 sources) l-Thyroxine Start: 06-09-2018 levothyroxine 112 mcg (0.112 mg) oral tablet Dose : 112 mcg = 1 tab(s), Oral, qDay, # 30 tab(s), 0 Refill(s) Start Date: 06/09/18 Status: Ordered losartan potassium 100 mg oral tablet (8 sources) Angiotensin 2 Receptor Millie Start: 06-09-2018 losartan 100 mg oral tablet Dose : 100 mg = 1 tab(s), Oral, qDay, # 30 tab(s), 0 Refill(s) Start Date: 06/09/18 Status: Ordered melatonin 10 mg oral capsule (7 sources) Start: 06-01-2023 melatonin 10 mg oral capsule Dose : 10 mg = 1 cap(s), Oral, qHS, PRN for insomnia, # 90 cap(s), 0 Refill(s) Start Date: 06/01/23 Status: Ordered Start: 09-11-2022 melatonin Dose : 10 mg =, qHS Start Date: 09/11/22 Status: Ordered montelukast 10 mg oral tablet (2 sources) Leukotriene Receptor Antagonist Start: 06-01-2023 montelukast 10 mg oral tablet Dose : 10 mg = 1 tab(s), Oral, qDay, 0 Refill(s) Start Date: 06/01/23 Status: Ordered Multivitamin preparation (2 sources) Start: 06-01-2023 take 1 tablet by mouth once daily Multivitamin Dose = 1 tab(s), Oral, Daily, 0 Refill(s) Start Date: 06/01/23 Status: Ordered omeprazole 20 mg delayed release oral capsule (3 sources) Proton Pump Inhibitor Start: 06-09-2018 omeprazole 20 mg oral delayed release capsule (NF) Dose : 20 mg = 1 cap(s), Oral, qDay, # 30 cap(s), 0 Refill(s) Start Date: 06/09/18 Status: Ordered pantoprazole 20 mg delayed release oral tablet (5 sources) Proton Pump Inhibitor Start: 09-11-2022 take 1 dose by mouth once daily pantoprazole Dose : 20 mg =, Oral, qDay Start Date: 09/11/22 Status: Ordered polyethylene glycol 3350 29303 mg powder for oral solution (5 sources) Osmotic Laxative Start: 09-11-2022 take 17 doses by mouth once daily Miralax Powder Packet Dose : 17 gram(s) =, Oral, qDay Start Date: 09/11/22 Status: Ordered PreserVision AREDS (2 sources) Start: 06-01-2023 PreserVision AREDS 0 Refill(s) Start Date: 06/01/23 Status: Ordered sertraline 50 mg oral tablet (5 sources) Serotonin Reuptake Inhibitor Start: 09-11-2022 sertraline 50 mg oral tablet Dose : 50 mg = 1 tab(s), Oral, Daily Start Date: 09/11/22 Status: Ordered traZODone hydrochloride 50 mg oral tablet (5 sources) Serotonin Reuptake Inhibitor Start: 09-11-2022 traZODone 50 mg oral tablet Dose : 150 mg = 3 tab(s), Oral, qHS Start Date: 09/11/22 Status: Ordered triamcinolone acetonide 0.055 mg/actuat metered dose nasal spray (5 sources) Corticosteroid Start: 09-11-2022 Nasacort Allergy 24HR 55 mcg/inh nasal spray 110 mcg Dose = 2 spray(s), Nostril, each, qDay, # 16.9 mL, 0 Refill(s) Start Date: 09/11/22 Status: Ordered Vitamin C 500 mg oral tablet (5 sources) Start: 09-11-2022 Vitamin C 500 mg oral tablet Dose : 1,000 mg = 2 tab(s), Oral, qDay Start Date: 09/11/22 Status: Ordered Vitamin D3 (5 sources) Start: 09-11-2022 Vitamin D3 Dose : 50 mcg = 1 cap(s), Oral, Daily Start Date: 09/11/22 Status: Ordered Completed/Discontinued Medications Medication Drug Class(es) Dates Sig (Normalized) Sig (Original) 24 hr metoprolol succinate 25 mg extended release oral tablet (9 sources) beta-Adrenergic Millie Start: 09-12-2022 End: 09-12-2022 metoprolol succinate 25 mg oral TABLET extended release Start: 09/12/22 8:00:00 EST, Dose = 25 mg, = 0.5 tab(s), Oral, 0, 09/11/22 18:09:00 EST Start Date: 09/12/22 Stop Date: 09/12/22 Status: Completed Start: 06-09-2018 metoprolol suc cinate 25 mg oral capsule, extended release Dose : 25 mg = 1 cap(s), Oral, qDay, 0 Refill(s) Start Date: 06/09/18 Status: Ordered Problems Active Problems Problem Classification Problem Date Documented Date Episodic/Chronic Disorders of lipid metabolism (9 sources) Hypercholesterolemia; Translations: [Pure hypercholesterolemia] Onset: 09-11-2022 06-09-2018 Chronic Esophageal disorders (9 sources) Gastroesophageal reflux disease; Translations: [Gastro-esophageal reflux disease without esophagitis] Onset: 01-10-2025 06-09-2018 Chronic Essential hypertension (10 sources) Hypertensive disorder; Translations: [Essential hypertension] Onset: 09-11-2022 06-09-2018 Chronic Nonmalignant breast conditions (1 source) Mastodynia; Translations: [Mastodynia] Onset: 03-13-2025 Episodic Osteoporosis (1 source) Age-related osteoporosis without current pathological fracture; Translations: [Age-related osteoporosis without current pathological fracture] Onset: 07-22-2024 Chronic Other and ill-defined cerebrovascular disease (1 source) Cerebrovascular disease; Translations: [Cerebrovascular disease, unspecified] Chronic Other circulatory disease (1 source) Personal history of other diseases of the circulatory system; Translations: [Personal history of other diseases of the circulatory system] Onset: 01-10-2025 Episodic Other connective tissue disease (8 sources) Fibromyalgia 06-09-2018 Episodic Other female genital disorders (1 source) Other specified noninflammatory disorders of vagina; Translations: [Other specified noninflammatory disorders of vagina] Onset: 03-11-2025 Episodic Other hereditary and degenerative nervous system conditions (1 source) Restless legs syndrome; Translations: [Restless legs syndrome] Onset: 01-11-2025 Chronic Other hereditary and degenerative nervous system conditions (1 source) Mild cognitive impairment, so stated; Translations: [Mild cognitive impairment of uncertain or unknown etiology] Onset: 08-29-2024 Chronic Other nervous system disorders (1 source) Abnormal gait; Translations: [Other abnormalities of gait and mobility] Episodic Rheumatoid arthritis and related disease (1 source) Inflammatory polyarthropathy; Translations: [Inflammatory polyarthropathy] Onset: 01-16-2025 Chronic Spondylosis; intervertebral disc disorders; other back problems (2 sources) Occipital neuralgia; Translations: [Radiculopathy, lumbar region] Onset: 01-10-2025 Episodic Thyroid disorders (9 sources) Hypothyroidism; Translations: [Hypothyroidism, unspecified] Onset: 11-08-2024 06-09-2018 Chronic Transient cerebral ischemia (1 source) Transient cerebral ischemia; Translations: [Transient cerebral ischemic attack, unspecified] Onset: 09-11-2022 Chronic Unclassified (1 source) Low back pain, unspecified; Translations: [Low back pain, unspecified] Onset: 01-10-2025 Past or Other Problems Problem Classification Problem Date Documented Da te Episodic/Chronic Other connective tissue disease (1 source) Trigger finger, unspecified finger; Translations: [Trigger finger, unspecified finger] Onset: 08-29-2024 Episodic Other liver diseases (1 source) Abnormal levels of other serum enzymes; Translations: [Abnormal levels of other serum enzymes] Onset: 11-25-2024 Episodic Other screening for suspected conditions (not mental disorders or infectious disease) (1 source) Encounter for screening mammogram for malignant neoplasm of breast; Translations: [Encounter for screening mammogram for malignant neoplasm of breast] Onset: 12-11-2024 Episodic Results Test Name Value Interpretation Reference Range Facility CBC W/Diff, Automatedon 03-06 Absolute Lymph 1.51 X10 3/uL Normal 0.83-4.51 [facility] Comment on above: Performed By: #### L 100.0100 ####[facility] [address] [place], [address] Absolute Neut 5.3 X10 3/uL Normal 2.0-7.7 [facility] Comment on above: Performed By: #### L 100.0100 ####[facility] [address] [place], [address] Basophils/100 WBC (Bld) 0.5 % Normal 0-1 [facility] Comment on above: Performed By: #### L 100.0100 ####[facility] [address] [place], [address] Eosinophils/100 WBC (Bld) 1.5 % Normal 0-5 [facility] Comment on above: Performed By: #### L 100.0100 ####[facility] [address] [place], [address] Erythrocyte distribution width (RBC) [Ratio] 14.0 % Normal 11.6-14.6 [facility] Comment on above: Performed By: #### L 100.0100 ####[facility] [address] [place], [address] Hematocrit (Bld) [Volume fraction] 34.5 % Low 37-47 [facility] Comment on above: Performed By: #### L 100.0100 ####[facility] [address] [place], [address] Hemoglobin (Bld) [Mass/Vol] 11.2 g/dL Low 12.0-15.0 [facility] Comment on above: Performed By: #### L 100.0100 ####[facility] [address] [place], [address] IG% 0.500 Normal 0.0-0.9 [facility] Comment on above: Result Comment: IG% - Immature Granulocytes (promyelocytes, myelocytes and metamyelocytes) > 1% indicates that a LEFT SHIFT is Present. Performed By: #### L 100.0100 ####[facility] [address] [place], [address] Lymphocytes/100 WBC (Bld) 20.1 % Normal 19-41 [facility] Comment on above: Performed By: #### L 100.0100 ####[facility] [address] [place], [address] MCH (RBC) [Entitic mass] 31.8 pg Normal 27.0-32.0 [facility] Comment on above: Performed By: #### L 100.0100 ####[facility] [address] [place], [address] MCHC (RBC) [Mass/Vol] 32.5 g/dL Normal 32-36 [facility] Comment on above: Performed By: #### L 100.0100 ####[facility] [address] [place], [address] MCV (RBC) [Entitic vol] 98.0 fL Normal 81-99 [facility] Comment on above: Performed By: #### L 100.0100 ####[facility] [address] [place], [address] Monocytes/100 WBC (Bld) 6.7 % Normal 0-10 [facility] Comment on above: Performed By: #### L 100.0100 ####[facility] [address] [place], [address] Neutrophils/100 WBC (Bld) 70.7 % High 47-70 [facility] Comment on above: Performed By: #### L 100.0100 ####[facility] [address] [place], [address] Nucleated RBC (Bld) [#/Vol] 0 10*3/uL Normal 0-5 [facility] Comment on above: Performed By: #### L 100.0100 ####[facility] [address] [place], [address] Platelet mean volume (Bld) [Entitic vol] 10.1 fL Normal 6.2-12.0 [facility] Comment on above: Performed By: #### L 100.0100 ####[facility] [address] [place], [address] Platelets (Bld) [#/Vol] 234 10*3/uL Normal 150-450 [facility] Comment on above: Performed By: #### L 100.0100 ####[facility] [address] [place], [address] RBC (Bld) [#/Vol] 3.52 10*6/uL Low 4.2-5.4 [facility] Comment on above: Performed By: #### L 100.0100 ####[facility] [address] [place], [address] RDW SD 49.6 fl High 35.1-43.9 [facility] Comment on above: Performed By: #### L 100.0100 ####[facility] [address] [place], [address] WBC (Bld) [#/Vol] 7.5 10*3/uL Normal 4.4-11.0 [facility] Comment on above: Performed By: #### L 100.0100 ####[facility] [address] [place], [address] Emergency Department Summary on 03-15-2025 Emergency Department Summary [facility] Department [address] [place] [address] Emergency Department Summary 03/15/25 MR#: [id number] Acct: [id number] Name: HEATHER RED Rep #: [id number] : 1945 79 From: Kobi Drake MD PCP: Dr. Salvador Waller MD Status:REG ER Location: ED HPI HPI - Female History of Present Illness Chief Complaint: Vag Bleeding Detail of Chief Complaint: Pelvic cramping and vaginal bleeding Informant: patient Pain Pain: Positive for Pelvic Pain Onset: Today Context: Sudden Onset Timing: Intermittent Quality: Positive for Cramping Location: Suprapubic Current Severity: Mild Maximum Severity: Severe Worsened by: - (Using the restroom) Relieved by: - (Nothing) Bleeding Issue: Positive for Vaginal bleeding; Negative for Passing clots or Passing tissue Onset: Today and Hours Vaginal Discharge Onset: - (Patient seen by nurse practitioner Minnie for mastodynia and vaginal yeast infection March 02, 2025) Associated Symptoms Associated Symptoms: Negative for Dysuria, Frequency, Urgency or Hematuria Narrative Narrative: Patient is an 79-year-old female. She presents because of cramping pain in the suprapubic pelvic area with vaginal bleeding. First noted blood 9 AM. She has not had a Pap smear in some time. She never had abnormal Pap smear. She denies weight loss. She has had some recent weight gain. She denies dysuria, frequency, urgency or hematuria. She denies fever, chills or night sweats. She denies nausea, vomiting or diarrhea. She denies constipation. She denies change in the caliber, consistency or color of her stool. Prior similar symptoms: No Recent Illness/Hospitalizat ion: Yes [facility] Medical History Sacroiliitis Wears partial dentures Arthritis Urinary incontinence Restless legs Injury of head and neck Gastric reflux Non-smoker History of stress test History of echocardiogram Leg cramps History of edema Cardiology follow-up encounter Nosebleed Degenerative disc disease, cervical Occipital headache [id number] ultra-rapid metabolizer Obstructive sleep apnea on CPAP Adjustment disorder with mixed anxiety and depressed mood Generalized anxiety disorder Stroke History of torn meniscus of right knee Rotator cuff insufficiency of right shoulder Bone spur of ankle Hyperlipidemia Patent foramen ovale HTN (hypertension) TIA (transient ischemic attack) Dyslipidemia Home Medications ???Medication ???Instructions ???Recorded ???Last Taken ???Type losartan 100 mg tablet 100 mg PO QHS HTN 05/13/14 2 History cholecalciferol (vitamin D3) 50 2,000 unit PO LUNCH supplement 03/15/22 History mcg (2,000 unit) capsule multivitamin 1 tab PO DAILY supplement 10/21/18 03/15/22 History ascorbic acid (vitamin C) 500 mg 500 mg PO BID supplement 03/07/21 03/15/22 History capsule,extended release (Vitamin C) atorvastatin 80 mg tablet 80 mg PO QHS cholesterol 90 days 0 03/07/21 03/15/22 History #90 tabs calcium carbonate (Calcium 600) 1,200 mg PO LUNCH supplement 03/0703/15/22 History levothyroxine 125 mcg tablet 112 mcg PO DAILY thyroid 03/07/21 03/16/22 History clonazepam 0.5 mg tablet 0.5 mg PO BID anxiety 08/12/2106/27 History trazodone 150 mg tablet 150 mg PO QHS rest 08/12/21 History polyethylene glycol 3350 17 17 g PO QHS stool softener 2 03/15/22 History gram/dose oral powder (Miralax) triamcinolone acetonide 55 55 mcg intranasal QHS nasal 03/15/22 History mcg/actuation nasal spray,aerosol congestion mv-mn-folic 200 mcg-vit K 15 cap PO 02/25/23 Unknown History mcg-lutein 5 mg-zeaxanthin 1 mg capsule (PreserVision AREDS 2 Plus Multivit) duloxetine 60 mg capsule,delayed 60 mg PO DAILY 09/23/23 Unknown Hi story release folic acid 1 mg tablet 2 mg PO DAILY 09/23/23 Unknown His tory furosemide 20 mg tablet 20 mg PO DAILY 09/23/23 Unknown Hi story montelukast 10 mg tablet 10 mg PO QHS 09/23/23 Unknown Hist ory cetirizine 10 mg capsule (Zyrtec) 10 mg PO DAILY PRN 05/04/24 Unkno wn History oxycodone-acetaminop hen 5 mg-325 1 tab PO TID PRN 05/04/24 Unknown History mg tablet sennosides 8.6 mg tablet (Senna 8.6 mg PO QDAY 05/04/24 Unknown Hi story Laxative) clopidogrel 75 mg tablet 75 mg PO .Every other day #45 tabs 12/14/24 Unknown Rx pantoprazole 20 mg tablet,delayed 20 mg PO DAILY #90 tabs 12/24/24 Unknown Rx release baclofen 20 mg tablet 10 mg PO QDAY PRN muscle 03/01/25 Unknown History pain/muscle spasm ropinirole 0.25 mg tablet 0.25 mg PO QHS 03/01/25 Unknown Hi story fluconazole 150 mg tablet 150 mg PO Q3D 2 doses #2 tabs 02/06 Unknown Rx Allergy/AdvReac Type Severity Reaction Status Edgard (more content not included)... Normal [facility] Transvaginal Non-on 03-15-2025 Transvaginal Non- [facility] Imaging Services [address] [place] [address] Transvaginal Non- MR#: [id number] Acct: [id number] Name: HEATHER RED Rep #: [id number] : 1945 F 79 From: Alberto Brandon MD PCP: Dr. Salvador Waller MD Status: REG ER Study: Transvaginal Non- Date of Exam: Exam# [id number] Ordering Dr: Kobi Drake MD PROCEDURE: TRANSVAGINAL NON- 03/15/2025 REASON FOR EXAM: POSTMENOPAUSAL BLEEDING TECHNIQUE: TRANSVAGINAL NON- FINDINGS: The uterus measures 7.4 x 3.5 x 3.7 cm. The right and left ovaries were not visualized. There is no free-fluid. Endometrial thickness is 8 mm which is slightly enlarged for age. There is a small amount of fluid present. US/Transvaginal Non- IMPRESSION: Slightly thickened endometrium containing fluid. Probable small uterine fibroid adjacent to the lower uterine segment measuring 13 x 7 by 11 mm Reading Location: [facility] CC: Dr. Salvador Waller MD; Dr. Kobi Drake MD Wrap Yarn Sorter: Signed Normal [facility] Bilat Brst Godfrey Stand Aloneo n 03-06-2025 Bilat Brst [facility]frey Stand Alone [facility] Imaging Services [address] [place] [address] [id number] Bilat Brst [facility] Stand Alone MR#: [id number] Acct: [id number] Name: HEATHER RED Rep #: [id number] : 1945 F 79 From: Elvira Jamison MD PCP: Dr. Salvador Waller MD Status: REG CLI Study: Bilat Brst Godfrey Stand Alone Date of Exam: 09/30 Exam# [id number] Ordering Dr: Keri Hartman SENIOR RISK MANAGER-C EXAM: DIAG MAMM W/CAD, BILAT; BREAST LIMITED UNILATERAL; BILAT BRST GODFREY STAND ALONE 03/06/2025 CLINICAL HISTORY: F, Age 79 y/o , BREAST PAIN; PAIN TECHNIQUE: DIAG MAMM W/CAD, BILAT; BREAST LIMITED UNILATERAL; BILAT BRST GODFREY STAND ALONE. COMPARISON: Prior exam(s) dated 07/19/2024. FINDINGS: MAMMOGRAM: TISSUE DENSITY: There are scattered areas of fibroglandular density. Bilateral Breast Mammographic Findings: The patient presents with bilateral inferior breast pain. Also, the clinician reports bilateral nipple discoloration. On the present examination, there are no suspicious mammographic findings in the inferior bilateral breast to account for the patient's pain. Also, there are no suspicious mammographic findings in the retroareolar regions of the bilateral breast. Overall, there are no suspicious masses, grouped calcifications or architectural distortions in either breast. ULTRASOUND: Bilateral breast: There are no suspicious sonographic findings in the area of patient's reported pain in the inferior breast bilaterally. Also, there are no suspicious findings in the retroareolar regions of the bilateral breast to account for the patient's nipple discoloration. BI/Bilat Brst Godfrey Stand Alone IMPRESSION: 1. There are no suspicious mammographic or sonographic findings to account for the patient's bilateral breast pain. Clinical management is recommended for the pain. 2. There are no suspicious mammographic or sonographic findings to account for the patient's bilateral nipple discoloration. Clinical management is recommended. 3. There is no evidence of malignancy in either breast. OVERALL FINAL ASSESSMENT BI-RADS 1: NEGATIVE. RECOMMEND ANNUAL MAMMOGRAPHIC SCREENING. RECOMMENDATION: Routine annual follow-up in 1 Year A letter with findings and recommendations will be mailed to the patient. Reading Location: [id number] CC: SENIOR RISK MANAGER-C Keri Hartman; Dr. Salvador Waller MD Wrap Yarn Sorter: Signed Normal [facility] Breast Limited Unilateralon 03-06-2025 Breast Limited Unilateral [facility] Imaging Services [address] [place], [place] [address] Breast Limited Unilateral MR#: [id number] Acct: [id number] Name: HEATHER RED Rep #: [id number] : 1945 F 79 From: Elvira Jamison MD PCP: Dr. Salvador Waller MD Status: [facility] CL Study: Breast Limited Unilateral Date of Exam: Exam# [id number] Ordering Dr: Keri Hartman SENIOR RISK MANAGER-C EXAM: DIAG MAMM W/CAD, BILAT; BREAST LIMITED UNILATERAL; BILAT BRST GODFREY STAND ALONE 03/06/2025 CLINICAL HISTORY: F, Age 79 y/o , BREAST PAIN; PAIN TECHNIQUE: DIAG MAMM W/CAD, BILAT; BREAST LIMITED UNILATERAL; BILAT BRST GODFREY STAND ALONE. COMPARISON: Prior exam(s) dated 07/19/2024. FINDINGS: MAMMOGRAM: TISSUE DENSITY: There are scattered areas of fibroglandular density. Bilateral Breast Mammographic Findings: The patient presents with bilateral inferior breast pain. Also, the clinician reports bilateral nipple discoloration. On the present examination, there are no suspicious mammographic findings in the inferior bilateral breast to account for the patient's pain. Also, there are no suspicious mammographic findings in the retroareolar regions of the bilateral breast. Overall, there are no suspicious masses, grouped calcifications or architectural distortions in either breast. ULTRASOUND: Bilateral breast: There are no suspicious sonographic findings in the area of patient's reported pain in the inferior breast bilaterally. Also, there are no suspicious findings in the retroareolar regions of the bilateral breast to account for the patient's nipple discoloration. US/Breast Limited Unilateral IMPRESSION: 1. There are no suspicious mammographic or sonographic findings to account for the patient's bilateral breast pain. Clinical management is recommended for the pain. 2. There are no suspicious mammographic or sonographic findings to account for the patient's bilateral nipple discoloration. Clinical management is recommended. 3. There is no evidence of malignancy in either breast. OVERALL FINAL ASSESSMENT BI-RADS 1: NEGATIVE. RECOMMEND ANNUAL MAMMOGRAPHIC SCREENING. RECOMMENDATION: Routine annual follow-up in 1 Year A letter with findings and recommendations will be mailed to the patient. Reading Location: [id number] CC: EVER Hartman; Dr. Salvador Waller MD Wrap Yarn Sorter: Signed Normal [facility] Breast Limited Unilateral [facility] Imaging Services [address] [place] [address] Breast Limited Unilateral MR#: [id number] Acct: [id number] Name: HEATHER RED Rep #: [id number] : 1945 F 79 From: Elvira Jamison MD PCP: Dr. Salvador Waller MD Status: REG CLI Study: Breast Limited Unilateral Date of Exam: Exam# [id number] Ordering Dr: Keri Hartman SENIOR RISK MANAGER-Luis A EXAM: DIAG MAMM W/CAD, BILAT; BREAST LIMITED UNILATERAL; BILAT BRST GODFREY STAND ALONE 03/06/2025 CLINICAL HISTORY: F, Age 79 y/o , BREAST PAIN; PAIN TECHNIQUE: DIAG MAMM W/CAD, BILAT; BREAST LIMITED UNILATERAL; BILAT BRST GODFREY STAND ALONE. COMPARISON: Prior exam(s) dated 07/19/2024. FINDINGS: MAMMOGRAM: TISSUE DENSITY: There are scattered areas of fibroglandular density. Bilateral Breast Mammographic Findings: The patient presents with bilateral inferior breast pain. Also, the clinician reports bilateral nipple discoloration. On the present examination, there are no suspicious mammographic findings in the inferior bilateral breast to account for the patient's pain. Also, there are no suspicious mammographic findings in the retroareolar regions of the bilateral breast. Overall, there are no suspicious masses, grouped calcifications or architectural distortions in either breast. ULTRASOUND: Bilateral breast: There are no suspicious sonographic findings in the area of patient's reported pain in the inferior breast bilaterally. Also, there are no suspicious findings in the retroareolar regions of the bilateral breast to account for the patient's nipple discoloration. US/Breast Limited Unilateral IMPRESSION: 1. There are no suspicious mammographic or sonographic findings to account for the patient's bilateral breast pain. Clinical management is recommended for the pain. 2. There are no suspicious mammographic or sonographic findings to account for the patient's bilateral nipple discoloration. Clinical management is recommended. 3. There is no evidence of malignancy in either breast. OVERALL FINAL ASSESSMENT BI-RADS 1: NEGATIVE. RECOMMEND ANNUAL MAMMOGRAPHIC SCREENING. RECOMMENDATION: Routine annual follow-up in 1 Year A letter with findings and recommendations will be mailed to the patient. Reading Location: [id number] CC: SENIOR RISK MANAGER-Luis A Hartman; Dr. Salvador Waller MD Wrap Yarn Sorter: Signed Normal [facility] DIAG MAMM W/CAD, BILATon DIAG MAMM W/CAD, BILAT [facility] Imaging Services [address] [place] [address] DIAG MAMM W/CAD, BILAT MR#: [id number] Acct: [id number] Name: HEATHER RED Rep #: [id number] : 1945 F 79 From: Elvira Jamison MD PCP: Dr. Salvador Waller MD Status: REG CLI Study: DIAG MAMM W/CAD, BILAT Date of Exam: 03/06/25 Exam# [id number] Ordering Dr: Keri Hartman SENIOR RISK MANAGER-C EXAM: DIAG MAMM W/CAD, BILAT; BREAST LIMITED UNILATERAL; BILAT BRST GODFREY STAND ALONE 03/06/2025 CLINICAL HISTORY: F, Age 79 y/o , BREAST PAIN; PAIN TECHNIQUE: DIAG MAMM W/CAD, BILAT; BREAST LIMITED UNILATERAL; BILAT BRST GODFREY STAND ALONE. COMPARISON: Prior exam(s) dated 07/19/2024. FINDINGS: MAMMOGRAM: TISSUE DENSITY: There are scattered areas of fibroglandular density. Bilateral Breast Mammographic Findings: The patient presents with bilateral inferior breast pain. Also, the clinician reports bilateral nipple discoloration. On the present examination, there are no suspicious mammographic findings in the inferior bilateral breast to account for the patient's pain. Also, there are no suspicious mammographic findings in the retroareolar regions of the bilateral breast. Overall, there are no suspicious masses, grouped calcifications or architectural distortions in either breast. ULTRASOUND: Bilateral breast: There are no suspicious sonographic findings in the area of patient's reported pain in the inferior breast bilaterally. Also, there are no suspicious findings in the retroareolar regions of the bilateral breast to account for the patient's nipple discoloration. BI/DIAG MAMM W/CAD, BILAT IMPRESSION: 1. There are no suspicious mammographic or sonographic findings to account for the patient's bilateral breast pain. Clinical management is recommended for the pain. 2. There are no suspicious mammographic or sonographic findings to account for the patient's bilateral nipple discoloration. Clinical management is recommended. 3. There is no evidence of malignancy in either breast. OVERALL FINAL ASSESSMENT BI-RADS 1: NEGATIVE. RECOMMEND ANNUAL MAMMOGRAPHIC SCREENING. RECOMMENDATION: Routine annual follow-up in 1 Year A letter with findings and recommendations will be mailed to the patient. Reading Location: [id number] CC: EVER Hartman; Dr. Salvador Waller MD Wrap Yarn Sorter: Signed Normal [facility] Genital Culture Comprehensiv kavon 03-05-2025 VAC Reason for Exam: vaginal itching No Gardnerella, Neisseria or beta-hemolytic Streptococcus isolated. Presumptive C albicans Amount Growth 3+ Normal [facility] Comment on above: Performed By: #### L 501.16646, L506.0400, L501.9520 #### [facility] Laboratory [address] [place], [address] Gram Stainon 03-02-2025 GS Reason for Exam: vaginal itching Gram Stain 2+ Yeast Like Organisms 2+ Gram variable hossein No Gram negative diplococci Normal [facility] Comment on above: Performed By: #### L 501.95297, L506.0400, L501.9520 #### [facility] [address] [place], [address] Limousine Rental Clerk Office Visit Reporton 03-01-2025 Limousine Rental Clerk Office Visit Report [facility] [address], [address] [place] [address] OFFICE VISIT Date of Service: 03/01/25 MR#: [id number] Acct: [id number] Name: HEATHER RED Yumiko Rep #: [id number] : 1945 Provider: EVER Khan Age/Sex: 79/F Location: [facility] Status: Signed Intake Vital Signs 12/14/24 13:30 03/01/25 14:51 Height 5 ft 4 in 5 ft 4 in Weight: 190 lb 196 lb 2 oz BMI 32.5 33.6 BP 122/76 H 145/75 H Blood Pressure Location Lt brachial Position Sitting Respiration 15 Pulse 86 Pulse Source Monitor Temp 98.2 F Pulse Oximetry (%) 94 Oxygen Delivery Method room air Intake Visit Reasons: Left Breast Cyst ([place]) *ok per CB Chief Complaint: Vaginal itching, breast pain Copper Tapper Required: No Is patient in pain?: No Allergies oxycodone (From Percocet) Allergy (Verified 03/01/25 14:55) Other codeine Adverse Reaction (Severe, Verified 03/01/25 14:55) Nausea morphine Adverse Reaction (Severe, Verified 03/01/25 14:55) Nausea Medications ???Medication ???Instructions ???Recorded ???Confirmed ???Type losartan 100 mg tablet 100 mg PO QHS HTN 05/13/14 5 History cholecalciferol (vitamin D3) 50 2,000 unit PO LUNCH supplement 03/01/25 History mcg (2,000 unit) capsule multivitamin 1 tab PO DAILY supplement 10/21/18 03/01/25 History ascorbic acid (vitamin C) 500 mg 500 mg PO BID supplement 03/07/21 03/01/25 History capsule,extended release (Vitamin C) atorvastatin 80 mg tablet 80 mg PO QHS cholesterol 90 days 0 03/07/21 03/01/25 History #90 tabs calcium carbonate (Calcium 600) 1,200 mg PO LUNCH supplement 03/0703/01/25 History levothyroxine 125 mcg tablet 112 mcg PO DAILY thyroid 03/07/21 03/01/25 History clonazepam 0.5 mg tablet 0.5 mg PO BID anxiety 08/12/21 History trazodone 150 mg tablet 150 mg PO QHS rest 08/12/21 History polyethylene glycol 3350 17 17 g PO QHS stool softener 2 03/01/25 History gram/dose oral powder (Miralax) triamcinolone acetonide 55 55 mcg intranasal QHS nasal 03/01/25 History mcg/actuation nasal spray,aerosol congestion mv-mn-folic 200 mcg-vit K 15 cap PO 02/25/23 03/01/25 History mcg-lutein 5 mg-zeaxanthin 1 mg capsule (PreserVision AREDS 2 Plus Multivit) duloxetine 60 mg capsule,delayed 60 mg PO DAILY 09/23/23 03/01/25 H istory release folic acid 1 mg tablet 2 mg PO DAILY 01/18/24 06/26/25 Hi story furosemide 20 mg tablet 20 mg PO DAILY 09/23/23 03/01/25 H istory montelukast 10 mg tablet 10 mg PO QHS 09/23/23 03/01/25 His tory cetirizine 10 mg capsule (Zyrtec) 10 mg PO DAILY PRN 05/04/2403/01 History oxycodone-acetaminop hen 5 mg-325 1 tab PO TID PRN 05/04/24 03/01/25 History mg tablet sennosides 8.6 mg tablet (Senna 8.6 mg PO QDAY 05/04/24 03/01/25 H istory Laxative) clopidogrel 75 mg tablet 75 mg PO .Every other day #45 tabs 12/14/24 03/01/25 Rx pantoprazole 20 mg tablet,delayed 20 mg PO DAILY #90 tabs 12/24/24 03/01/25 Rx release baclofen 20 mg tablet 10 mg PO QDAY PRN muscle 03/01/25 History pain/muscle spasm ropinirole 0.25 mg tablet 0.25 mg PO QHS 03/01/25 03/01/25 H istory Is last menstrual period known: No Post menopausal: Yes Patient : No : No [facility] Medical History Sacroiliitis Wears partial dentures Arthritis Urinary incontinence Restless legs Injury of head and neck Gastric reflux Non-smoker History of stress test History of echocardiogram Leg cramps History of edema Cardiology follow-up encounter Nosebleed Degenerative disc disease, cervical Occipital headache [id number] ultra-rapid metabolizer Obstructive sleep apnea on CPAP Adjustment disorder with mixed anxiety and depressed mood Generalized anxiety disorder Stroke History of torn meniscus of right knee Rotator cuff insufficiency of right shoulder Bone spur of ankle Hyperlipidemia Patent foramen ovale HTN (hypertension) TIA (transient ischemic attack) Dyslipidemia Surgical History History of cataract extraction ( 02/2023) History of back surgery History of hip surgery History of meniscectomy of right knee History of rotator cuff surgery History of Achilles tendon repair History of nasal surgery History of bilateral carpal tunnel release History of left knee replacement History of cholecystectomy H/O left knee surgery H/O section Family History Father Non-Hodgkin lymphoma Heart disease Brother Leukemia Sister Breast cancer Mother Uterine cancer Other Cancer Social History (Reviewed 03/01/25 (more content not included)... Normal [facility] Comprehensive Metabolic Prof ekaterina 02-02-2025 Albumin [Mass/Vol] 3.9 g/dL Normal 3.4-4.8 [facility] Comment on above: Performed By: #### L 500.4100, L500.4050, L501.38060, L501.9520, L506.0400 #### [facility] Laboratory [address] [place], [address] Albumin/Globulin [Mass ratio] 1.6 {ratio} Normal 0.9-2.4 [facility] Comment on above: Performed By: #### L 500.4100, L500.4050, L501.56897, L501.9520, L506.0400 #### [facility] [address] [place], [address] ALK PHOS 91 U/L Normal 35-104 [facility] Comment on above: Performed By: #### L 500.4100, L500.4050, L501.75207, L501.9520, L506.0400 #### [facility] [address] [place], [address] ALT [Catalytic activity/Vol] 16 U/L Normal <=34 [facility] Comment on above: Performed By: #### L 500.4100, L500.4050, L501.66408, L501.9520, L506.0400 #### [facility] [address] [place], [address] AST [Catalytic activity/Vol] 27 U/L Normal <=31 [facility] Comment on above: Performed By: #### L 500.4100, L500.4050, L501.46276, L501.9520, L506.0400 #### [facility] [address] [place], [address] Bilirubin [Mass/Vol] 0.78 mg/dL Normal 0.00-1.30 [facility] Comment on above: Performed By: #### L 500.4100, L500.4050, L501.48083, L501.9520, L506.0400 #### [facility] [address] [place], [address] BUN/CRE 24.3 RATIO High 10-20 [facility] Comment on above: Performed By: #### L 500.4100, L500.4050, L501.17835, L501.9520, L506.0400 #### [facility] [address] [place], [address] Calcium [Mass/Vol] 9.2 mg/dL Normal 7.6-11.0 [facility] Comment on above: Performed By: #### L 500.4100, L500.4050, L501.69520, L501.9520, L506.0400 #### [facility] [address] [place], [address] Chloride [Moles/Vol] 100 mmol/L Normal 98-108 [facility] Comment on above: Performed By: #### L 500.4100, L500.4050, L501.89953, L501.9520, L506.0400 #### [facility] [address] [place], [address] CO2 [Moles/Vol] 26.7 mmol/L Normal 21.0-32.0 [facility] Comment on above: Performed By: #### L 500.4100, L500.4050, L501.72787, L501.9520, L506.0400 #### [facility] [address] [place], [address] Creatinine [Mass/Vol] 0.96 mg/dL Normal 0.70-1.20 [facility] Comment on above: Performed By: #### L 500.4100, L500.4050, L501.41488, L501.9520, L506.0400 #### [facility] [address] [place], [address] GAP 10 Normal 5-15 [facility] Comment on above: Performed By: #### L 500.4100, L500.4050, L501.25469, L501.9520, L506.0400 #### [facility] [address] [place], [address] GFR/1.73 sq M.predicted among non-blacks MDRD (S/P/Bld) [Vol rate/Area] 59 mL/min/{1.73_m2} Low >60 [facility] Comment on above: Result Comment: mL/m in/1.73m2 CKD-EPI Creatinine Equation (2020) Performed By: #### L 500.4100, L500.4050, L501.06284, L501.9520, L506.0400 #### [facility] [address] [place], [address] Globulin (S) [Mass/Vol] 2.4 g/dL Normal 2.2-4.2 [facility] Comment on above: Performed By: #### L 500.4100, L500.4050, L501.67876, L501.9520, L506.0400 #### [facility] [address] [place], [address] Glucose [Mass/Vol] 80 mg/dL Normal 70-99 [facility] Comment on above: Performed By: #### L 500.4100, L500.4050, L501.94764, L501.9520, L506.0400 #### [facility] [address] [place], [address] Potassium [Moles/Vol] 4.2 mmol/L Normal 3.3-5.1 [facility] Comment on above: Performed By: #### L 500.4100, L500.4050, L501.71868, L501.9520, L506.0400 #### [facility] [address] [place], [address] Sodium [Moles/Vol] 137 mmol/L Normal 133-145 [facility] Comment on above: Performed By: #### L 500.4100, L500.4050, L501.05267, L501.9520, L506.0400 #### [facility] [address] [place], [address] T PROT 6.3 g/dL Normal 5.9-8.4 [facility] Comment on above: Performed By: #### L 500.4100, L500.4050, L501.33498, L501.9520, L506.0400 #### [facility] [address] [place], [address] Urea nitrogen [Mass/Vol] 23 mg/dL High 4-19 [facility] Comment on above: Performed By: #### L 500.4100, L500.4050, L501.77190, L501.9520, L506.0400 #### [facility] [address] [place], [address] Free T3on 02-02-2025 Free T3 [Mass/Vol] 2.0 pg/mL Low 2.18-3.98 [facility] Comment on above: Performed By: #### L 500.4100, L500.4050, L501.32683, L501.9520, L506.0400 #### [facility] [address] [place], [address] Lipid Profileon 02-02-2025 CHOL:HDL 1.98 Normal [facility] Comment on above: Performed By: #### L 500.4100, L500.4050, L501.25210, L501.9520, L506.0400 #### [facility] [address] [place], [address] Cholesterol [Mass/Vol] 153 mg/dL Normal <=200 [facility] Comment on above: Result Comment: Chol esterol level, Desirable <200 mg/dL Borderline high cholesterol 200-239 mg/dL High cholesterol >=240 mg/dL Recommendations of the NCEP Adult Treatment Panel for the following risk-cutoff thresholds for the [place] population. Performed By: #### L 500.4100, L500.4050, L501.52110, L501.9520, L506.0400 #### [facility] [address] [place], [address] Cholesterol in HDL [Mass/Vol] 77 mg/dL Normal [facility] Comment on above: Result Comment: Wanda onal Cholesterol Education Program (NCEP) guidelines: <40 mg/dL: Low HDL-cholesterol (major risk factor for CHD) >= 60 mg/dL: High HDL-cholesterol (negative risk factor for CHD) HDL-cholesterol is affected by a number of factors, e.g. smoking, exercise, hormones, sex and age. Performed By: #### L 500.4100, L500.4050, L501.49094, L501.9520, L506.0400 #### [facility] [address] [place], [address] Cholesterol in LDL [Mass/Vol] 51 mg/dL Normal [facility] Comment on above: Result Comment: Bord qtldam=446-121 mg/dL Higher Kwde=640 mg/dL or greater Performed By: #### L 500.4100, L500.4050, L501.38947, L501.9520, L506.0400 #### [facility] [address] [place], [address] Cholesterol in VLDL [Mass/Vol] 25 mg/dL Normal 5-40 [facility] Comment on above: Performed By: #### L 500.4100, L500.4050, L501.92297, L501.9520, L506.0400 #### [facility] [address] [place], [address] Triglyceride [Mass/Vol] 123 mg/dL Normal [facility] Comment on above: Result Comment: The drugs N-Acetylcysteine and Metamizole may falsely depress this assay. Normal range: <150 mg/dL Borderline High: 150-199 mg/dL High: 200-499 mg/dL Very High: >500 mg/dL Performed By: #### L 500.4100, L500.4050, L501.63666, L501.9520, L506.0400 #### [facility] [address] [facility] [place], [address] T4 Free Directon 02-02-2025 T4 FREE DIRECT 1.20 ng/dL Normal 0.76-1.46 [facility] Comment on above: Performed By: #### L 500.4100, L500.4050, L501.20143, L501.9520, L506.0400 #### [facility] [address] [facility] [place], [address] Thyroid Stim Hormone (TSH)on 02-02-2025 TSH 3.740 uIU/mL Normal 0.300-4.200 [facility] Comment on above: Performed By: #### L 500.4100, L500.4050, L501.90710, L501.9520, L506.0400 #### [facility] [address] [place], [address] CBC W/Diff, Automatedon Absolute Lymph 1.72 X10 3/uL Normal 0.83-4.51 [facility] Comment on above: Performed By: #### L 500.4050, L100.0100 ####[facility] [id number] [place], [address] Absolute Neut 4.7 X10 3/uL Normal 2.0-7.7 [facility] Comment on above: Performed By: #### L 500.4050, L100.0100 ####[facility] [address] [place], [address] Basophils/100 WBC (Bld) 0.3 % Normal 0-1 [facility] Comment on above: Performed By: #### L 500.4050, L100.0100 ####[facility] [address] [place], [address] Eosinophils/100 WBC (Bld) 2.1 % Normal 0-5 [facility] Comment on above: Performed By: #### L 500.4050, L100.0100 ####[facility] [address] [place], [address] Erythrocyte distribution width (RBC) [Ratio] 13.9 % Normal 11.6-14.6 [facility] Comment on above: Performed By: #### L 500.4050, L100.0100 ####[facility] [address] [place], [address] Hematocrit (Bld) [Volume fraction] 34.8 % Low 37-47 [facility] Comment on above: Performed By: #### L 500.4050, L100.0100 ####[facility] [address] [place], [address] Hemoglobin (Bld) [Mass/Vol] 11.2 g/dL Low 12.0-15.0 [facility] Comment on above: Performed By: #### L 500.4050, L100.0100 ####[facility] [address] [place], [address] IG% 0.600 Normal 0.0-0.9 [facility] Comment on above: Result Comment: IG% - Immature Granulocytes (promyelocytes, myelocytes and metamyelocytes) > 1% indicates that a LEFT SHIFT is Present. Performed By: #### L 500.4050, L100.0100 ####[facility] [address] [place], [address] Lymphocytes/100 WBC (Bld) 24.3 % Normal 19-41 [facility] Comment on above: Performed By: #### L 500.4050, L100.0100 ####[facility] [address] [place], [address] MCH (RBC) [Entitic mass] 32.3 pg High 27.0-32.0 [facility] Comment on above: Performed By: #### L 500.4050, L100.0100 ####[facility] [address] [place], [address] MCHC (RBC) [Mass/Vol] 32.2 g/dL Normal 32-36 [facility] Comment on above: Performed By: #### L 500.4050, L100.0100 ####[facility] [address] [place], [address] MCV (RBC) [Entitic vol] 100.3 fL High 81-99 [facility] Comment on above: Performed By: #### L 500.4050, L100.0100 ####[facility] [address] [place], [address] Monocytes/100 WBC (Bld) 6.4 % Normal 0-10 [facility] Comment on above: Performed By: #### L 500.4050, L100.0100 ####[facility] [address] [place], [address] Neutrophils/100 WBC (Bld) 66.3 % Normal 47-70 [facility] Comment on above: Performed By: #### L 500.4050, L100.0100 ####[facility] [address] [place], [address] Nucleated RBC (Bld) [#/Vol] 0 10*3/uL Normal 0-5 [facility] Comment on above: Performed By: #### L 500.4050, L100.0100 ####[facility] [address] [place], [address] Platelet mean volume (Bld) [Entitic vol] 10.4 fL Normal 6.2-12.0 [facility] Comment on above: Performed By: #### L 500.4050, L100.0100 ####[facility] [address] [place], [address] Platelets (Bld) [#/Vol] 250 10*3/uL Normal 150-450 [facility] Comment on above: Performed By: #### L 500.4050, L100.0100 ####[facility] [address] [place], [address] RBC (Bld) [#/Vol] 3.47 10*6/uL Low 4.2-5.4 [facility] Comment on above: Performed By: #### L 500.4050, L100.0100 ####[facility] [address] [place], [address] RDW SD 50.7 fl High 35.1-43.9 [facility] Comment on above: Performed By: #### L 500.4050, L100.0100 ####[facility] [address] [place], [address] WBC (Bld) [#/Vol] 7.1 10*3/uL Normal 4.4-11.0 [facility] Comment on above: Performed By: #### L 500.4050, L100.0100 ####[facility] [address] [place], [address] Comprehensive Metabolic Prof il 01-11-2025 Albumin [Mass/Vol] 4.1 g/dL Normal 3.4-4.8 [facility] Comment on above: Performed By: #### L 500.4050, L100.0100 ####[facility] [address] [place], [address] Albumin/Globulin [Mass ratio] 1.7 {ratio} Normal 0.9-2.4 [facility] Comment on above: Performed By: #### L 500.4050, L100.0100 ####[facility] [address] [place], [address] ALK PHOS 115 U/L High 35-104 [facility] Comment on above: Performed By: #### L 500.4050, L100.0100 ####[facility] [address] [place], [address] ALT [Catalytic activity/Vol] 21 U/L Normal <=34 [facility] Comment on above: Performed By: #### L 500.4050, L100.0100 ####[facility] [address] [place], [address] AST [Catalytic activity/Vol] 29 U/L Normal <=31 [facility] Comment on above: Performed By: #### L 500.4050, L100.0100 ####[facility] [address] [place], [address] Bilirubin [Mass/Vol] 1.61 mg/dL High 0.00-1.30 [facility] Comment on above: Performed By: #### L 500.4050, L100.0100 ####[facility] [address] [place], [address] BUN/CRE 25.1 RATIO High 10-20 [facility] Comment on above: Performed By: #### L 500.4050, L100.0100 ####[facility] [address] [place], [address] Calcium [Mass/Vol] 9.5 mg/dL Normal 7.6-11.0 [facility] Comment on above: Performed By: #### L 500.4050, L100.0100 ####[facility] [address] [place], [address] Chloride [Moles/Vol] 102 mmol/L Normal 98-108 [facility] Comment on above: Performed By: #### L 500.4050, L100.0100 ####[facility] [address] [place], [address] CO2 [Moles/Vol] 26.8 mmol/L Normal 21.0-32.0 [facility] Comment on above: Performed By: #### L 500.4050, L100.0100 ####[facility] [address] [place], [address] Creatinine [Mass/Vol] 0.97 mg/dL Normal 0.70-1.20 [facility] Comment on above: Performed By: #### L 500.4050, L100.0100 ####[facility] [address] [place], [address] GAP 11 Normal 5-15 [facility] Comment on above: Performed By: #### L 500.4050, L100.0100 ####[facility] [address] [place], [address] GFR/1.73 sq M.predicted among non-blacks MDRD (S/P/Bld) [Vol rate/Area] 59 mL/min/{1.73_m2} Low >60 [facility] Comment on above: Result Comment: mL/m in/1.73m2 CKD-EPI Creatinine Equation (2020) Performed By: #### L 500.4050, L100.0100 ####[facility] [address] [place], [address] Globulin (S) [Mass/Vol] 2.5 g/dL Normal 2.2-4.2 [facility] Comment on above: Performed By: #### L 500.4050, L100.0100 ####[facility] [address] [place], [address] Glucose [Mass/Vol] 104 mg/dL High 70-99 [facility] Comment on above: Performed By: #### L 500.4050, L100.0100 ####[facility] [address] [place], [address] Potassium [Moles/Vol] 4.2 mmol/L Normal 3.3-5.1 [facility] Comment on above: Performed By: #### L 500.4050, L100.0100 ####[facility] [address] [place], [address] Sodium [Moles/Vol] 140 mmol/L Normal 133-145 [facility] Comment on above: Performed By: #### L 500.4050, L100.0100 ####[facility] [address] [place], [address] T PROT 6.5 g/dL Normal 5.9-8.4 [facility] Comment on above: Performed By: #### L 500.4050, L100.0100 ####[facility] [address] [place], [address] Urea nitrogen [Mass/Vol] 24 mg/dL High 4-19 [facility] Comment on above: Performed By: #### L 500.4050, L100.0100 ####[facility] [address] [place], [address] CBC W/Diff, Automatedon 05-0 2-2025 Absolute Lymph 1.48 X10 3/uL Normal 0.83-4.51 [facility] Comment on above: Performed By: #### L 503.6030, L100.0100 ####[facility] [address] [place], [address] Absolute Neut 4.4 X10 3/uL Normal 2.0-7.7 [facility] Comment on above: Performed By: #### L 503.6030, L100.0100 ####[facility] [address] [place], [address] Basophils/100 WBC (Bld) 0.5 % Normal 0-1 [facility] Comment on above: Performed By: #### L 503.6030, L100.0100 ####[facility] [address] [place], [address] Eosinophils/100 WBC (Bld) 2.4 % Normal 0-5 [facility] Comment on above: Performed By: #### L 503.6030, L100.0100 ####[facility] [address] [place], [address] Erythrocyte distribution width (RBC) [Ratio] 14.3 % Normal 11.6-14.6 [facility] Comment on above: Performed By: #### L 503.6030, L100.0100 ####[facility] [address] [place], [address] Hematocrit (Bld) [Volume fraction] 34.9 % Low 37-47 [facility] Comment on above: Performed By: #### L 503.6030, L100.0100 ####[facility] [address] [place], [address] Hemoglobin (Bld) [Mass/Vol] 11.2 g/dL Low 12.0-15.0 [facility] Comment on above: Performed By: #### L 503.6030, L100.0100 ####[facility] [address] [place], [address] IG% 0.600 Normal 0.0-0.9 [facility] Comment on above: Result Comment: IG% - Immature Granulocytes (promyelocytes, myelocytes and metamyelocytes) > 1% indicates that a LEFT SHIFT is Present. Performed By: #### L 503.6030, L100.0100 ####[facility] [address] [place], [address] Lymphocytes/100 WBC (Bld) 22.3 % Normal 19-41 [facility] Comment on above: Performed By: #### L 503.6030, L100.0100 ####[facility] [address] [place], [address] MCH (RBC) [Entitic mass] 32.1 pg High 27.0-32.0 [facility] Comment on above: Performed By: #### L 503.6030, L100.0100 ####[facility] [address] [place], [address] MCHC (RBC) [Mass/Vol] 32.1 g/dL Normal 32-36 [facility] Comment on above: Performed By: #### L 503.6030, L100.0100 ####[facility] [address] [place], [address] MCV (RBC) [Entitic vol] 100.0 fL High 81-99 [facility] Comment on above: Performed By: #### L 503.6030, L100.0100 ####[facility] [address] [place], [address] Monocytes/100 WBC (Bld) 7.2 % Normal 0-10 [facility] Comment on above: Performed By: #### L 503.6030, L100.0100 ####[facility] [address] [place], [address] Neutrophils/100 WBC (Bld) 67.0 % Normal 47-70 [facility] Comment on above: Performed By: #### L 503.6030, L100.0100 ####[facility] [address] [place], [address] Nucleated RBC (Bld) [#/Vol] 0 10*3/uL Normal 0-5 [facility] Comment on above: Performed By: #### L 503.6030, L100.0100 ####[facility] [address] [place], [address] Platelet mean volume (Bld) [Entitic vol] 10.4 fL Normal 6.2-12.0 [facility] Comment on above: Performed By: #### L 503.6030, L100.0100 ####[facility] [address] [place], [address] Platelets (Bld) [#/Vol] 232 10*3/uL Normal 150-450 [facility] Comment on above: Performed By: #### L 503.6030, L100.0100 ####[facility] [address] [place], [address] RBC (Bld) [#/Vol] 3.49 10*6/uL Low 4.2-5.4 [facility] Comment on above: Performed By: #### L 503.6030, L100.0100 ####[facility] [address] [place], [address] RDW SD 52.1 fl High 35.1-43.9 [facility] Comment on above: Performed By: #### L 503.6030, L100.0100 ####[facility] [address] [place], [address] WBC (Bld) [#/Vol] 6.6 10*3/uL Normal 4.4-11.0 [facility] Comment on above: Performed By: #### L 503.6030, L100.0100 ####[facility] [address] [place], [address] Iron+Iron Binding Capacityon 01-05-2025 IRON Normal 50-170 [facility] Comment on above: Result Comment: PER PT Performed By: #### L 503.6030, L100.0100 ####[facility] [address] [place], [address] IRON SATURATION Normal 13-59 [facility] Comment on above: Result Comment: PER PT Performed By: #### L 503.6030, L100.0100 ####[facility] [address] [place], [address] TIBC Normal 250-450 [facility] Comment on above: Result Comment: PER PT Performed By: #### L 503.6030, L100.0100 ####[facility] [address] [place], [address] UIBC Normal 228-428 [facility] Comment on above: Result Comment: PER PT Performed By: #### L 503.6030, L100.0100 ####[facility] [address] [place], [address] Neurology Visit Reporton Neurology Visit Report [facility] [address], [address] [place] [address] OFFICE VISIT Date of Service: 12/14/24 MR#: [id number] Acct: [id number] Name: HEATHER RED Rep #: [id number] : 1945 Provider: Dr. Keily prince MD Age/Sex: 79/F Location: [facility]. Status: Signed HPI [facility] Chief Complaint: Details: Interim History: Heather returns for follow-up. She has a history of hypertension, hypothyroidism, hyperlipidemia, sleep apnea (she uses ASV), cervical degenerative disc disease, ruptured cervical discs, TIA (2009), and right cerebellar stroke (08/2021). On 08/06/2021, she had the onset of gait imbalance and disequilibrium; this resolved over the following 2 weeks. A head MRI on 08/07/2021 revealed a small right superior cerebellar acute ischemic infarct. A head/neck CTA (08/06/2021) did not reveal any hemodynamically significant lesions. She denied having incoordination in the upper extremities, numbness, weakness or dizziness. She had a TIA in 2009; symptoms at that time included a generalized unwell feeling and right- sided facial tingling. She was placed on clopidogrel following her TIA (2009) and had continued clopidogrel until September 2021. Following her stroke in August 2021, aspirin 81 mg daily was added to her antiplatelet regimen. She takes atorvastatin for hyperlipidemia. A cardiac echo (March 2021) did not reveal any clear cardioembolic source. A 30-day cardiac event monitor showed sinus rhythm with no critical or serious events, and no evidence of atrial fibrillation. A cytochrome P450 [id number] isoenzyme test revealed a *1/*17 genotype indicating ultrarapid metabolic activity. Clopidogrel was discontinued in September 2021 and her aspirin was increased to 162mg daily. In 2021, she had nosebleeds; these resolved. She did not have melena or bloody stools. Due to easy bruising, aspirin was reduced to 81mg daily in August 2022. She had the onset of gait imbalance on 09/11/22. Due to concern that this may be a cerebrovascular ischemic event, clopidogrel 75mg daily was resumed and aspirin 81mg daily was continued. She then had easy bruising and aspirin was discontinued in 2022. She had physical therapy in September 2022 and had improvement of her gait. A head MRI on 09/16/22 did not reveal an acute cerebrovascular ischemic event (full report below). She now reports having continued easy bruising. She has had low back pain and left lower extremity radicular pain and underwent a lumbar surgery (L3-4 and L4-5 lumbar laminectomies) in 2021 and had resolution of her left lower extremity radicular pain and her low back pain diminished modestly. Since 2023, she has had increased low back pain and has right lower extremity radicular pain extending to the knee. She sees a face painter, Dr. Ludwig; lumbar radiofrequency ablation and/or injections were initially of modest benefit; her last lumbar radiofrequency ablation, however, was not of benefit. She had a dorsal column stimulator placed and this has been of moderate benefit. She is able to ambulate independently but also has a walker. She had a right tensor fascia hien trigger point injection at this office in 2022 for her right hip region pain. A course of prednisone was of benefit for her pain. Cyclobenzaprine was not of benefit. Baclofen 10mg TID has not been of benefit. Her lumbar MRI in March 2024 reveals a T12-L1 disc herniation with moderate spinal canal stenosis at this level, a disc herniation at L1-2 with moderate spinal canal stenosis at this level, a disc herniation at L2-3 with severe spinal canal stenosis at this level, prior surgical posterior decompression at L3-4 and L4-5, 2mm retrolisthesis at L3-4, 2mm anterolisthesis at L4-5, disc herniation at L4-5 with mild central canal stenosis, disc herniation L5-S1 with moderate central canal stenosis at this level, 2mm retrolisthesis at L5-S1, multilevel degenerative joint disease, and multilevel bilateral foraminal stenosis ranging from mild to severe. She has osteopenia on bone density test. She saw an wildlife removal specialist, Dr. Macedo, in 2023 regarding her low back pain and right lower extremity radicular pain and surgery was not recommended. She has rheumatoid arthritis. She sees a personal health coach, Dr. Neely, and is prescribed methotrexate and folic acid. She takes hydrocodone/acetamin ophen. She has had occipital pressure-type headaches that began in 2018. She denied associated photophobia, phonophobia or nausea. Previously, these headaches were occurring least a few days per week. Since 2021, her headaches have overall diminished. Naproxen (used occasionally) was of benefit. She has also used acetaminophen. Her headaches are triggered by pressure to the occipital head region. Cervical spine x-rays from 08/2020 revealed moderate degenerative disc disease, straightening of the normal lordotic curvature, 2mm anterolisthesis of (more content not included)... Normal [facility] Abdomen Limitedon 11-16-2024 Abdomen Limited [facility] Imaging Services [address] [place] [address] [facility] MR#: [id number] Acct: [id number] Name: HEATHER RED Rep #: [id number] : 1945 F 79 From: Pa mejia MD PCP: Dr. Salvador Waller MD Status: REG CLI Study: Abdomen Limited Date of Exam: 11/16/24 Exam# [id number] Ordering Dr: Ade Neely MD PROCEDURE: ABDOMEN LIMITED REASON FOR EXAM: ELEVATED LIVER ENZ/LONG-TERM DRUG TX COMPARISON: None FINDINGS: Liver: Grossly normal size and echotexture. Gallbladder: Surgically absent. Common bile duct: Normal measuring 7.8 mm. This is normal for the post cholecystectomy state.. Pancreas: Visualized portions are sonographically unremarkable. Visualized portions of the right kidney are unremarkable. No right upper quadrant ascites. US/Abdomen Limited IMPRESSION: Status post cholecystectomy. No acute abnormality is seen. Reading Location: [facility] CC: Dr. Ade Neely MD; Dr. Salvador Waller MD Wrap Yarn Sorter: Signed Normal [facility] CBC W/Diff, Automatedon 03-0 Absolute Lymph 1.80 X10 3/uL Normal 0.83-4.51 [facility] Comment on above: Performed By: #### L 501.65909, L506.0400, L501.9520 #### [facility] [address] [place], [address] Absolute Neut 4.6 X10 3/uL Normal 2.0-7.7 [facility] Comment on above: Performed By: #### L 501.66530, L506.0400, L501.9520 #### [facility] [address] [place], [address] Basophils/100 WBC (Bld) 0.4 % Normal 0-1 [facility] Comment on above: Performed By: #### L 501.53720, L506.0400, L501.9520 #### [facility] [address] [place], [address] Eosinophils/100 WBC (Bld) 2.9 % Normal 0-5 [facility] Comment on above: Performed By: #### L 501.29087, L506.0400, L501.9520 #### [facility] [address] [place], [address] Erythrocyte distribution width (RBC) [Ratio] 13.9 % Normal 11.6-14.6 [facility] Comment on above: Performed By: #### L 501.34358, L506.0400, L501.9520 #### [facility] [address] [place], [address] Hematocrit (Bld) [Volume fraction] 36.8 % Low 37-47 [facility] Comment on above: Performed By: #### L 501.87552, L506.0400, L501.9520 #### [facility] [address] [place], [address] Hemoglobin (Bld) [Mass/Vol] 11.8 g/dL Low 12.0-15.0 [facility] Comment on above: Performed By: #### L 501.97264, L506.0400, L501.9520 #### [facility] [address] [place], [address] IG% 0.300 Normal 0.0-0.9 [facility] Comment on above: Result Comment: IG% - Immature Granulocytes (promyelocytes, myelocytes and metamyelocytes) > 1% indicates that a LEFT SHIFT is Present. Performed By: #### L 501.53774, L506.0400, L501.9520 #### [facility] [address] [place], [address] Lymphocytes/100 WBC (Bld) 24.8 % Normal 19-41 [facility] Comment on above: Performed By: #### L 501.67044, L506.0400, L501.9520 #### [facility] [address] [place], [address] MCH (RBC) [Entitic mass] 32.1 pg High 27.0-32.0 [facility] Comment on above: Performed By: #### L 501.91439, L506.0400, L501.9520 #### [facility] [address] [place], [address] MCHC (RBC) [Mass/Vol] 32.1 g/dL Normal 32-36 [facility] Comment on above: Performed By: #### L 501.10326, L506.0400, L501.9520 #### [facility] [address] [place], [address] MCV (RBC) [Entitic vol] 100.0 fL High 81-99 [facility] Comment on above: Performed By: #### L 501.31563, L506.0400, L501.9520 #### [facility] [address] [place], [address] Monocytes/100 WBC (Bld) 7.6 % Normal 0-10 [facility] Comment on above: Performed By: #### L 501.28916, L506.0400, L501.9520 #### [facility] [address] [place], [address] Neutrophils/100 WBC (Bld) 64.0 % Normal 47-70 [facility] Comment on above: Performed By: #### L 501.54043, L506.0400, L501.9520 #### [facility] [address] [place], [address] Nucleated RBC (Bld) [#/Vol] 0 10*3/uL Normal 0-5 [facility] Comment on above: Performed By: #### L 501.34050, L506.0400, L501.9520 #### [facility] [address] [place], [address] Platelet mean volume (Bld) [Entitic vol] 10.5 fL Normal 6.2-12.0 [facility] Comment on above: Performed By: #### L 501.66586, L506.0400, L501.9520 #### [facility] [address] [place], [address] Platelets (Bld) [#/Vol] 249 10*3/uL Normal 150-450 [facility] Comment on above: Performed By: #### L 501.88678, L506.0400, L501.9520 #### [facility] [address] [place], [address] RBC (Bld) [#/Vol] 3.68 10*6/uL Low 4.2-5.4 [facility] Comment on above: Performed By: #### L 501.37233, L506.0400, L501.9520 #### [facility] [address] [place], [address] RDW SD 50.1 fl High 35.1-43.9 [facility] Comment on above: Performed By: #### L 501.98169, L506.0400, L501.9520 #### [facility] [address] [place], [address] WBC (Bld) [#/Vol] 7.3 10*3/uL Normal 4.4-11.0 [facility] Comment on above: Performed By: #### L 501.96587, L506.0400, L501.9520 #### [facility] [address] [place], [address] Comprehensive Metabolic Prof ilon 11-09-2024 Albumin [Mass/Vol] 4.3 g/dL Normal 3.4-4.8 [facility] Comment on above: Performed By: #### L 501.76960, L506.0400, L501.9520 #### [facility] [address] [place], [address] Albumin/Globulin [Mass ratio] 1.7 {ratio} Normal 0.9-2.4 [facility] Comment on above: Performed By: #### L 501.01654, L506.0400, L501.9520 #### [facility] [address] [place], [address] ALK PHOS 123 U/L High 35-104 [facility] Comment on above: Performed By: #### L 501.72760, L506.0400, L501.9520 #### [facility] [address] [place], [address] ALT [Catalytic activity/Vol] 26 U/L Normal <=34 [facility] Comment on above: Performed By: #### L 501.81369, L506.0400, L501.9520 #### [facility] [address] [place], [address] AST [Catalytic activity/Vol] 34 U/L High <=31 [facility] Comment on above: Performed By: #### L 501.07555, L506.0400, L501.9520 #### [facility] [address] [place], [address] Bilirubin [Mass/Vol] 1.45 mg/dL High 0.00-1.30 [facility] Comment on above: Performed By: #### L 501.37079, L506.0400, L501.9520 #### [facility] [address] [place], [address] BUN/CRE 25.3 RATIO High 10-20 [facility] Comment on above: Performed By: #### L 501.38472, L506.0400, L501.9520 #### [facility] [address] [place], [address] Calcium [Mass/Vol] 9.7 mg/dL Normal 7.6-11.0 [facility] Comment on above: Performed By: #### L 501.45914, L506.0400, L501.9520 #### [facility] [address] [place], [address] Chloride [Moles/Vol] 103 mmol/L Normal 98-108 [facility] Comment on above: Performed By: #### L 501.43216, L506.0400, L501.9520 #### [facility] [address] [place], [address] CO2 [Moles/Vol] 24.4 mmol/L Normal 21.0-32.0 [facility] Comment on above: Performed By: #### L 501.47361, L506.0400, L501.9520 #### [facility] [address] [place], [address] Creatinine [Mass/Vol] 1.00 mg/dL Normal 0.70-1.20 [facility] Comment on above: Performed By: #### L 501.05414, L506.0400, L501.9520 #### [facility] [address] [place], [address] GAP 14 Normal 5-15 [facility] Comment on above: Performed By: #### L 501.88832, L506.0400, L501.9520 #### [facility] [address] [place], [address] GFR/1.73 sq M.predicted among non-blacks MDRD (S/P/Bld) [Vol rate/Area] 57 mL/min/{1.73_m2} Low >60 [facility] Comment on above: Result Comment: mL/m in/1.73m2 CKD-EPI Creatinine Equation (2020) Performed By: #### L 501.88490, L506.0400, L501.9520 #### [facility] [address] [place], [address] Globulin (S) [Mass/Vol] 2.4 g/dL Normal 2.2-4.2 [facility] Comment on above: Performed By: #### L 501.98413, L506.0400, L501.9520 #### [facility] [address] [place], [address] Glucose [Mass/Vol] 119 mg/dL High 70-99 [facility] Comment on above: Performed By: #### L 501.12050, L506.0400, L501.9520 #### [facility] [address] [place], [address] Potassium [Moles/Vol] 4.0 mmol/L Normal 3.3-5.1 [facility] Comment on above: Performed By: #### L 501.47193, L506.0400, L501.9520 #### [facility] [address] [place], [address] Sodium [Moles/Vol] 142 mmol/L Normal 133-145 [facility] Comment on above: Performed By: #### L 501.18727, L506.0400, L501.9520 #### [facility] [address] [place], [address] T PROT 6.7 g/dL Normal 5.9-8.4 [facility] Comment on above: Performed By: #### L 501.12012, L506.0400, L501.9520 #### [facility] [address] [place], [address] Urea nitrogen [Mass/Vol] 25 mg/dL High 4-19 [facility] Comment on above: Performed By: #### L 501.15612, L506.0400, L501.9520 #### [facility] [address] [place], [address] Free T3on 10-30-2024 Free T3 [Mass/Vol] 2.0 pg/mL Low 2.18-3.98 [facility] Comment on above: Performed By: #### L 501.35791, L506.0400, L501.9520 #### [facility] [address] [place], [address] T4 Free Directon 10-30-2024 T4 FREE DIRECT 1.24 ng/dL Normal 0.76-1.46 [facility] Comment on above: Performed By: #### L 501.25700, L506.0400, L501.9520 #### [facility] [address] [place], [address] Thyroid Stim Hormone (TSH)on 10-30-2024 TSH 1.780 uIU/mL Normal 0.358-3.740 [facility] Comment on above: Performed By: #### L 501.27036, L506.0400, L501.9520 #### [facility] [address] [place], [address] CBC W/Diff, Automatedon 11-2 Absolute Lymph 1.65 X10 3/uL Normal 0.83-4.51 [facility] Comment on above: Performed By: #### L 100.0100, L500.4050 ####[facility] [address] [place], [address] Absolute Neut 5.2 X10 3/uL Normal 2.0-7.7 [facility] Comment on above: Performed By: #### L 100.0100, L500.4050 ####[facility] [address] [place], [address] Basophils/100 WBC (Bld) 0.6 % Normal 0-1 [facility] Comment on above: Performed By: #### L 100.0100, L500.4050 ####[facility] [address] [place], [address] Eosinophils/100 WBC (Bld) 3.2 % Normal 0-5 [facility] Comment on above: Performed By: #### L 100.0100, L500.4050 ####[facility] [address] [place], [address] Erythrocyte distribution width (RBC) [Ratio] 14.4 % Normal 11.6-14.6 [facility] Comment on above: Performed By: #### L 100.0100, L500.4050 ####[facility] [address] [place], [address] Hematocrit (Bld) [Volume fraction] 35.7 % Low 37-47 [facility] Comment on above: Performed By: #### L 100.0100, L500.4050 ####[facility] [address] [place], [address] Hemoglobin (Bld) [Mass/Vol] 11.6 g/dL Low 12.0-15.0 [facility] Comment on above: Performed By: #### L 100.0100, L500.4050 ####[facility] [address] [place], [address] IG% 0.500 Normal 0.0-0.9 [facility] Comment on above: Result Comment: IG% - Immature Granulocytes (promyelocytes, myelocytes and metamyelocytes) > 1% indicates that a LEFT SHIFT is Present. Performed By: #### L 100.0100, L500.4050 ####[facility] [address] [place], [address] Lymphocytes/100 WBC (Bld) 21.3 % Normal 19-41 [facility] Comment on above: Performed By: #### L 100.0100, L500.4050 ####[facility] [address] [place], [address] MCH (RBC) [Entitic mass] 32.2 pg High 27.0-32.0 [facility] Comment on above: Performed By: #### L 100.0100, L500.4050 ####[facility] [address] [place], [address] MCHC (RBC) [Mass/Vol] 32.5 g/dL Normal 32-36 [facility] Comment on above: Performed By: #### L 100.0100, L500.4050 ####[facility] [address] [place], [address] MCV (RBC) [Entitic vol] 99.2 fL High 81-99 [facility] Comment on above: Performed By: #### L 100.0100, L500.4050 ####[facility] [address] [place], [address] Monocytes/100 WBC (Bld) 7.5 % Normal 0-10 [facility] Comment on above: Performed By: #### L 100.0100, L500.4050 ####[facility] [address] [place], [address] Neutrophils/100 WBC (Bld) 66.9 % Normal 47-70 [facility] Comment on above: Performed By: #### L 100.0100, L500.4050 ####[facility] [address] [place], [address] Nucleated RBC (Bld) [#/Vol] 0 10*3/uL Normal 0-5 [facility] Comment on above: Performed By: #### L 100.0100, L500.4050 ####[facility] [address] [place], [address] Platelet mean volume (Bld) [Entitic vol] 10.3 fL Normal 6.2-12.0 [facility] Comment on above: Performed By: #### L 100.0100, L500.4050 ####[facility] [address] [place], [address] Platelets (Bld) [#/Vol] 243 10*3/uL Normal 150-450 [facility] Comment on above: Performed By: #### L 100.0100, L500.4050 ####[facility] [address] [place], [address] RBC (Bld) [#/Vol] 3.60 10*6/uL Low 4.2-5.4 [facility] Comment on above: Performed By: #### L 100.0100, L500.4050 ####[facility] [address] [place], [address] RDW SD 52.6 fl High 35.1-43.9 [facility] Comment on above: Performed By: #### L 100.0100, L500.4050 ####[facility] [address] [place], [address] WBC (Bld) [#/Vol] 7.7 10*3/uL Normal 4.4-11.0 [facility] Comment on above: Performed By: #### L 100.0100, L500.4050 ####[facility] [address] [place], [address] Comprehensive Metabolic Prof ilon 07-31-2024 Albumin [Mass/Vol] 3.6 g/dL Normal 3.2-5.0 [facility] Comment on above: Performed By: #### L 100.0100, L500.4050 ####[facility] [address] [place], [address] Albumin/Globulin [Mass ratio] 1.2 {ratio} Normal 0.9-2.4 [facility] Comment on above: Performed By: #### L 100.0100, L500.4050 ####[facility] [address] [place], [address] ALK P 112 U/L Normal 45-117 [facility] Comment on above: Performed By: #### L 100.0100, L500.4050 ####[facility] [address] [place], [address] ALT [Catalytic activity/Vol] 34 U/L Normal 13-56 [facility] Comment on above: Performed By: #### L 100.0100, L500.4050 ####[facility] [address] [place], [address] AST [Catalytic activity/Vol] 25 U/L Normal 15-37 [facility] Comment on above: Performed By: #### L 100.0100, L500.4050 ####[facility] [address] [place], [address] Bilirubin [Mass/Vol] 1.30 mg/dL High 0.20-1.00 [facility] Comment on above: Result Comment: For patients on eltrombopag therapy, use of Dimension [place] TBIL is not recommended. Performed By: #### L 100.0100, L500.4050 ####[facility] [address] [place], [address] BUN/CRE 26.4 RATIO High 10-20 [facility] Comment on above: Performed By: #### L 100.0100, L500.4050 ####[facility] [address] [place], [address] CA,Total 9.1 mg/dL Normal 8.5-10.1 [facility] Comment on above: Performed By: #### L 100.0100, L500.4050 ####[facility] [address] [place], [address] Chloride [Moles/Vol] 108 mmol/L High 98-107 [facility] Comment on above: Performed By: #### L 100.0100, L500.4050 ####[facility] [address] [place], [address] CO2 [Moles/Vol] 29.0 mmol/L Normal 21.0-32.0 [facility] Comment on above: Performed By: #### L 100.0100, L500.4050 ####[facility] [address] [place], [address] Creatinine [Mass/Vol] 0.83 mg/dL Normal 0.55-1.02 [facility] Comment on above: Result Comment: The validity of the calculated GFR GFRAA in patients over 70 years has not been determined. Clinical correlation is essential. Performed By: #### L 100.0100, L500.4050 ####[facility] [address] [place], [address] EST GFR - AA 85 mL/min Normal >60 [facility] Comment on above: Result Comment: Afri can German GFR Calc Performed By: #### L 100.0100, L500.4050 ####[facility] [address] [place], [address] GAP 4 Low 5-15 [facility] Comment on above: Performed By: #### L 100.0100, L500.4050 ####[facility] [address] [place], [address] GFR/1.73 sq M.predicted among non-blacks MDRD (S/P/Bld) [Vol rate/Area] 70 mL/min/{1.73_m2} Normal >60 [facility] Comment on above: Result Comment: Non- GFR Calc Performed By: #### L 100.0100, L500.4050 ####[facility] [address] [place], [address] Globulin (S) [Mass/Vol] 3.0 g/dL Normal 2.2-4.2 [facility] Comment on above: Performed By: #### L 100.0100, L500.4050 ####[facility] [address] [place], [address] Glucose [Mass/Vol] 89 mg/dL Normal 74-106 [facility] Comment on above: Performed By: #### L 100.0100, L500.4050 ####[facility] [address] [place], [address] Potassium [Moles/Vol] 4.3 mmol/L Normal 3.5-5.1 [facility] Comment on above: Performed By: #### L 100.0100, L500.4050 ####[facility] [address] [place], [address] Sodium [Moles/Vol] 141 mmol/L Normal 136-145 [facility] Comment on above: Performed By: #### L 100.0100, L500.4050 ####[facility] [address] [place], [address] T PROT 6.6 g/dL Normal 6.4-8.2 [facility] Comment on above: Performed By: #### L 100.0100, L500.4050 ####[facility] [address] [place], [address] Urea nitrogen [Mass/Vol] 22 mg/dL High 7-18 [facility] Comment on above: Performed By: #### L 100.0100, L500.4050 ####[facility] [address] [place], [address] SCRN MAMM (CAD)W/GODFREY BILATo n 07-19-2024 SCRN MAMM (CAD)[facility] [address] [place] [address] SCRN MAMM (CAD)W/GODFREY BILAT MR#: [id number] Acct: [id number] Name: HEATHER RED Rep #: [id number] : 1945 F 78 From: Pa mejia MD PCP: Dr. Salvador Waller MD Status: [facility] Study: SCRN MAMM (CAD)W/GODFREY BILAT Date of Exam: 07/07 11/27 Exam# [id number] Ordering Dr: Suzette Monroy SENIOR RISK MANAGER -C [id number] MAMMOGRAPHY - BILATERAL SCREENING REASON FOR EXAM: Female, 78 years old. Routine annual screening examination. PERTINENT HISTORY: Sister with breast cancer. Aunt with breast cancer. TECHNIQUE: Digital bilateral breast godfrey (3D mammographic acquisition) in the CC and MLO projections. 2-D mediolateral oblique (MLO) and craniocaudad (CC) views of both breasts were obtained. CAD: Full Field Digital Mammography with Computer Added Detection was performed. COMPARISON: Comparison is made with prior outside examination dated May 13, 2022. FINDINGS: Breast Composition: There are scattered areas of fibroglandular density. There are no dominant masses or suspicious calcifications. Stable partially calcified nodule in the upper lateral aspect of the right breast suggestive of fibroadenoma. No other significant abnormalities are identified. There has been no significant change since the prior study. BI/SCRN MAMM (CAD)W/GODFREY BILAT IMPRESSION: Stable bilateral screening mammogram. Yearly follow-up mammogram recommended. (A) ASSESSMENT CATEGORY: BIRADS Category 2: Benign. A letter regarding these results will be sent to the patient by the facility within 30 days. Approximately 10% of breast cancers are not detected by mammography. A normal mammogram should not delay biopsy of a clinically suspicious abnormality. [id number] Electronically Signed: Pa Lewis MD at 14:51 EST Reading Location ID and State: [facility] / [place] , Service support , CC: Dr. Salvador Waller MD; Suzette Monroy Wrap Yarn Sorter: Signed Normal [facility] Neurology Visit Reporton Neurology Visit Report [facility] [address], [address] [place] [address] OFFICE VISIT Date of Service: 07/17/24 MR#: [id number] Acct: [id number] Name: HEATHER RED Rep #: [id number] : 1945 Provider: Dr. Keily prince MD Age/Sex: 78/F Location: [facility] Status: Signed HPI HPI Chief Complaint: Details: Interim History: Heather returns for follow-up. She has a history of hypertension, hypothyroidism, hyperlipidemia, sleep apnea (she uses CPAP), cervical degenerative disc disease, ruptured cervical discs, TIA (2009), and right cerebellar stroke (08/2021). On 08/06/2021, she had the onset of gait imbalance and disequilibrium; this resolved over the following 2 weeks. A head MRI on 08/07/2021 revealed a small right superior cerebellar acute ischemic infarct. A head/neck CTA (08/06/2021) did not reveal any hemodynamically significant lesions. She denied having incoordination in the upper extremities, numbness, weakness or dizziness. She had physical therap. She had a TIA in 2009; symptoms at that time included a generalized feeling of unwellness and right-sided facial tingling. She was placed on clopidogrel following her TIA (2009) and had continued clopidogrel until September 2021. Following her stroke in August 2021, aspirin 81 mg daily was added to her antiplatelet regimen. She had easy bruising and aspirin was subsequently discontinued. She takes atorvastatin for hyperlipidemia. A cardiac echo (March 2021) did not reveal any clear cardioembolic source. A 30-day cardiac event monitor showed sinus rhythm with no critical or serious events, and no evidence of atrial fibrillation. A cytochrome P450 [id number] isoenzyme test revealed a *1/*17 genotype indicating ultrarapid metabolic activity. Clopidogrel was discontinued in September 2021 and her aspirin was increased to 162mg daily. In 2021, she had nosebleeds; these resolved. She did not have melena or bloody stools. Due to easy bruising, aspirin was reduced to 81mg daily in August 2022. She had the onset of gait imbalance on 09/11/22. Due to concern that this may be a cerebrovascular ischemic event, clopidogrel 75mg daily was resumed and aspirin 81mg daily was continued. She then had easy bruising and aspirin was discontinued in 2022. She had physical therapy in September 2022 and had improvement of her gait. A head MRI on 09/16/22 did not reveal an acute cerebrovascular ischemic event (full report below). She has had low back pain and left lower extremity radicular pain and underwent a lumbar surgery (L3-4 and L4-5 lumbar laminectomies) on 03/16/2022 and has had resolution of her left lower extremity radicular pain and her low back pain diminished somewhat. Since early 2023, she has had increased low back pain and has right lower extremity radicular pain extending to the knee. She sees a face painter, Dr. Ludwig; lumbar radiofrequency ablation and/or injections were of modest benefit; her last lumbar radiofrequency ablation, however, was not of benefit. She has had a trial for dorsal column stimulator placement and this was of benefit and she will be pursuing dorsal column stimulator placement. She is able to ambulate independently but also has a walker. She had a right tensor fascia hien trigger point injection at this office in 2022 for her right hip region pain. A course of prednisone was of benefit for her pain. Her lumbar MRI in March 2024 reveals a T12-L1 disc herniation with moderate spinal canal stenosis at this level, a disc herniation at L1-2 with moderate spinal canal stenosis at this level, a disc herniation at L2-3 with severe spinal canal stenosis at this level, prior surgical posterior decompression at L3-4 and L4-5, 2mm retrolisthesis at L3-4, 2mm anterolisthesis at L4-5, disc herniation at L4-5 with mild central canal stenosis, disc herniation L5-S1 with moderate central canal stenosis at this level, 2mm retrolisthesis at L5-S1, multilevel degenerative joint disease, and multilevel bilateral foraminal stenosis ranging from mild to severe. She has osteopenia on bone density test. She saw an wildlife removal specialist, Dr. Macedo, earlier in 2023 regarding her low back pain and right lower extremity radicular pain and surgery was not recommended. She sees a personal health coach, Dr. Neely, and has been diagnosed with rheumatoid arthritis and methotrexate and folic acid. A course of prednisone was not of benefit for her pain. She takes hydrocodone/acetamin ophen. She has had occipital pressure-type headaches that began in 2018. She denied associated photophobia, phonophobia or nausea. Previously, these headaches were occurring least a few days per week. Since 2021, her headaches have diminished. Naproxen (used occasionally) was of benefit. She has also used acetaminophen. Her headaches are triggered by pressure to the occipital head region. Cervical spine x-rays from 08/2020 revealed mod (more content not included)... Normal [facility] Dexa Bone Density Studyon Dexa Bone Density Study [facility] Imaging Services [address] [place] [address] [id number] Dexa Bone Density Study MR#: [id number] Acct: [id number] Name: HEATHER RED Rep #: [id number] : 1945 F 78 From: Pa mejia MD PCP: Dr. Salvador Waller MD Status: [facility] Study: Dexa Bone Density Study Date of Exam: 06/21/24 Exam# [id number] Ordering Dr: Salvador Waller MD [id number] STUDY: DUAL ENERGY X-RAY ABSORPTIOMETRY / DXA REASON FOR EXAM: Female, 78 years old. 733.00OsteoporosisBO NE DENSITY REASON FOR EXAM TECHNIQUE: Bone Mineral Density (BMD) measurements of lumbar spine and bilateral hips were obtained. COMPARISON: None. FINDINGS: Lumbar Spine (L1-L4): g/cm2 (1.181) / T-score (1.2) / Z-score (3.9) Findings are suggestive of normal bone density with a low fracture risk. Left Femur Total: g/cm2 (0.819) / T-score (-1.0) / Z-score (1.1) Left Femoral Neck: g/cm2 (0.717) / T-score (-1.2) / Z-score (1.1) Right Femur Total: g/cm2 (0.868) / T-score (-0.6) / Z-score (1.5) Right Femoral Neck: g/cm2 (0.818) / T-score (-0.3) / Z-score (2.1) BD/Dexa Bone Density Study IMPRESSION: The patient is considered osteopenic as outlined below according to World Amadou Organization (WHO) criteria with a low fracture risk. Reference Information: The T-score is the number of standard deviations above or below the standard which is normal for young adults at their peak bone mineral density. The World Health Organization (WHO) interprets the T-scores as follows: Above -1 Normal bone density Between -1 and -2.5 Osteopenia Equal to / or below -2.5 Osteoporosis As a practical clinical guideline, osteopenia may be graded as follows: Mild -1 through -1.5 Moderate -1.6 through -2.0 Severe -2.1 through -2.4 The Z-score is the number of standard deviations above or below age-matched controls. A Z-score of less than -1.5 would be considered abnormal. References: 1. NIH Osteoporosis and Related Bone Diseases www osteo.org 2. International Society for Clinical Densitometry www iscd.org 3. National Osteoporosis Foundation www nof.org Electronically Signed: Pa Lewis MD at 13:19 EDT , CC: Dr. Salvador Waller MD Wrap Yarn Sorter: Signed Normal [facility] CBC W/Diff, Automatedon 09-2 Absolute Lymph 1.39 X10 3/uL Normal 0.83-4.51 [facility] Comment on above: Performed By: #### L 100.0100, L500.4050 ####[facility] [address] [place], [address] Absolute Neut 4.5 X10 3/uL Normal 2.0-7.7 [facility] Comment on above: Performed By: #### L 100.0100, L500.4050 ####[facility] [address] [place], [address] Basophils/100 WBC (Bld) 0.5 % Normal 0-1 [facility] Comment on above: Performed By: #### L 100.0100, L500.4050 ####[facility] [address] [place], [address] Eosinophils/100 WBC (Bld) 2.6 % Normal 0-5 [facility] Comment on above: Performed By: #### L 100.0100, L500.4050 ####[facility] [address] [place], [address] Erythrocyte distribution width (RBC) [Ratio] 13.8 % Normal 11.6-14.6 [facility] Comment on above: Performed By: #### L 100.0100, L500.4050 ####[facility] [address] [place], [address] Hematocrit (Bld) [Volume fraction] 34.3 % Low 37-47 [facility] Comment on above: Performed By: #### L 100.0100, L500.4050 ####[facility] [address] [place], [address] Hemoglobin (Bld) [Mass/Vol] 10.9 g/dL Low 12.0-15.0 [facility] Comment on above: Performed By: #### L 100.0100, L500.4050 ####[facility] [address] [place], [address] IG% 0.500 Normal 0.0-0.9 [facility] Comment on above: Result Comment: IG% - Immature Granulocytes (promyelocytes, myelocytes and metamyelocytes) > 1% indicates that a LEFT SHIFT is Present. Performed By: #### L 100.0100, L500.4050 ####[facility] [address] [place], [address] Lymphocytes/100 WBC (Bld) 20.9 % Normal 19-41 [facility] Comment on above: Performed By: #### L 100.0100, L500.4050 ####[facility] [address] [place], [address] MCH (RBC) [Entitic mass] 31.5 pg Normal 27.0-32.0 [facility] Comment on above: Performed By: #### L 100.0100, L500.4050 ####[facility] [address] [place], [address] MCHC (RBC) [Mass/Vol] 31.8 g/dL Low 32-36 [facility] Comment on above: Performed By: #### L 100.0100, L500.4050 ####[facility] [address] [place], [address] MCV (RBC) [Entitic vol] 99.1 fL High 81-99 [facility] Comment on above: Performed By: #### L 100.0100, L500.4050 ####[facility] [address] [place], [address] Monocytes/100 WBC (Bld) 7.4 % Normal 0-10 [facility] Comment on above: Performed By: #### L 100.0100, L500.4050 ####[facility] [address] [place], [address] Neutrophils/100 WBC (Bld) 68.1 % Normal 47-70 [facility] Comment on above: Performed By: #### L 100.0100, L500.4050 ####[facility] [address] [place], [address] Nucleated RBC (Bld) [#/Vol] 0 10*3/uL Normal 0-5 [facility] Comment on above: Performed By: #### L 100.0100, L500.4050 ####[facility] [address] [place], [address] Platelet mean volume (Bld) [Entitic vol] 9.9 fL Normal 6.2-12.0 [facility] Comment on above: Performed By: #### L 100.0100, L500.4050 ####[facility] [address] [place], [address] Platelets (Bld) [#/Vol] 252 10*3/uL Normal 150-450 [facility] Comment on above: Performed By: #### L 100.0100, L500.4050 ####[facility] [address] [place], [address] RBC (Bld) [#/Vol] 3.46 10*6/uL Low 4.2-5.4 [facility] Comment on above: Performed By: #### L 100.0100, L500.4050 ####[facility] [address] [place], [address] RDW SD 49.4 fl High 35.1-43.9 [facility] Comment on above: Performed By: #### L 100.0100, L500.4050 ####[facility] [address] [place], [address] WBC (Bld) [#/Vol] 6.6 10*3/uL Normal 4.4-11.0 [facility] Comment on above: Performed By: #### L 100.0100, L500.4050 ####[facility] [address] [place], [address] Comprehensive Metabolic Prof ilon 05-29-2024 Albumin [Mass/Vol] 3.7 g/dL Normal 3.2-5.0 [facility] Comment on above: Performed By: #### L 100.0100, L500.4050 ####[facility] [address] [place], [address] Albumin/Globulin [Mass ratio] 1.4 {ratio} Normal 0.9-2.4 [facility] Comment on above: Performed By: #### L 100.0100, L500.4050 ####[facility] [address] [place], [address] ALK P 117 U/L Normal 45-117 [facility] Comment on above: Performed By: #### L 100.0100, L500.4050 ####[facility] [address] [place], [address] ALT [Catalytic activity/Vol] 24 U/L Normal 13-56 [facility] Comment on above: Performed By: #### L 100.0100, L500.4050 ####[facility] [address] [place], [address] AST [Catalytic activity/Vol] 24 U/L Normal 15-37 [facility] Comment on above: Performed By: #### L 100.0100, L500.4050 ####[facility] [address] [place], [address] Bilirubin [Mass/Vol] 1.30 mg/dL High 0.20-1.00 [facility] Comment on above: Result Comment: For patients on eltrombopag therapy, use of Dimension [place] TBIL is not recommended. Performed By: #### L 100.0100, L500.4050 ####[facility] [address] [place], [address] BUN/CRE 22.9 RATIO High 10-20 [facility] Comment on above: Performed By: #### L 100.0100, L500.4050 ####[facility] [address] [place], [address] CA,Total 9.3 mg/dL Normal 8.5-10.1 [facility] Comment on above: Performed By: #### L 100.0100, L500.4050 ####[facility] [address] [place], [address] Chloride [Moles/Vol] 107 mmol/L Normal 98-107 [facility] Comment on above: Performed By: #### L 100.0100, L500.4050 ####[facility] [address] [place], [address] CO2 [Moles/Vol] 29.0 mmol/L Normal 21.0-32.0 [facility] Comment on above: Performed By: #### L 100.0100, L500.4050 ####[facility] [address] [place], [address] Creatinine [Mass/Vol] 0.96 mg/dL Normal 0.55-1.02 [facility] Comment on above: Result Comment: The validity of the calculated GFR GFRAA in patients over 70 years has not been determined. Clinical correlation is essential. Performed By: #### L 100.0100, L500.4050 ####[facility] [address] [place], [address] EST GFR - AA 72 mL/min Normal >60 [facility] Comment on above: Result Comment: Afri can German GFR Calc Performed By: #### L 100.0100, L500.4050 ####[facility] [address] [place], [address] GAP 4 Low 5-15 [facility] Comment on above: Performed By: #### L 100.0100, L500.4050 ####[facility] [address] [place], [address] GFR/1.73 sq M.predicted among non-blacks MDRD (S/P/Bld) [Vol rate/Area] 59 mL/min/{1.73_m2} Low >60 [facility] Comment on above: Result Comment: Non- GFR Calc Performed By: #### L 100.0100, L500.4050 ####[facility] [address] [place], [address] Globulin (S) [Mass/Vol] 2.7 g/dL Normal 2.2-4.2 [facility] Comment on above: Performed By: #### L 100.0100, L500.4050 ####[facility] [address] [place], [address] Glucose [Mass/Vol] 101 mg/dL Normal 74-106 [facility] Comment on above: Result Comment: Fast ing Glucose result from 100 to 125 mg/dL suggests IMPAIRED HOMEOSTASIS per A.D.A. criteria. Performed By: #### L 100.0100, L500.4050 ####[facility] [address] [place], [address] Potassium [Moles/Vol] 4.2 mmol/L Normal 3.5-5.1 [facility] Comment on above: Performed By: #### L 100.0100, L500.4050 ####[facility] [address] [place], [address] Sodium [Moles/Vol] 140 mmol/L Normal 136-145 [facility] Comment on above: Performed By: #### L 100.0100, L500.4050 ####[facility] [address] [place], [address] T PROT 6.4 g/dL Normal 6.4-8.2 [facility] Comment on above: Performed By: #### L 100.0100, L500.4050 ####[facility] [address] [place], [address] Urea nitrogen [Mass/Vol] 22 mg/dL High -18 [facility] Comment on above: Performed By: #### L 100.0100, L500.4050 ####[facility] [address] [place], [address] Inital Evaluation (1) - PTon 05-24-2024 Inital Evaluation (1) - PT [facility] Physical Therapy [address] [place] [address] / REHABILITATION SERVICES INITIAL EVALUATION MR#: [id number] Acct: [id number] Name: HEATHER RED Rep #: [id number] : 1945 78 From: Vern Blanton PT. T, OCS Referring Dr.: Dr. Herson Macedo MD Status: REG RCR Insurance: MEDICARE PART A B [employer] Patient's Visit Information Visit Information Visit Information: HEATHER RED is a 78 year old F referred to Physical Therapy by Dr. Herson Macedo MD with a diagnosis of SPINAL STENOSIS ,SPONDYLOLISTEHISIS ,LUMBAR ,SCOLIOSIS. Date of Evaluation: 05/24/24 Physical Therapist: Fede Vann PT, Cert T, OCS Visit Plan Frequency: 2x /Week Duration: 4 Weeks Plan: PT INTERVENTIONS MODALITIES FOR PAIN DLS ,POSTURAL EX'S ,LE FLEXABILITY AND ACTIVITY MODIFICATION Subjective Subjective: This 78 y/o female presents to physical therapy with lumbar radicular symptoms right leg. Patient for many years 40 years. Patient has had lumbar surgery laminectomy 2 rear[address] Patient has had Dr Lowe pain management 10 years multiple injections and ablashia . Patient seen DR Macedo had MRI DDD ,spondylolisthesis ,severe stenosis. Patient DR recommended PT but has complications in order to have surgery. Patient has multiple comorbities to influence condition one density will increase her risk for hardware failure. Patient has multiple strokes and is on Plavix and also has cardiac comorbidities which will increase risk. DR Dickey recommended pain pump and possible pain stimulator. Patient pain location located right glut to hip leg described as stabbing. Aggravating factors walking/standing 5mins . Alleviating factors rest. Denies paresthesia/tingling - . Bowel/bladder-. Coughing/sneezing -.Patient pain can affects sleeping unable to lay on side. Patient pain affects QOL and function. Pain goals control pain. SOCIAL: VOCATION: RETIRED Pain Right Back: Pain Intensity (Out of 10): 9 Pain Intensity Range: 10 Right Lower Extremity: Pain Intensity (Out of 10): 9 Objective Objective: POSTURE: mild forward posture scoliosis hips/knee flexed GAIT: mild forward posture scoliosis hips/knee flexed slow uli with antalgic gait SYMMETRIES : pelvis/hips NEURO: denies paresthesia/tingling , reflexes L3-4,L4-5,L5-S1 1/3 MMT: quads/hams 4/5 ,hip flexion 4-/5 ,ankle 4/5 FLEXABILITY: hamstrings mod tight PROM: hip IR 10 degrees LUMBAR ROM: flexion min loss ,extension severe loss ,side glides min loss Special Tests L/S Slump test left side: Negative L/S Slump test right side: Negative L/S Left Straight Leg Raise: Negative L/S Right Straight Leg Raise: Negative Balance/Special Test Scores Oswestry Low Back Score: 26 Goals Goal 1:: Patient to be I with HEP Goal Time Frame: 4-6 Weeks Goal 2:: Patient to demonstrate 40 % improvement with less pain and improved function Goal Time Frame: 4-6 Weeks Goal 3:: Patient to improve back oswestry score by 3-5 points to improve QOL. Goal Time Frame: 4-6 Weeks Goal 4:: Patient to improve lumbar ROM for function of recovery to put on shoes Goal Time Frame: 4-6 Weeks Goal 5:: Patient to be able to walk/stand > 5 MINS to improve QOL and function Goal Time Frame: 4-6 Weeks Rehabilitation Potential Physical Therapy Diagnosis: This patient has multiple complexity issue to influence condition along severe stenosis and involved lumbar spine thus unable to have surgery due to complications with pain poor ROM ,weakness affects walking/standing impairs housework activities thus benefit from skilled PT Rehabilitation Potential: Fair Anticipated Interventions Patient/Client Instruction: Educate patient on: Condition and Plan of Care For the Purpose of:: To decrease pain, To increase ROM, To improve muscle performance and motor function, To improve ability to perform ADL's, To increase tolerance to activity/condition/p osition, To improve ability of physical actions for home/community/work/ leisure, To improve gait and locomotor functions, To improve health of tissue, To decrease soft tissue restriction, To increase flexibility/ROM, To reduce risk of recurrence, To improve health and function and To improve tolerance to ADL's Therapeutic Exercise to Include: Strength training, Endurance training, Balance training, Postural training, Flexibilty training and Dynamic Lumbar Stabilization For the Purpose of:: To decrease swelling/inflammatio n, To increase ROM, To improve nutrient delivery to tissue, To increase oxygenation perfusion, To improve muscle performance and motor function, To increase tolerance to activity/condition/p osition, To improve ability of physical actions for home/community/work/ leisure, To improve health of tissue, To decrease soft tissue restriction, To increase flexibility/ROM, To reduce ri (more content not included)... Normal [facility] L/S Spine Min 4 Views04-07 L/S Spine Min 4 Views [facility] [address] [place] [address] L/S Spine Min 4 Views MR#: [id number] Acct: [id number] Name: HEATHER RED Rep #: [id number] : 1945 F 78 From: Galen coats MD PCP: Dr. Salvador Waller MD Status: DEP AMB Study: L/S Spine Min 4 Views Date of Exam: 05/04/24 Exam# [id number] Ordering Dr: Almaz Paz [id number] STUDY: X-RAY - LUMBAR SPINE REASON FOR EXAM: Female, 78 years old. Low back pain -- Please do upright AP, LAT, flex/extension TECHNIQUE: 4 view(s) of the lumbar spine were obtained. COMPARISON: None FINDINGS: There is straightening of the normal lumbar lordosis. There is a dextroscoliosis of the lumbar spine. There is a normal alignment of the vertebrae. Markedly limited range of motion with flexion and extension. No subluxations. There is diffuse demineralization with multi-level endplate spondylosis. There is multi-level degenerative disc disease with multi-level disc space narrowing. There is no demonstrated fracture. There is atherosclerotic calcification of the abdominal aorta without a demonstrated aneurysm. RAD/L/S Spine Min 4 Views IMPRESSION: Demineralization and degenerative changes. No acute abnormalities. Electronically Signed: Galen Reynolds MD at 16:44 EDT , CC: HOMA Campos; Dr. Salvador Waller MD Wrap Yarn Sorter: Signed Normal [facility] Orthopedic Visit Reporton Orthopedic Visit Report [facility] [address] [place] [address] OFFICE VISIT Date of Service: 05/04/24 MR#: [id number] Acct: [id number] Name: HEATHER RED Rep #: [id number] : 1945 Provider: Dr. Herson Macedo MD Age/Sex: 78/F Location: [facility] Status: Signed Intake Vital Signs 03/07/24 13:03 05/04/24 13:50 Height 5 ft 4 in 5 ft 4 in Weight: 186 lb 4 oz BMI 31.9 Intake Visit Reasons: LUMBAR SPINE Chief Complaint: Accompanied by: Allergies oxycodone (From Percocet) Allergy (Verified 05/04/24 13:51) Other codeine Adverse Reaction (Severe, Verified 05/04/24 13:51) Nausea morphine Adverse Reaction (Severe, Verified 05/04/24 13:51) Nausea Medications ???Medication ???Instructions ???Recorded ???Confirmed ???Type losartan 100 mg tablet 100 mg PO QHS HTN 05/13/14 05/04/24 History metoprolol succinate 25 mg 25 mg PO DAILY HTN 05/13/14 05/04/24 History tablet,extended release 24 hr cholecalciferol (vitamin D3) 50 2,000 unit PO LUNCH supplement 10/21/18 05/04/24 History mcg (2,000 unit) capsule melatonin 10 mg capsule 10 mg PO HS PRN Insomnia 10/21/18 05/04/24 History multivitamin 1 tab PO DAILY supplement 10/21/18 05/04/24 History ascorbic acid (vitamin C) 500 mg 500 mg PO BID supplement 03/07/21 05/04/24 History capsule,extended release (Vitamin C) atorvastatin 80 mg tablet 80 mg PO QHS cholesterol 90 days 03/07/21 05/04/24 History #90 tabs calcium carbonate (Calcium 600) 1,200 mg PO LUNCH supplement 03/07/21 05/04/24 History levothyroxine 125 mcg tablet 112 mcg PO DAILY thyroid 03/07/21 05/04/24 History clonazepam 0.5 mg tablet 0.5 mg PO BID anxiety 08/12/21 05/04/24 History trazodone 150 mg tablet 150 mg PO QHS rest 08/12/21 05/04/24 History hydrocodone-acetamin ophen 5-325mg 0.5 - 1 tab PO TID PRN Pain 03/02/22 05/04/24 History 5mg-325mg polyethylene glycol 3350 17 17 g PO QHS stool softener 03/02/22 05/04/24 History gram/dose oral powder (Miralax) triamcinolone acetonide 55 55 mcg intranasal QHS nasal 03/02/22 05/04/24 History mcg/actuation nasal spray,aerosol congestion famotidine 20 mg tablet 20 mg PO QHS 02/25/23 05/04/24 History mv-mn-folic 200 mcg-vit K 15 cap PO 02/25/23 05/04/24 History mcg-lutein 5 mg-zeaxanthin 1 mg capsule (PreserVision AREDS 2 Plus Multivit) duloxetine 60 mg capsule,delayed 60 mg PO DAILY 09/23/23 05/04/24 History release folic acid 1 mg tablet 2 mg PO DAILY 09/23/23 05/04/24 History furosemide 20 mg tablet 20 mg PO DAILY 09/23/23 05/04/24 History montelukast 10 mg tablet 10 mg PO QHS 09/23/23 05/04/24 History clopidogrel 75 mg tablet 75 mg PO DAILY #90 tabs 03/20/24 05/04/24 Rx pantoprazole 20 mg tablet,delayed 20 mg PO DAILY #90 tabs 03/20/24 05/04/24 Rx release baclofen 10 mg tablet 10 mg PO TID PRN muscle 03/26/24 05/04/24 Rx pain/muscle spasm #270 tabs alprazolam 1 mg tablet 1 mg PO ONCE #1 TAB 03/27/24 05/04/24 Rx cetirizine 10 mg capsule (Zyrtec) 10 mg PO DAILY PRN 05/04/24 05/04/24 History oxycodone-acetaminop hen 5 mg-325 1 tab PO TID PRN 05/04/24 05/04/24 History mg tablet sennosides 8.6 mg tablet (Senna 8.6 mg PO QDAY 05/04/24 05/04/24 History Laxative) Have you fallen in the past year?: No PFSH Medical History Sacroiliitis Wears partial dentures Arthritis Urinary incontinence Restless legs Injury of head and neck Gastric reflux Non-smoker History of stress test History of echocardiogram Leg cramps History of edema Cardiology follow-up encounter Nosebleed Degenerative disc disease, cervical Occipital headache [id number] ultra-rapid metabolizer Obstructive sleep apnea on CPAP Adjustment disorder with mixed anxiety and depressed mood Generalized anxiety disorder Stroke History of torn meniscus of right knee Rotator cuff insufficiency of right shoulder Bone spur of ankle Hyperlipidemia Patent foramen ovale HTN (hypertension) TIA (transient ischemic attack) Dyslipidemia Surgical History History of cataract extraction ( 02/2023) History of back surgery History of hip surgery History of meniscectomy of right knee History of rotator cuff surgery History of Achilles tendon repair History of nasal surgery History of bilateral carpal tunnel release History of left knee replacement History of cholecystectomy H/O left knee surgery H/O section Family History Father Non-Hodgkin lymphoma Heart disease Brother Leukemia Sister Breast cancer Mother Uterine cancer Other Cancer Social History Smoking Stat (more content not included)... Normal [facility] Comprehensive Metabolic Prof ilon 04-03-2024 Albumin [Mass/Vol] 3.7 g/dL Normal 3.2-5.0 [facility] Comment on above: Performed By: #### L 500.4050 ####[facility] [address] [place], [address] Albumin/Globulin [Mass ratio] 1.2 {ratio} Normal 0.9-2.4 [facility] Comment on above: Performed By: #### L 500.4050 ####[facility] [address] [place], [address] ALK P 122 U/L High 45-117 [facility] Comment on above: Performed By: #### L 500.4050 ####[facility] [address] [place], [address] ALT [Catalytic activity/Vol] 37 U/L Normal 13-56 [facility] Comment on above: Performed By: #### L 500.4050 ####[facility] [address] [place], [address] AST [Catalytic activity/Vol] 35 U/L Normal 15-37 [facility] Comment on above: Performed By: #### L 500.4050 ####[facility] [address] [place], [address] Bilirubin [Mass/Vol] 1.20 mg/dL High 0.20-1.00 [facility] Comment on above: Result Comment: For patients on eltrombopag therapy, use of Dimension [place] TBIL is not recommended. Performed By: #### L 500.4050 ####[facility] [address] [place], [address] BUN/CRE 21.2 RATIO High 10-20 [facility] Comment on above: Performed By: #### L 500.4050 ####[facility] [address] [place], [address] CA,Total 9.1 mg/dL Normal 8.5-10.1 [facility] Comment on above: Performed By: #### L 500.4050 ####[facility] [address] [place], [address] Chloride [Moles/Vol] 105 mmol/L Normal 98-107 [facility] Comment on above: Performed By: #### L 500.4050 ####[facility] [address] [place], [address] CO2 [Moles/Vol] 29.0 mmol/L Normal 21.0-32.0 [facility] Comment on above: Performed By: #### L 500.4050 ####[facility] [address] [place], [address] Creatinine [Mass/Vol] 0.99 mg/dL Normal 0.55-1.02 [facility] Comment on above: Result Comment: The validity of the calculated GFR GFRAA in patients over 70 years has not been determined. Clinical correlation is essential. Performed By: #### L 500.4050 ####[facility] [address] [place], [address] EST GFR - AA 69 mL/min Normal >60 [facility] Comment on above: Result Comment: Afri can [place] GFR Calc Performed By: #### L 500.4050 ####[facility] [address] [place], [address] GAP 6 Normal 5-15 [facility] Comment on above: Performed By: #### L 500.4050 ####[facility] [address] [place], [address] GFR/1.73 sq M.predicted among non-blacks MDRD (S/P/Bld) [Vol rate/Area] 57 mL/min/{1.73_m2} Low >60 [facility] Comment on above: Result Comment: Non- GFR Calc Performed By: #### L 500.4050 ####[facility] [address] [place], [address] Globulin (S) [Mass/Vol] 3.1 g/dL Normal 2.2-4.2 [facility] Comment on above: Performed By: #### L 500.4050 ####[facility] [address] [place], [address] Glucose [Mass/Vol] 153 mg/dL High 74-106 [facility] Comment on above: Result Comment: Fast ing Glucose result greater than or equal to 126 mg/dL suggests DIABETES MELLITUS per A.D.A. criteria. Performed By: #### L 500.4050 ####[facility] [address] [place], [address] Potassium [Moles/Vol] 3.9 mmol/L Normal 3.5-5.1 [facility] Comment on above: Performed By: #### L 500.4050 ####[facility] [address] [place], [address] Sodium [Moles/Vol] 140 mmol/L Normal 136-145 [facility] Comment on above: Performed By: #### L 500.4050 ####[facility] [address] [place], [address] T PROT 6.8 g/dL Normal 6.4-8.2 [facility] Comment on above: Performed By: #### L 500.4050 ####[facility] [address] [place], [place], [address] Urea nitrogen [Mass/Vol] 21 mg/dL High 7-18 [facility] Comment on above: Performed By: #### L 500.4050 ####[facility] [address] [place], [address] Spine Lumbar W/WO Contraston 03-28-2024 Spine Lumbar W/WO Contrast [facility] Imaging Services [address] [place], [place] [address] Spine Lumbar W/WO Contrast MR#: [id number] Acct: [id number] Name: HEATHER RED Rep #: [id number] : 1945 F 78 From: Edouard Melvin MD PCP: Dr. Salvador Waller MD Status: REG CLI Study: Spine Lumbar W/WO Contrast Date of Exam: 03/07 11/27 Exam# [id number] Ordering Dr: Keily Winter MD [id number] STUDY: MRI LUMBAR SPINE WITH AND WITHOUT CONTRAST REASON FOR EXAM: Female, 78 years old. low back pain; R lumb radic; Hx lumbar laminectomy TECHNIQUE: Standardized fat and water weighted pulse sequences were obtained in the sagittal and axial planes. IV 17cc clariscan was administered for the contrast portion of the examination. COMPARISON: 03/05/2022 FINDINGS: T12-L1: Interval development of a moderate broad disc protrusion which produces moderate spinal stenosis with abutment of the central spinal cord and moderate left neural foraminal stenosis with abutment of the left T12 nerve root laterally. Normal lumbar lordosis. Moderate dextroscoliosis of the thoracolumbar spine. Normal conus medullaris that terminates at the L2. L1-2: Mild bilateral facet hypertrophy and moderate ligament flavum hypertrophy. No change in the moderate bilobed disc protrusion asymmetric to the left which produces moderate spinal stenosis with moderate left lateral recess stenosis and moderate left neural foraminal stenosis. L2-3: Moderate bilateral facet hypertrophy and severe ligament flavum hypertrophy. No change in the 2 mm retrolisthesis of L2 on L3 with a moderate bilobed disc protrusion which produces severe spinal stenosis, severe bilateral lateral recess stenosis with effacement of the L3 nerve roots bilaterally and moderate bilateral neural foraminal stenosis. L3-4: Interval posterior decompression. Severe right facet hypertrophy and mild left facet hypertrophy. 2 mm retrolisthesis of L3 on L4. Markedly improved disc protrusion and a mild bilobed disc protrusion produces mild spinal stenosis relieved by the posterior decompression, moderate right neural foraminal stenosis and mild left neural foraminal stenosis. L4-5: Interval posterior decompression. Moderate bilateral facet hypertrophy. No change in 2 mm of anterolisthesis of L4 on L5 with a mild broad disc protrusion which produces mild spinal stenosis relieved by the posterior decompression, severe right neural foraminal stenosis and mild left neural foraminal stenosis. L5-S1: Mild bilateral facet hypertrophy and moderate ligament flavum hypertrophy. No change in the 2 mm retrolisthesis of L5 on S1 with a mild broad disc protrusion which produces moderate spinal stenosis with moderate bilateral lateral recess stenosis with abutment of the S1 nerve roots bilaterally and moderate bilateral neural foraminal stenosis. Normal visualized sacral ala. Normal visualized paraspinous soft tissue structures. No abnormal contrast enhancement with mass effect or nerve root encasement. MRI/Spine Lumbar W/WO Contrast IMPRESSION: Interval posterior decompression at L3 and L4 with degenerative disc disease as described above. Electronically Signed: Edouard Melvin MD at 10:20 EDT , CC: Dr. Salvador Waller MD; Dr. Keily Winter MD Wrap Yarn Sorter: Signed Normal [facility] Abdomen Limitedon 03-21-2024 Abdomen [facility] Imaging Services [address] [place] [address] Abdomen Limited MR#: [id number] Acct: [id number] Name: HEATHER RED Rep #: [id number] : 1945 F 78 From: Edouard Melvin MD PCP: Dr. Salvador Waller MD Status: REG CLI Study: Abdomen Limited Date of Exam: 03/21/24 Exam# [id number] Ordering Dr: Ade Neely MD [id number] STUDY: ABDOMINAL ULTRASOUND - RIGHT UPPER QUADRANT REASON FOR VISIT: Female, 78 years old ELEVEATED LIVER ENZYME TECHNIQUE: Ultrasound evaluation of the right upper quadrant was performed with real-time and static patricio-scale imaging. TECHNICAL QUALITY: Adequate. COMPARISON: None. FINDINGS: Liver: The liver measures 12.2 cm. There is normal echogenicity of the liver. The bile ducts are within normal limits. There is hepatic color flow. The direction of portal flow is hepatopetal. There is no demonstrated mass lesion. Gallbladder: The patient is status post cholecystectomy. s. Common Bile Duct (C.B.D.): The common bile duct measures 2 mm. Pancreas: Normal size of the head, body and tail of the pancreas. There is normal echogenicity of the pancreas. There is no demonstrated pancreatic mass or cyst. Right Kidney: Normal size of the right kidney. The right kidney measures 10.5 cm. Normal renal cortex. The right cortex measures 1.3 cm. There is no demonstrated renal mass or cyst. There is no right hydronephrosis. US/Abdomen Limited IMPRESSION: Normal right upper quadrant ultrasound examination after cholecystectomy. Electronically Signed: Edouard Melvin MD at 8:41 EDT , CC: Dr. Ade Neely MD; Dr. Salvador Waller MD Wrap Yarn Sorter: Signed Normal [facility] US BREAST LEFT LIMITEDon US BREAST LEFT LIMITED ORIGINAL FROM: ALTHE[place] [address] [address] PROCEDURE FOR: HEATHERRA Jose Juan [address] [place] [address] Home: PID#: [id number] Exam#: [id number] : 1945 Age: 77 TO: SALVADOR WALLER MD [address] [place] [address] EXAMINATION: ULTRASOUND OF THE LEFT BREAST 08/02/2023 1:07 pm TECHNIQUE: Color flow and real-time targeted ultrasound of the left breast 10 o'clock were performed. COMPARISON: July 16, 2023, January 01, 2023, September 08, 2022, May 19, 2022, May 13, 2022, February 07, 2021 HISTORY: ORDERING SYSTEM PROVIDED HISTORY: Reason for Exam: Breast cyst FINDINGS: In the left breast at 10 o'clock 6 cm from the nipple, there is a heterogeneous area with a chalk on edge appearance that has decreased in prominence and slightly decreased in size, measuring 0.7 cm in greatest dimension, likely representing evolving trauma/fat necrosis. In the left breast at 10 o'clock 7 cm from the nipple, there is a complicated cyst that has decreased in size, measuring 0.3 cm. IMPRESSION: Findings likely representing evolving fat necrosis/trauma in the left breast at 10 o'clock 6 cm from the nipple, benign. Mass likely representing a complicated cyst decreased in size in the left breast at 10 o'clock 7 cm from the nipple, benign. The patient may return to annual mammographic screening. BIRADS: MAMMOGRAM BI-RADS: 2: Benign finding RECALL: return to screening RECALL TYPE: mammo LETTER SENT: Normal BI-RADS 1 and 2 Interpreted by: Lexii Sears Preliminary Report By: Lexii Sears Electronically signed By Lexii Sears Dictated Date: 08/02/2023 1:41:52 PM Prelim Date: 08/02/2023 1:44:15 PM Sign Date: 08/02/2023 1:44:15 PM Ordering Provider: SALVADOR WALLER CLINICAL: 6 MONTHS FOLLOW-UP. Residue Furnace Operator: BRYAN PERDOMO(R) RDMS letter sent: Normal BI-RADS 1 and 2 Ultrasound BI-RADS: 2 Benign Normal [facility] ([place] MAMMOGRAM DIAGNOSTIC BILA TERAL W/TOMOon 07-16-2023 MA MAMMOGRAM DIAGNOSTIC BILATERAL W/GODFREY ORIGINAL FROM: [address] [address] PROCEDURE FOR: HEATHER [address] [place] [address] Home: PID#: [id number] Exam#: [id number] : 1945 Age: 77 TO: SALVADOR WALLER MD [address] [address] EXAMINATION: DIAGNOSTIC BILATERAL MAMMOGRAM WITH TOMOSYNTHESIS, 07/16/2023 9:32 am TECHNIQUE: Tomosynthesis was performed as part of the diagnostic bilateral mammogram. 2D standard and 3D tomosynthesis combination imaging performed. Current study was also evaluated with a Computer Aided Detection (CAD) system. COMPARISON: 01/01/2023, 09/08/2022, 05/19/2022 HISTORY: Follow-up left breast mass 10 o'clock FINDINGS: BREAST DENSITY: Scattered fibroglandular tissue The finding described on the previous mammogram has resolved. There are a few tiny residual benign oil cysts in the area. The previously seen sonographic findings are consistent with fat necrosis and are considered benign. No significant masses, calcifications, or other findings. No significant interval change. IMPRESSION: No mammographic evidence of malignancy. A 1 year screening mammogram is recommended. Alisa Rosas risk calculations, generated with the history provided, report this patient's lifetime risk for developing breast cancer at 3.7%. Based on this assessment tool, if the patient's calculated lifetime risk is below 20%, then the patient is considered at average risk for developing breast cancer. If the patient's calculated lifetime risk is at or above 20%, then the patient is considered high risk for developing breast cancer and may be a candidate for supplemental breast MRI screening in addition to annual mammographic screening per the [employer]. BIRADS: MAMMOGRAM BI-RADS: 2: Benign finding RECALL: 1 year screening RECALL TYPE: mammo LETTER SENT: Normal BI-RADS 1 and 2 Interpreted by: Thomas Oliver MD Preliminary Report By: Thomas Oliver MD Electronically signed By Thomas Oliver MD Dictated Date: 07/16/2023 10:20:24 AM Prelim Date: 07/16/2023 10:23:12 AM Sign Date: 07/16/2023 10:23:12 AM Ordering Provider: SALVADOR WALLER CLINICAL: 6 MONTHS FOLLOW-UP MAMMOGRAPHIC DENSITY LEFT BREAST. Residue Furnace Operator: MIGUEL ALMANZAR RT (R) (M) (CT) letter sent: Normal BI-RADS 1 and 2 Mammogram BI-RADS: 2 Benign Normal [facility] ([place] US BREAST LEFT LIMITEDon US BREAST LEFT LIMITED ORIGINAL FROM: [place] [address] PROCEDURE FOR: HEATHER RED [address] [place] [address] Home: PID#: [id number] Exam#: [id number] : 1945 Age: 77 TO: [place] [address] EXAMINATION: ULTRASOUND OF THE LEFT BREAST 01/01/2023 8:57 am TECHNIQUE: Color flow and real-time targeted ultrasound of the left breast 10 o'clock were performed. COMPARISON: 09/08/2022, 05/19/2022, 05/13/2022 HISTORY: ORDERING SYSTEM PROVIDED HISTORY: Reason for Exam: benign cyst Follow-up possible fat necrosis left breast 10 o'clock FINDINGS: There is a 7 mm mixed echogenic area in the left breast at 10 o'clock middle depth 6 cm from the nipple. There is also a 5 mm complicated cyst in the left breast at 10 o'clock middle depth 7 cm from the nipple. These areas are not significantly changed from the prior exam. There is no vascularity present. The patient reports a history of trauma to the area. IMPRESSION: The 7 mm mixed echogenic mass in the left breast at 10 o'clock 6 cm from the nipple and the 5 mm complicated cyst in the left breast at 10 o'clock 7 cm from the nipple resemble areas of fat necrosis and appear probably benign. A 6 month follow up ultrasound and diagnostic bilateral mammogram is recommended to demonstrate stability. BIRADS: MAMMOGRAM BI-RADS: 3: Probably benign RECALL: 6 month follow-up RECALL TYPE: Mammo+US LETTER SENT: Probably Benign BI-RADS 3 Interpreted by: Thomas Oliver MD Preliminary Report By: Thomas Oliver MD Electronically signed By Thomas Oliver MD Dictated Date: 01/01/2023 10:32:36 AM Prelim Date: 01/01/2023 10:36:35 AM Sign Date: 01/01/2023 10:36:35 AM Ordering Provider: SALVADOR WALLER CLINICAL: 6 MONTHS FOLLOW-UP. Residue Furnace Operator: BRYAN WALKER RT(R) RDMS letter sent: Probably Benign BI-RADS 3 Ultrasound BI-RADS: 3 Probably benign Normal [facility] ([place] LABORATORYOrdered By: SYSTEM SYSTEM on 09-12-2022 Albumin BCP dye [Mass/Vol] 3.1 G/dL Invalid Interpretation Code 3.4 - 4.8 G/dL AO ADM SS Albumin/Globulin [Mass ratio] 1.3 {ratio} Invalid Interpretation Code 1.1 - 2.5 ratio AO ADM SS ALP [Catalytic activity/Vol] 84 U/L Invalid Interpretation Code 40 - 135 U/L AO ADM SS ALT With P-5'-P [Catalytic activity/Vol] 21 U/L Invalid Interpretation Code 14 - 59 U/L AO ADM SS AST With P-5'-P [Catalytic activity/Vol] 17 U/L Invalid Interpretation Code 10 - 40 U/L AO ADM SS Bilirubin [Mass/Vol] 1.5 mg/dL Invalid Interpretation Code 0.2 - 1.0 mg/dL AO ADM SS Calcium [Mass/Vol] 8.8 mg/dL Invalid Interpretation Code 8.4 - 10.2 mg/dL AO ADM SS Chloride [Moles/Vol] 107 mmol/L Invalid Interpretation Code 98 - 107 mmol/L AO ADM SS CO2 [Moles/Vol] 31 mmol/L Invalid Interpretation Code 23 - 31 mmol/L AO ADM SS Creatinine [Mass/Vol] 0.85 mg/dL Invalid Interpretation Code 0.55 - 1.02 mg/dL AO ADM SS Electrolyte Balance 6.0 mEq/L Invalid Interpretation Code 4.0 - 15.0 mEq/L AO ADM SS GFR 78 ml/min/1.73sqm Invalid Interpretation Code AO Chemistry S GFR Non- 65 ml/min/1.73sqm Invalid Interpretation Code AO Chemistry S Globulin 2.3 G/dL Invalid Interpretation Code AO ADM SS Glucose [Mass/Vol] 93 mg/dL Invalid Interpretation Code 83 - 110 mg/dL AO ADM SS Potassium [Moles/Vol] 4.3 mmol/L Invalid Interpretation Code 3.5 - 5.1 mmol/L AO ADM SS Protein [Mass/Vol] 5.4 G/dL Invalid Interpretation Code 6.4 - 8.2 G/dL AO ADM SS Sodium [Moles/Vol] 144 mmol/L Invalid Interpretation Code 136 - 145 mmol/L AO ADM SS Urea nitrogen [Mass/Vol] 22 mg/dL Invalid Interpretation Code 7 - 18 mg/dL AO ADM SS Urea nitrogen/Creatinine [Mass ratio] 26 ratio Invalid Interpretation Code 7 - 27 ratio AO ADM SS LABORATORYOrdered By: Heather Lopez on 09-12-2022 Basophil, Absolute 0.0 103/mcL Invalid Interpretation Code 0.0 - 0.2 10^3/mcL AO Workflow SS Basophils/100 WBC (Bld) 0.5 % Invalid Interpretation Code 0.0 - 2.5 % AO Workflow SS Eosinophil, Absolute 0.1 103/mcL Invalid Interpretation Code 0.0 - 0.4 10^3/mcL AO Workflow SS Eosinophils/100 WBC (Bld) 2.2 % Invalid Interpretation Code 0.0 - 7.0 % AO Workflow SS Erythrocyte distribution width (RBC) [Ratio] 14.6 % Invalid Interpretation Code 11.5 - 14.5 % AO Workflow SS Hematocrit (Bld) [Volume fraction] 30.3 % Invalid Interpretation Code 37.0 - 47.0 % AO Workflow SS Hemoglobin (Bld) [Mass/Vol] 10.4 G/dL Invalid Interpretation Code 12.0 - 16.0 G/dL AO Workflow SS Lymphocyte, Absolute 1.8 103/mcL Invalid Interpretation Code 0.8 - 3.9 10^3/mcL AO Workflow SS Lymphocytes/100 WBC (Bld) 27.1 % Invalid Interpretation Code 10.0 - 50.0 % AO Workflow SS MCH (RBC) [Entitic mass] 31.2 pg Invalid Interpretation Code 27.0 - 31.2 pg AO Workflow SS MCHC 34.2 G/dL Invalid Interpretation Code 33.0 - 37.0 G/dL AO Workflow SS MCV (RBC) [Entitic vol] 91.1 fL Invalid Interpretation Code 80.0 - 94.0 fL AO Workflow SS Monocyte, Absolute 0.6 103/mcL Invalid Interpretation Code 0.2 - 1.0 10^3/mcL AO Workflow SS Monocytes/100 WBC (Bld) 9.0 % Invalid Interpretation Code 1.7 - 13.0 % AO Workflow SS Neutrophil, Absolute 4.0 103/mcL Invalid Interpretation Code 2.9 - 6.2 10^3/mcL AO Workflow SS Neutrophils/100 WBC (Bld) 61.2 % Invalid Interpretation Code 37.0 - 80.0 % AO Workflow SS Platelet mean volume (Bld) [Entitic vol] 8.9 fL Invalid Interpretation Code 7.4 - 10.4 fL AO Workflow SS Platelets (Bld) [#/Vol] 196 103/mcL Invalid Interpretation Code 130 - 400 10^3/mcL AO Workflow SS RBC (Bld) [#/Vol] 3.33 106/mcL Invalid Interpretation Code 4.20 - 5.40 10^6/mcL AO Workflow SS WBC (Bld) [#/Vol] 6.6 103/mcL Invalid Interpretation Code 4.6 - 10.8 10^3/mcL AO Workflow SS LABORATORYOrdered By: Josie Callahan on 09-11-2022 Cholesterol [Mass/Vol] 152 mg/dL Invalid Interpretation Code 0 - 200 mg/dL AO ADM SS Cholesterol in HDL [Mass/Vol] 78 mg/dL Invalid Interpretation Code 40 - 60 mg/dL AO ADM SS Cholesterol in LDL [Mass/Vol] 60 mg/dL Invalid Interpretation Code 0 - 130 mg/dL AO ADM SS Triglyceride [Mass/Vol] 69 mg/dL Invalid Interpretation Code 0 - 150 mg/dL AO ADM SS LABORATORYOrdered By: SYSTEM SYSTEM on 09-11-2022 Free T4 [Mass/Vol] 1.34 ng/dL Invalid Interpretation Code 0.76 - 1.46 ng/dL AO ADM SS HbA1c (Bld) [Mass fraction] 5.5 % Invalid Interpretation Code 4.3 - 6.4 % AO ADM SS TSH Qn 0.63 m[IU]/L Invalid Interpretation Code 0.36 - 3.74 mcIU/mL AO ADM SS Calcium [Mass/Vol] 8.9 mg/dL Invalid Interpretation Code 8.4 - 10.2 mg/dL AO ADM SS Chloride [Moles/Vol] 108 mmol/L Invalid Interpretation Code 98 - 107 mmol/L AO ADM SS CO2 [Moles/Vol] 31 mmol/L Invalid Interpretation Code 23 - 31 mmol/L AO ADM SS Creatinine [Mass/Vol] 0.75 mg/dL Invalid Interpretation Code 0.55 - 1.02 mg/dL AO ADM SS Electrolyte Balance 6.0 mEq/L Invalid Interpretation Code 4.0 - 15.0 mEq/L AO ADM SS GFR 91 ml/min/1.73sqm Invalid Interpretation Code AO Chemistry S GFR Non- 75 ml/min/1.73sqm Invalid Interpretation Code AO Chemistry S Glucose [Mass/Vol] 95 mg/dL Invalid Interpretation Code 83 - 110 mg/dL AO ADM SS Potassium [Moles/Vol] 3.8 mmol/L Invalid Interpretation Code 3.5 - 5.1 mmol/L AO ADM SS Sodium [Moles/Vol] 145 mmol/L Invalid Interpretation Code 136 - 145 mmol/L AO ADM SS Troponin I.cardiac DL <= 0.01 ng/mL [Mass/Vol] 5.9 ng/L Invalid Interpretation Code 0.0 - 51.4 ng/L AO ADM SS Urea nitrogen [Mass/Vol] 28 mg/dL Invalid Interpretation Code 7 - 18 mg/dL AO ADM SS Urea nitrogen/Creatinine [Mass ratio] 37 ratio Invalid Interpretation Code 7 - 27 ratio AO ADM SS LABORATORYOrdered By: Sunday Felix on 09-11-2022 aPTT Coag (Bld) [Time] 23.8 s Invalid Interpretation Code 24.1 - 34.9 seconds AO Coag SS Basophil, Absolute 0.0 103/mcL Invalid Interpretation Code 0.0 - 0.2 10^3/mcL AO Workflow SS Basophils/100 WBC (Bld) 0.7 % Invalid Interpretation Code 0.0 - 2.5 % AO Workflow SS Eosinophil, Absolute 0.1 103/mcL Invalid Interpretation Code 0.0 - 0.4 10^3/mcL AO Workflow SS Eosinophils/100 WBC (Bld) 2.0 % Invalid Interpretation Code 0.0 - 7.0 % AO Workflow SS Erythrocyte distribution width (RBC) [Ratio] 14.5 % Invalid Interpretation Code 11.5 - 14.5 % AO Workflow SS Hematocrit (Bld) [Volume fraction] 33.5 % Invalid Interpretation Code 37.0 - 47.0 % AO Workflow SS Hemoglobin (Bld) [Mass/Vol] 11.4 G/dL Invalid Interpretation Code 12.0 - 16.0 G/dL AO Workflow SS Heparin dose (APTT) None Invalid Interpretation Code AO Coag SS INR Coag (PPP) [Relative time] 1.1 {INR} Invalid Interpretation Code 0.9 - 1.2 ratio AO Coag SS Lymphocyte, Absolute 1.5 103/mcL Invalid Interpretation Code 0.8 - 3.9 10^3/mcL AO Workflow SS Lymphocytes/100 WBC (Bld) 24.6 % Invalid Interpretation Code 10.0 - 50.0 % AO Workflow SS MCH (RBC) [Entitic mass] 31.0 pg Invalid Interpretation Code 27.0 - 31.2 pg AO Workflow SS MCHC 33.9 G/dL Invalid Interpretation Code 33.0 - 37.0 G/dL AO Workflow SS MCV (RBC) [Entitic vol] 91.3 fL Invalid Interpretation Code 80.0 - 94.0 fL AO Workflow SS Monocyte distribution width Auto (Bld) [Entitic vol] 16.31 Invalid Interpretation Code 0.00 - 20.00 AO Workflow SS Comment on above: Result Comment: For ED adult patients suspected of sepsis, MDW<=20.0 does not rule out sepsis or risk of sepsis Monocyte, Absolute 0.5 103/mcL Invalid Interpretation Code 0.2 - 1.0 10^3/mcL AO Workflow SS Monocytes/100 WBC (Bld) 7.9 % Invalid Interpretation Code 1.7 - 13.0 % AO Workflow SS Neutrophil, Absolute 3.9 103/mcL Invalid Interpretation Code 2.9 - 6.2 10^3/mcL AO Workflow SS Neutrophils/100 WBC (Bld) 64.8 % Invalid Interpretation Code 37.0 - 80.0 % AO Workflow SS Platelet mean volume (Bld) [Entitic vol] 8.5 fL Invalid Interpretation Code 7.4 - 10.4 fL AO Workflow SS Platelets (Bld) [#/Vol] 203 103/mcL Invalid Interpretation Code 130 - 400 10^3/mcL AO Workflow SS PT Coag (PPP) [Time] 12.2 s Invalid Interpretation Code 9.7 - 13.9 seconds AO Coag SS RBC (Bld) [#/Vol] 3.67 106/mcL Invalid Interpretation Code 4.20 - 5.40 10^6/mcL AO Workflow SS WBC (Bld) [#/Vol] 6.0 103/mcL Invalid Interpretation Code 4.6 - 10.8 10^3/mcL AO Workflow SS Appearance (U) Clear (09/11/22 9:32 AM) Invalid Interpretation Code Clear AO Auto Urine SS Bilirubin Ql (U) Negative (09/11/22 9:32 AM) Invalid Interpretation Code Negative AO Auto Urine SS Color (U) Yellow (09/11/22 9:32 AM) Invalid Interpretation Code AO Auto Urine SS Glucose Test strip (U) [Mass/Vol] Negative Invalid Interpretation Code Negativemg/dL AO Auto Urine SS Hemoglobin Auto test strip (U) [Mass/Vol] Negative (09/11/22 9:32 AM) Invalid Interpretation Code Negative AO Auto Urine SS Ketones Ql (U) Negative Invalid Interpretation Code Negativemg/dL AO Auto Urine SS UA Leuk Est Negative (09/11/22 9:32 AM) Invalid Interpretation Code Negative AO Auto Urine SS UA Nitrite Negative (09/11/22 9:32 AM) Invalid Interpretation Code Negative AO Auto Urine SS UA pH 6.0 (09/11/22 9:32 AM) Invalid Interpretation Code 5.0 - 8.0 AO Auto Urine SS UA Protein 30 mg/dL Invalid Interpretation Code Negativemg/dL AO Auto Urine SS UA RBC 0-5 /HPF Invalid Interpretation Code None Seen/HPF AO Auto Urine SS UA Spec Grav >=1.030 *ABN* (09/11/22 9:32 AM) Invalid Interpretation Code 1.015-1.025 AO Auto Urine SS UA Specimen Type Clean Catch (09/11/22 9:32 AM) Invalid Interpretation Code AO Auto Urine SS UA Squam Epithelial 0-5 /HPF Invalid Interpretation Code None Seen/HPF AO Auto Urine SS UA Urobilinogen 0.2 E.U./dL Invalid Interpretation Code 0.2-1.0E.U./d L AO Auto Urine SS WBC LM.HPF (Urine sed) [#/Area] None Seen /HPF Invalid Interpretation Code None Seen/HPF AO Auto Urine SS LABORATORYOrdered By: Derrick Rosas on 09-11-2022 Glucose [Mass/Vol] 85 mg/dL Invalid Interpretation Code 82 - 115 mg/dL [facility] Vital Signs Date Time Vital Sign Value Performing Clinician Dustin vargas 09-12-2022 09:56-0500 Diastolic Blood Pressure Non-Invasive 60 1 DALE HALLEMILADYS [employer] RECE[employer] [facility] 09-12-2022 09:56-0500 Heart rate 72 /min DALEMILLA NERIMILADYS [employer]CE[employer] [facility] 09-12-2022 09:56-0500 Respiratory rate 16 /min DALEMILLA NERIMILADYS [employer] RECE[employer] [facility] 09-12-2022 09:56-0500 Systolic Blood Pressure Non-Invasive 118 1 DALE NERIGREGORION [employer] RECEIVER [facility] 09-12-2022 08:51-0500 Heart rate 92 /min DALEMILLA NERIMILADYS [employer] RECE[employer] [facility] 09-12-2022 08:21-0500 Body temperature 98.42 [degF] DALEMILLA NERIMILADYS [employer] RECE[employer] [facility] 09-12-2022 08:21-0500 Diastolic Blood Pressure Non-Invasive 92 1 DALE HALLEMILADYS [employer] RECEIVER [facility] 09-12-2022 08:21-0500 Heart rate 62 /min DALEMILLA NERIMILADYS [employer] RECE[employer] [facility] 09-12-2022 08:21-0500 Respiratory rate 16 /min DALE RIVERON [employer] RECEIVER [facility] 09-12-2022 08:21-0500 Systolic Blood Pressure Non-Invasive 180 1 DALEMILLA RIVERON [employer] RECEIVER [facility] 09-12-2022 05:40-0500 Body temperature 97.52 [degF] DALE RIVERON [employer] RECEIVER [facility] 09-12-2022 05:40-0500 Diastolic Blood Pressure Non-Invasive 69 1 DALEMILLA RIVERON [employer] RECEIVER [facility] 09-12-2022 05:40-0500 Heart rate 68 /min DALEMILLA RIVERON [employer] RECEIVER [facility] 09-12-2022 05:40-0500 Respiratory rate 18 /min DALEMILLA RIVERON [employer] RECEIVER [facility] 09-12-2022 05:40-0500 Systolic Blood Pressure Non-Invasive 110 1 DALE RIVERON [employer] RECEIVER [facility] 09-11-2022 23:08-0500 Body temperature 98.06 [degF] DALEMILLA RIVERON [employer] RECE[employer] [facility] 09-11-2022 23:08-0500 Heart rate 81 /min DALEMILLA RIVERON [employer] RECE[employer] [facility] 09-11-2022 19:45-0500 Heart rate 69 /min DALEMILLA NERINEN [employer]CE[employer] [facility] 09-11-2022 16:27-0500 Heart rate 69 /min DALEMILLA RIVERON [employer]CE[employer] [facility] 09-11-2022 16:02-0500 Body height 162.6 cm DALE FLORES [employer]CE[employer] [facility] 09-11-2022 16:02-0500 Body weight 74.2 kg DALEMILLA RIVERON [employer]CE[employer] [facility] 09-11-2022 16:02-0500 Body weight 28.06 kg/m2 DALEMILLA NERINEN [employer]CE[employer] [facility] 09-11-2022 09:44-0500 Body height 162.6 cm DALEMILLA FLORES [employer] RECEIVER [facility] 09-11-2022 09:44-0500 Body weight 74.2 kg DALE FLORES [employer]CE[employer] [facility] Encounters Encounter Date Encounter Type Care Provider Facility Start: 03-20-2025 ambulatory Salvador Waller Facility:[facility] Start: 03-15-2025 End: 03-15-2025 Emergency department [facility] Facility[facility] Start: 03-06-2025 End: 03-06-2025 ambulatory Salvador Waller Facility:[facility] Start: 03-01-2025 End: 03-01-2025 ambulatory Salvador Waller Facility:[facility] Start: 03-01-2025 End: 03-01-2025 ambulatory Salvador Waller Facility:[facility] Start: 02-02-2025 End: 02-02-2025 ambulatory Salvador Waller Facility:[facility] Start: 01-11-2025 End: 01-11-2025 ambulatory Salvador Waller Facility:[facility] Start: 01-05-2025 End: 01-05-2025 ambulatory Salvador Waller Facility:[facility] Start: 12-14-2024 End: 12-14-2024 ambulatory Keily Winter Facility:[facility] Start: 11-16-2024 End: 11-16-2024 ambulatory Salvador Waller Facility:[facility] Start: 11-09-2024 End: 11-09-2024 ambulatory Salvador Waller Facility:[facility] Start: 10-30-2024 End: 10-30-2024 ambulatory Salvador Waller Facility:[facility] Start: 07-31-2024 End: [facility] Start: 07-19-2024 End: 07-19-2024 ambulatory BOWEN MARIE Facility:[facility] Start: 07-17-2024 End: 07-17-2024 ambulatory Keily Winter Facility:[facility] Start: 06-27-2024 End: 06-27-2024 ambulatory Salvador Waller Facility:[facility] Start: 06-21-2024 End: 06-21-2024 ambulatory Salvador Waller Facility:[facility] Start: 05-29-2024 End: 05-29-2024 ambulatory Salvador Waller Facility:[facility] Start: 05-04-2024 End: 05-04-2024 ambulatory Salvador Waller Facility:[facility] Start: 04-03-2024 End: 04-03-2024 ambulatory Salvador Waller Facility:[facility] Start: 03-28-2024 End: 03-28-2024 ambulatory Salvador Waller Facility:[facility] Start: 03-21-2024 End: 03-21-2024 [facility] Start: 08-02-2023 End: 08-03-[address] SALVADOR WALLER MD Facility:[facility] Start: 07-16-2023 End: 07-17-[address] SALVADOR WALLER MD Facility:[facility] Start: 07-16-2023 End: 07-16-[address] SALVADOR WALLER MD [facility] Start: 01-01-2023 End: 01-02-[address] SALVADOR WALLER MD Facility:[facility] Start: 01-01-2023 End: 01-01-[address] SALVADOR WALLER MD [facility] Start: 09-21-2022 End: 10-14-2022 Physical therapy management KEILY WINTER MD. [facility] Start: 09-11-2022 End: 09-12-2022 Observation DALE FLORES [employer] [facility] Start: 09-08-2022 End: 09-08-[address] SALVADOR WALLER MD [facility] Start: 05-19-2022 End: 05-19-[address] SALVADOR WALLER MD [facility] Start: 05-13-2022 End: 05-13-[address] SALVADOR WALLER MD [facility] Procedures Date Procedure Procedure Detail Performing Clinician Start: 09-06-2021 Back structure, excl uding neck (body structure) DR SALVADOR WALLER MD Start: 09-06-2020 Stress test treadmil l (physical object) DALE RIVEROZackery [employer] RECEIVER Start: 09-11-2009 Total knee replacement DALE NERIMILADYS [employer] RECEIVER Start: 09-11-2004 Cholecystectomy DALE FLORES [employer] RECEIVER Start: 09-11-1979 Arthroscopy of knee DANGELO RIVEROZackery [employer] RECEIVER Start: 09-11-1974 section DALE NERIMILADYS [employer] RECEIVER Bilateral cataracts (disorder) DR SALVADOR WALLER MD Carpal tunnel syndro me (disorder) DR SALVADOR WALLER MD Decompression of med tacho nerve DALE KENNEN [employer] RECEIVER Dilation and curettage DR HOMA WALLER MD Heel structure (body structure) DR SALVADOR WALLER MD Comment on above: heel spur removed Removal of ovarian cyst DR Anneliese WALLER MD Comment on above: right Repair of musculoten dinous cuff of shoulder DR SALVADOR WALLER MD Immunizations Immunization Date Immunization Notes Care Provider Fa [facility] 06-05-2022 influenza virus vaccine, unspecified formulation DALE KENNEN [employer] RECE[employer] [facility] 12-23-2021 SARS-CoV-2 (COVID-19 ) mRNA-1273 vaccine DALE KENNEN [employer]CE[employer] [facility] 07-04-2021 influenza virus vaccine, unspecified formulation DALE KENNEN [employer] RECEIVER [facility] 06-30-2021 SARS-CoV-2 (COVID-19 ) mRNA-1273 vaccine DALE KENNEN [employer]CE[employer] [facility] 04-16-2021 zoster vaccine recombinant DALE KENNEN [employer]CE[employer] [facility] 12-03-2020 SARS-CoV-2 (COVID-19 ) mRNA-1273 vaccine DALE KENNEN [employer] RECEIVER [facility] 11-05-2020 SARS-CoV-2 (COVID-19 ) mRNA-1273 vaccine DALE KENNEN [employer] RECE[employer] [facility] 06-23-2019 influenza virus vaccine, unspecified formulation DALE KENNEN [employer] RECE[employer] [facility] 06-12-2019 zoster vaccine recombinant DALE KENNEN [employer] RECE[employer] [facility] 06-08-2018 tetanus toxoid, redu naye diphtheria toxoid, and acellular pertussis vaccine, adsorbed; Translations: [Boostrix (Tdap)] DR SALVADOR WALLER MD [facility] 05-31-2018 influenza virus vaccine, unspecified formulation DALEMILLA NERIMILADYS [employer] RECEIVER [facility] 06-04-2017 influenza virus vaccine, unspecified formulation DALEMILLA NERIMILADYS [employer] RECEIVER [facility] 06-04-2016 influenza virus vaccine, unspecified formulation DALEMILLA NEIRMILADYS [employer] DATA PROC[employer]ING [facility] Payers Date Payer Category Payer Self-pay 2022 Medicare [id number] 2022 Private Health Insurance [id number] 1945 Unknown [id number] 2.16.8 [id number] 1945 Unknown [id number] 2.16.8 40.1.885067.3.579.2.627 1945 Unknown [id number] 2.16.8 40.1.328362.3.579.2.627 1945 Unknown [id number] 2.16.8 40.1.377199.3.579.2.627 Unknown [id number] 2.16.8 40.1.526838.3.579.2.462 Unknown [id number] 2.16.8 40.1.912604.3.579.2.462 Unknown [id number] 2.16.8 40.1.709217.3.579.2.462 Unknown [id number] 2.16.8 40.1.726520.3.579.2.462 Unknown [id number] 2.16.8 40.1.350999.3.579.2.462 Unknown [id number] 2.16.8 40.1.344573.3.579.2.462 Unknown [id number] 2.16.8 40.1.790902.3.579.2.462 Unknown [id number] 2.16.8 40.1.752970.3.579.2.462 Unknown [id number] 2.16.8 40.1.859044.3.579.2.462 Unknown [id number] 2.16.8 40.1.517047.3.579.2.462 Unknown [id number] 2.16.8 40.1.571462.3.579.2.462 Unknown [id number] 2.16.8 40.1.452171.3.579.2.462 Unknown [id number] 2.16.8 40.1.369803.3.579.2.462 Unknown [id number] 2.16.8 40.1.828767.3.579.2.462 Unknown [id number] 2.16.8 40.1.274841.3.579.2.462 Unknown [id number] 2.16.8 40.1.460854.3.579.2.462 Unknown [id number] 2.16.8 40.1.860161.3.579.2.462 Unknown [id number] 2.16.8 40.1.897065.3.579.2.462 Unknown [id number] 2.16.8 40.1.307198.3.579.2.462 Unknown [id number] 2.16.8 40.1.010161.3.579.2.462 Unknown [id number] 2.16.8 40.1.072173.3.579.2.462 Unknown [id number] 2.16.8 40.1.359872.3.579.2.462 Unknown [id number] 2.16.8 40.1.405271.3.579.2.462 Social History Date Type Detail Facility Start: 09-11-2022 Tobacco smoking status Never s moked tobacco (finding) [facility] Sex Assigned At Female [facility] Functional Status Date Assessment Result Facility 09-21-2022 Functional Status OBJECTIVE BP: 125/72 Gait: no marked deficits with no AD Transfers: WNL Sensation: no abnormalities or asymmetries Reflexes: NT MMT: 4+/5 grossly Activities - specifc balance confidence scale: 85% m-cstib composite/avg score: 1.94, 7% impairment orthostatic hypotension screening: negative - supine 108/62, standing 123/70 [facility] 09-12-2022 Functional Status Room check performed [facility] 09-12-2022 Functional Status Independent [facility] 09-12-2022 Functional Status [facility] 09-12-2022 Functional Status [facility] 09-12-2022 Functional Status [facility] 09-12-2022 Functional Status [facility] 09-11-2022 Functional Status Sensory Deficits None [facility] Mental Status Date Assessment Result Facility 09-12-2022 Mental Status Orientation Oriented x 4 [facility] 09-12-2022 [facility]22 [facility] Status [facility] 09-11-2022 Mental Status Orientation Asse ssment Oriented x 4 [facility] Clinical Notes 09-11-2022 to 07-16-2023 Note Date & Type Note Facility 07-16-2023 Note ORIGINAL FROM: [facility] [address], [place] [address] PROCEDURE FOR: [place] [address] Home: PID#: [id number] Exam#: [id number] : 1945 Age: 77 TO: SALVADOR WALLER MD [address] [place] [id number] EXAMINATION: DIAGNOSTIC BILATERAL MAMMOGRAM WITH TOMOSYNTHESIS, 07/16/2023 9:32 am TECHNIQUE: Tomosynthesis was performed as part of the diagnostic bilateral mammogram. 2D standard and 3D tomosynthesis combination imaging performed. Current study was also evaluated with a Computer Aided Detection (CAD) system. COMPARISON: 01/01/2023, 09/08/2022, 05/19/2022 HISTORY: Follow-up left breast mass 10 o'clock FINDINGS: BREAST DENSITY: Scattered fibroglandular tissue The finding described on the previous mammogram has resolved. There are a few tiny residual benign oil cysts in the area. The previously seen sonographic findings are consistent with fat necrosis and are considered benign. No significant masses, calcifications, or other findings. No significant interval change. IMPRESSION: No mammographic evidence of malignancy. A 1 year screening mammogram is recommended. Tyrer Cuzick risk calculations, generated with the history provided, report this patient's lifetime risk for developing breast cancer at 3.7%. Based on this assessment tool, if the patient's calculated lifetime risk is below 20%, then the patient is considered at average risk for developing breast cancer. If the patient's calculated lifetime risk is at or above 20%, then the patient is considered high risk for developing breast cancer and may be a candidate for supplemental breast MRI screening in addition to annual mammographic screening per the [employer]. BIRADS: MAMMOGRAM BI-RADS: 2: Benign finding RECALL: 1 year screening RECALL TYPE: mammo LETTER SENT: Normal BI-RADS 1 and 2 Interpreted by: Thomas Oliver MD Preliminary Report By: Thomas Oliver MD Electronically signed By Thomas Oliver MD Dictated Date: 07/16/2023 10:20:24 AM Prelim Date: 07/16/2023 10:23:12 AM Sign Date: 07/16/2023 10:23:12 AM Ordering Provider: SALVADOR WALLER CLINICAL: 6 MONTHS FOLLOW-UP MAMMOGRAPHIC DENSITY LEFT BREAST. Residue Furnace Operator: MIGUEL ALMANZAR RT (R) (M) (CT) letter sent: Normal BI-RADS 1 and 2 Mammogram BI-RADS: 2 Benign [facility] 01-01-2023 Note ORIGINAL FROM: [facility] [address], [place] [address] PROCEDURE FOR: HEATHER CalderonCarole TEOFILO [address] [place] [address] Home: PID#: [id number] Exam#: [id number] : 1945 Age: 77 TO: SALVADOR WALLER MD [address] [place] [address] EXAMINATION: ULTRASOUND OF THE LEFT BREAST 01/01/2023 8:57 am TECHNIQUE: Color flow and real-time targeted ultrasound of the left breast 10 o'clock were performed. COMPARISON: 09/08/2022, 05/19/2022, 05/13/2022 HISTORY: ORDERING SYSTEM PROVIDED HISTORY: Reason for Exam: benign cyst Follow-up possible fat necrosis left breast 10 o'clock FINDINGS: There is a 7 mm mixed echogenic area in the left breast at 10 o'clock middle depth 6 cm from the nipple. There is also a 5 mm complicated cyst in the left breast at 10 o'clock middle depth 7 cm from the nipple. These areas are not significantly changed from the prior exam. There is no vascularity present. The patient reports a history of trauma to the area. IMPRESSION: The 7 mm mixed echogenic mass in the left breast at 10 o'clock 6 cm from the nipple and the 5 mm complicated cyst in the left breast at 10 o'clock 7 cm from the nipple resemble areas of fat necrosis and appear probably benign. A 6 month follow up ultrasound and diagnostic bilateral mammogram is recommended to demonstrate stability. BIRADS: MAMMOGRAM BI-RADS: 3: Probably benign RECALL: 6 month follow-up RECALL TYPE: Mammo+US LETTER SENT: Probably Benign BI-RADS 3 Interpreted by: Thomas Oliver MD Preliminary Report By: Thomas Oliver MD Electronically signed By Thomas Oliver MD Dictated Date: 01/01/2023 10:32:36 AM Prelim Date: 01/01/2023 10:36:35 AM Sign Date: 01/01/2023 10:36:35 AM Ordering Provider: SALVADOR WALLER CLINICAL: 6 MONTHS FOLLOW-UP. Residue Furnace Operator: BRYAN PERDOMO(Zoe) RDMS letter sent: Probably Benign BI-RADS 3 Ultrasound BI-RADS: 3 Probably benign [facility] 01-01-2023 Note ORIGINAL FROM: [facility] [address] [place] [address] PROCEDURE FOR: HEATHERRA Jose Juan [address] [place] [address] Home: PID#: [id number] Exam#: [id number] : 1945 Age: 77 TO: SAL[place] [address] EXAMINATION: ULTRASOUND OF THE LEFT BREAST 01/01/2023 8:57 am TECHNIQUE: Color flow and real-time targeted ultrasound of the left breast 10 o'clock were performed. COMPARISON: 09/08/2022, 05/19/2022, 05/13/2022 HISTORY: ORDERING SYSTEM PROVIDED HISTORY: Reason for Exam: benign cyst Follow-up possible fat necrosis left breast 10 o'clock FINDINGS: There is a 7 mm mixed echogenic area in the left breast at 10 o'clock middle depth 6 cm from the nipple. There is also a 5 mm complicated cyst in the left breast at 10 o'clock middle depth 7 cm from the nipple. These areas are not significantly changed from the prior exam. There is no vascularity present. The patient reports a history of trauma to the area. IMPRESSION: The 7 mm mixed echogenic mass in the left breast at 10 o'clock 6 cm from the nipple and the 5 mm complicated cyst in the left breast at 10 o'clock 7 cm from the nipple resemble areas of fat necrosis and appear probably benign. A 6 month follow up ultrasound and diagnostic bilateral mammogram is recommended to demonstrate stability. BIRADS: MAMMOGRAM BI-RADS: 3: Probably benign RECALL: 6 month follow-up RECALL TYPE: Mammo+US LETTER SENT: Probably Benign BI-RADS 3 Interpreted by: Thomas Oliver MD Preliminary Report By: Thomas Oliver MD Electronically signed By Thomas Oliver MD Dictated Date: 01/01/2023 10:32:36 AM Prelim Date: 01/01/2023 10:36:35 AM Sign Date: 01/01/2023 10:36:35 AM Ordering Provider: SALVADOR WALLER CLINICAL: 6 MONTHS FOLLOW-UP. Residue Furnace Operator: BRYAN WALKER RT(Zoe) RDMS letter sent: Probably Benign BI-RADS 3 Ultrasound BI-RADS: 3 Probably benign [facility] 09-12-2022 Hospital Discharge instructions Patient Education 09/12/2022 13:30:15 Transient Ischemic Attack Transient Ischemic Attack A transient ischemic attack (TIA) is a warning stroke that causes stroke-like symptoms that then go away quickly. The symptoms of a TIA come on suddenly, and they last less than 24 hours. Unlike a stroke, a TIA does not cause permanent damage to the brain. It is important to know the symptoms of a TIA and what to do. Seek medical care right away, even if your symptoms go away. Having a TIA is a sign that you are at higher risk for a permanent stroke. Lifestyle changes and medical treatments can help prevent a stroke. What are the causes? This condition is caused by a temporary blockage in an artery in the head or neck. The blockage does not allow the brain to get the blood supply it needs and can cause various symptoms. The blockage can be caused by: Fatty buildup in an artery in the head or neck (atherosclerosis). A blood clot. Tearing of an artery (dissection). Inflammation of an artery (vasculitis). Sometimes the cause is not known. What increases the risk? Certain factors may make you more likely to develop this condition. Some of these factors are things that you can change, such as: Obesity. Using products that contain nicotine or tobacco, such as cigarettes and e-cigarettes. Taking oral control, especially if you also use tobacco. Lack of physical inactivity. Excessive use of alcohol. Use of drugs, especially cocaine and methamphetamine. Other risk factors include: High blood pressure (hypertension). High cholesterol. Diabetes mellitus. Heart disease (coronary artery disease). Atrial fibrillation. Being or . Being over the age of 60. Being male. Family history of stroke. Previous history of blood clots, stroke, TIA, or heart attack. Sickle cell disease. Being a woman with a history of preeclampsia. Migraine headache. Sleep apnea. Chronic inflammatory diseases, such as rheumatoid arthritis or lupus. Blood clotting disorders (hypercoagulable state). What are the signs or symptoms? Symptoms of this condition are the same as those of a stroke, but they are temporary. The symptoms develop suddenly, and they go away quickly, usually within minutes to hours. Symptoms may include sudden: Weakness or numbness in your face, arm, or leg, especially on one side of your body. Trouble walking or difficulty moving your arms or legs. Trouble speaking, understanding speech, or both (aphasia). Vision changes in one or both eyes. These include double vision, blurred vision, or loss of vision. Dizziness. Confusion. Loss of balance or coordination. Nausea and vomiting. Severe headache with no known cause. If possible, make note of the exact time that you last felt like your normal self and what time your symptoms started. Tell your health care provider. How is this diagnosed? This condition may be diagnosed based on: Your symptoms and medical history. A physical exam. Imaging tests, usually a CT or MRI scan of the brain. Blood tests. You may also have other tests, including: Electrocardiogram (ECG). Echocardiogram. Carotid ultrasound. A scan of the brain circulation (CT angiogram or MRI angiogram). Continuous heart monitoring. How is this treated? The goal of treatment is to reduce the risk for a subsequent stroke. Treatment may include stroke prevention therapies such as: Changes to diet or lifestyle to decrease your risk. Lifestyle changes may include exercising and stopping smoking. Medicines to thin the blood (antiplatelets or anticoagulants). Blood pressure medicines. Medicines to reduce cholesterol. Treating other health conditions, such as diabetes or atrial fibrillation. If testing shows that you have narrowing in the arteries to your brain, your health care provider may recommend a procedure, such as: Carotid endarterectomy. This is a surgery to remove the blockage from your artery. Carotid angioplasty and stenting. This is a procedure to open or widen an artery in the neck using a metal mesh tube (stent). The stent helps keep the artery open by supporting the artery goel. Follow these instructions at home: Medicines Take loay-bge-elojeij and prescription medicines only as told by your health care provider. If you were told to take a medicine to thin your blood, such as aspirin or an anticoagulant, take it exactly as told by your health care provider. ?Taking too much blood-thinning medicine can cause bleeding. ?If you do not take enough blood-thinning medicine, you will not have the protection that you need against a stroke and other problems. Eating and drinking Eat 5 or more servings of fruits and vegetables each day. Follow instructions from your health care provider about diet. You may need to follow a certain nutrition plan to help manage risk factors for stroke, such as high blood pressure, high cholesterol, diabetes, or obesity. This may include: ?Eating a low-fat, low-salt diet. ?Including a lot of fiber in your diet. ?Limiting the amount of carbohydrates and sugar in your diet. Limit alcohol intake to no more than 1 drink a day for non women and 2 drinks a day for men. One drink equals 12 oz of beer, 5 oz of wine, or 1 oz of hard liquor. General instructions Maintain a healthy weight. Stay physically active. Try to get at least 30 minutes of exercise on most or all days. Find out if you have sleep apnea, and seek treatment if needed. Do not use any products that contain nicotine or tobacco, such as cigarettes and e-cigarettes. If you need help quitting, ask your health care provider. Do not abuse drugs. Keep all follow-up visits as told by your health care provider. This is important. Where to find more information [place] Stroke Association: www.strokeassociation.org National Stroke Association: www.stroke.org Get help right away if: You have chest pain or an irregular heartbeat. You have any symptoms of stroke. The acronym BEFAST is an easy way to remember the main warning signs of stroke. ?B - Balance problems. Signs include dizziness, sudden trouble walking, or loss of balance. ?E - Eye problems. This includes trouble seeing or a sudden change in vision. ?F - Face changes. This includes sudden weakness or numbness of the face, or the face or eyelid drooping to one side. ?A - Arm weakness or numbness. This happens suddenly and usually on one side of the body. ?S - Speech problems. This includes trouble speaking or trouble understanding speech. ?T - Time. Time to call 911 or seek emergency care. Do not wait to see if symptoms will go away. Make note of the time your symptoms started. Other signs of stroke may include: ?A sudden, severe headache with no known cause. ?Nausea or vomiting. ?Seizure. These symptoms may represent a serious problem that is an emergency. Do not wait to see if the symptoms will go away. Get medical help right away. Call your local emergency services (911 in the [place] Do not drive yourself to the hospital. Summary A TIA happens when an artery in the head or neck is blocked, leading to stroke-like symptoms that then go away quickly. The blockage clears before there is any permanent brain damage. A TIA is a medical emergency and requires immediate medical attention. Symptoms of this condition are the same as those of a stroke, but they are temporary. The symptoms usually develop suddenly, and they go away quickly, usually within minutes to hours. Having a TIA means that you are at high risk of a stroke in the near future. Treatment may include medicines to thin the blood as well as medicines, diet changes, and lifestyle changes to manage conditions that increase the risk of another TIA or a stroke. This information is not intended to replace advice given to you by your health care provider. Make sure you discuss any questions you have with your health care provider. Document Released: 06/02/2006 Document Revised: 02/28/2019 Document Reviewed: 10/05/2017 [employer] Patient Education 2020 [employer]. Follow Up Care 09/11/2022 09:19:42 With:SALVADOR WALLER MD Address: [address] [place] [address] [phone] When:3-5 days [facility] 09-12-2022 Note Discharge Instructions Thank you for allowing [facility] to assist you with your healthcare needs. The following is important discharge information regarding your hospital visit. Your Diagnosis TIA (transient ischemic attack) High blood pressure Hypercholesterolemia What to do next Follow Up Appointments Follow Up with SALVADOR WALLER MD When Within 3-5 days Where: [address] [place] [address] [phone] The Following Activity and Diet Have Been Ordered for You Discharge Activity - Ordered -- Resume your pre-hospitalization activity, 09/12/22 11:44:00 EST Discharge Diet - Ordered -- No changes were made to your diet during your hospital stay. Please resume your pre hospitalization diet on discharge., 09/12/22 11:44:00 EST The Following Treatments Have Been Ordered for You Discharge Labs No qualifying data available. Discharge Radiology Discharge Outpatient Radiology - Ordered -- MRI brain, TIA vs CVA, follow-up within: 3-5 days, 09/12/22 11:44:00 EST Other Therapies No qualifying data available. Post Acute Orders No qualifying data available. Allergies Darvocet N Relafen Ultram (Nausea) Vicodin Vioxx (Nausea) codeine morphine (N/V) oxycodone (UPSET STOMACH) Medications Please ask your primary doctor or pharmacist before taking any other medication not listed, including over the counter drugs, herbal medications, vitamins and or supplements as they may interact with your home medications. What How Much When Instructions Last Dose Unchanged ascorbic acid (Vitamin C 500 mg oral tablet) 2 tab(s) by mouth Once a day Unchanged atorvastatin (atorvastatin 80 mg oral tablet) 1 tab(s) by mouth Once a day Unchanged busPIRone (busPIRone 5 mg oral tablet) 1 tab(s) by mouth Two (2) times a day Unchanged calcium carbonate (calcium (as carbonate) 600 mg oral tablet) 2 tab(s) by mouth Once a day Unchanged cholecalciferol (Vitamin D3) 50 Microgram by mouth Every day Unchanged clonazePAM 0.5 Milligram by mouth Two (2) times a day Unchanged clopidogrel (Plavix 75 mg oral tablet) 1 tab(s) by mouth Once a day Unchanged levothyroxine (levothyroxine 112 mcg (0.112 mg) oral tablet) 1 tab(s) by mouth Once a day Unchanged losartan (losartan 100 mg oral tablet) 1 tab(s) by mouth Once a day Unchanged melatonin 10 Milligram Daily at bedtime Unchanged metoprolol (metoprolol succinate 25 mg oral capsule, extended release) 1 cap by mouth Once a day Unchanged pantoprazole 20 Milligram by mouth Once a day Unchanged polyethylene glycol 3350 (Miralax Powder Packet) 17 gram(s) by mouth Once a day Unchanged sertraline (sertraline 50 mg oral tablet) 1 tab(s) by mouth Every day Unchanged traZODone (traZODone 50 mg oral tablet) 3 tab(s) by mouth Daily at bedtime Unchanged triamcinolone nasal (Nasacort Allergy 24HR 55 mcg/ inh nasal spray) 2 spray(s) each nostril Once a day What How Much When Comments Stop Taking aspirin (aspirin 81 mg oral delayed release tablet) 1 tab(s) by mouth Every day Stop Taking gabapentin (gabapentin 800 mg oral tablet) 2 tab(s) by mouth Once a day Stop Taking omeprazole (NF) (omeprazole 20 mg oral delayed release capsule (NF)) 1 cap by mouth Once a day Please take this list to your next doctor s visit. Bring all medications you take, including over the counter medications, herbals and other supplements with you to your doctor s visit. Patients and families are reminded to discard old lists and to update any records with all medication providers or retail pharmacies. Education Materials Transient Ischemic Attack A transient ischemic attack (TIA) is a warning stroke that causes stroke-like symptoms that then go away quickly. The symptoms of a TIA come on suddenly, and they last less than 24 hours. Unlike a stroke, a TIA does not cause permanent damage to the brain. It is important to know the symptoms of a TIA and what to do. Seek medical care right away, even if your symptoms go away. Having a TIA is a sign that you are at higher risk for a permanent stroke. Lifestyle changes and medical treatments can help prevent a stroke. What are the causes? This condition is caused by a temporary blockage in an artery in the head or neck. The blockage does not allow the brain to get the blood supply it needs and can cause various symptoms. The blockage can be caused by: Fatty buildup in an artery in the head or neck (atherosclerosis). A blood clot. Tearing of an artery (dissection). Inflammation of an artery (vasculitis). Sometimes the cause is not known. What increases the risk? Certain factors may make you more likely to develop this condition. Some of these factors are things that you can change, such as: Obesity. Using products that contain nicotine or tobacco, such as cigarettes and e-cigarettes. Taking oral control, especially if you also use tobacco. Lack of physical inactivity. Excessive use of alcohol. Use of drugs, especially cocaine and methamphetamine. Other risk factors include: High blood pressure (hypertension). High cholesterol. Diabetes mellitus. Heart disease (coronary artery disease). Atrial fibrillation. Being or . Being over the age of 60. Being male. Family history of stroke. Previous history of blood clots, stroke, TIA, or heart attack. Sickle cell disease. Being a woman with a history of preeclampsia. Migraine headache. Sleep apnea. Chronic inflammatory diseases, such as rheumatoid arthritis or lupus. Blood clotting disorders (hypercoagulable state). What are the signs or symptoms? Symptoms of this condition are the same as those of a stroke, but they are temporary. The symptoms develop suddenly, and they go away quickly, usually within minutes to hours. Symptoms may include sudden: Weakness or numbness in your face, arm, or leg, especially on one side of your body. Trouble walking or difficulty moving your arms or legs. Trouble speaking, understanding speech, or both (aphasia). Vision changes in one or both eyes. These include double vision, blurred vision, or loss of vision. Dizziness. Confusion. Loss of balance or coordination. Nausea and vomiting. Severe headache with no known cause. If possible, make note of the exact time that you last felt like your normal self and what time your symptoms started. Tell your health care provider. How is this diagnosed? This condition may be diagnosed based on: Your symptoms and medical history. A physical exam. Imaging tests, usually a CT or MRI scan of the brain. Blood tests. You may also have other tests, including: Electrocardiogram (ECG). Echocardiogram. Carotid ultrasound. A scan of the brain circulation (CT angiogram or MRI angiogram). Continuous heart monitoring. How is this treated? The goal of treatment is to reduce the risk for a subsequent stroke. Treatment may include stroke prevention therapies such as: Changes to diet or lifestyle to decrease your risk. Lifestyle changes may include exercising and stopping smoking. Medicines to thin the blood (antiplatelets or anticoagulants). Blood pressure medicines. Medicines to reduce cholesterol. Treating other health conditions, such as diabetes or atrial fibrillation. If testing shows that you have narrowing in the arteries to your brain, your health care provider may recommend a procedure, such as: Carotid endarterectomy. This is a surgery to remove the blockage from your artery. Carotid angioplasty and stenting. This is a procedure to open or widen an artery in the neck using a metal mesh tube (stent). The stent helps keep the artery open by supporting the artery goel. Follow these instructions at home: Medicines Take mtxm-sbw-gsfimih and prescription medicines only as told by your health care provider. If you were told to take a medicine to thin your blood, such as aspirin or an anticoagulant, take it exactly as told by your health care provider. ? Taking too much blood-thinning medicine can cause bleeding. ? If you do not take enough blood-thinning medicine, you will not have the protection that you need against a stroke and other problems. Eating and drinking Eat 5 or more servings of fruits and vegetables each day. Follow instructions from your health care provider about diet. You may need to follow a certain nutrition plan to help manage risk factors for stroke, such as high blood pressure, high cholesterol, diabetes, or obesity. This may include: ? Eating a low-fat, low-salt diet. ? Including a lot of fiber in your diet. ? Limiting the amount of carbohydrates and sugar in your diet. Limit alcohol intake to no more than 1 drink a day for non women and 2 drinks a day for men. One drink equals 12 oz of beer, 5 oz of wine, or 1 oz of hard liquor. General instructions Maintain a healthy weight. Stay physically active. Try to get at least 30 minutes of exercise on most or all days. Find out if you have sleep apnea, and seek treatment if needed. Do not use any products that contain nicotine or tobacco, such as cigarettes and e-cigarettes. If you need help quitting, ask your health care provider. Do not abuse drugs. Keep all follow-up visits as told by your health care provider. This is important. Where to find more information [place] Stroke Association: www.strokeassociation.org National Stroke Association: www.stroke.org Get help right away if: You have chest pain or an irregular heartbeat. You have any symptoms of stroke. The acronym BEFAST is an easy way to remember the main warning signs of stroke. ? B - Balance problems. Signs include dizziness, sudden trouble walking, or loss of balance. ? E - Eye problems. This includes trouble seeing or a sudden change in vision. ? F - Face changes. This includes sudden weakness or numbness of the face, or the face or eyelid drooping to one side. ? A - Arm weakness or numbness. This happens suddenly and usually on one side of the body. ? S - Speech problems. This includes trouble speaking or trouble understanding speech. ? T - Time. Time to call 911 or seek emergency care. Do not wait to see if symptoms will go away. Make note of the time your symptoms started. Other signs of stroke may include: ? A sudden, severe headache with no known cause. ? Nausea or vomiting. ? Seizure. These symptoms may represent a serious problem that is an emergency. Do not wait to see if the symptoms will go away. Get medical help right away. Call your local emergency services (911 in the [place] Do not drive yourself to the hospital. Summary A TIA happens when an artery in the head or neck is blocked, leading to stroke-like symptoms that then go away quickly. The blockage clears before there is any permanent brain damage. A TIA is a medical emergency and requires immediate medical attention. Symptoms of this condition are the same as those of a stroke, but they are temporary. The symptoms usually develop suddenly, and they go away quickly, usually within minutes to hours. Having a TIA means that you are at high risk of a stroke in the near future. Treatment may include medicines to thin the blood as well as medicines, diet changes, and lifestyle changes to manage conditions that increase the risk of another TIA or a stroke. This information is not intended to replace advice given to you by your health care provider. Make sure you discuss any questions you have with your health care provider. Document Released: 06/02/2006 Document Revised: 02/28/2019 Document Reviewed: 10/05/2017 [employer] Patient Education 2020 [employer]. Additional Information VACCINATE! IT SAVES LIVES! Members of the community who have not yet received the COVID-19 vaccine and would like to receive it can visit one of [facility] vaccine clinics. There are many vaccine clinic locations within the [facility]. For locations and available times, please visit [email or web address] It is important to note that some COVID mobile vaccine clinics are held outdoors and may be canceled in rainy or stormy conditions. To learn more about pediatric vaccinations (ages 5-11), we invite you to visit the [facility] webpage. [email or web address]/page [email or web address]-Jbqph-Xnfdpzkince-Frequently -Asked-Questions.html To learn more about the COVID-19 vaccine, we invite you to visit the [employer] website for a list of frequently asked questions. [email or web address]/assets/Patients -and-[email or web address]/iuvqj-Elkpxbx-Phdiebz tly_[email or web address]-Questions.pdf [facility] Patient Portal Access Instructions: Stay connected with your healthcare team and access your personal medical information anytime with the [facility] Patient Portal.If you would like a full copy of your medical records, please contact the [facility] Medical Records Department, Wednesday through Wednesday between 8a.m. and 4:30p.m. Please follow the directions below to access the portal: 1.Access the email account you provided upon registration to the [facility].2.Look for an invitation email from [facility].3.Open the email and access the invitation link: Accept Invitation to [facility].Fill in the required childers to create your account. Sign into [email or web address] with your username and password that you created in the above steps to stay up to date. You can then view a summary of results, a summary of your visits, and the ability to download your summaries to your computer or send the information securely to a physician. Remember that your healthcare information is confidential, so carefully consider who you will allow to register on the [facility] Patient Portal for access to your information. You can also access the [facility] Patient Portal on the [employer] evelyn. Simply click on Health Records under Health Data and then click on the [employer] logo. HOW TO SAFELY DISPOSE OF PRESCRIPTION MEDICATIONS Please use one of the following methods to safely dispose of your unused medications. 1.Use a drug disposal kit: the drug disposal pouch allows you to safely discard your old and unused drugs. Ask your nurse to give you one when you are discharged.2.Visit a local take-back location: Many local pharmacies and police departments have programs that collect old and unwanted prescription drugs. Call your local pharmacy or go to http://bit.Intelen/9J2Wu3g to find one close to you.3.Make use of household items: Use cat litter or old coffee grounds to dispose medications if other options are not available. Mix your drugs with these household products, seal them in an airtight container and throw it into the garbage. Call [facility]: [phone] to be sure your drugs can be disposed of in this way. Some medicines may require a different approach.4.Never flush your medications down the toilet. IF YOU HAVE BEEN PRESCRIBED AN OPIOID FOR PAIN If you have been prescribed an opioid (such as hydrocodone, oxycodone or morphine), it is critical to understand the possible side effects and risks of opioid pain medications. Even when taken as directed, opioids can have several side effects including: Tolerance, meaning you might need to take more of a medication for the same pain relief. Nausea, vomiting and/or constipation. Sleepiness, dizziness, dry mouth, confusion, depression or itching. Physical dependence, meaning you have withdrawal symptoms when a medication is stopped, can develop within a few days. KNOW YOUR RESPONSIBILITIES It is important to know exactly how much and how often to take the opioid pain medications you are prescribed. Never take opioids in higher amounts or more often than prescribed. Do not combine opioids with alcohol or other drugs that cause drowsiness, such as benzodiazepines, also known as benzos, including diazepam and alprazolam, muscle relaxants or sleep aids. Never sell or share prescription opioids. This is illegal. Store opioids in a secure place and out of reach of others (including children, family, friends and visitors). The last page of this document has been signed and retained as a CHART COPY. Signatures Patient Education Materials Transient Ischemic Attack Medication Leaflets My discharge plan and instructions have been reviewed and explained to me and I,HEATHER RED understand my current condition and have read and understand these discharge instructions. I have received a written copy of the plan/instructions. If I have questions, I am aware that I should contact my doctor. 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 Patient presented to [facility] emergency department on 09/11/2022 with reports of feeling unsteady and leaning to the right side since she woke up at 7 AM. Patient was last normal at 11 PM the night before. Patient has a prior history of CVA and TIAs. Patient follows with neurology at [facility]. Last seen at the beginning of August 2022. . She had a stroke August 2021. She took clopidogrel for 1 month. This was discontinued September 2021 and her aspirin was increased to 1 81 mg. 62 mg daily. At her neurology visit last month her aspirin was decreased to 81mg. Echocardiogram From 08/25/2022 demonstrates LVEF 60%, apical false tendon noted. Lipomatous hypertrophy of the atrial septum. Mild mitral annular calcification, trivial mitral valve insufficiency, trivial tricuspid valve insufficiency, mild pulmonic valve insufficiency, right ventricular systolic pressure 35 mmHg. No diastolic dysfunction. No evidence of ASD. In the emergency department patient was afebrile and hemodynamically stable with adequate oxygen saturations on room air. White blood cell count 6000. H&H stable. INR 1.1. BMP unremarkable. Troponin 5.9. Urinalysis was negative for nitrates and leukocyte esterase. Specific gravity was greater than 1.030. X-ray chest unremarkable. CT head showed small vessel ischemic changes, otherwise unremarkable. CTA head negative for LVO. CTA neck shows no stenosis or arterial dissection. Incidentally there is a 9 mm enhancing nodule within the right lobe of the thyroid. No follow-up recommended. On exam today, pt denies any fever or chills. No headache or dizziness. Denies chest pain, palpitations. No cough, dyspnea, sputum production. Denies N/V/D/C. No melena/hematochezia. No dysuria or hematuria. No new paresthesias. Denies any further balance issues. No further facial numbness. Review of Systems See HPI for specific ROS. All other systems reviewed and negative. Physical Exam Vitals and Measurements T: 36.3 C (Oral) TMIN: 36.3 C (Oral) TMAX: 36.7 C (Oral) HR: 69(Monitored) RR: 18 BP: 155/70 SpO2: 98% HT: 162.6 cm WT: 74.2 kg BMI: 28.06 Weight Dosing Weight: 74.2 kg (09/11/22) Dosing Weight: 74.2 kg (09/11/22) GEN: Appears chronically ill EYES: No conjunctival erythema, drainage. EOMI EARS: Hearing grossly intact. NOSE: No nasal discharge. THROAT: Oral cavity and pharynx pink and moist. CHEST: Normal S1 and S2. Rhythm is regular. Clear to auscultation, without rales, rhonchi, wheezing. ABD: Positive bowel sounds x 4 quads. Soft, nondistended, nontender. EXT: No significant deformity or joint abnormality. No edema. Peripheral pulses intact. NEURO: Sensation grossly intact. NIH score 0 SKIN: Skin color normal PSYCH: The mental examination revealed the patient was alert and oriented x 4 Lab Results 09/11 09:57 WBC: 6.0 Hgb: 11.4 L Hct: 33.5 L Platelet: 203 Neutrophil %: 64.8 Protime: 12.2 PT International Ratio: 1.1 Glucose Level: 95 Sodium Level: 145 Potassium Level: 3.8 BUN: 28 H Creatinine Lvl (s): 0.75 Imaging Results and Diagnostics CT Angiography Neck w/ Contrast Result Date: September 11, 2022 Verified By: HOLLY MATA MD CLINICAL STATEMENT: IMPRESSION: No hemodynamically significant stenosis or arterial dissection. The estimate of the degree of stenosis included in this report is based onthe NASCET method for calculating stenosis, using the internal carotid arterydistal to the stenosis as the reference point. RECOMMENDATIONS:Subcentimeter incidental right thyroid nodule. No follow-up imaging isrecommended.Reference: J Am Radha Radiol. 2014;12(2): 143-50 CT Angiography Head w/ Contrast Result Date: September 11, 2022 Verified By: HOLLY MATA MD CLINICAL STATEMENT: IMPRESSION: No large vessel occlusion, hemodynamically significant stenosis or aneurysm. XR Chest 2 Views Result Date: September 11, 2022 Verified By: FEDE MCKEON MD CLINICAL STATEMENT: IMPRESSION: Clear lungs. CT Head or Brain w/o Contrast Result Date: September 11, 2022 Verified By: FEDE MCKEON MD CLINICAL STATEMENT: IMPRESSION: Mild small vessel ischemic changes, otherwise unremarkable. EKG EC09/11/22: Sinus rhythm...normal P axis, V-rate 50- 99 Nonspecific intraventricular conduction delay...QRSd >115mS, not LBBB/RBBB Baseline wander in lead(s) V2 Electronic Signature: MD KEELEY, SOLIS JUÁREZ 09/11/2022 09:44:31 Assessment/Plan 1. TIA (transient ischemic attack) 2. High blood pressure 3. Hypercholesterolemia TIA versus CVA ABCD 2 score of 4 for age greater than 60, blood pressure greater than 140/90, other symptoms of TIA and duration greater than 60 minutes with no history of diabetes. CT head and CTA head and neck unremarkable. Will obtain MRI. No need for echocardiogram as this was done at [facility] 3 weeks ago. Obtain lipid panel and A1c. Patient does already follow with neurology at [facility]. Echocardiogram From 08/25/2022 demonstrates LVEF 60%, apical false tendon noted. Lipomatous hypertrophy of the atrial septum. Mild mitral annular calcification, trivial mitral valve insufficiency, trivial tricuspid valve insufficiency, mild pulmonic valve insufficiency, right ventricular systolic pressure 35 mmHg. No diastolic dysfunction. No evidence of ASD HTN- SBP goal 140 or less. Continue home antihypertensives. HLD-continue home statin DVT prophylaxis: SCDs Labs, diagnostics, and progress notes reviewed as noted in HPI Code Status: Full code Plan of care discussed with patient. All questions answered. Patient verbalizes understanding is agreeable to plan of care. This dictation was performed using voice recognition software and may include grammatical and/or spelling errors. Problem List/Past Medical History Ongoing Fibromyalgia GERD (gastroesophageal reflux disease) High blood pressure Hypercholesterolemia Hypothyroidism Historical No qualifying data Procedure/Surgical History Stress test treadmill: 09/06/20 Total knee arthroplasty: 09/11/09 Cholecystectomy: 09/11/04 Arthroscopy of knee: 09/11/79 section: 09/11/74 Carpal tunnel release Medications Home Medications (17) Active aspirin 81 mg oral delayed release tablet 81 mg = 1 tab(s), Oral, Daily atorvastatin 80 mg oral tablet 80 mg = 1 tab(s), Oral, qDay calcium (as carbonate) 600 mg oral tablet 1,200 mg = 2 tab(s), Oral, qDay clonazePAM 0.5 mg, Oral, BID gabapentin 800 mg oral tablet 1,600 mg = 2 tab(s), Oral, qDay levothyroxine 112 mcg (0.112 mg) oral tablet 112 mcg = 1 tab(s), Oral, qDay losartan 100 mg oral tablet 100 mg = 1 tab(s), Oral, qDay melatonin 10 mg, qHS metoprolol succinate 25 mg oral capsule, extended release 25 mg = 1 cap(s), Oral, qDay Miralax Powder Packet 17 gram(s), Oral, qDay omeprazole 20 mg oral delayed release capsule (NF) 20 mg = 1 cap(s), Oral, qDay pantoprazole 20 mg, Oral, qDay Plavix 75 mg oral tablet 75 mg = 1 tab(s), Oral, qDay sertraline 50 mg oral tablet 50 mg = 1 tab(s), Oral, Daily traZODone 50 mg oral tablet 150 mg = 3 tab(s), Oral, qHS Vitamin C 500 mg oral tablet 1,000 mg = 2 tab(s), Oral, qDay Vitamin D3 50 mcg = 1 cap(s), Oral, Daily Allergies Darvocet N Relafen Ultram (Nausea) Vicodin Vioxx (Nausea) codeine morphine (N/V) oxycodone (UPSET STOMACH) Social History Smoking Status - 06/09/2018 Never smoker Alcohol - Denies Alcohol Use, 06/09/2018 Use: Never., 09/11/2022 Home/Environment Domestic Concerns: None. Living situation: Home with assistance. Safe place to go: Yes. Lives In: Single level home., 09/11/2022 Substance Abuse - Denies Substance Abuse, 06/09/2018 Use: Never., 09/11/2022 Tobacco Nicotine Use: Never (less than 100 in lifetime)., 09/11/2022 Family History Breast cancer: Sister. Cancer: Mother and Father. Heart disease: Father and Brother. Immunizations SARS-CoV-2 (COVID-19) mRNA-1273 vaccine: 0.25 unknown unit (12/23/21) SARS-CoV-2 (COVID-19) mRNA-1273 vaccine: 0.5 unknown unit (06/30/21) SARS-CoV-2 (COVID-19) mRNA-1273 vaccine: 0.5 unknown unit (12/03/20) SARS-CoV-2 (COVID-19) mRNA-1273 vaccine: 0.5 unknown unit (11/05/20) tetanus/diphth/pertuss (Tdap) adult/adol: 0.5 mL (06/09/18) tetanus/diphth/pertuss (Tdap) adult/adol: 0 unknown unit (06/08/18) zoster vaccine, inactivated: 0.5 unknown unit (04/16/21) zoster vaccine, inactivated: 0.5 unknown unit (06/12/19) Code Status Code Status - Ordered -- 09/11/22 14:02:00 EST, Full Code, Constant Order Digitally Signed by DALE FLORES on 09/11/2022 06:39 PM [facility] 09-11-2022 Evaluation + Plan note Extrac marilyn from: Title:History and Physical Author:DALE FLORES Date:09/11/22 1. TIA (transient ischemic a ttack) 2. High blood pressure 3. Hypercholesterolemia TIA versus CVA ABCD 2 score of 4 for age greater than 60, blood pressure greater than 140/90, other symptoms of TIA and duration greater than 60 minutes with no history of diabetes. CT head and CTA head and neck unremarkable. Will obtain MRI. No need for echocardiogram as this was done at [facility] 3 weeks ago. Obtain lipid panel and A1c. Patient does already follow with neurology at [facility]. Echocardiogram From 08/25/2022 demonstrates LVEF 60%, apical false tendon noted. Lipomatous hypertrophy of the atrial septum. Mild mitral annular calcification, trivial mitral valve insufficiency, trivial tricuspid valve insufficiency, mild pulmonic valve insufficiency, right ventricular systolic pressure 35 mmHg. No diastolic dysfunction. No evidence of ASD HTN- SBP goal 140 or less. Continue home antihypertensives. HLD-continue home statin DVT prophylaxis: SCDs Labs, diagnostics, and progress notes reviewed as noted in HPI Code Status: Full code Plan of care discussed with patient. All questions answered. Patient verbalizes understanding is agreeable to plan of care. This dictation was performed using voice recognition software and may include grammatical and/or spelling errors. [facility] 01-06-2023 Note ORIGINAL EXAMINATION: CT Angiogram of the head with intravenous contrast TECHNIQUE: CT angiogram of the head was obtained. Sagittal and coronal reformations and maximum intensity projection reconstructions were provided. Images were obtained before and after the uneventful administration of Omnipaque 350. 3D reformatted MIP images were provided One or more of the following dose reduction techniques were used: automated exposure control, adjustment of the mA and/or kV according to patient size, or use of iterative reconstruction technique. DICOM images are available. COMPARISON: Correlated with same day CTA neck and noncontrast CT head HISTORY: ORDERING SYSTEM PROVIDED HISTORY: Reason for Exam: Ataxia FINDINGS: Cerebral angiogram Aneurysm: No aneurysm identified. Anterior circulation: Internal carotid arteries:Atherosclerotic calcifications of the bilateral cavernous internal carotid arteries resulting in mild flow-limiting stenosis. Ophthalmic arteries:The bilateral proximal ophthalmic arteries are patent. Anterior cerebral arteries:No flow-limiting stenosis Middle cerebral arteries:No flow-limiting stenosis. Posterior cerebral arteries:No significant flow-limiting stenosis. Anterior communicating artery:Present. Posterior communicating arteries:Bilaterally aplastic or hypoplastic. Posterior circulation: Basilar artery:No flow-limiting stenosis the basilar artery is high-riding. V3/V4 vertebral arteries:Diffuse atherosclerotic calcifications of the left V3 and V4 vertebral artery resulting in a mild flow-limiting stenosis. Unremarkable right vertebral artery. Dural venous sinuses:Patent. IMPRESSION: No large vessel occlusion, hemodynamically significant stenosis or aneurysm. Interpreted by: Holly Mata MD Preliminary Report By: Holly Mata MD Electronically signed By Holly Mata MD Dictated Date: 09/11/2022 1:37:19 PM Prelim Date: 09/11/2022 1:44:15 PM Sign Date: 09/11/2022 1:44:15 PM Ordering Provider: SOLIS MINA [facility]01-06-2023 Note ORIGINAL EXAMINATION: CTA neck: TECHNIQUE: Contiguous spiral images were obtained in the axial plane, following the administration of intravenous contrast using CT angiographic protocol. Sagittal and coronal images were reconstructed from the axial plane acquisition. Additional 3D reformatted MIP reconstructions were presented to aid in the interpretation of this study. Images were obtained from the skull base through the upper lobes. Contrast: Omnipaque 350 One or more the following dose reduction techniques were used:automated exposure control, adjustment of the mA and/or kV according to patient size, or use of iterative reconstruction technique. Additional comment: None. COMPARISON: Correlated with same day CTA head HISTORY: ORDERING SYSTEM PROVIDED HISTORY: Reason for Exam: Ataxia FINDINGS: Neck Angiogram Aorta: Normal. Right common carotid artery: No hemodynamically significant flow-limiting stenosis. Right internal carotid artery: No hemodynamically significant flow-limiting stenosis. Right external carotid artery: No hemodynamically significant flow-limiting stenosis. Left common carotid artery: No hemodynamically significant flow-limiting stenosis. Left internal carotid artery: No hemodynamically significant flow-limiting stenosis. Left external carotid artery: No hemodynamically significant flow-limiting stenosis. V1/V2 vertebral arteries: No hemodynamically significant flow-limiting stenosis. Vertebral artery dominance: Right. Neck Soft tissues: 9 mm enhancing nodule within the right lobe of the thyroid gland (axial image 97 series 3). No additional follow-up imaging of this finding is necessary. Bones: Degenerative straightening of the normal cervical lordosis. Severe disc height loss at C5-C6 and C6-C7. Trace anterolisthesis of C4 on C5 and C7 on T1. Trace retrolisthesis of C6 on C7. Lungs: Mild emphysematous changes. IMPRESSION: No hemodynamically significant stenosis or arterial dissection. The estimate of the degree of stenosis included in this report is based on the NASCET method for calculating stenosis, using the internal carotid artery distal to the stenosis as the reference point. RECOMMENDATIONS: Subcentimeter incidental right thyroid nodule. No follow-up imaging is recommended. Reference: J Am Radha Radiol. 2015 Oct;12(2): 143-50 Interpreted by: Holly Mata MD Preliminary Report By: Holly Mata MD Electronically signed By Holly Mata MD Dictated Date: 09/11/2022 12:59:34 PM Prelim Date: 09/11/2022 1:05:09 PM Sign Date: 09/11/2022 1:05:09 PM Ordering Provider: SOLIS MINA [facility]01-06-2023 Note ORIGINAL EXAMINATION: CT Angiogram of the head with intravenous contrast TECHNIQUE: CT angiogram of the head was obtained. Sagittal and coronal reformations and maximum intensity projection reconstructions were provided. Images were obtained before and after the uneventful administration of Omnipaque 350. 3D reformatted MIP images were provided One or more of the following dose reduction techniques were used: automated exposure control, adjustment of the mA and/or kV according to patient size, or use of iterative reconstruction technique. DICOM images are available. COMPARISON: Correlated with same day CTA neck and noncontrast CT head HISTORY: ORDERING SYSTEM PROVIDED HISTORY: Reason for Exam: Ataxia FINDINGS: Cerebral angiogram Aneurysm: No aneurysm identified. Anterior circulation: Internal carotid arteries:Atherosclerotic calcifications of the bilateral cavernous internal carotid arteries resulting in mild flow-limiting stenosis. Ophthalmic arteries:The bilateral proximal ophthalmic arteries are patent. Anterior cerebral arteries:No flow-limiting stenosis Middle cerebral arteries:No flow-limiting stenosis. Posterior cerebral arteries:No significant flow-limiting stenosis. Anterior communicating artery:Present. Posterior communicating arteries:Bilaterally aplastic or hypoplastic. Posterior circulation: Basilar artery:No flow-limiting stenosis the basilar artery is high-riding. V3/V4 vertebral arteries:Diffuse atherosclerotic calcifications of the left V3 and V4 vertebral artery resulting in a mild flow-limiting stenosis. Unremarkable right vertebral artery. Dural venous sinuses:Patent. IMPRESSION: No large vessel occlusion, hemodynamically significant stenosis or aneurysm. Interpreted by: Holly Mata MD Preliminary Report By: Holly Mata MD Electronically signed By Holly Mata MD Dictated Date: 09/11/2022 1:37:19 PM Prelim Date: 09/11/2022 1:44:15 PM Sign Date: 09/11/2022 1:44:15 PM Ordering Provider: [facility]01-06-2023 Note ORIGINAL EXAMINATION: CTA neck: TECHNIQUE: Contiguous spiral images were obtained in the axial plane, following the administration of intravenous contrast using CT angiographic protocol. Sagittal and coronal images were reconstructed from the axial plane acquisition. Additional 3D reformatted MIP reconstructions were presented to aid in the interpretation of this study. Images were obtained from the skull base through the upper lobes. Contrast: Omnipaque 350 One or more the following dose reduction techniques were used:automated exposure control, adjustment of the mA and/or kV according to patient size, or use of iterative reconstruction technique. Additional comment: None. COMPARISON: Correlated with same day CTA head HISTORY: ORDERING SYSTEM PROVIDED HISTORY: Reason for Exam: Ataxia FINDINGS: Neck Angiogram Aorta: Normal. Right common carotid artery: No hemodynamically significant flow-limiting stenosis. Right internal carotid artery: No hemodynamically significant flow-limiting stenosis. Right external carotid artery: No hemodynamically significant flow-limiting stenosis. Left common carotid artery: No hemodynamically significant flow-limiting stenosis. Left internal carotid artery: No hemodynamically significant flow-limiting stenosis. Left external carotid artery: No hemodynamically significant flow-limiting stenosis. V1/V2 vertebral arteries: No hemodynamically significant flow-limiting stenosis. Vertebral artery dominance: Right. Neck Soft tissues: 9 mm enhancing nodule within the right lobe of the thyroid gland (axial image 97 series 3). No additional follow-up imaging of this finding is necessary. Bones: Degenerative straightening of the normal cervical lordosis. Severe disc height loss at C5-C6 and C6-C7. Trace anterolisthesis of C4 on C5 and C7 on T1. Trace retrolisthesis of C6 on C7. Lungs: Mild emphysematous changes. IMPRESSION: No hemodynamically significant stenosis or arterial dissection. The estimate of the degree of stenosis included in this report is based on the NASCET method for calculating stenosis, using the internal carotid artery distal to the stenosis as the reference point. RECOMMENDATIONS: Subcentimeter incidental right thyroid nodule. No follow-up imaging is recommended. Reference: J Am Radha Radiol. 2014;12(2): 143-50 Interpreted by: Holly Mata MD Preliminary Report By: Holly Mata MD Electronically signed By Holly Mata MD Dictated Date: 09/11/2022 12:59:34 PM Prelim Date: 09/11/2022 1:05:09 PM Sign Date: 09/11/2022 1:05:09 PM [facility] Note ORIGINAL HISTORY: Chest pain, short of breath COMPARISON: No FINDINGS: The lungs are clear. The cardiac silhouette is within normal size limits. The pulmonary vasculature is unremarkable in appearance. IMPRESSION: Clear lungs. Interpreted by: Fede Mckeon MD Preliminary Report By: Fede Mckeon MD Electronically signed By Fede Mckeon MD Dictated Date: 09/11/2022 11:10:36 AM Prelim Date: 09/11/2022 11:11:02 AM Sign Date: 09/11/2022 11:11:02 AM [facility] Note ORIGINAL HISTORY: Chest pain, short of breath COMPARISON: No FINDINGS: The lungs are clear. The cardiac silhouette is within normal size limits. The pulmonary vasculature is unremarkable in appearance. IMPRESSION: Clear lungs. Interpreted by: Fede Mckeon MD Preliminary Report By: Fede Mckeon MD Electronically signed By Fede Mckeon MD Dictated Date: 09/11/2022 11:10:36 AM Prelim Date: 09/11/2022 11:11:02 AM Sign Date: 09/11/2022 11:11:02 AM Ordering Provider: SOLIS [facility]01-06-2023 Note ORIGINAL HISTORY: Change in mental status, weakness, aphasia COMPARISON: No TECHNIQUE: Routine non-contrast head CT with sagittal and coronal reconstructions This exam was performed according to our departmental dose optimization program, and includes the following measures where applicable: automated exposure control, adjustment of the mAs and/or kVp according to patient size and/or exam, and an iterative reconstruction algorithm. FINDINGS: The ventricles and sulci are normal to mildly enlarged. There are no abnormal intra or extra-axial fluid collections. There is mild irregular decreased attenuation in the cerebral white matter; patricio-white matter differentiation is maintained. The calvaria and the bones of the base of the skull are intact. IMPRESSION: Mild small vessel ischemic changes, otherwise unremarkable. Interpreted by: Fede Mckeon MD Preliminary Report By: Fede Mckeon MD Electronically signed By Fede Mckeon MD Dictated Date: 09/11/2022 10:48:45 AM Prelim Date: 09/11/2022 10:50:07 AM Sign Date: 09/11/2022 10:50:07 AM [facility] Note ORIGINAL HISTORY: Change in mental status, weakness, aphasia COMPARISON: No TECHNIQUE: Routine non-contrast head CT with sagittal and coronal reconstructions This exam was performed according to our departmental dose optimization program, and includes the following measures where applicable: automated exposure control, adjustment of the mAs and/or kVp according to patient size and/or exam, and an iterative reconstruction algorithm. FINDINGS: The ventricles and sulci are normal to mildly enlarged. There are no abnormal intra or extra-axial fluid collections. There is mild irregular decreased attenuation in the cerebral white matter; patricio-white matter differentiation is maintained. The calvaria and the bones of the base of the skull are intact. IMPRESSION: Mild small vessel ischemic changes, otherwise unremarkable. Interpreted by: Fede Mckeon MD Preliminary Report By: Fede Mckeon MD Electronically signed By Fede Mckeon MD Dictated Date: 09/11/2022 10:48:45 AM Prelim Date: 09/11/2022 10:50:07 AM Sign Date: 09/11/2022 10:50:07 AM [facility] No data available for this section [facility] Discharge instructions No data available for this section [facility] Progress note No data available for this section [facility] Summary Purpose Family History No Family History Records Found Advance Directives No Advanced Directives Records FoundNo Advanced Directives Records Found Additional Source Comments Care Team (unrecognized sect ion and content) Care Team Personnel Name: Bryan Dhaliwalrgiorgio Valdovinos PT Position: P3 Scheduling - Credit Resolution Representative Advanced Member Role: Other Name: SALVADOR WALLER MD Member Role: Primary Care Physician Address: Address: [address] [place] [address] [address] Care Team Related Persons Name: FEDE RED Address: Home [address] Care Team Personnel Name: Bryan Dhaliwal PT Position: P3 Scheduling - Credit Resolution Representative Advanced Member Role: Other Name: SALVADOR WALLER MD Member Role: Primary Care Physician Address: Address: [address] [place] [address] [address] [place] [address] [place] Name: NITHYA Rosas Position: ETTA RN Member Role: ED RN Name: MD MINA TIMOTHY MD Position: ED Physician Member Role: ED Physician Address: Address: [address] [place], [place] [address] Care Team Related Persons Name: FEDE RED Address: Home [address] Care Team Personnel Name: Bryan Dhaliwal PT Position: P3 Scheduling - Credit Resolution Representative Advanced Member Role: Other Name: SALVADOR WALLER MD Member Role: Primary Care Physician Address: Address: [address] [facility] [address] [place] [address] [place] Care Team Related Persons Name: FEDE RED Address: Home [address] [place] [id number] Patient Care team informatio n (unrecognized section and content) Care Team Personnel Name: Bryan Dhaliwal PT Position: P3 Scheduling - Credit Resolution Representative Advanced Member Role: Other Name: SALVADOR WALLER MD Member Role: Primary Care Physician Address: Address: [address] [place] [address] Care Team Related Persons Name: FEDE RED Address: Home [address] Care Team Personnel Name: Bryan Dhaliwal PT Position: P3 Scheduling - Credit Resolution Representative Advanced Member Role: Other Name: SALVADOR WALLER MD Member Role: Primary Care Physician Address: Address: [address] [place] [address] [address] Care Team Related Persons Name: FEDE RED Address: Home [address] [place] [phone] Care Team Personnel Name: Bryan Dhaliwal PT Position: P3 Scheduling - Credit Resolution Representative Advanced Member Role: Other Name: SALVADOR WALLER MD Member Role: Primary Care Physician Address: Address: [address] [place] [address] [address] Care Team Related Persons Name: FEDE RED Address: Home [address] [place] [phone] [place] INFORMATION SOURCE (unrecogn ized section and content) DATE CREATED AUTHOR 11/12/2023 [facility] ([place]) DATE CREATED AUTHOR [facility]/19/2025 [facility] FOR RECORDS PERTAINING TO PATIENTS WHO ARE OR HAVE BEEN ENROLLED IN A CHEMICAL DEPENDENCY/SUBSTANCEABUSE PROGRAM, SOME INFORMATION MAY BE OMITTED. This clinical summary was aggregated from multiple sources. Caution should be exercised in using it in the provision of clinical care. This summary normalizes information from multiple sources, and as a consequence, information in this document may materially change the coding, format and clinical context of patient data. In addition, data may be omitted in some cases. CLINICAL DECISIONS SHOULD BE BASED ON THE PRIMARY CLINICAL RECORDS. [facility] [employer] [facility]. provides no warranty or guarantee of the accuracy or completeness of information in this document.
--- OUTSIDE RECORDS SUMMARY | 2025-03-20 22:21 | XMS RPT_ITS | CCD ---
Author Organization [facility] Care Team Providers Care Flask Handler Name Role Phone SUNIL JUÁREZ, DR SALVADOR Enriquez Primary Care Physician Isra PT, Aruna Unavailable Unavailable SUNIL JUÁREZ, [...] Care Unavailable Salvador Waller Referring Unavailable Marie UNIX ADMINISTRATOR, Annalise Attending Unavailable Sunil, Salvador Primary Care [...] / HYDROcodone; Translations: [acetaminophen-hy drocodone] Drug Allergy [facility] (8 sources) Acetaminophen / Propoxyphene; Translations: [acetaminophen-pr opoxyphene] Drug Allergy [facility] (8 sources) Codeine; Translations: [codeine] Drug Allergy [facility] (8 sources) Morphine; Translations: [morphine] Drug Allergy N/V [facility] (8 sources) nabumetone; Translations: [nabumetone] Drug Allergy [facility] (8 sources) oxyCODONE; Translations: [oxycodone] Drug Allergy UPSET STOMACH [facility] (8 sources) rofecoxib; Translations: [rofecoxib] Drug Allergy Nausea (finding) [facility] (8 sources) traMADol; Translations: [tramadol] Drug Allergy Nausea (finding) [facility] (1 source) Codeine Drug Allergy 5 [facility] (1 source) Morphine Drug Allergy 5 [facility] (1 source) oxyCODONE Drug Allergy 5 [facility] Medications Current Medications Medication Drug Class(es) [...] Date: 09/11/22 Status: Ordered polyethylene glycol 3350 82061 mg powder for oral solution (5 sources) [...] Absolute Lymph 1.51 X10 3/uL Normal 0.83-4.51 [facility] Comment on above: Performed By: #### L 100.0100 ####[facility] [address] [place], [address] Absolute Neut 5.3 X10 3/uL Normal 2.0-7.7 [facility] Comment on above: Performed By: #### L 100.0100 ####[facility] [address] [place], [address] Basophils/100 WBC (Bld) 0.5 % Normal 0-1 [facility] Comment on above: Performed By: #### L 100.0100 ####[facility] [address] [place], [address] Eosinophils/100 WBC (Bld) 1.5 % Normal 0-5 [facility] Comment on above: Performed By: #### L 100.0100 ####[facility] [address] [place], [address] Erythrocyte distribution width (RBC) [Ratio] 14.0 % Normal 11.6-14.6 [facility] Comment on above: Performed By: #### L 100.0100 ####[facility] [address] [place], [address] Hematocrit (Bld) [Volume fraction] 34.5 % Low 37-47 [facility] Comment on above: Performed By: #### L 100.0100 ####[facility] [address] [place], [address] Hemoglobin (Bld) [Mass/Vol] 11.2 g/dL Low 12.0-15.0 [facility] Comment on above: Performed By: #### L 100.0100 ####[facility] [address] [place], [address] IG% 0.500 Normal 0.0-0.9 [facility] Comment on above: Result Comment: IG% - Immature Granulocytes (promyelocytes, myelocytes and metamyelocytes) > 1% indicates that a LEFT SHIFT is Present. Performed By: #### L 100.0100 ####[facility] [address] [place], [address] Lymphocytes/100 WBC (Bld) 20.1 % Normal 19-41 [facility] Comment on above: Performed By: #### L 100.0100 ####[facility] [address] [place], [address] MCH (RBC) [Entitic mass] 31.8 pg Normal 27.0-32.0 [facility] Comment on above: Performed By: #### L 100.0100 ####[facility] [address] [place], [address] MCHC (RBC) [Mass/Vol] 32.5 g/dL Normal 32-36 [facility] Comment on above: Performed By: #### L 100.0100 ####[facility] [address] [place], [address] MCV (RBC) [Entitic vol] 98.0 fL Normal 81-99 [facility] Comment on above: Performed By: #### L 100.0100 ####[facility] [address] [place], [address] Monocytes/100 WBC (Bld) 6.7 % Normal 0-10 [facility] Comment on above: Performed By: #### L 100.0100 ####[facility] [address] [place], [address] Neutrophils/100 WBC (Bld) 70.7 % High 47-70 [facility] Comment on above: Performed By: #### L 100.0100 ####[facility] [address] [place], [address] Nucleated RBC (Bld) [#/Vol] 0 10*3/uL Normal 0-5 [facility] Comment on above: Performed By: #### L 100.0100 ####[facility] [address] [place], [address] Platelet mean volume (Bld) [Entitic vol] 10.1 fL Normal 6.2-12.0 [facility] Comment on above: Performed By: #### L 100.0100 ####[facility] [address] [place], [address] Platelets (Bld) [#/Vol] 234 10*3/uL Normal 150-450 [facility] Comment on above: Performed By: #### L 100.0100 ####[facility] [address] [place], [address] RBC (Bld) [#/Vol] 3.52 10*6/uL Low 4.2-5.4 [facility] Comment on above: Performed By: #### L 100.0100 ####[facility] [address] [place], [address] RDW SD 49.6 fl High 35.1-43.9 [facility] Comment on above: Performed By: #### L 100.0100 ####[facility] [address] [place], [address] WBC (Bld) [#/Vol] 7.5 10*3/uL Normal 4.4-11.0 [facility] Comment on above: Performed By: #### L 100.0100 ####[facility] [address] [place], [address] Emergency Department Summary on 03-15-2025 Emergency Department Summary [facility] Medical Records Department [address] [place] [address] Emergency Department Summary 03/15/25 MR#: [id number] Acct: [id number] Name: HEATHER RED Rep #: [id number] : 1945 79 From: Kobi Drake MD [...] similar symptoms: No Recent Illness/Hospitalizat ion: Yes [facility] Medical History Sacroiliitis Wears partial dentures Arthritis Urinary incontinence Restless legs Injury of head and neck Gastric reflux Non-smoker History of stress test History of echocardiogram Leg cramps History of edema Cardiology follow-up encounter Nosebleed Degenerative disc disease, cervical Occipital headache [id number] ultra-rapid metabolizer Obstructive sleep apnea on CPAP [...] Status Edgard (more content not included)... Normal [facility] Transvaginal Non-on 03-15-2025 Transvaginal Non- [facility] Imaging Services [address] [place] [address] Transvaginal Non- MR#: [id number] Acct: [id number] Name: HEATHER RED Rep #: [id number] : 1945 F 79 From: Alberto Brandon MD PCP: Dr. Salvador Waller MD Status: REG ER Study: Transvaginal Non- Date of Exam: Exam# [id number] Ordering Dr: Kobi Drake MD PROCEDURE: TRANSVAGINAL [...] x 7 by 11 mm Reading Location: [facility] CC: Dr. Salvador Waller MD; Dr. Kobi Drake MD [employer] R Instructor: Signed Normal [facility] Bilat Brst [place] Stand Aloneo n 03-06-2025 Bilat Br[address] [place] Stand Alone [facility] Imaging Services [address] [place] [id number] Bilat Brst [place] Stand Alone MR#: [id number] Acct: [id number] Name: HEATHER RED Rep #: [id number] : 1945 F 79 From: Elvira Jamison MD PCP: Dr. Salvador Waller MD Status: REG CLI Study: Bilat Brst [place]frey Stand Alone Date of Exam: 09/30 Exam# [id number] Ordering Dr: Keri Hartman UNIX ADMINISTRATOR-C EXAM: DIAG MAMM W/CAD, BILAT; BREAST LIMITED [...] be mailed to the patient. Reading Location: [id number] CC: UNIX ADMINISTRATOR-C Keri Hartman; Dr. Salvador Waller MD [employer] Instructor: Signed Normal [facility] Breast Limited Unilateralon 03-06-2025 Breast Limited Unilateral [facility] Imaging Services [address] [place], [place] [address] Breast Limited Unilateral MR#: [id number] Acct: [id number] Name: HEATHER RED Rep #: [id number] : 1945 F 79 From: Elvira Jamison MD PCP: Dr. Salvador Waller MD Status: [facility] CL Study: Breast Limited Unilateral Date of Exam: Exam# [id number] Ordering Dr: Keri Hartman UNIX ADMINISTRATOR-C EXAM: DIAG MAMM W/CAD, BILAT; BREAST LIMITED [...] be mailed to the patient. Reading Location: [id number] CC: EVER Hartman; Dr. Salvador Waller MD [employer] Instructor: Signed Normal [facility] Breast Limited Unilateral [facility] Imaging Services [address] [place] [address] Breast Limited Unilateral MR#: [id number] Acct: [id number] Name: HEATHER RED Rep #: [id number] : 1945 F 79 From: Elvira Jamison MD PCP: Dr. Salvador Waller MD Status: REG CLI Study: Breast Limited Unilateral Date of Exam: Exam# [id number] Ordering Dr: Keri Hartman UNIX ADMINISTRATOR-Luis A EXAM: DIAG MAMM W/CAD, BILAT; BREAST [...] be mailed to the patient. Reading Location: [id number] CC: UNIX ADMINISTRATOR-Luis A Hartman; Dr. Salvador Waller MD [employer] Instructor: Signed Normal [facility] DIAG MAMM W/CAD, BILATon DIAG MAMM W/CAD, BILAT [facility] Imaging Services [address] [place] [address] DIAG MAMM W/CAD, BILAT MR#: [id number] Acct: [id number] Name: HEATHER RED Rep #: [id number] : 1945 F 79 From: Elvira Jamison MD PCP: Dr. Salvador Waller MD Status: REG CLI Study: DIAG MAMM W/CAD, BILAT Date of Exam: 03/06/25 Exam# [id number] Ordering Dr: Keri Hartman UNIX ADMINISTRATOR-C EXAM: DIAG MAMM W/CAD, BILAT; BREAST LIMITED [...] be mailed to the patient. Reading Location: [id number] CC: EVER Hartman; Dr. Salvador Waller MD [employer] H[employer] Instructor: Signed Normal [facility] Genital Culture Comprehensiv kavon 03-05-2025 VAC Reason for Exam: vaginal itching No Gardnerella, Neisseria or beta-hemolytic Streptococcus isolated. Presumptive C albicans Amount Growth 3+ Normal [facility] Comment on above: Performed By: #### L 501.08877, L506.0400, L501.9520 #### [facility] [address] [place], [address] Gram Stainon 03-02-2025 GS Reason for Exam: vaginal itching Gram Stain 2+ Yeast Like Organisms 2+ Gram variable hossein No Gram negative diplococci Normal [facility] Comment on above: Performed By: #### L 501.79009, L506.0400, L501.9520 #### [facility] [address] [place], [address] Pinion Polisher Office Visit Reporton 03-01-2025 Pinion Polisher Office Visit Report [facility] [address], [address] [place] [address] OFFICE VISIT Date of Service: 03/01/25 MR#: [id number] Acct: [id number] Name: HEATHRE RED Yumiko Rep #: [id number] : 1945 Provider: EVER Khan Age/Sex: 79/F Location: [facility] [place] Status: Signed Intake Vital Signs 12/14/24 13:30 [...] CB Chief Complaint: Vaginal itching, breast pain Health And Wellness Advisor Required: No Is patient in pain?: No [...] Nosebleed Degenerative disc disease, cervical Occipital headache [id number] ultra-rapid metabolizer Obstructive sleep apnea on CPAP [...] (Reviewed 03/01/25 (more content not included)... Normal [facility] Comprehensive Metabolic Prof ekaterina 02-02-2025 Albumin [Mass/Vol] 3.9 g/dL Normal 3.4-4.8 [facility] Comment on above: Performed By: #### L 500.4100, L500.4050, L501.48114, L501.9520, L506.0400 #### [facility] [address] [place], [address] Albumin/Globulin [Mass ratio] 1.6 {ratio} Normal 0.9-2.4 [facility] Comment on above: Performed By: #### L 500.4100, L500.4050, L501.03832, L501.9520, L506.0400 #### [facility] [address] [place], [address] ALK PHOS 91 U/L Normal 35-104 [facility] Comment on above: Performed By: #### L 500.4100, L500.4050, L501.14528, L501.9520, L506.0400 #### [facility] [address] [place], [address] ALT [Catalytic activity/Vol] 16 U/L Normal <=34 [facility] Comment on above: Performed By: #### L 500.4100, L500.4050, L501.83273, L501.9520, L506.0400 #### [facility] [address] [place], [address] AST [Catalytic activity/Vol] 27 U/L Normal <=31 [facility] Comment on above: Performed By: #### L 500.4100, L500.4050, L501.22869, L501.9520, L506.0400 #### [facility] [address] [place], [address] Bilirubin [Mass/Vol] 0.78 mg/dL Normal 0.00-1.30 [facility] Comment on above: Performed By: #### L 500.4100, L500.4050, L501.91625, L501.9520, L506.0400 #### [facility] [address] [place], [address] BUN/CRE 24.3 RATIO High 10-20 [facility] Comment on above: Performed By: #### L 500.4100, L500.4050, L501.17119, L501.9520, L506.0400 #### [facility] [address] [place], [address] Calcium [Mass/Vol] 9.2 mg/dL Normal 7.6-11.0 [facility] Comment on above: Performed By: #### L 500.4100, L500.4050, L501.77573, L501.9520, L506.0400 #### [facility] [address] [place], [address] Chloride [Moles/Vol] 100 mmol/L Normal 98-108 [facility] Comment on above: Performed By: #### L 500.4100, L500.4050, L501.03292, L501.9520, L506.0400 #### [facility] [address] [place], [address] CO2 [Moles/Vol] 26.7 mmol/L Normal 21.0-32.0 [facility] Comment on above: Performed By: #### L 500.4100, L500.4050, L501.53333, L501.9520, L506.0400 #### [facility] [address] [place], [address] Creatinine [Mass/Vol] 0.96 mg/dL Normal 0.70-1.20 [facility] Comment on above: Performed By: #### L 500.4100, L500.4050, L501.22633, L501.9520, L506.0400 #### [facility] [address] [place], [address] GAP 10 Normal 5-15 [facility] Comment on above: Performed By: #### L 500.4100, L500.4050, L501.99259, L501.9520, L506.0400 #### [facility] [address] [place], [address] GFR/1.73 sq M.predicted among non-blacks MDRD (S/P/Bld) [Vol rate/Area] 59 mL/min/{1.73_m2} Low >60 [facility] Comment on above: Result Comment: mL/m in/1.73m2 CKD-EPI Creatinine Equation (2020) Performed By: #### L 500.4100, L500.4050, L501.24189, L501.9520, L506.0400 #### [facility] [address] [place], [address] Globulin (S) [Mass/Vol] 2.4 g/dL Normal 2.2-4.2 [facility] Comment on above: Performed By: #### L 500.4100, L500.4050, L501.26009, L501.9520, L506.0400 #### [facility] [address] [place], [address] Glucose [Mass/Vol] 80 mg/dL Normal 70-99 [facility] Comment on above: Performed By: #### L 500.4100, L500.4050, L501.94977, L501.9520, L506.0400 #### [facility] [address] [place], [address] Potassium [Moles/Vol] 4.2 mmol/L Normal 3.3-5.1 [facility] Comment on above: Performed By: #### L 500.4100, L500.4050, L501.68947, L501.9520, L506.0400 #### [facility] [address] [place], [address] Sodium [Moles/Vol] 137 mmol/L Normal 133-145 [facility] Comment on above: Performed By: #### L 500.4100, L500.4050, L501.46933, L501.9520, L506.0400 #### [facility] [address] [place], [address] T PROT 6.3 g/dL Normal 5.9-8.4 [facility] Comment on above: Performed By: #### L 500.4100, L500.4050, L501.86533, L501.9520, L506.0400 #### [facility] [address] [place], [address] Urea nitrogen [Mass/Vol] 23 mg/dL High 4-19 [facility] Comment on above: Performed By: #### L 500.4100, L500.4050, L501.37170, L501.9520, L506.0400 #### [facility] [address] [place], [address] Free T3on 02-02-2025 Free T3 [Mass/Vol] 2.0 pg/mL Low 2.18-3.98 [facility] Comment on above: Performed By: #### L 500.4100, L500.4050, L501.21098, L501.9520, L506.0400 #### [facility] [address] [place], [address] Lipid Profileon 02-02-2025 CHOL:HDL 1.98 Normal [facility] Comment on above: Performed By: #### L 500.4100, L500.4050, L501.90227, L501.9520, L506.0400 #### [facility] [address] [place], [address] Cholesterol [Mass/Vol] 153 mg/dL Normal <=200 [facility] Comment on above: Result Comment: Chol esterol level, Desirable <200 mg/dL Borderline high cholesterol 200-239 mg/dL High cholesterol >=240 mg/dL Recommendations of the NCEP Adult Treatment Panel for the following risk-cutoff thresholds for the [place] population. Performed By: #### L 500.4100, L500.4050, L501.79731, L501.9520, L506.0400 #### [facility] [address] [place], [address] Cholesterol in HDL [Mass/Vol] 77 mg/dL Normal [facility] Comment on above: Result Comment: Wanda onal Cholesterol Education Program (NCEP) guidelines: <40 mg/dL: Low HDL-cholesterol (major risk factor for CHD) >= 60 mg/dL: High HDL-cholesterol (negative risk factor for CHD) HDL-cholesterol is affected by a number of factors, e.g. smoking, exercise, hormones, sex and age. Performed By: #### L 500.4100, L500.4050, L501.47983, L501.9520, L506.0400 #### [facility] [address] [place], [address] Cholesterol in LDL [Mass/Vol] 51 mg/dL Normal [facility] Comment on above: Result Comment: Bord gbdlyd=095-495 mg/dL Higher Zikv=882 mg/dL or greater Performed By: #### L 500.4100, L500.4050, L501.07455, L501.9520, L506.0400 #### [facility] [address] [place], [address] Cholesterol in VLDL [Mass/Vol] 25 mg/dL Normal 5-40 [facility] Comment on above: Performed By: #### L 500.4100, L500.4050, L501.05054, L501.9520, L506.0400 #### [facility] [address] [place], [address] Triglyceride [Mass/Vol] 123 mg/dL Normal [facility] Comment on above: Result Comment: The drugs N-Acetylcysteine and Metamizole may falsely depress this assay. Normal range: <150 mg/dL Borderline High: 150-199 mg/dL High: 200-499 mg/dL Very High: >500 mg/dL Performed By: #### L 500.4100, L500.4050, L501.04247, L501.9520, L506.0400 #### [facility] [address] [facility] [place], [address] T4 Free Directon 02-02-2025 T4 FREE DIRECT 1.20 ng/dL Normal 0.76-1.46 [facility] Comment on above: Performed By: #### L 500.4100, L500.4050, L501.79578, L501.9520, L506.0400 #### [facility] [address] [facility] [place], [address] Thyroid Stim Hormone (TSH)on 02-02-2025 TSH 3.740 uIU/mL Normal 0.300-4.200 [facility] Comment on above: Performed By: #### L 500.4100, L500.4050, L501.82188, L501.9520, L506.0400 #### [facility] [address] [place], [address] CBC W/Diff, Automatedon Absolute Lymph 1.72 X10 3/uL Normal 0.83-4.51 [facility] Comment on above: Performed By: #### L 500.4050, L100.0100 ####[facility] [address] [place], [address] Absolute Neut 4.7 X10 3/uL Normal 2.0-7.7 [facility] Comment on above: Performed By: #### L 500.4050, L100.0100 ####[facility] [address] [place], [address] Basophils/100 WBC (Bld) 0.3 % Normal 0-1 [facility] Comment on above: Performed By: #### L 500.4050, L100.0100 ####[facility] [address] [place], [address] Eosinophils/100 WBC (Bld) 2.1 % Normal 0-5 [facility] Comment on above: Performed By: #### L 500.4050, L100.0100 ####[facility] [address] [place], [address] Erythrocyte distribution width (RBC) [Ratio] 13.9 % Normal 11.6-14.6 [facility] Comment on above: Performed By: #### L 500.4050, L100.0100 ####[facility] [address] [place], [address] Hematocrit (Bld) [Volume fraction] 34.8 % Low 37-47 [facility] Comment on above: Performed By: #### L 500.4050, L100.0100 ####[facility] [address] [place], [address] Hemoglobin (Bld) [Mass/Vol] 11.2 g/dL Low 12.0-15.0 [facility] Comment on above: Performed By: #### L 500.4050, L100.0100 ####[facility] [address] [place], [address] IG% 0.600 Normal 0.0-0.9 [facility] Comment on above: Result Comment: IG% - Immature Granulocytes (promyelocytes, myelocytes and metamyelocytes) > 1% indicates that a LEFT SHIFT is Present. Performed By: #### L 500.4050, L100.0100 ####[facility] [address] [place], [address] Lymphocytes/100 WBC (Bld) 24.3 % Normal 19-41 [facility] Comment on above: Performed By: #### L 500.4050, L100.0100 ####[facility] [address] [place], [address] MCH (RBC) [Entitic mass] 32.3 pg High 27.0-32.0 [facility] Comment on above: Performed By: #### L 500.4050, L100.0100 ####[facility] [address] [place], [address] MCHC (RBC) [Mass/Vol] 32.2 g/dL Normal 32-36 [facility] Comment on above: Performed By: #### L 500.4050, L100.0100 ####[facility] [address] [place], [address] MCV (RBC) [Entitic vol] 100.3 fL High 81-99 [facility] Comment on above: Performed By: #### L 500.4050, L100.0100 ####[facility] [address] [place], [address] Monocytes/100 WBC (Bld) 6.4 % Normal 0-10 [facility] Comment on above: Performed By: #### L 500.4050, L100.0100 ####[facility] [address] [place], [address] Neutrophils/100 WBC (Bld) 66.3 % Normal 47-70 [facility] Comment on above: Performed By: #### L 500.4050, L100.0100 ####[facility] [address] [place], [address] Nucleated RBC (Bld) [#/Vol] 0 10*3/uL Normal 0-5 [facility] Comment on above: Performed By: #### L 500.4050, L100.0100 ####[facility] [address] [place], [address] Platelet mean volume (Bld) [Entitic vol] 10.4 fL Normal 6.2-12.0 [facility] Comment on above: Performed By: #### L 500.4050, L100.0100 ####[facility] [address] [place], [address] Platelets (Bld) [#/Vol] 250 10*3/uL Normal 150-450 [facility] Comment on above: Performed By: #### L 500.4050, L100.0100 ####[facility] [address] [place], [address] RBC (Bld) [#/Vol] 3.47 10*6/uL Low 4.2-5.4 [facility] Comment on above: Performed By: #### L 500.4050, L100.0100 ####[facility] [address] [place], [address] RDW SD 50.7 fl High 35.1-43.9 [facility] Comment on above: Performed By: #### L 500.4050, L100.0100 ####[facility] [address] [place], [address] WBC (Bld) [#/Vol] 7.1 10*3/uL Normal 4.4-11.0 [facility] Comment on above: Performed By: #### L 500.4050, L100.0100 ####[facility] [address] [place], [address] Comprehensive Metabolic Prof il 01-11-2025 Albumin [Mass/Vol] 4.1 g/dL Normal 3.4-4.8 [facility] Comment on above: Performed By: #### L 500.4050, L100.0100 ####[facility] [address] [place], [address] Albumin/Globulin [Mass ratio] 1.7 {ratio} Normal 0.9-2.4 [facility] Comment on above: Performed By: #### L 500.4050, L100.0100 ####[facility] [address] [place], [address] ALK PHOS 115 U/L High 35-104 [facility] Comment on above: Performed By: #### L 500.4050, L100.0100 ####[facility] [address] [place], [address] ALT [Catalytic activity/Vol] 21 U/L Normal <=34 [facility] Comment on above: Performed By: #### L 500.4050, L100.0100 ####[facility] [address] [place], [address] AST [Catalytic activity/Vol] 29 U/L Normal <=31 [facility] Comment on above: Performed By: #### L 500.4050, L100.0100 ####[facility] [address] [place], [address] Bilirubin [Mass/Vol] 1.61 mg/dL High 0.00-1.30 [facility] Comment on above: Performed By: #### L 500.4050, L100.0100 ####[facility] [address] [place], [address] BUN/CRE 25.1 RATIO High 10-20 [facility] Comment on above: Performed By: #### L 500.4050, L100.0100 ####[facility] [address] [place], [address] Calcium [Mass/Vol] 9.5 mg/dL Normal 7.6-11.0 [facility] Comment on above: Performed By: #### L 500.4050, L100.0100 ####[facility] [address] [place], [address] Chloride [Moles/Vol] 102 mmol/L Normal 98-108 [facility] Comment on above: Performed By: #### L 500.4050, L100.0100 ####[facility] [address] [place], [address] CO2 [Moles/Vol] 26.8 mmol/L Normal 21.0-32.0 [facility] Comment on above: Performed By: #### L 500.4050, L100.0100 ####[facility] [address] [place], [address] Creatinine [Mass/Vol] 0.97 mg/dL Normal 0.70-1.20 [facility] Comment on above: Performed By: #### L 500.4050, L100.0100 ####[facility] [address] [place], [address] GAP 11 Normal 5-15 [facility] Comment on above: Performed By: #### L 500.4050, L100.0100 ####[facility] [address] [place], [address] GFR/1.73 sq M.predicted among non-blacks MDRD (S/P/Bld) [Vol rate/Area] 59 mL/min/{1.73_m2} Low >60 [facility] Comment on above: Result Comment: mL/m in/1.73m2 CKD-EPI Creatinine Equation (2020) Performed By: #### L 500.4050, L100.0100 ####[facility] [address] [place], [address] Globulin (S) [Mass/Vol] 2.5 g/dL Normal 2.2-4.2 [facility] Comment on above: Performed By: #### L 500.4050, L100.0100 ####[facility] [address] [place], [address] Glucose [Mass/Vol] 104 mg/dL High 70-99 [facility] Comment on above: Performed By: #### L 500.4050, L100.0100 ####[facility] [address] [place], [address] Potassium [Moles/Vol] 4.2 mmol/L Normal 3.3-5.1 [facility] Comment on above: Performed By: #### L 500.4050, L100.0100 ####[facility] [address] [place], [address] Sodium [Moles/Vol] 140 mmol/L Normal 133-145 [facility] Comment on above: Performed By: #### L 500.4050, L100.0100 ####[facility] [address] [place], [address] T PROT 6.5 g/dL Normal 5.9-8.4 [facility] Comment on above: Performed By: #### L 500.4050, L100.0100 ####[facility] [address] [place], [address] Urea nitrogen [Mass/Vol] 24 mg/dL High 4-19 [facility] Comment on above: Performed By: #### L 500.4050, L100.0100 ####[facility] [address] [place], [address] CBC W/Diff, Automatedon 05-0 2-2025 Absolute Lymph 1.48 X10 3/uL Normal 0.83-4.51 [facility] Comment on above: Performed By: #### L 503.6030, L100.0100 ####[facility] [address] [place], [address] Absolute Neut 4.4 X10 3/uL Normal 2.0-7.7 [facility] Comment on above: Performed By: #### L 503.6030, L100.0100 ####[facility] [address] [place], [address] Basophils/100 WBC (Bld) 0.5 % Normal 0-1 [facility] Comment on above: Performed By: #### L 503.6030, L100.0100 ####[facility] [address] [place], [address] Eosinophils/100 WBC (Bld) 2.4 % Normal 0-5 [facility] Comment on above: Performed By: #### L 503.6030, L100.0100 ####[facility] [address] [place], [address] Erythrocyte distribution width (RBC) [Ratio] 14.3 % Normal 11.6-14.6 [facility] Comment on above: Performed By: #### L 503.6030, L100.0100 ####[facility] [address] [place], [address] Hematocrit (Bld) [Volume fraction] 34.9 % Low 37-47 [facility] Comment on above: Performed By: #### L 503.6030, L100.0100 ####[facility] [address] [place], [address] Hemoglobin (Bld) [Mass/Vol] 11.2 g/dL Low 12.0-15.0 [facility] Comment on above: Performed By: #### L 503.6030, L100.0100 ####[facility] [address] [place], [address] IG% 0.600 Normal 0.0-0.9 [facility] Comment on above: Result Comment: IG% - Immature Granulocytes (promyelocytes, myelocytes and metamyelocytes) > 1% indicates that a LEFT SHIFT is Present. Performed By: #### L 503.6030, L100.0100 ####[facility] [address] [place], [address] Lymphocytes/100 WBC (Bld) 22.3 % Normal 19-41 [facility] Comment on above: Performed By: #### L 503.6030, L100.0100 ####[facility] [address] [place], [address] MCH (RBC) [Entitic mass] 32.1 pg High 27.0-32.0 [facility] Comment on above: Performed By: #### L 503.6030, L100.0100 ####[facility] [address] [place], [address] MCHC (RBC) [Mass/Vol] 32.1 g/dL Normal 32-36 [facility] Comment on above: Performed By: #### L 503.6030, L100.0100 ####[facility] [address] [place], [address] MCV (RBC) [Entitic vol] 100.0 fL High 81-99 [facility] Comment on above: Performed By: #### L 503.6030, L100.0100 ####[facility] [address] [place], [address] Monocytes/100 WBC (Bld) 7.2 % Normal 0-10 [facility] Comment on above: Performed By: #### L 503.6030, L100.0100 ####[facility] [address] [place], [address] Neutrophils/100 WBC (Bld) 67.0 % Normal 47-70 [facility] Comment on above: Performed By: #### L 503.6030, L100.0100 ####[facility] [address] [place], [address] Nucleated RBC (Bld) [#/Vol] 0 10*3/uL Normal 0-5 [facility] Comment on above: Performed By: #### L 503.6030, L100.0100 ####[facility] [address] [place], [address] Platelet mean volume (Bld) [Entitic vol] 10.4 fL Normal 6.2-12.0 [facility] Comment on above: Performed By: #### L 503.6030, L100.0100 ####[facility] [address] [place], [address] Platelets (Bld) [#/Vol] 232 10*3/uL Normal 150-450 [facility] Comment on above: Performed By: #### L 503.6030, L100.0100 ####[facility] [address] [place], [address] RBC (Bld) [#/Vol] 3.49 10*6/uL Low 4.2-5.4 [facility] Comment on above: Performed By: #### L 503.6030, L100.0100 ####[facility] [address] [place], [address] RDW SD 52.1 fl High 35.1-43.9 [facility] Comment on above: Performed By: #### L 503.6030, L100.0100 ####[facility] [address] [place], [address] WBC (Bld) [#/Vol] 6.6 10*3/uL Normal 4.4-11.0 [facility] Comment on above: Performed By: #### L 503.6030, L100.0100 ####[facility] [address] [place], [address] Iron+Iron Binding Capacityon 01-05-2025 IRON Normal 50-170 [facility] Comment on above: Result Comment: PER PT Performed By: #### L 503.6030, L100.0100 ####[facility] [address] [place], [address] IRON SATURATION Normal 13-59 [facility] Comment on above: Result Comment: PER PT Performed By: #### L 503.6030, L100.0100 ####[facility] [address] [place], [address] TIBC Normal 250-450 [facility] Comment on above: Result Comment: PER PT Performed By: #### L 503.6030, L100.0100 ####[facility] [address] [place], [address] UIBC Normal 228-428 [facility] Comment on above: Result Comment: PER PT Performed By: #### L 503.6030, L100.0100 ####[facility] [address] [place], [address] Neurology Visit Reporton Neurology Visit Report [facility] [address] [facility] [place], [address] [place] [address] OFFICE VISIT Date of Service: 12/14/24 MR#: [id number] Acct: [id number] Name: HEATHER RED Rep #: [id number] : 1945 Provider: Dr. Keily prince MD Age/Sex: 79/F [place] [facility] [place] Status: Signed HPI [facility] Chief Complaint: Details: Interim History: Heather [...] evidence of atrial fibrillation. A cytochrome P450 [id number] isoenzyme test revealed a *1/*17 genotype indicating [...] extending to the knee. She sees a rn pain management, Dr. Ludwig; lumbar radiofrequency ablation and/or injections [...] on bone density test. She saw an senior talent acquisition specialist, Dr. Macedo, in 2023 regarding her low back pain and right lower extremity radicular pain and surgery was not recommended. She has rheumatoid arthritis. She sees a pinion polisher, Dr. Neely, and is prescribed methotrexate and [...] anterolisthesis of (more content not included)... Normal [facility] Abdomen Limitedon 11-16-2024 Abdomen Limited [facility] Services [address] [place] [address] [facility] Limited MR#: [id number] Acct: [id number] Name: HEATHER RED Rep #: [id number] : 1945 F 79 From: Pa mejia MD PCP: Dr. Salvador Waller MD Status: REG CLI Study: Abdomen Limited Date of Exam: 11/16/24 Exam# [id number] Ordering Dr: Ade Neely MD PROCEDURE: ABDOMEN [...] No acute abnormality is seen. Reading Location: [facility] CC: Dr. Ade Neely MD; Dr. Salvador Waller MD [employer] In[employer]: Signed Normal [facility] CBC W/Diff, Automatedon 03-0 Absolute Lymph 1.80 X10 3/uL Normal 0.83-4.51 [facility] Comment on above: Performed By: #### L 501.19052, L506.0400, L501.9520 #### [facility] [address] [place], [address] Absolute Neut 4.6 X10 3/uL Normal 2.0-7.7 [facility] Comment on above: Performed By: #### L 501.25567, L506.0400, L501.9520 #### [facility] [address] [place], [address] Basophils/100 WBC (Bld) 0.4 % Normal 0-1 [facility] Comment on above: Performed By: #### L 501.65570, L506.0400, L501.9520 #### [facility] [address] [place], [address] Eosinophils/100 WBC (Bld) 2.9 % Normal 0-5 [facility] Comment on above: Performed By: #### L 501.03475, L506.0400, L501.9520 #### [facility] [address] [place], [address] Erythrocyte distribution width (RBC) [Ratio] 13.9 % Normal 11.6-14.6 [facility] Comment on above: Performed By: #### L 501.33341, L506.0400, L501.9520 #### [facility] [address] [place], [address] Hematocrit (Bld) [Volume fraction] 36.8 % Low 37-47 [facility] Comment on above: Performed By: #### L 501.92881, L506.0400, L501.9520 #### [facility] [address] [place], [address] Hemoglobin (Bld) [Mass/Vol] 11.8 g/dL Low 12.0-15.0 [facility] Comment on above: Performed By: #### L 501.24698, L506.0400, L501.9520 #### [facility] [address] [place], [address] IG% 0.300 Normal 0.0-0.9 [facility] Comment on above: Result Comment: IG% - Immature Granulocytes (promyelocytes, myelocytes and metamyelocytes) > 1% indicates that a LEFT SHIFT is Present. Performed By: #### L 501.20898, L506.0400, L501.9520 #### [facility] [address] [place], [address] Lymphocytes/100 WBC (Bld) 24.8 % Normal 19-41 [facility] Comment on above: Performed By: #### L 501.85632, L506.0400, L501.9520 #### [facility] [address] [place], [address] MCH (RBC) [Entitic mass] 32.1 pg High 27.0-32.0 [facility] Comment on above: Performed By: #### L 501.28947, L506.0400, L501.9520 #### [facility] [address] [place], [address] MCHC (RBC) [Mass/Vol] 32.1 g/dL Normal 32-36 [facility] Comment on above: Performed By: #### L 501.79263, L506.0400, L501.9520 #### [facility] [address] [place], [address] MCV (RBC) [Entitic vol] 100.0 fL High 81-99 [facility] Comment on above: Performed By: #### L 501.80889, L506.0400, L501.9520 #### [facility] [address] [place], [address] Monocytes/100 WBC (Bld) 7.6 % Normal 0-10 [facility] Comment on above: Performed By: #### L 501.94854, L506.0400, L501.9520 #### [facility] [address] [place], [address] Neutrophils/100 WBC (Bld) 64.0 % Normal 47-70 [facility] Comment on above: Performed By: #### L 501.59514, L506.0400, L501.9520 #### [facility] [address] [place], [address] Nucleated RBC (Bld) [#/Vol] 0 10*3/uL Normal 0-5 [facility] Comment on above: Performed By: #### L 501.61411, L506.0400, L501.9520 #### [facility] [address] [place], [address] Platelet mean volume (Bld) [Entitic vol] 10.5 fL Normal 6.2-12.0 [facility] Comment on above: Performed By: #### L 501.16617, L506.0400, L501.9520 #### [facility] [address] [place], [address] Platelets (Bld) [#/Vol] 249 10*3/uL Normal 150-450 [facility] Comment on above: Performed By: #### L 501.13406, L506.0400, L501.9520 #### [facility] [address] [place], [address] RBC (Bld) [#/Vol] 3.68 10*6/uL Low 4.2-5.4 [facility] Comment on above: Performed By: #### L 501.38852, L506.0400, L501.9520 #### [facility] [address] [place], [address] RDW SD 50.1 fl High 35.1-43.9 [facility] Comment on above: Performed By: #### L 501.57235, L506.0400, L501.9520 #### [facility] [address] [place], [address] WBC (Bld) [#/Vol] 7.3 10*3/uL Normal 4.4-11.0 [facility] Comment on above: Performed By: #### L 501.38876, L506.0400, L501.9520 #### [facility] [address] [place], [address] Comprehensive Metabolic Prof ilon 11-09-2024 Albumin [Mass/Vol] 4.3 g/dL Normal 3.4-4.8 [facility] Comment on above: Performed By: #### L 501.89196, L506.0400, L501.9520 #### [facility] [address] [place], [address] Albumin/Globulin [Mass ratio] 1.7 {ratio} Normal 0.9-2.4 [facility] Comment on above: Performed By: #### L 501.36211, L506.0400, L501.9520 #### [facility] [address] [place], [address] ALK PHOS 123 U/L High 35-104 [facility] Comment on above: Performed By: #### L 501.49197, L506.0400, L501.9520 #### [facility] [address] [place], [address] ALT [Catalytic activity/Vol] 26 U/L Normal <=34 [facility] Comment on above: Performed By: #### L 501.02414, L506.0400, L501.9520 #### [facility] [address] [place], [address] AST [Catalytic activity/Vol] 34 U/L High <=31 [facility] Comment on above: Performed By: #### L 501.71020, L506.0400, L501.9520 #### [facility] [address] [place], [address] Bilirubin [Mass/Vol] 1.45 mg/dL High 0.00-1.30 [facility] Comment on above: Performed By: #### L 501.70444, L506.0400, L501.9520 #### [facility] [address] [place], [address] BUN/CRE 25.3 RATIO High 10-20 [facility] Comment on above: Performed By: #### L 501.61568, L506.0400, L501.9520 #### [facility] [address] [place], [address] Calcium [Mass/Vol] 9.7 mg/dL Normal 7.6-11.0 [facility] Comment on above: Performed By: #### L 501.24146, L506.0400, L501.9520 #### [facility] [address] [place], [address] Chloride [Moles/Vol] 103 mmol/L Normal 98-108 [facility] Comment on above: Performed By: #### L 501.52941, L506.0400, L501.9520 #### [facility] [address] [place], [address] CO2 [Moles/Vol] 24.4 mmol/L Normal 21.0-32.0 [facility] Comment on above: Performed By: #### L 501.37264, L506.0400, L501.9520 #### [facility] [address] [place], [address] Creatinine [Mass/Vol] 1.00 mg/dL Normal 0.70-1.20 [facility] Comment on above: Performed By: #### L 501.91375, L506.0400, L501.9520 #### [facility] [address] [place], [address] GAP 14 Normal 5-15 [facility] Comment on above: Performed By: #### L 501.30089, L506.0400, L501.9520 #### [facility] [address] [place], [address] GFR/1.73 sq M.predicted among non-blacks MDRD (S/P/Bld) [Vol rate/Area] 57 mL/min/{1.73_m2} Low >60 [facility] Comment on above: Result Comment: mL/m in/1.73m2 CKD-EPI Creatinine Equation (2020) Performed By: #### L 501.36614, L506.0400, L501.9520 #### [facility] [address] [place], [address] Globulin (S) [Mass/Vol] 2.4 g/dL Normal 2.2-4.2 [facility] Comment on above: Performed By: #### L 501.17435, L506.0400, L501.9520 #### [facility] [address] [place], [address] Glucose [Mass/Vol] 119 mg/dL High 70-99 [facility] Comment on above: Performed By: #### L 501.86648, L506.0400, L501.9520 #### [facility] [address] [place], [address] Potassium [Moles/Vol] 4.0 mmol/L Normal 3.3-5.1 [facility] Comment on above: Performed By: #### L 501.37958, L506.0400, L501.9520 #### [facility] [address] [place], [address] Sodium [Moles/Vol] 142 mmol/L Normal 133-145 [facility] Comment on above: Performed By: #### L 501.56216, L506.0400, L501.9520 #### [facility] [address] [place], [address] T PROT 6.7 g/dL Normal 5.9-8.4 [facility] Comment on above: Performed By: #### L 501.01839, L506.0400, L501.9520 #### [facility] [address] [place], [address] Urea nitrogen [Mass/Vol] 25 mg/dL High 4-19 [facility] Comment on above: Performed By: #### L 501.13920, L506.0400, L501.9520 #### [facility] [address] [place], [address] Free T3on 10-30-2024 Free T3 [Mass/Vol] 2.0 pg/mL Low 2.18-3.98 [facility] Comment on above: Performed By: #### L 501.44248, L506.0400, L501.9520 #### [facility] [address] [place], [address] T4 Free Directon 10-30-2024 T4 FREE DIRECT 1.24 ng/dL Normal 0.76-1.46 [facility] Comment on above: Performed By: #### L 501.52440, L506.0400, L501.9520 #### [facility] [address] [place], [address] Thyroid Stim Hormone (TSH)on 10-30-2024 TSH 1.780 uIU/mL Normal 0.358-3.740 [facility] Comment on above: Performed By: #### L 501.50669, L506.0400, L501.9520 #### [facility] [address] [place], [address] CBC W/Diff, Automatedon 11-2 Absolute Lymph 1.65 X10 3/uL Normal 0.83-4.51 [facility] Comment on above: Performed By: #### L 100.0100, L500.4050 ####[facility] [address] [place], [address] Absolute Neut 5.2 X10 3/uL Normal 2.0-7.7 [facility] Comment on above: Performed By: #### L 100.0100, L500.4050 ####[facility] [address] [place], [address] Basophils/100 WBC (Bld) 0.6 % Normal 0-1 [facility] Comment on above: Performed By: #### L 100.0100, L500.4050 ####[facility] [address] [place], [address] Eosinophils/100 WBC (Bld) 3.2 % Normal 0-5 [facility] Comment on above: Performed By: #### L 100.0100, L500.4050 ####[facility] [address] [place], [address] Erythrocyte distribution width (RBC) [Ratio] 14.4 % Normal 11.6-14.6 [facility] Comment on above: Performed By: #### L 100.0100, L500.4050 ####[facility] [address] [place], [address] Hematocrit (Bld) [Volume fraction] 35.7 % Low 37-47 [facility] Comment on above: Performed By: #### L 100.0100, L500.4050 ####[facility] [address] [place], [address] Hemoglobin (Bld) [Mass/Vol] 11.6 g/dL Low 12.0-15.0 [facility] Comment on above: Performed By: #### L 100.0100, L500.4050 ####[facility] [address] [place], [address] IG% 0.500 Normal 0.0-0.9 [facility] Comment on above: Result Comment: IG% - Immature Granulocytes (promyelocytes, myelocytes and metamyelocytes) > 1% indicates that a LEFT SHIFT is Present. Performed By: #### L 100.0100, L500.4050 ####[facility] [address] [place], [address] Lymphocytes/100 WBC (Bld) 21.3 % Normal 19-41 [facility] Comment on above: Performed By: #### L 100.0100, L500.4050 ####[facility] [address] [place], [address] MCH (RBC) [Entitic mass] 32.2 pg High 27.0-32.0 [facility] Comment on above: Performed By: #### L 100.0100, L500.4050 ####[facility] [address] [place], [address] MCHC (RBC) [Mass/Vol] 32.5 g/dL Normal 32-36 [facility] Comment on above: Performed By: #### L 100.0100, L500.4050 ####[facility] [address] [place], [address] MCV (RBC) [Entitic vol] 99.2 fL High 81-99 [facility] Comment on above: Performed By: #### L 100.0100, L500.4050 ####[facility] [address] [place], [address] Monocytes/100 WBC (Bld) 7.5 % Normal 0-10 [facility] Comment on above: Performed By: #### L 100.0100, L500.4050 ####[facility] [address] [place], [address] Neutrophils/100 WBC (Bld) 66.9 % Normal 47-70 [facility] Comment on above: Performed By: #### L 100.0100, L500.4050 ####[facility] [address] [place], [address] Nucleated RBC (Bld) [#/Vol] 0 10*3/uL Normal 0-5 [facility] Comment on above: Performed By: #### L 100.0100, L500.4050 ####[facility] [address] [place], [address] Platelet mean volume (Bld) [Entitic vol] 10.3 fL Normal 6.2-12.0 [facility] Comment on above: Performed By: #### L 100.0100, L500.4050 ####[facility] [address] [place], [address] Platelets (Bld) [#/Vol] 243 10*3/uL Normal 150-450 [facility] Comment on above: Performed By: #### L 100.0100, L500.4050 ####[facility] [address] [place], [address] RBC (Bld) [#/Vol] 3.60 10*6/uL Low 4.2-5.4 [facility] Comment on above: Performed By: #### L 100.0100, L500.4050 ####[facility] [address] [place], [address] RDW SD 52.6 fl High 35.1-43.9 [facility] Comment on above: Performed By: #### L 100.0100, L500.4050 ####[facility] [address] [place], [address] WBC (Bld) [#/Vol] 7.7 10*3/uL Normal 4.4-11.0 [facility] Comment on above: Performed By: #### L 100.0100, L500.4050 ####[facility] [address] [place], [address] Comprehensive Metabolic Prof ilon 07-31-2024 Albumin [Mass/Vol] 3.6 g/dL Normal 3.2-5.0 [facility] Comment on above: Performed By: #### L 100.0100, L500.4050 ####[facility] [address] [place], [address] Albumin/Globulin [Mass ratio] 1.2 {ratio} Normal 0.9-2.4 [facility] Comment on above: Performed By: #### L 100.0100, L500.4050 ####[facility] [address] [place], [address] ALK P 112 U/L Normal 45-117 [facility] Comment on above: Performed By: #### L 100.0100, L500.4050 ####[facility] [address] [place], [address] ALT [Catalytic activity/Vol] 34 U/L Normal 13-56 [facility] Comment on above: Performed By: #### L 100.0100, L500.4050 ####[facility] [address] [place], [address] AST [Catalytic activity/Vol] 25 U/L Normal 15-37 [facility] Comment on above: Performed By: #### L 100.0100, L500.4050 ####[facility] [address] [place], [address] Bilirubin [Mass/Vol] 1.30 mg/dL High 0.20-1.00 [facility] Comment on above: Result Comment: For patients on eltrombopag therapy, use of Dimension Mobeetie TBIL is not recommended. Performed By: #### L 100.0100, L500.4050 ####[facility] [address] [place], [address] BUN/CRE 26.4 RATIO High 10-20 [facility] Comment on above: Performed By: #### L 100.0100, L500.4050 ####[facility] [address] [place], [address] CA,Total 9.1 mg/dL Normal 8.5-10.1 [facility] Comment on above: Performed By: #### L 100.0100, L500.4050 ####[facility] [address] [place], [address] Chloride [Moles/Vol] 108 mmol/L High 98-107 [facility] Comment on above: Performed By: #### L 100.0100, L500.4050 ####[facility] [address] [place], [address] CO2 [Moles/Vol] 29.0 mmol/L Normal 21.0-32.0 [facility] Comment on above: Performed By: #### L 100.0100, L500.4050 ####[facility] [address] [place], [address] Creatinine [Mass/Vol] 0.83 mg/dL Normal 0.55-1.02 [facility] Comment on above: Result Comment: The validity of the calculated GFR GFRAA in patients over 70 years has not been determined. Clinical correlation is essential. Performed By: #### L 100.0100, L500.4050 ####[facility] [address] [place], [address] EST GFR - AA 85 mL/min Normal >60 [facility] Comment on above: Result Comment: Afri can Italian GFR Calc Performed By: #### L 100.0100, L500.4050 ####[facility] [address] [place], [address] GAP 4 Low 5-15 [facility] Comment on above: Performed By: #### L 100.0100, L500.4050 ####[facility] [address] [place], [address] GFR/1.73 sq M.predicted among non-blacks MDRD (S/P/Bld) [Vol rate/Area] 70 mL/min/{1.73_m2} Normal >60 [facility] Comment on above: Result Comment: Non- GFR Calc Performed By: #### L 100.0100, L500.4050 ####[facility] [address] [place], [address] Globulin (S) [Mass/Vol] 3.0 g/dL Normal 2.2-4.2 [facility] Comment on above: Performed By: #### L 100.0100, L500.4050 ####[facility] [address] [place], [address] Glucose [Mass/Vol] 89 mg/dL Normal 74-106 [facility] Comment on above: Performed By: #### L 100.0100, L500.4050 ####[facility] [address] [place], [address] Potassium [Moles/Vol] 4.3 mmol/L Normal 3.5-5.1 [facility] Comment on above: Performed By: #### L 100.0100, L500.4050 ####[facility] [address] [place], [address] Sodium [Moles/Vol] 141 mmol/L Normal 136-145 [facility] Comment on above: Performed By: #### L 100.0100, L500.4050 ####[facility] [address] [place], [address] T PROT 6.6 g/dL Normal 6.4-8.2 [facility] Comment on above: Performed By: #### L 100.0100, L500.4050 ####[facility] [address] [place], [address] Urea nitrogen [Mass/Vol] 22 mg/dL High 7-18 [facility] Comment on above: Performed By: #### L 100.0100, L500.4050 ####[facility] [address] [place], [address] SCRN MAMM (CAD)W/GODFREY BILATo n 07-19-2024 SCRN MAMM (CAD)W[facility] [address] [place] [address] SCRN MAMM (CAD)W/GODFREY BILAT MR#: [id number] Acct: [id number] Name: HEATHER RED Rep #: [id number] : 1945 F 78 From: Pa mejia MD PCP: Dr. Salvador Waller MD Status: [facility] Study: SCRN MAMM (CAD)W/GODFREY BILAT Date of Exam: 07/07 11/27 Exam# [id number] Ordering Dr: Suzette Monroy UNIX ADMINISTRATOR -[id number] MAMMOGRAPHY - BILATERAL SCREENING REASON FOR EXAM: [...] delay biopsy of a clinically suspicious abnormality. [id number] Electronically Signed: Pa Lewis MD at 14:51 EST Reading Location ID and State: [facility] / [place] , Service support , CC: Dr. Salvador Waller MD; Suzette Monroy [employer] Instructor: Signed Normal [facility] Neurology Visit Reporton Neurology Visit Report [facility] [address] [facility] [place], [address] [place] [address] OFFICE VISIT Date of Service: 07/17/24 MR#: [id number] Acct: [id number] Name: HEATHER RED Rep #: [id number] : 1945 Provider: Dr. Keily prince MD Age/Sex: 78/F Location: [facility] [place] Status: Signed HPI HPI Chief Complaint: Details: [...] evidence of atrial fibrillation. A cytochrome P450 [id number] isoenzyme test revealed a *1/*17 genotype indicating [...] extending to the knee. She sees a rn pain management, Dr. Ludwig; lumbar radiofrequency ablation and/or injections [...] on bone density test. She saw an senior talent acquisition specialist, Dr. Macedo, earlier in 2023 regarding her low back pain and right lower extremity radicular pain and surgery was not recommended. She sees a pinion polisher, Dr. Neely, and has been diagnosed with [...] revealed mod (more content not included)... Normal [facility] Dexa Bone Density Studyon Dexa Bone Density Study [facility] Imaging Services [address] [place] [address] Dexa Bone Density Study MR#: [id number] Acct: [id number] Name: HEATHER RED Rep #: [id number] : 1945 F 78 From: Pa mejia MD PCP: Dr. Salvador Waller MD Status: [facility] Study: Dexa Bone Density Study Date of Exam: 06/21/24 Exam# [id number] Ordering Dr: Salvador Waller MD [id number] STUDY: DUAL ENERGY X-RAY ABSORPTIOMETRY / DXA [...] EDT , CC: Dr. Salvador Waller MD [employer] R Instructor: Signed Normal [facility] CBC W/Diff, Automatedon 09-2 Absolute Lymph 1.39 X10 3/uL Normal 0.83-4.51 [facility] Comment on above: Performed By: #### L 100.0100, L500.4050 ####[facility] [address] [place], [address] Absolute Neut 4.5 X10 3/uL Normal 2.0-7.7 [facility] Comment on above: Performed By: #### L 100.0100, L500.4050 ####[facility] [address] [place], [address] Basophils/100 WBC (Bld) 0.5 % Normal 0-1 [facility] Comment on above: Performed By: #### L 100.0100, L500.4050 ####[facility] [address] [place], [address] Eosinophils/100 WBC (Bld) 2.6 % Normal 0-5 [facility] Comment on above: Performed By: #### L 100.0100, L500.4050 ####[facility] [address] [place], [address] Erythrocyte distribution width (RBC) [Ratio] 13.8 % Normal 11.6-14.6 [facility] Comment on above: Performed By: #### L 100.0100, L500.4050 ####[facility] [address] [place], [address] Hematocrit (Bld) [Volume fraction] 34.3 % Low 37-47 [facility] Comment on above: Performed By: #### L 100.0100, L500.4050 ####[facility] [address] [place], [address] Hemoglobin (Bld) [Mass/Vol] 10.9 g/dL Low 12.0-15.0 [facility] Comment on above: Performed By: #### L 100.0100, L500.4050 ####[facility] [address] [place], [address] IG% 0.500 Normal 0.0-0.9 [facility] Comment on above: Result Comment: IG% - Immature Granulocytes (promyelocytes, myelocytes and metamyelocytes) > 1% indicates that a LEFT SHIFT is Present. Performed By: #### L 100.0100, L500.4050 ####[facility] [address] [place], [address] Lymphocytes/100 WBC (Bld) 20.9 % Normal 19-41 [facility] Comment on above: Performed By: #### L 100.0100, L500.4050 ####[facility] [address] [place], [address] MCH (RBC) [Entitic mass] 31.5 pg Normal 27.0-32.0 [facility] Comment on above: Performed By: #### L 100.0100, L500.4050 ####[facility] [address] [place], [address] MCHC (RBC) [Mass/Vol] 31.8 g/dL Low 32-36 [facility] Comment on above: Performed By: #### L 100.0100, L500.4050 ####[facility] [address] [place], [address] MCV (RBC) [Entitic vol] 99.1 fL High 81-99 [facility] Comment on above: Performed By: #### L 100.0100, L500.4050 ####[facility] [address] [place], [address] Monocytes/100 WBC (Bld) 7.4 % Normal 0-10 [facility] Comment on above: Performed By: #### L 100.0100, L500.4050 ####[facility] [address] [place], [address] Neutrophils/100 WBC (Bld) 68.1 % Normal 47-70 [facility] Comment on above: Performed By: #### L 100.0100, L500.4050 ####[facility] [address] [place], [address] Nucleated RBC (Bld) [#/Vol] 0 10*3/uL Normal 0-5 [facility] Comment on above: Performed By: #### L 100.0100, L500.4050 ####[facility] [address] [place], [address] Platelet mean volume (Bld) [Entitic vol] 9.9 fL Normal 6.2-12.0 [facility] Comment on above: Performed By: #### L 100.0100, L500.4050 ####[facility] [address] [place], [address] Platelets (Bld) [#/Vol] 252 10*3/uL Normal 150-450 [facility] Comment on above: Performed By: #### L 100.0100, L500.4050 ####[facility] [address] [place], [address] RBC (Bld) [#/Vol] 3.46 10*6/uL Low 4.2-5.4 [facility] Comment on above: Performed By: #### L 100.0100, L500.4050 ####[facility] [address] [place], [address] RDW SD 49.4 fl High 35.1-43.9 [facility] Comment on above: Performed By: #### L 100.0100, L500.4050 ####[facility] [address] [place], [address] WBC (Bld) [#/Vol] 6.6 10*3/uL Normal 4.4-11.0 [facility] Comment on above: Performed By: #### L 100.0100, L500.4050 ####[facility] [address] [place], [address] Comprehensive Metabolic Prof ilon 05-29-2024 Albumin [Mass/Vol] 3.7 g/dL Normal 3.2-5.0 [facility] Comment on above: Performed By: #### L 100.0100, L500.4050 ####[facility] [address] [place], [address] Albumin/Globulin [Mass ratio] 1.4 {ratio} Normal 0.9-2.4 [facility] Comment on above: Performed By: #### L 100.0100, L500.4050 ####[facility] [address] [place], [address] ALK P 117 U/L Normal 45-117 [facility] Comment on above: Performed By: #### L 100.0100, L500.4050 ####[facility] [address] [place], [address] ALT [Catalytic activity/Vol] 24 U/L Normal 13-56 [facility] Comment on above: Performed By: #### L 100.0100, L500.4050 ####[facility] [address] [place], [address] AST [Catalytic activity/Vol] 24 U/L Normal 15-37 [facility] Comment on above: Performed By: #### L 100.0100, L500.4050 ####[facility] [address] [place], [address] Bilirubin [Mass/Vol] 1.30 mg/dL High 0.20-1.00 [facility] Comment on above: Result Comment: For patients on eltrombopag therapy, use of Dimension Mobeetie TBIL is not recommended. Performed By: #### L 100.0100, L500.4050 ####[facility] [address] [place], [address] BUN/CRE 22.9 RATIO High 10-20 [facility] Comment on above: Performed By: #### L 100.0100, L500.4050 ####[facility] [address] [place], [address] CA,Total 9.3 mg/dL Normal 8.5-10.1 [facility] Comment on above: Performed By: #### L 100.0100, L500.4050 ####[facility] [address] [place], [address] Chloride [Moles/Vol] 107 mmol/L Normal 98-107 [facility] Comment on above: Performed By: #### L 100.0100, L500.4050 ####[facility] [address] [place], [address] CO2 [Moles/Vol] 29.0 mmol/L Normal 21.0-32.0 [facility] Comment on above: Performed By: #### L 100.0100, L500.4050 ####[facility] [address] [place], [address] Creatinine [Mass/Vol] 0.96 mg/dL Normal 0.55-1.02 [facility] Comment on above: Result Comment: The validity of the calculated GFR GFRAA in patients over 70 years has not been determined. Clinical correlation is essential. Performed By: #### L 100.0100, L500.4050 ####[facility] [address] [place], [address] EST GFR - AA 72 mL/min Normal >60 [facility] Comment on above: Result Comment: Afri can Italian GFR Calc Performed By: #### L 100.0100, L500.4050 ####[facility] [address] [place], [address] GAP 4 Low 5-15 [facility] Comment on above: Performed By: #### L 100.0100, L500.4050 ####[facility] [address] [place], [address] GFR/1.73 sq M.predicted among non-blacks MDRD (S/P/Bld) [Vol rate/Area] 59 mL/min/{1.73_m2} Low >60 [facility] Comment on above: Result Comment: Non- GFR Calc Performed By: #### L 100.0100, L500.4050 ####[facility] [address] [place], [address] Globulin (S) [Mass/Vol] 2.7 g/dL Normal 2.2-4.2 [facility] Comment on above: Performed By: #### L 100.0100, L500.4050 ####[facility] [address] [place], [address] Glucose [Mass/Vol] 101 mg/dL Normal 74-106 [facility] Comment on above: Result Comment: Fast ing Glucose result from 100 to 125 mg/dL suggests IMPAIRED HOMEOSTASIS per A.D.A. criteria. Performed By: #### L 100.0100, L500.4050 ####[facility] [address] [place], [address] Potassium [Moles/Vol] 4.2 mmol/L Normal 3.5-5.1 [facility] Comment on above: Performed By: #### L 100.0100, L500.4050 ####[facility] [address] [place], [address] Sodium [Moles/Vol] 140 mmol/L Normal 136-145 [facility] Comment on above: Performed By: #### L 100.0100, L500.4050 ####[facility] [address] [place], [address] T PROT 6.4 g/dL Normal 6.4-8.2 [facility] Comment on above: Performed By: #### L 100.0100, L500.4050 ####[facility] [address] [place], [address] Urea nitrogen [Mass/Vol] 22 mg/dL High -18 [facility] Comment on above: Performed By: #### L 100.0100, L500.4050 ####[facility] [address] [place], [address] Inital Evaluation (1) - PTon 05-24-2024 Inital Evaluation (1) - PT [facility] Physical Therapy Health[address] [place] [address] / REHABILITATION SERVICES INITIAL EVALUATION MR#: [id number] Acct: [id number] Name: HEATHER RED Rep #: [id number] : 1945 78 From: Vern Blanton PT. [...] reduce ri (more content not included)... Normal [facility] L/S Spine Min 4 Views04-07 L/S Spine Min 4 Views [facility] Radiology [address] [place] [address] L/S Spine Min 4 Views MR#: [id number] Acct: [id number] Name: HEATHER RED Rep #: [id number] : 1945 F 78 From: Galen coats MD PCP: Dr. Salvador Waller MD Status: DEP AMB Study: L/S Spine Min 4 Views Date of Exam: 05/04/24 Exam# [id number] Ordering Dr: Almaz Paz [id number] STUDY: X-RAY - LUMBAR SPINE REASON FOR [...] CC: HOMA Campos; Dr. Salvador Waller MD [employer] R Instructor: Signed Normal [facility] Orthopedic Visit Reporton Orthopedic Visit Report [facility] [address] [place] [address] OFFICE VISIT Date of Service: 05/04/24 MR#: [id number] Acct: [id number] Name: HEATHER RED Rep #: [id number] : 1945 Provider: Dr. Herson Macedo MD Age/Sex: 78/F Location: [facility] [place] Status: Signed Intake Vital Signs 03/07/24 13:03 [...] Nosebleed Degenerative disc disease, cervical Occipital headache [id number] ultra-rapid metabolizer Obstructive sleep apnea on CPAP [...] Smoking Stat (more content not included)... Normal [facility] Comprehensive Metabolic Prof ilon 04-03-2024 Albumin [Mass/Vol] 3.7 g/dL Normal 3.2-5.0 [facility] Comment on above: Performed By: #### L 500.4050 ####[facility] [address] [place], [address] Albumin/Globulin [Mass ratio] 1.2 {ratio} Normal 0.9-2.4 [facility] Comment on above: Performed By: #### L 500.4050 ####[facility] [address] [place], [address] ALK P 122 U/L High 45-117 [facility] Comment on above: Performed By: #### L 500.4050 ####[facility] [address] [place], [address] ALT [Catalytic activity/Vol] 37 U/L Normal 13-56 [facility] Comment on above: Performed By: #### L 500.4050 ####[facility] [address] [place], [address] AST [Catalytic activity/Vol] 35 U/L Normal 15-37 [facility] Comment on above: Performed By: #### L 500.4050 ####[facility] [address] [place], [address] Bilirubin [Mass/Vol] 1.20 mg/dL High 0.20-1.00 [facility] Comment on above: Result Comment: For patients on eltrombopag therapy, use of Dimension Mobeetie TBIL is not recommended. Performed By: #### L 500.4050 ####[facility] [address] [place], [address] BUN/CRE 21.2 RATIO High 10-20 [facility] Comment on above: Performed By: #### L 500.4050 ####[facility] [address] [place], [address] CA,Total 9.1 mg/dL Normal 8.5-10.1 [facility] Comment on above: Performed By: #### L 500.4050 ####[facility] [address] [place], [address] Chloride [Moles/Vol] 105 mmol/L Normal 98-107 [facility] Comment on above: Performed By: #### L 500.4050 ####[facility] [address] [place], [address] CO2 [Moles/Vol] 29.0 mmol/L Normal 21.0-32.0 [facility] Comment on above: Performed By: #### L 500.4050 ####[facility] [address] [place], [address] Creatinine [Mass/Vol] 0.99 mg/dL Normal 0.55-1.02 [facility] Comment on above: Result Comment: The validity of the calculated GFR GFRAA in patients over 70 years has not been determined. Clinical correlation is essential. Performed By: #### L 500.4050 ####[facility] [address] [place], [address] EST GFR - AA 69 mL/min Normal >60 [facility] Comment on above: Result Comment: Afri can Italian GFR Calc Performed By: #### L 500.4050 ####[facility] [address] [place], [address] GAP 6 Normal 5-15 [facility] Comment on above: Performed By: #### L 500.4050 ####[facility] [address] [place], [address] GFR/1.73 sq M.predicted among non-blacks MDRD (S/P/Bld) [Vol rate/Area] 57 mL/min/{1.73_m2} Low >60 [facility] Comment on above: Result Comment: Non- GFR Calc Performed By: #### L 500.4050 ####[facility] [address] [place], [address] Globulin (S) [Mass/Vol] 3.1 g/dL Normal 2.2-4.2 [facility] Comment on above: Performed By: #### L 500.4050 ####[facility] [address] [place], [address] Glucose [Mass/Vol] 153 mg/dL High 74-106 [facility] Comment on above: Result Comment: Fast ing Glucose result greater than or equal to 126 mg/dL suggests DIABETES MELLITUS per A.D.A. criteria. Performed By: #### L 500.4050 ####[facility] [address] [place], [address] Potassium [Moles/Vol] 3.9 mmol/L Normal 3.5-5.1 [facility] Comment on above: Performed By: #### L 500.4050 ####[facility] [address] [place], [address] Sodium [Moles/Vol] 140 mmol/L Normal 136-145 [facility] Comment on above: Performed By: #### L 500.4050 ####[facility] [address] [place], [address] T PROT 6.8 g/dL Normal 6.4-8.2 [facility] Comment on above: Performed By: #### L 500.4050 ####[facility] [address] [place], [address] Urea nitrogen [Mass/Vol] 21 mg/dL High 7-18 [facility] Comment on above: Performed By: #### L 500.4050 ####[facility] [address] [place], [address] Spine Lumbar W/WO Contraston 03-28-2024 Spine Lumbar W/WO Contrast [facility] Imaging Services [address] [place], [place] [address] Spine Lumbar W/WO Contrast MR#: [id number] Acct: [id number] Name: HEATHER RED Rep #: [id number] : 1945 F 78 From: Edouard Melvin MD PCP: Dr. Salvador Waller MD Status: REG CLI Study: Spine Lumbar W/WO Contrast Date of Exam: 03/07 11/27 Exam# [id number] Ordering Dr: Keily Winter MD [id number] STUDY: MRI LUMBAR SPINE WITH AND WITHOUT [...] Salvador Waller MD; Dr. Keily Winter MD [employer] Instructor: Signed Normal [facility] Abdomen Limitedon 03-21-[address] [facility] Imaging Services [address] [place] [address] Abdomen Limited MR#: [id number] Acct: [id number] Name: HEATHER RED Rep #: [id number] : 1945 F 78 From: Edouard Melvin MD PCP: Dr. Salvador Waller MD Status: REG CLI Study: Abdomen Limited Date of Exam: 03/21/24 Exam# [id number] Ordering Dr: Ade Neely MD [id number] STUDY: ABDOMINAL ULTRASOUND - RIGHT UPPER QUADRANT [...] Ade Neely MD; Dr. Salvador Waller MD [employer] R Instructor: Signed Normal [facility] US BREAST LEFT LIMITEDon US BREAST LEFT LIMITED ORIGINAL FROM: ALTHEA [address] [address] PROCEDURE FOR: HEATHERRA Jose Juan RED [address] [place] [address] Home: PID#: [id number] Exam#: [id number] : 1945 Age: 77 TO: SALVADOR WALLER MD [address] [place] [address] EXAMINATION: ULTRASOUND OF THE LEFT BREAST 08/02/2023 [...] Provider: SALVADOR WALLER CLINICAL: 6 MONTHS FOLLOW-UP. Record Changer Assembler: BRYAN PERDOMO(R) RDMS letter sent: Normal BI-RADS 1 and 2 Ultrasound BI-RADS: 2 Benign Normal [facility] ([place]) [place] MAMMOGRAM DIAGNOSTIC BILA TERAL W/TOMOon 07-16-2023 [place] MAMMOGRAM DIAGNOSTIC BILATERAL W/GODFREY ORIGINAL FROM: [address] [address] PROCEDURE FOR: HEATHER RED [address] [place] [address] Home: PID#: [id number] Exam#: [id number] : 1945 Age: 77 TO: SALVADOR WALLER MD [address] [address] EXAMINATION: DIAGNOSTIC BILATERAL MAMMOGRAM WITH TOMOSYNTHESIS, 07/16/2023 [...] addition to annual mammographic screening per the [employer]. BIRADS: MAMMOGRAM BI-RADS: 2: Benign [...] 6 MONTHS FOLLOW-UP MAMMOGRAPHIC DENSITY LEFT BREAST. Record Changer Assembler: MIGUEL ALMANZAR RT (R) (M) (CT) letter sent: Normal BI-RADS 1 and 2 Mammogram BI-RADS: 2 Benign Normal [facility] ([place]) US BREAST LEFT LIMITEDon US BREAST LEFT LIMITED ORIGINAL FROM: [place] [address] PROCEDURE FOR: HEATHER RED [address] [place] [address] Home: PID#: [id number] Exam#: [id number] : 1945 Age: 77 TO: SALVADOR HAIRST[place] [address] EXAMINATION: ULTRASOUND OF THE LEFT BREAST 01/01/2023 [...] Provider: SALVADOR WALLER CLINICAL: 6 MONTHS FOLLOW-UP. Record Changer Assembler: BRYAN WALKER RT(R) RDMS letter sent: Probably Benign BI-RADS 3 Ultrasound BI-RADS: 3 Probably benign Normal [facility] ([place]) LABORATORYOrdered By: SYSTEM SYSTEM on 09-12-2022 Albumin [...] Invalid Interpretation Code 82 - 115 mg/dL [facility] Vital Signs Date Time Vital Sign Value Performing Clinician Dustin vargas 09-12-2022 09:56-0500 Diastolic Blood Pressure Non-Invasive 60 1 DALE HALLEMILADYS ETCHER MACHINE-FOUNDRY FINISHER [facility] 09-12-2022 09:56-0500 Heart rate 72 /min DALEMILLA NERIMILADYS ETCHER MACHINE-FOUNDRY FINISHER [facility] 09-12-2022 09:56-0500 Respiratory rate 16 /min DALEMILLA NERIMILADYS ETCHER MACHINE-FOUNDRY FINISHER [facility] 09-12-2022 09:56-0500 Systolic Blood Pressure Non-Invasive 118 1 DALE NERIGREGORION ETCHER MACHINE-FOUNDRY FINISHER [facility] 09-12-2022 08:51-0500 Heart rate 92 /min DALEMILLA NERIMILADYS ETCHER MACHINE-FOUNDRY FINISHER [facility] 09-12-2022 08:21-0500 Body temperature 98.42 [degF] DALEMILLA NERIMILADYS ETCHER MACHINE-FOUNDRY FINISHER [facility] 09-12-2022 08:21-0500 Diastolic Blood Pressure Non-Invasive 92 1 DALE HALLEMILADYS ETCHER MACHINE-FOUNDRY FINISHER [facility] 09-12-2022 08:21-0500 Heart rate 62 /min DALEMILLA NERIMILADYS ETCHER MACHINE-FOUNDRY FINISHER [facility] 09-12-2022 08:21-0500 Respiratory rate 16 /min DALE RIVERON ETCHER MACHINE-FOUNDRY FINISHER [facility] 09-12-2022 08:21-0500 Systolic Blood Pressure Non-Invasive 180 1 DALEMILLA RIVERON ETCHER MACHINE-FOUNDRY FINISHER [facility] 09-12-2022 05:40-0500 Body temperature 97.52 [degF] DALE RIVERON ETCHER MACHINE-FOUNDRY FINISHER [facility] 09-12-2022 05:40-0500 Diastolic Blood Pressure Non-Invasive 69 1 DALEMILLA RIVERON ETCHER MACHINE-FOUNDRY FINISHER [facility] 09-12-2022 05:40-0500 Heart rate 68 /min DALEMILLA RIVERON ETCHER MACHINE-FOUNDRY FINISHER [facility] 09-12-2022 05:40-0500 Respiratory rate 18 /min DALEMILLA RIVERON ETCHER MACHINE-FOUNDRY FINISHER [facility] 09-12-2022 05:40-0500 Systolic Blood Pressure Non-Invasive 110 1 DALE RIVERON ETCHER MACHINE-FOUNDRY FINISHER [facility] 09-11-2022 23:08-0500 Body temperature 98.06 [degF] DALEMILLA RIVERON ETCHER MACHINE-FOUNDRY FINISHER [facility] 09-11-2022 23:08-0500 Heart rate 81 /min DALEMILLA RIVERON ETCHER MACHINE-FOUNDRY FINISHER [facility] 09-11-2022 19:45-0500 Heart rate 69 /min DALEMILLA NERINEN ETCHER MACHINE-FOUNDRY FINISHER [facility] 09-11-2022 16:27-0500 Heart rate 69 /min DALEMILLA RIVERON ETCHER MACHINE-FOUNDRY FINISHER [facility] 09-11-2022 16:02-0500 Body height 162.6 cm DALE FLORES ETCHER MACHINE-FOUNDRY FINISHER [facility] 09-11-2022 16:02-0500 Body weight 74.2 kg DALEMILLA RIVERON ETCHER MACHINE-FOUNDRY FINISHER [facility] 09-11-2022 16:02-0500 Body weight 28.06 kg/m2 DALEMILLA NERINEN ETCHER MACHINE-FOUNDRY FINISHER [facility] 09-11-2022 09:44-0500 Body height 162.6 cm DALEMILLA FLORES ETCHER MACHINE-FOUNDRY FINISHER [facility] 09-11-2022 09:44-0500 Body weight 74.2 kg DALE FLORES ETCHER MACHINE-FOUNDRY FINISHER [facility] Encounters Encounter Date Encounter Type Care Provider Facility Start: 03-20-2025 ambulatory Salvador Waller Facility:[facility] Start: 03-15-2025 End: 03-15-2025 [facility] Start: 03-06-2025 End: 03-06-2025 ambulatory Salvador Waller Facility:[facility] Start: 03-01-2025 End: 03-01-2025 ambulatory Salvador Waller Facility:[facility] Start: 03-01-2025 End: 03-01-2025 ambulatory Salvador Waller Facility:[facility] Start: 02-02-2025 End: 02-02-2025 ambulatory Salvador Waller Facility:[facility] Start: 01-11-2025 End: 01-11-2025 ambulatory Salvador Waller Facility:[facility] Start: 01-05-2025 End: 01-05-2025 ambulatory Salvador Waller Facility:[facility] Start: 12-14-2024 End: 12-14-2024 ambulatory Keily Winter Facility:[facility] Start: 11-16-2024 End: 11-16-2024 ambulatory Salvador Waller Facility:[facility] Start: 11-09-2024 End: 11-09-2024 ambulatory Salvador Waller Facility:[facility] Start: 10-30-2024 End: 10-30-2024 ambulatory Salvador Waller Facility:[facility] Start: 07-31-2024 End: 07-31-2024 [facility]ulatory [facility] Start: 07-19-2024 End: 07-19-2024 ambulatory BOWEN MARIE Facility:[facility] Start: 07-17-2024 End: 07-17-2024 ambulatory Keily Winter Facility:[facility] Start: 06-27-2024 End: 06-27-2024 ambulatory Salvador Waller Facility:[facility] Start: 06-21-2024 End: 06-21-2024 ambulatory Salvador Waller Facility:[facility] Start: 05-29-2024 End: 05-29-2024 ambulatory Salvador Waller Facility:[facility] Start: 05-04-2024 End: 05-04-2024 ambulatory Salvador Waller Facility:[facility] Start: 04-03-2024 End: 04-03-2024 ambulatory Salvador Waller Facility:[facility] Start: 03-28-2024 End: 03-28-2024 ambulatory Salvador Waller Facility:[facility] Start: 03-21-2024 End: 03-21-2024 ambulatory [facility] Start: 08-02-2023 End: 08-03-[address] SALVADOR WALLER MD Facility:[facility] Start: 07-16-2023 End: 07-17-[address] SALVADOR WALLER MD Facility:[facility] Start: 07-16-2023 End: 07-16-[address] SALVADOR WALLER MD [facility] Start: 01-01-2023 End: 01-02-[address] SALVADOR WALLER MD Facility:[facility] Start: 01-01-2023 End: 01-01-[address] SALVADOR WALLER MD [facility] Start: 09-21-2022 End: 10-14-2022 Physical therapy management KEILY WINTER MD. [facility] Start: 09-11-2022 End: 09-12-2022 Observation DALE FLORES ETCHER MACHINE-FOUNDRY FINISHER [facility] Start: 09-08-2022 End: 09-08-[address] SALVADOR WALLER MD [facility] Start: 05-19-2022 End: 05-19-[address] SALVADOR WALLER MD [facility] Start: 05-13-2022 End: 05-13-[address] SALVADOR WALLER MD [facility] Procedures Date Procedure Procedure Detail Performing Clinician Start: 09-06-2021 Back structure, excl uding neck (body structure) DR SALVADOR WALLER MD Start: 09-06-2020 Stress test treadmil l (physical object) DALE RIVEROZackery ETCHER MACHINE-FOUNDRY FINISHER Start: 09-11-2009 Total knee replacement DALE NERIMILADYS ETCHER MACHINE-FOUNDRY FINISHER Start: 09-11-2004 Cholecystectomy DALE FLORES ETCHER MACHINE-FOUNDRY FINISHER Start: 09-11-1979 Arthroscopy of knee DANGELO RIVEROZackery ETCHER MACHINE-FOUNDRY FINISHER Start: 09-11-1974 section DALE NERIMILADYS ETCHER MACHINE-FOUNDRY FINISHER Bilateral cataracts (disorder) DR SALVADOR WALLER MD Carpal tunnel syndro me (disorder) DR SALVADOR WALLER MD Decompression of med tacho nerve DALE KENNEN ETCHER MACHINE-FOUNDRY FINISHER Dilation and curettage DR HOMA WALLER MD Heel structure (body structure) DR SALVADOR WALLER MD Comment on above: heel spur removed Removal of ovarian cyst DR Anneliese WALLER MD Comment on above: right Repair of musculoten dinous cuff of shoulder DR SALVADOR WALLER MD Immunizations Immunization Date Immunization Notes Care Provider [facility] 06-05-2022 influenza virus vaccine, unspecified formulation DALE KENNEN ETCHER MACHINE-FOUNDRY FINISHER [facility] 12-23-2021 SARS-CoV-2 (COVID-19 ) mRNA-1273 vaccine DALE KENNEN ETCHER MACHINE-FOUNDRY FINISHER [facility] 07-04-2021 influenza virus vaccine, unspecified formulation DALE KENNEN ETCHER MACHINE-FOUNDRY FINISHER [facility] 06-30-2021 SARS-CoV-2 (COVID-19 ) mRNA-1273 vaccine DALE KENNEN ETCHER MACHINE-FOUNDRY FINISHER [facility] 04-16-2021 zoster vaccine recombinant DALE KENNEN ETCHER MACHINE-FOUNDRY FINISHER [facility] 12-03-2020 SARS-CoV-2 (COVID-19 ) mRNA-1273 vaccine DALE KENNEN ETCHER MACHINE-FOUNDRY FINISHER [facility] 11-05-2020 SARS-CoV-2 (COVID-19 ) mRNA-1273 vaccine DALE KENNEN ETCHER MACHINE-FOUNDRY FINISHER [facility] 06-23-2019 influenza virus vaccine, unspecified formulation DALE KENNEN ETCHER MACHINE-FOUNDRY FINISHER [facility] 06-12-2019 zoster vaccine recombinant DALE KENNEN ETCHER MACHINE-FOUNDRY FINISHER [facility] 06-08-2018 tetanus toxoid, redu naye diphtheria toxoid, and acellular pertussis vaccine, adsorbed; Translations: [Boostrix (Tdap)] DR SALVADOR WALLER MD [facility] 05-31-2018 influenza virus vaccine, unspecified formulation DALEMILLA NERIMILADYS ETCHER MACHINE-FOUNDRY FINISHER [facility] 06-04-2017 influenza virus vaccine, unspecified formulation DALEMILLA NERIMILADYS ETCHER MACHINE-FOUNDRY FINISHER [facility] 06-04-2016 influenza virus vaccine, unspecified formulation DALEMILLA NERIMILADYS ETCHER MACHINE-[facility] Payers Date Payer Category Payer Self-pay 2022 Medicare [id number] 2022 Private Health Insurance [id number] 1945 Unknown [id number] 2.16.8 [id number] 1945 Unknown [id number] 2.16.8 40.1.579442.3.579.2.627 1945 Unknown [id number] 2.16.8 40.1.344042.3.579.2.627 1945 Unknown [id number] 2.16.8 40.1.458099.3.579.2.627 Unknown [id number] 2.16.8 40.1.633460.3.579.2.462 Unknown [id number] 2.16.8 40.1.660566.3.579.2.462 Unknown [id number] 2.16.8 40.1.949255.3.579.2.462 Unknown [id number] 2.16.8 40.1.336659.3.579.2.462 Unknown [id number] 2.16.8 40.1.437618.3.579.2.462 Unknown [id number] 2.16.8 40.1.326244.3.579.2.462 Unknown [id number] 2.16.8 40.1.211309.3.579.2.462 Unknown [id number] 2.16.8 40.1.011406.3.579.2.462 Unknown [id number] 2.16.8 40.1.659420.3.579.2.462 Unknown [id number] 2.16.8 40.1.122784.3.579.2.462 Unknown [id number] 2.16.8 40.1.361519.3.579.2.462 Unknown [id number] 2.16.8 40.1.397922.3.579.2.462 Unknown [id number] 2.16.8 40.1.747410.3.579.2.462 Unknown [id number] 2.16.8 40.1.968038.3.579.2.462 Unknown [id number] 2.16.8 40.1.466290.3.579.2.462 Unknown [id number] 2.16.8 40.1.253755.3.579.2.462 Unknown [id number] 2.16.8 40.1.046926.3.579.2.462 Unknown [id number] 2.16.8 40.1.494054.3.579.2.462 Unknown [id number] 2.16.8 40.1.471168.3.579.2.462 Unknown [id number] 2.16.8 40.1.686843.3.579.2.462 Unknown [id number] 2.16.8 40.1.539246.3.579.2.462 Unknown [id number] 2.16.8 40.1.480027.3.579.2.462 Unknown [id number] 2.16.8 40.1.625418.3.579.2.462 Social History Date Type Detail Facility Start: 09-11-2022 Tobacco smoking status Never s moked tobacco (finding) [facility] Sex Assigned At Female [facility] Functional Status Date Assessment Result Facility 09-21-2022 Functional Status OBJECTIVE BP: 125/72 Gait: no marked deficits with no AD Transfers: WNL Sensation: no abnormalities or asymmetries Reflexes: NT MMT: 4+/5 grossly Activities - specifc balance confidence scale: 85% m-cstib composite/avg score: 1.94, 7% impairment orthostatic hypotension screening: negative - supine 108/62, standing 123/70 [facility] 09-12-2022 Functional Status Room check performed [facility] 09-12-2022 Functional Status Independent [facility] 09-12-2022 Functional Status [facility] 09-12-2022 Functional Status [facility] 09-12-2022 Functional Status [facility] 09-12-2022 Functional Status [facility] 09-11-2022 Functional Status Sensory Deficits None [facility] Mental Status Date Assessment Result Facility 09-12-2022 Mental Status Orientation Oriented x 4 [facility] 09-12-2022 [facility] Status [facility]-11[facility]22 Mental Status [facility] 09-11-2022 Mental Status Orientation Asse ssment Oriented x 4 [facility] Clinical Notes 09-11-2022 to 07-16-2023 Note Date & Type Note Facility 07-16-2023 Note ORIGINAL FROM: [facility] [address] [place], [place] [address] PROCEDURE FOR: [place] [address] Home: PID#: [id number] Exam#: [id number] : 1945 Age: 77 TO: SALVADOR WALLER MD [address] [place] [id number] EXAMINATION: DIAGNOSTIC BILATERAL MAMMOGRAM WITH TOMOSYNTHESIS, 07/16/2023 [...] addition to annual mammographic screening per the [employer]. BIRADS: MAMMOGRAM BI-RADS: 2: Benign [...] 6 MONTHS FOLLOW-UP MAMMOGRAPHIC DENSITY LEFT BREAST. Record Changer Assembler: MIGUEL ALMANZAR RT (R) (M) (CT) letter sent: Normal BI-RADS 1 and 2 Mammogram BI-RADS: 2 Benign [facility] 01-01-2023 Note ORIGINAL FROM: [facility] [address] [place], [place] [address] PROCEDURE FOR: HEATHER CalderonCarole TEOFILO [address] [place] [address] Home: PID#: [id number] Exam#: [id number] : 1945 Age: 77 TO: SALVADOR WALLER MD [address] [place] [address] EXAMINATION: ULTRASOUND OF THE LEFT BREAST 01/01/2023 [...] Provider: SALVADOR WALLER CLINICAL: 6 MONTHS FOLLOW-UP. Record Changer Assembler: BRYAN PERDOMO(Zoe) RDMS letter sent: Probably Benign BI-RADS 3 Ultrasound BI-RADS: 3 Probably benign [facility] 01-01-2023 Note ORIGINAL FROM: [facility] [address] [place] [address] PROCEDURE FOR: HEATHERRA Jose Juan [address] [place] [address] Home: PID#: [id number] Exam#: [id number] : 1945 Age: 77 TO: SALVAD[place] [address] EXAMINATION: ULTRASOUND OF THE LEFT BREAST 01/01/2023 [...] Provider: SALVADOR WALLER CLINICAL: 6 MONTHS FOLLOW-UP. Record Changer Assembler: BRYAN WALKER RT(Zoe) RDMS letter sent: Probably Benign BI-RADS 3 Ultrasound BI-RADS: 3 Probably benign [facility] 09-12-2022 Hospital Discharge instructions Patient Education 09/12/2022 [...] Follow these instructions at home: Medicines Take kvip-shd-kfpuyuy and prescription medicines only as told by [...] is important. Where to find more information [place] [employer]: www.strokeassociation.org National Stroke Association: www.stroke.org [...] 06/02/2006 Document Revised: 02/28/2019 Document Reviewed: 10/05/2017 [employer] Patient Education 2020 [employer]. Follow Up Care 09/11/2022 09:19:42 With:SALVADOR WALLER MD Address: [address] [place] [phone] When:3-5 days [facility] 09-12-2022 Note Discharge Instructions Thank you for allowing [facility] to assist you with your healthcare needs. The following is important discharge information regarding your hospital visit. Your Diagnosis TIA (transient ischemic attack) High blood pressure Hypercholesterolemia What to do next Follow Up Appointments Follow Up with SALVADOR WALLER MD When Within 3-5 days Where: [address] [place] [address] [phone] The Following Activity and Diet Have Been [...] Follow these instructions at home: Medicines Take ejzo-fqg-bykuvdl and prescription medicines only as told by [...] is important. Where to find more information [place] [employer]: www.strokeassociation.org National Stroke Association: www.stroke.org [...] 06/02/2006 Document Revised: 02/28/2019 Document Reviewed: 10/05/2017 [employer] Patient Education 2020 [employer]. Additional Information VACCINATE! IT SAVES LIVES! Members of the community who have not yet received the COVID-19 vaccine and would like to receive it can visit one of [facility] vaccine clinics. There are many vaccine clinic locations within the [facility]. For locations and available times, please visit https://gettheshot.coronavirus.[place] .gov/. It is important to note that some COVID mobile vaccine clinics are held outdoors and may be canceled in rainy or stormy conditions. To learn more about pediatric vaccinations (ages 5-11), we invite you to visit the [facility] webpage. https://www.[facility].org/page s/7513-Hybzx-Ydawmznzxji-Frequently -Asked-Questions.html To learn more about the COVID-19 vaccine, we invite you to visit the [employer] website for a list of frequently asked questions. [email or web address].[employer]/assets/Patients -and-Visitors/nwfeo-Dalodoj-Tcnmixx tly_Asked-Questions.pdf [facility] Patient Portal Access Instructions: Stay connected with your healthcare team and access your personal medical information anytime with the [facility] Patient Portal.If you would like a full copy of your medical records, please contact the [facility] Medical Records Department, Wednesday through Wednesday between 8a.m. and 4:30p.m. Please follow the directions below to access the portal: 1.Access the email account you provided upon registration to the [facility].2.Look for an invitation email from [facility].3.Open the email and access the invitation link: Accept Invitation to [facility].Fill in the required childers to create your account. Sign into [email or web address] with your username and password that you [...] you will allow to register on the [facility] Patient Portal for access to your information. You can also access the [facility] Patient Portal on the [employer] evelyn. Simply click on Health Records under [...] Call your local pharmacy or go to http://bit.Copanion/5N7Op3h to find one close to you.3.Make use of household items: Use cat litter or old coffee grounds to dispose medications if other options are not available. Mix your drugs with these household products, seal them in an airtight container and throw it into the garbage. Call [facility]: [phone] to be sure your drugs can be [...] aware that I should contact my doctor. 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 Patient presented to [facility] emergency department on 09/11/2022 with reports of feeling unsteady and leaning to the right side since she woke up at 7 AM. Patient was last normal at 11 PM the night before. Patient has a prior history of CVA and TIAs. Patient follows with neurology at [facility]. Last seen at the beginning of August [...] for echocardiogram as this was done at [facility] 3 weeks ago. Obtain lipid panel and A1c. Patient does already follow with neurology at [facility]. Echocardiogram From 08/25/2022 demonstrates LVEF 60%, apical [...] by DALE FLORES on 09/11/2022 06:39 PM [facility] 09-11-2022 Evaluation + Plan note Extrac marilyn [...] for echocardiogram as this was done at [facility] 3 weeks ago. Obtain lipid panel and A1c. Patient does already follow with neurology at [facility]. Echocardiogram From 08/25/2022 demonstrates LVEF 60%, apical [...] and may include grammatical and/or spelling errors. [facility] 01-06-2023 Note ORIGINAL EXAMINATION: CT Angiogram of [...] 09/11/2022 1:44:15 PM Ordering Provider: SOLIS MINA [facility]01-06-2023 Note ORIGINAL EXAMINATION: CTA neck: TECHNIQUE: Contiguous [...] 09/11/2022 1:05:09 PM Ordering Provider: SOLIS MINA [facility]01-06-2023 Note ORIGINAL EXAMINATION: CT Angiogram of the [...] Sign Date: 09/11/2022 1:44:15 PM Ordering Provider: [facility]-06-2023 Note ORIGINAL EXAMINATION: CTA neck: TECHNIQUE: Contiguous [...] Date: 09/11/2022 1:05:09 PM [facility] ORIGINAL HISTORY: Chest pain, short of [...] Date: 09/11/2022 11:11:02 AM [facility] ORIGINAL HISTORY: Chest pain, short of [...] Date: 09/11/2022 11:11:02 AM Ordering Provider: SOLIS [facility] Note ORIGINAL HISTORY: Change in mental status, [...] Date: 09/11/2022 10:50:07 AM [facility] Note ORIGINAL HISTORY: Change in mental [...] 09/11/2022 10:50:07 AM [facility]ing [facility] No data available for this section [facility] Hospital Discharge instructions No data available for this section [facility] Progress note No data available for this section [facility] Summary Purpose Family History No Family History Records Found Advance Directives No Advanced Directives Records FoundNo Advanced Directives Records Found Additional Source Comments Care Team (unrecognized sect ion and content) Care Team Personnel Name: Bryan Dhaliwalrgiorgio Valdovinos PT Position: P3 Scheduling - Pump Tender Advanced Member Role: Other Name: SALVADOR WALLER MD Member Role: Primary Care Physician Address: Address: [address] [place] [address] [address] Care Team Related Persons Name: FEDE RED Address: Home [address] Care Team Personnel Name: Bryan Dhaliwal PT Position: P3 Scheduling - Pump Tender Advanced Member Role: Other Name: SALVADOR WALLER MD Member Role: Primary Care Physician Address: Address: [address] [place] [address] [address] [place] [address] [place] Name: NITHYA Rosas Position: ETTA RN Member Role: ED RN Name: MD MNIA TIMOTHY MD Position: ED Physician Member Role: ED Physician Address: Address: [address] [place], [place] [address] Care Team Related Persons Name: FEDE RED Address: Home [address] Care Team Personnel Name: Bryan Dhaliwal PT Position: P3 Scheduling - Pump Tender Advanced Member Role: Other Name: SALVADOR WALLER MD Member Role: Primary Care Physician Address: Address: [address] [facility] [address] [place] [address] [place] Care Team Related Persons Name: FEDE RED Address: Home [address] [place] [id number] Patient Care team informatio n (unrecognized section and content) Care Team Personnel Name: Bryan Dhaliwal PT Position: P3 Scheduling - Pump Tender Advanced Member Role: Other Name: SALVADOR WALLER MD Member Role: Primary Care Physician Address: Address: [address] [place] [address] Care Team Related Persons Name: FEDE RED Address: Home [address] Care Team Personnel Name: Bryan Dhaliwal PT Position: P3 Scheduling - Pump Tender Advanced Member Role: Other Name: SALVADOR WALLER MD Member Role: Primary Care Physician Address: Address: [address] [place] [address] Care Team Related Persons Name: FEDE RED Address: [address] [phone] Care Team Personnel Name: Bryan Dhaliwal PT Position: P3 Scheduling - Pump Tender Advanced Member Role: Other Name: SALVADOR WALLER MD Member Role: Primary Care Physician Address: Address: [address] [place] [address] [address] Care Team Related Persons Name: FEDE RED Address: Home [address] [phone] [place] INFORMATION SOURCE (unrecogn ized section and content) DATE CREATED AUTHOR 11/12/2023 [facility] ([place]) DATE [facility]ATED [facility] FOR RECORDS PERTAINING TO PATIENTS WHO [...] BE BASED ON THE PRIMARY CLINICAL RECORDS. [facility] [employer] [facility]. provides no warranty or guarantee of the accuracy or completeness of information in this document.
== END | disposition home or self-care (01) ==
LOC: LABSPEC 16:31
PROVIDERS: PCP Family Medicine; Visit Provider Nurse Practitioner Women's Health
DX: N95.0 Postmenopausal bleeding (principal)
CPT/HCPCS: 88305

== ENCOUNTER → 2025-03-29 | Outpatient (CLI) | payer MEDICARE, OTHER, SELFPAY ==
[2025-03-29 18:19] LABS: Anion Gap 9 (5-15); BUN 17 mg/dL (4-19); BUN/Creat Ratio 18.5 RATIO (10-20); Calcium,Total 9.1 mg/dL (7.6-11.0); Carbon Dioxide 27.8 mmol/L (21.0-32.0); Chloride 103 mmol/L (98-108); Glucose 94 mg/dL (70-99); Magnesium 2.0 mg/dL (1.5-2.2); Potassium 4.4 mmol/L (3.3-5.1)
--- OUTSIDE RECORDS SUMMARY | 2025-03-29 23:08 | XMS RPT_ITS | CCD ---
Author Organization [facility] Care Team Providers Care Helper Electrical Name Role Phone SUNIL JUÁREZ, DR SALVADOR Enriquez Primary Care Physician Isra PT, Aruna Unavailable Unavailable SUNIL JUÁREZ, DR SALVADOR Enriquez Attending Unavailparadise BARBER MD, DR SALVADOR Enriquez Primary Care Unavailparadise BARBER MD, DR SALVADOR Enriquez Primary Care Unavailparadise BARBER MD, DR SALVADOR Enriquez Attending Unavailparadise BARBER MD, DR SALVADOR Enriquez Primary Care Unavailparadise BARBER MD, DR SALVADOR Enriquez Attending Unavailparadise BARBER MD, DR SALVADOR Enriquez Primary Care Unavailparadise BARBER MD, DR SALVADOR Enriquez Attending UnavailHerson Hall Attending Unavailable Salvador Barber Referring Unavailable Barber, Salvador Primary Care Unavailable Sunil, Salvador Primary Care Unavailable Albert Sweeney Attending Unavailable Salvador Barber Referring Unavailable Annalise Salazar Attending Unavailable Sunil, Salvador Primary Care Unavailable Keily Winter Referring Unavailable Keily Winter Attending Unavailable Sunil, Salvador Primary Care Unavailable Keri Hartman Attending Unavailable Sunil, Salvador Primary Care Unavailable Keri Hartman Referring Unavailable Drake, Kobi Attending Unavailable Sunil, Salvador Primary Care Unavailable Barber, Salvador Primary Care Unavailable Salvador Barber Attending Unavailable Ade Neely Attending Unavailable Sunil, Salvador Primary Care Unavailable Herson Macedo Referring Unavailable Herson Macedo Attending Unavailable Sunil, Salvador Primary Care Unavailable Sunil, Salvador Primary Care Unavailable Keily Winter Referring Unavailable Keily Winter Attending Unavailable Annalise Salazar Attending Unavailable Sunil, Salvador Primary Care Unavailable Keri Hartman Attending Unavailable Sunil, Salvador Primary Care Unavailable Keri Hartman Referring Unavailable Barber, Salvador Primary Care Unavailable Velgary, Ade Referring Unavailable Ade Neely Attending Unavailable Barber, Salvador Primary Care Unavailable Barber, Salvador Referring Unavailable BarberSalvador bejarano Attending Unavailable BarberSalvador bejarano Primary Care Unavailable Vellanpalak, Ade Attending Unavailable Sibilia, Holly V Referring Unavailable Sibilia, Holly V Attending Unavailable Sunil, Salvador Primary Care Unavailable Chin, Ade Attending Unavailable Sunil, Salvador Primary Care Unavailable Barber, Salvador Primary Care Unavailable Barber, Salvador Referring Unavailable Barber, Salvador Attending Unavailable Barber, Salvador Primary Care Unavailable Chin, Ade Attending Unavailable Sunil, Salvador Primary Care Unavailable SISSY, LEWIS Referring Unavailable LEWIS SHEEHAN Attending Unavailable Barber, Salvador Referring Unavailable Barber, Salvador Attending Unavailable Barber, Salvador Primary Care Unavailable Chin, Ade Referring Unavailable Barber, Salvador Primary Care Unavailable Vellanki, Ade Attending Unavailable Keri Hartman Attending Unavailable Barber, Salvador Referring Unavailable Barber, Salvador Primary Care Unavailable Allergies Allergy Classification Reported Allergen(s) Allergy Type Date of Onset Reaction(s) Facility (8 sources) Acetaminophen / HYDROcodone; Translations: [acetaminophen-hy drocodone] Drug Allergy [facility] (8 sources) Acetaminophen / Propoxyphene; Translations: [acetaminophen-pr opoxyphene] Drug Allergy [facility] (8 sources) Codeine; Translations: [codeine] Drug Allergy [facility] (8 sources) Morphine; Translations: [morphine] Drug Allergy N/V [facility] (8 sources) nabumetone; Translations: [nabumetone] Drug Allergy [facility] (8 sources) oxyCODONE; Translations: [oxycodone] Drug Allergy UPSET STOMACH [facility] (8 sources) rofecoxib; Translations: [rofecoxib] Drug Allergy Nausea (finding) [facility] (8 sources) traMADol; Translations: [tramadol] Drug Allergy Nausea (finding) [facility] (1 source) Codeine Drug Allergy 5 [facility] (1 source) Morphine Drug Allergy 5 [facility] (1 source) oxyCODONE Drug Allergy 5 [facility] Medications Current Medications Medication Drug [...] Date: 09/11/22 Status: Ordered polyethylene glycol 3350 51105 mg powder for oral solution (5 sources) [...] Translations: [Essential hypertension] Onset: 09-11-2022 06-09-2018 Chronic Menopausal disorders (1 source) Postmenopausal bleeding; Translations: [Postmenopausal bleeding] Onset: 03-26-2025 Chronic Nonmalignant breast conditions (1 source) Mastodynia; [...] disease (8 sources) Fibromyalgia 06-09-2018 Episodic Other connective tissue disease (1 source) Cramp and spasm; Translations: [Cramp and spasm] Onset: 03-29-2025 Episodic Other female genital disorders (1 source) Abnormal uterine and vaginal bleeding, unspecified; Translations: [Abnormal uterine and vaginal bleeding, unspecified] Onset: 03-21-2025 Chronic Other female genital disorders (1 source) Other [...] Test Name Value Interpretation Reference Range Facility Basic Metabolic Profile (BMP )on 03-29-2025 BUN/CRE 18.5 RATIO Normal 10-20 [facility] Comment on above: Performed By: #### L 100.0100, L500.4050 #### [facility] [address] [facility] [place], [address] Calcium [Mass/Vol] 9.1 mg/dL Normal 7.6-11.0 [facility] Comment on above: Performed By: #### L 100.0100, L500.4050 #### [facility] [address] [place], [address] Chloride [Moles/Vol] 103 mmol/L Normal 98-108 [facility] Comment on above: Performed By: #### L 100.0100, L500.4050 #### [facility] [address] [place], [address] CO2 [Moles/Vol] 27.8 mmol/L Normal 21.0-32.0 [facility] Comment on above: Performed By: #### L 100.0100, L500.4050 #### [facility] [address] [place], [address] Creatinine [Mass/Vol] 0.93 mg/dL Normal 0.70-1.20 [facility] Comment on above: Performed By: #### L 100.0100, L500.4050 #### [facility] [address] [place], [address] GAP 9 Normal 5-15 [facility] Comment on above: Performed By: #### L 100.0100, L500.4050 #### [facility] [address] [place], [address] GFR/1.73 sq M.predicted among non-blacks MDRD (S/P/Bld) [Vol rate/Area] 62 mL/min/{1.73_m2} Normal >60 [facility] Comment on above: Result Comment: mL/m in/1.73m2 CKD-EPI Creatinine Equation (2020) Performed By: #### L 100.0100, L500.4050 #### [facility] [address] [place], [address] Glucose [Mass/Vol] 94 mg/dL Normal 70-99 [facility] Comment on above: Performed By: #### L 100.0100, L500.4050 #### [facility] [address] [place], [address] Potassium [Moles/Vol] 4.4 mmol/L Normal 3.3-5.1 [facility] Comment on above: Performed By: #### L 100.0100, L500.4050 #### [facility] [address] [place], [address] Sodium [Moles/Vol] 140 mmol/L Normal 133-145 [facility] Comment on above: Performed By: #### L 100.0100, L500.4050 #### [facility] [address] [place], [address] Urea nitrogen [Mass/Vol] 17 mg/dL Normal 4-19 [facility] Comment on above: Performed By: #### L 100.0100, L500.4050 #### [facility] [address] [place], [address] Magnesiumon 03-29-2025 Magnesium [Mass/Vol] 2.0 mg/dL Normal 1.5-2.2 [facility] Comment on above: Performed By: #### L 100.0100, L500.4050 #### [facility] [address] [place], [address] Maintenance Foreman Office Visit Reporton 03-20-2025 Maintenance Foreman Office Visit Report [facility] [address], [address] [place] [address] OFFICE VISIT Date of Service: 03/20/25 MR#: [id number] Acct: [id number] Name: HEATHER RED Rep #: [id number] : 1945 Provider: EVER caballero Age/Sex: 79/F Location: [facility] Status: Signed Intake Vital Signs 03/15/25 15:05 03/16/25 10:44 03/20/25 15:42 03/20/25 15:49 Height 5 ft 3 in 5 ft 3 in 5 ft 3 in 5 ft 3 in Weight: 195 lb BMI 34.5 BP 134/72 H Intake Visit Reasons: EMB, ER follow-up Chief Complaint: EMB Maintenance Team Leader Required: No Is patient in pain?: No Allergies oxycodone (From Percocet) Allergy (Verified 03/20/25 15:56) Other codeine Adverse Reaction (Severe, Verified 03/20/25 15:56) Nausea morphine Adverse Reaction (Severe, Verified 03/20/25 15:56) Nausea Medications ???Medication ???Instructions ???Recorded ???Confirmed ???Type losartan 100 mg tablet 100 mg PO QHS HTN 05/13/14 5 History cholecalciferol (vitamin D3) 50 2,000 unit PO LUNCH supplement 03/20/25 History mcg (2,000 unit) capsule multivitamin 1 tab PO DAILY supplement 10/21/18 03/20/25 History ascorbic acid (vitamin C) 500 mg 500 mg PO BID supplement 03/07/21 03/20/25 History capsule,extended release (Vitamin C) atorvastatin 80 mg tablet 80 mg PO QHS cholesterol 90 days 0 03/07/21 03/20/25 History #90 tabs calcium carbonate (Calcium 600) 1,200 mg PO LUNCH supplement 03/0703/20/25 History levothyroxine 125 mcg tablet 112 mcg PO DAILY thyroid 03/07/21 03/20/25 History clonazepam 0.5 mg tablet 0.5 mg PO BID anxiety 08/12/21 History trazodone 150 mg tablet 150 mg PO QHS rest 08/12/21 History polyethylene glycol 3350 17 17 g PO QHS stool softener 2 03/20/25 History gram/dose oral powder (Miralax) triamcinolone acetonide 55 55 mcg intranasal QHS nasal 03/20/25 History mcg/actuation nasal spray,aerosol congestion mv-mn-folic 200 mcg-vit K 15 cap PO 02/25/23 03/20/25 History mcg-lutein 5 mg-zeaxanthin 1 mg capsule (PreserVision AREDS 2 Plus Multivit) duloxetine 60 mg capsule,delayed 60 mg PO DAILY 09/23/23 03/20/25 H istory release folic acid 1 mg tablet 2 mg PO DAILY 09/23/23 03/20/25 Hi story furosemide 20 mg tablet 20 mg PO DAILY 09/23/23 03/20/25 H istory montelukast 10 mg tablet 10 mg PO QHS 09/23/23 03/20/25 His tory cetirizine 10 mg capsule (Zyrtec) 10 mg PO DAILY PRN 05/04/2403/20 History oxycodone-acetaminop hen 5 mg-325 1 tab PO TID PRN 05/04/24 03/20/25 History mg tablet sennosides 8.6 mg tablet (Senna 8.6 mg PO QDAY 05/04/24 03/20/25 H istory Laxative) clopidogrel 75 mg tablet 75 mg PO .Every other day #45 tabs 12/14/24 03/20/25 Rx pantoprazole 20 mg tablet,delayed 20 mg PO DAILY #90 tabs 12/24/24 03/20/25 Rx release baclofen 20 mg tablet 10 mg PO QDAY PRN muscle 03/01/25 03/20/25 History pain/muscle spasm ropinirole 0.25 mg tablet 0.25 mg PO QHS 03/01/25 03/20/25 H istory fluconazole 150 mg tablet 150 mg PO Q3D 2 doses #2 tabs 02/0603/20/25 Rx Is last menstrual period known: No Post menopausal: Yes Patient : No : No PFSH PFSH Medical History Sacroiliitis Wears partial dentures Arthritis Urinary incontinence Restless legs Injury of head and neck Gastric reflux Non-smoker History of stress test History of echocardiogram Leg cramps History of edema Cardiology follow-up encounter Nosebleed Degenerative disc disease, cervical Occipital headache [id number] ultra-rapid metabolizer Obstructive sleep apnea on CPAP [...] Mother Uterine cancer Other Cancer Social History household members: spouse Smoking Status: Never smoker shayla (more content not included)... Normal [facility] Surgery Specimen Level Kimberley 03-20-2025 Surgery Specimen Level IV Patient Age/Sex Location Account Attending Physician HEATHER RED 79/F LABSDEEP [id number] EVER Duval Specimen: [id number] Received: 03/20/25 Status: WILD Philippe Num: [id number] Spec Type: ENDOM BX/C Subm Dr: EVER Duval HEADER OPERATION: Endometrial biopsy PRE-OP DIAGNOSIS: Postmenopausal bleeding TISSUE SUBMITTED: A- Endometrial lining MICROSCOPIC DIAGNOSIS A. Endometrium, biopsy: * Few pieces of benign inactive endometrium * Endocervical tissue with chronic endocervicitis MICROSCOPIC DESCRIPTION Slides are reviewed. GROSS DESCRIPTION A. Received in formalin labeled with the patient's name and date of . Designated as "EMB" is a 2.9 x 1.8 x 0.2 cm aggregate of mucoid material and flecks of of red-brown tissue. Entirely submitted in 1 cassette. [place] 03/21/2025 CPT:71286 Patient Age/Sex Location Account Attending Physician HEATHER RED 79/F LABSPEC [id number] EVER Duval Signed (signature on file) Dr. Jlius Vogel MD 03/28/25 0912 Normal [facility] Comment on above: Performed By: #### L 506.0400, L500.4100, L500.4050, L501.69555, L501.9520 #### [facility] [address] [place], [address] CBC W/Diff, Automatedon 07- 0-2024 Absolute Lymph 1.51 X10 3/uL Normal 0.83-4.51 [facility] Comment on above: Performed By: #### L 100.0100, L500.4050 #### [facility] [address] [place], [address] Absolute Neut 5.3 X10 3/uL Normal 2.0-7.7 [facility] Comment on above: Performed By: #### L 100.0100, L500.4050 #### [facility] [address] [place], [address] Basophils/100 WBC (Bld) 0.5 % Normal 0-1 [facility] Comment on above: Performed By: #### L 100.0100, L500.4050 #### [facility] [address] [place], [address] Eosinophils/100 WBC (Bld) 1.5 % Normal 0-5 [facility] Comment on above: Performed By: #### L 100.0100, L500.4050 #### [facility] [address] [place], [address] Erythrocyte distribution width (RBC) [Ratio] 14.0 % Normal 11.6-14.6 [facility] Comment on above: Performed By: #### L 100.0100, L500.4050 #### [facility] [address] [place], [address] Hematocrit (Bld) [Volume fraction] 34.5 % Low 37-47 [facility] Comment on above: Performed By: #### L 100.0100, L500.4050 #### [facility] [address] [place], [address] Hemoglobin (Bld) [Mass/Vol] 11.2 g/dL Low 12.0-15.0 [facility] Comment on above: Performed By: #### L 100.0100, L500.4050 #### [facility] [address] [place], [address] IG% 0.500 Normal 0.0-0.9 [facility] Comment on above: Result Comment: IG% - Immature Granulocytes (promyelocytes, myelocytes and metamyelocytes) > 1% indicates that a LEFT SHIFT is Present. Performed By: #### L 100.0100, L500.4050 #### [facility] [address] [place], [address] Lymphocytes/100 WBC (Bld) 20.1 % Normal 19-41 [facility] Comment on above: Performed By: #### L 100.0100, L500.4050 #### [facility] [address] [place], [address] MCH (RBC) [Entitic mass] 31.8 pg Normal 27.0-32.0 [facility] Comment on above: Performed By: #### L 100.0100, L500.4050 #### [facility] [address] [place], [address] MCHC (RBC) [Mass/Vol] 32.5 g/dL Normal 32-36 [facility] Comment on above: Performed By: #### L 100.0100, L500.4050 #### [facility] [address] [place], [address] MCV (RBC) [Entitic vol] 98.0 fL Normal 81-99 [facility] Comment on above: Performed By: #### L 100.0100, L500.4050 #### [facility] [address] [place], [address] Monocytes/100 WBC (Bld) 6.7 % Normal 0-10 [facility] Comment on above: Performed By: #### L 100.0100, L500.4050 #### [facility] [address] [place], [address] Neutrophils/100 WBC (Bld) 70.7 % High 47-70 [facility] Comment on above: Performed By: #### L 100.0100, L500.4050 #### [facility] [address] [place], [address] Nucleated RBC (Bld) [#/Vol] 0 10*3/uL Normal 0-5 [facility] Comment on above: Performed By: #### L 100.0100, L500.4050 #### [facility] [address] [place], [address] Platelet mean volume (Bld) [Entitic vol] 10.1 fL Normal 6.2-12.0 [facility] Comment on above: Performed By: #### L 100.0100, L500.4050 #### [facility] [address] [place], [address] Platelets (Bld) [#/Vol] 234 10*3/uL Normal 150-450 [facility] Comment on above: Performed By: #### L 100.0100, L500.4050 #### [facility] [address] [place], [address] RBC (Bld) [#/Vol] 3.52 10*6/uL Low 4.2-5.4 [facility] Comment on above: Performed By: #### L 100.0100, L500.4050 #### [facility] [address] [place], [address] RDW SD 49.6 fl High 35.1-43.9 [facility] Comment on above: Performed By: #### L 100.0100, L500.4050 #### [facility] [address] [place], [address] WBC (Bld) [#/Vol] 7.5 10*3/uL Normal 4.4-11.0 [facility] Comment on above: Performed By: #### L 100.0100, L500.4050 #### [facility] [address] [place], [address] Emergency Department Summary on 03-15-2025 Emergency Department Summary [facility] Medical Records Department [address] [place] [address] Emergency Department Summary 03/15/25 MR#: [id number] Acct: [id number] Name: HEATHER RED Rep #: [id number] : 1945 79 From: Kobi Drake MD PCP: Dr. Salvador Barber MD Status:REG ER Location: ED HPI HPI [...] similar symptoms: No Recent Illness/Hospitalizat ion: Yes [facility] Medical History Sacroiliitis Wears partial dentures Arthritis Urinary incontinence Restless legs Injury of head and neck Gastric reflux Non-smoker History of stress test History of echocardiogram Leg cramps History of edema Cardiology follow-up encounter Nosebleed Degenerative disc disease, cervical Occipital headache [id number] ultra-rapid metabolizer Obstructive sleep apnea on CPAP [...] mg PO Q3D 2 doses #2 tabs 3 Unknown Rx Allergy/AdvReac Type Severity Reaction Status Edgard (more content not included)... Normal [facility] Transvaginal Non-on 03-15-2025 Transvaginal Non- [facility] Imaging Services [address] [place], [place] [id number] Transvaginal Non- MR#: [id number] Acct: [id number] Name: HEATHER RED Rep #: [id number] : 1945 F 79 From: Alberto Brandon MD PCP: Dr. Salvador Barber MD Status: REG ER Study: Transvaginal Non- Date of Exam: Exam# [id number] Ordering Dr: Kobi Drake MD PROCEDURE: TRANSVAGINAL [...] x 7 by 11 mm Reading Location: [facility] CC: Dr. Salvador Barber MD; Dr. Kobi Drake MD Hair Stylist: Signed Normal [facility] Bilat Brst Godfrey Stand Aloneo n 03-06-2025 Bilat Brst Godfrey Stand Alone [facility] Imaging Services [address] [place] [address] Bilat Brst Godfrey Stand Alone MR#: [id number] Acct: [id number] Name: HEATHER RED Rep #: [id number] : 1945 F 79 From: Elvira Jamison MD PCP: Dr. Salvador Barber MD Status: [facility] CLI Study: Bilat Brst Godfrey Stand Alone Date of Exam: 09/30 Exam# [id number] Ordering Dr: Keri Hartman SVP [employer] AD SALES-C EXAM: DIAG MAMM W/CAD, BILAT; BREAST LIMITED [...] be mailed to the patient. Reading Location: [facility] CC: EVER Hartman; Dr. Salvador Barber MD Hair Stylist: Signed Normal [facility] Breast Limited Unilateralon 03-06-2025 Breast Limited Unilateral [facility] Imaging Services [address] [place] [address] Breast Limited Unilateral MR#: [id number] Acct: [id number] Name: HEATHER RED Rep #: [id number] : 1945 F 79 From: Elvira Jamison MD PCP: Dr. Salvador Barber MD Status: [facility] CLI Study: Breast Limited Unilateral Date of Exam: Exam# [id number] Ordering Dr: Keri Hartman EXAM: DIAG MAMM W/CAD, BILAT; BREAST LIMITED [...] be mailed to the patient. Reading Location: [id number] CC: EVER Hartman; Dr. Salvador Barber MD Hair Stylist: Signed Normal [facility] Breast Limited Unilateral [facility] Imaging Services [address] [place] [id number] Breast Limited Unilateral MR#: [id number] Acct: [id number] Name: HEATHER RED Rep #: [id number] : 1945 F 79 From: Elvira Jamison MD PCP: Dr. Salvador Barber MD Status: REG CLI Study: Breast Limited Unilateral Date of Exam: Exam# [id number] Ordering Dr: Keri Hartman EXAM: DIAG MAMM W/CAD, BILAT; BREAST LIMITED [...] be mailed to the patient. Reading Location: [id number] CC: SVP DIGITAL AD SALESFreddie Hartman; Dr. Salvador Barber MD Hair Stylist: Signed Normal [facility] DIAG MAMM W/CAD, BILATon DIAG MAMM W/CAD, BILAT [facility] Imaging Services [address] [place] [address] DIAG MAMM W/CAD, BILAT MR#: [id number] Acct: [id number] Name: HEATHER RED Rep #: [id number] : 1945 F 79 From: Elvira Jamison MD PCP: Dr. Salvador Barber MD Status: REG CLI Study: DIAG MAMM W/CAD, BILAT Date of Exam: 03/06/25 Exam# [id number] Ordering Dr: Keri Hartman [employer]-C EXAM: DIAG MAMM W/CAD, BILAT; BREAST LIMITED [...] be mailed to the patient. Reading Location: [id number] CC: EVER Hartman; Dr. Salvador Barber MD Hair Stylist: Signed Normal [facility] Genital Culture Comprehensiv kavon 03-05-2025 VAC Reason for Exam: vaginal itching No Gardnerella, Neisseria or beta-hemolytic Streptococcus isolated. Presumptive C albicans Amount Growth 3+ Normal [facility] Comment on above: Performed By: #### L 506.0400, L500.4100, L500.4050, L501.67403, L501.9520 #### [facility] [address] [place], [address] Gram Stainon 03-02-2025 GS Reason for Exam: vaginal itching Gram Stain 2+ Yeast Like Organisms 2+ Gram variable hossein No Gram negative diplococci Normal [facility] Comment on above: Performed By: #### L 506.0400, L500.4100, L500.4050, L501.10023, L501.9520 #### [facility] [address] [place], [place], [address] Maintenance Foreman Office Visit Reporton 03-01-2025 Maintenance Foreman Office Visit Report [facility] [address], [address] [place] [address] OFFICE VISIT Date of Service: 03/01/25 MR#: [id number] Acct: [id number] Name: HEATHER RED Rep #: [id number] : 1945 Provider: EVER Khan Age/Sex: 79/F Location: [facility] [facility] Status: Signed Intake Vital Signs 12/14/24 13:30 [...] CB Chief Complaint: Vaginal itching, breast pain Maintenance Team Leader Required: No Is patient in pain?: No [...] mg tablet 2 mg PO DAILY 09/23/23 03/01/25 Hi story furosemide 20 mg tablet 20 [...] menopausal: Yes Patient : No : No PFSH Medical History Sacroiliitis Wears partial dentures Arthritis Urinary incontinence Restless legs Injury of head and neck Gastric reflux Non-smoker History of stress test History of echocardiogram Leg cramps History of edema Cardiology follow-up encounter Nosebleed Degenerative disc disease, cervical Occipital headache [id number] ultra-rapid metabolizer Obstructive sleep apnea on CPAP [...] (Reviewed 03/01/25 (more content not included)... Normal [facility] Comprehensive Metabolic Prof wion 02-02-2025 Albumin [Mass/Vol] 3.9 g/dL Normal 3.4-4.8 [facility] Comment on above: Performed By: #### L 506.0400, L500.4100, L500.4050, L501.81974, L501.9520 #### [facility] [address] [place], [address] Albumin/Globulin [Mass ratio] 1.6 {ratio} Normal 0.9-2.4 [facility] Comment on above: Performed By: #### L 506.0400, L500.4100, L500.4050, L501.61690, L501.9520 #### [facility] [address] [place], [address] ALK PHOS 91 U/L Normal 35-104 [facility] Comment on above: Performed By: #### L 506.0400, L500.4100, L500.4050, L501.59596, L501.9520 #### [facility] [address] [place], [address] ALT [Catalytic activity/Vol] 16 U/L Normal <=34 [facility] Comment on above: Performed By: #### L 506.0400, L500.4100, L500.4050, L501.86278, L501.9520 #### [facility] [address] [place], [address] AST [Catalytic activity/Vol] 27 U/L Normal <=31 [facility] Comment on above: Performed By: #### L 506.0400, L500.4100, L500.4050, L501.69532, L501.9520 #### [facility] [address] [place], [address] Bilirubin [Mass/Vol] 0.78 mg/dL Normal 0.00-1.30 [facility] Comment on above: Performed By: #### L 506.0400, L500.4100, L500.4050, L501.39526, L501.9520 #### [facility] [address] [place], [address] BUN/CRE 24.3 RATIO High 10-20 [facility] Comment on above: Performed By: #### L 506.0400, L500.4100, L500.4050, L501.07864, L501.9520 #### [facility] [address] [place], [address] Calcium [Mass/Vol] 9.2 mg/dL Normal 7.6-11.0 [facility] Comment on above: Performed By: #### L 506.0400, L500.4100, L500.4050, L501.96286, L501.9520 #### [facility] [address] [place], [address] Chloride [Moles/Vol] 100 mmol/L Normal 98-108 [facility] Comment on above: Performed By: #### L 506.0400, L500.4100, L500.4050, L501.93175, L501.9520 #### [facility] [address] [place], [address] CO2 [Moles/Vol] 26.7 mmol/L Normal 21.0-32.0 [facility] Comment on above: Performed By: #### L 506.0400, L500.4100, L500.4050, L501.41813, L501.9520 #### [facility] [address] [place], [address] Creatinine [Mass/Vol] 0.96 mg/dL Normal 0.70-1.20 [facility] Comment on above: Performed By: #### L 506.0400, L500.4100, L500.4050, L501.96145, L501.9520 #### [facility] [address] [place], [address] GAP 10 Normal 5-15 [facility] Comment on above: Performed By: #### L 506.0400, L500.4100, L500.4050, L501.53722, L501.9520 #### [facility] [address] [place], [address] GFR/1.73 sq M.predicted among non-blacks MDRD (S/P/Bld) [Vol rate/Area] 59 mL/min/{1.73_m2} Low >60 [facility] Comment on above: Result Comment: mL/m in/1.73m2 CKD-EPI Creatinine Equation (2020) Performed By: #### L 506.0400, L500.4100, L500.4050, L501.90896, L501.9520 #### [facility] [address] [place], [address] Globulin (S) [Mass/Vol] 2.4 g/dL Normal 2.2-4.2 [facility] Comment on above: Performed By: #### L 506.0400, L500.4100, L500.4050, L501.82691, L501.9520 #### [facility] [address] [place], [address] Glucose [Mass/Vol] 80 mg/dL Normal 70-99 [facility] Comment on above: Performed By: #### L 506.0400, L500.4100, L500.4050, L501.90953, L501.9520 #### [facility] [address] [place], [address] Potassium [Moles/Vol] 4.2 mmol/L Normal 3.3-5.1 [facility] Comment on above: Performed By: #### L 506.0400, L500.4100, L500.4050, L501.47447, L501.9520 #### [facility] [address] [place], [address] Sodium [Moles/Vol] 137 mmol/L Normal 133-145 [facility] Comment on above: Performed By: #### L 506.0400, L500.4100, L500.4050, L501.29010, L501.9520 #### [facility] [address] [place], [address] T PROT 6.3 g/dL Normal 5.9-8.4 [facility] Comment on above: Performed By: #### L 506.0400, L500.4100, L500.4050, L501.66168, L501.9520 #### [facility] [address] [place], [address] Urea nitrogen [Mass/Vol] 23 mg/dL High 4-19 [facility] Comment on above: Performed By: #### L 506.0400, L500.4100, L500.4050, L501.09783, L501.9520 #### [facility] [address] [place], [address] Free T3on 02-02-2025 Free T3 [Mass/Vol] 2.0 pg/mL Low 2.18-3.98 [facility] Comment on above: Performed By: #### L 506.0400, L500.4100, L500.4050, L501.85673, L501.9520 #### [facility] [address] [place], [address] Lipid Profileon 02-02-2025 CHOL:HDL 1.98 Normal [facility] Comment on above: Performed By: #### L 506.0400, L500.4100, L500.4050, L501.71904, L501.9520 #### [facility] [address] [place], [address] Cholesterol [Mass/Vol] 153 mg/dL Normal <=200 [facility] Comment on above: Result Comment: Chol esterol level, Desirable <200 mg/dL Borderline high cholesterol 200-239 mg/dL High cholesterol >=240 mg/dL Recommendations of the NCEP Adult Treatment Panel for the following risk-cutoff thresholds for the [place] population. Performed By: #### L 506.0400, L500.4100, L500.4050, L501.60421, L501.9520 #### [facility] [address] [place], [address] Cholesterol in HDL [Mass/Vol] 77 mg/dL Normal [facility] Comment on above: Result Comment: Wanda onal Cholesterol Education Program (NCEP) guidelines: <40 mg/dL: Low HDL-cholesterol (major risk factor for CHD) >= 60 mg/dL: High HDL-cholesterol (negative risk factor for CHD) HDL-cholesterol is affected by a number of factors, e.g. smoking, exercise, hormones, sex and age. Performed By: #### L 506.0400, L500.4100, L500.4050, L501.18965, L501.9520 #### [facility] [address] [place], [address] Cholesterol in LDL [Mass/Vol] 51 mg/dL Normal [facility] Comment on above: Result Comment: Bord hrwisq=265-927 mg/dL Higher Lktz=704 mg/dL or greater Performed By: #### L 506.0400, L500.4100, L500.4050, L501.05180, L501.9520 #### [facility] [address] [place], [address] Cholesterol in VLDL [Mass/Vol] 25 mg/dL Normal 5-40 [facility] Comment on above: Performed By: #### L 506.0400, L500.4100, L500.4050, L501.80238, L501.9520 #### [facility] [address] [place], [address] Triglyceride [Mass/Vol] 123 mg/dL Normal [facility] Comment on above: Result Comment: The drugs N-Acetylcysteine and Metamizole may falsely depress this assay. Normal range: <150 mg/dL Borderline High: 150-199 mg/dL High: 200-499 mg/dL Very High: >500 mg/dL Performed By: #### L 506.0400, L500.4100, L500.4050, L501.20341, L501.9520 #### [facility] [address] [place], [address] T4 Free Directon 02-02-2025 T4 FREE DIRECT 1.20 ng/dL Normal 0.76-1.46 [facility] Comment on above: Performed By: #### L 506.0400, L500.4100, L500.4050, L501.40985, L501.9520 #### [facility] [address] [place], [address] Thyroid Stim Hormone (TSH)on 02-02-2025 TSH 3.740 uIU/mL Normal 0.300-4.200 [facility] Comment on above: Performed By: #### L 506.0400, L500.4100, L500.4050, L501.53868, L501.9520 #### [facility] [address] [place], [address] CBC W/Diff, Automatedon 05-0 8-2024 Absolute Lymph 1.72 X10 3/uL Normal 0.83-4.51 [facility] Comment on above: Performed By: #### L 506.0400, L500.4100, L500.4050, L501.41533, L501.9520 #### [facility] [address] [place], [address] Absolute Neut 4.7 X10 3/uL Normal 2.0-7.7 [facility] Comment on above: Performed By: #### L 506.0400, L500.4100, L500.4050, L501.85492, L501.9520 #### [facility] [address] [place], [address] Basophils/100 WBC (Bld) 0.3 % Normal 0-1 [facility] Comment on above: Performed By: #### L 506.0400, L500.4100, L500.4050, L501.66432, L501.9520 #### [facility] [address] [place], [address] Eosinophils/100 WBC (Bld) 2.1 % Normal 0-5 [facility] Comment on above: Performed By: #### L 506.0400, L500.4100, L500.4050, L501.87635, L501.9520 #### [facility] [address] [place], [address] Erythrocyte distribution width (RBC) [Ratio] 13.9 % Normal 11.6-14.6 [facility] Comment on above: Performed By: #### L 506.0400, L500.4100, L500.4050, L501.51761, L501.9520 #### [facility] [address] [place], [address] Hematocrit (Bld) [Volume fraction] 34.8 % Low 37-47 [facility] Comment on above: Performed By: #### L 506.0400, L500.4100, L500.4050, L501.15757, L501.9520 #### [facility] [address] [place], [address] Hemoglobin (Bld) [Mass/Vol] 11.2 g/dL Low 12.0-15.0 [facility] Comment on above: Performed By: #### L 506.0400, L500.4100, L500.4050, L501.57798, L501.9520 #### [facility] [address] [place], [address] IG% 0.600 Normal 0.0-0.9 [facility] Comment on above: Result Comment: IG% - Immature Granulocytes (promyelocytes, myelocytes and metamyelocytes) > 1% indicates that a LEFT SHIFT is Present. Performed By: #### L 506.0400, L500.4100, L500.4050, L501.91099, L501.9520 #### [facility] [address] [place], [address] Lymphocytes/100 WBC (Bld) 24.3 % Normal 19-41 [facility] Comment on above: Performed By: #### L 506.0400, L500.4100, L500.4050, L501.48440, L501.9520 #### [facility] [address] [place], [address] MCH (RBC) [Entitic mass] 32.3 pg High 27.0-32.0 [facility] Comment on above: Performed By: #### L 506.0400, L500.4100, L500.4050, L501.28380, L501.9520 #### [facility] [address] [place], [address] MCHC (RBC) [Mass/Vol] 32.2 g/dL Normal 32-36 [facility] Comment on above: Performed By: #### L 506.0400, L500.4100, L500.4050, L501.39680, L501.9520 #### [facility] [address] [place], [address] MCV (RBC) [Entitic vol] 100.3 fL High 81-99 [facility] Comment on above: Performed By: #### L 506.0400, L500.4100, L500.4050, L501.89480, L501.9520 #### [facility] [address] [place], [address] Monocytes/100 WBC (Bld) 6.4 % Normal 0-10 [facility] Comment on above: Performed By: #### L 506.0400, L500.4100, L500.4050, L501.17936, L501.9520 #### [facility] [address] [place], [address] Neutrophils/100 WBC (Bld) 66.3 % Normal 47-70 [facility] Comment on above: Performed By: #### L 506.0400, L500.4100, L500.4050, L501.18417, L501.9520 #### [facility] [address] [place], [address] Nucleated RBC (Bld) [#/Vol] 0 10*3/uL Normal 0-5 [facility] Comment on above: Performed By: #### L 506.0400, L500.4100, L500.4050, L501.25014, L501.9520 #### [facility] [address] [place], [address] Platelet mean volume (Bld) [Entitic vol] 10.4 fL Normal 6.2-12.0 [facility] Comment on above: Performed By: #### L 506.0400, L500.4100, L500.4050, L501.59855, L501.9520 #### [facility] [address] [place], [address] Platelets (Bld) [#/Vol] 250 10*3/uL Normal 150-450 [facility] Comment on above: Performed By: #### L 506.0400, L500.4100, L500.4050, L501.49871, L501.9520 #### [facility] [address] [place], [address] RBC (Bld) [#/Vol] 3.47 10*6/uL Low 4.2-5.4 [facility] Comment on above: Performed By: #### L 506.0400, L500.4100, L500.4050, L501.42539, L501.9520 #### [facility] [address] [place], [address] RDW SD 50.7 fl High 35.1-43.9 [facility] Comment on above: Performed By: #### L 506.0400, L500.4100, L500.4050, L501.76150, L501.9520 #### [facility] [address] [place], [address] WBC (Bld) [#/Vol] 7.1 10*3/uL Normal 4.4-11.0 [facility] Comment on above: Performed By: #### L 506.0400, L500.4100, L500.4050, L501.82483, L501.9520 #### [facility] [address] [place], [address] Comprehensive Metabolic Prof ilon 01-11-2025 Albumin [Mass/Vol] 4.1 g/dL Normal 3.4-4.8 [facility] Comment on above: Performed By: #### L 506.0400, L500.4100, L500.4050, L501.37001, L501.9520 #### [facility] [address] [place], [address] Albumin/Globulin [Mass ratio] 1.7 {ratio} Normal 0.9-2.4 [facility] Comment on above: Performed By: #### L 506.0400, L500.4100, L500.4050, L501.14450, L501.9520 #### [facility] [address] [place], [address] ALK PHOS 115 U/L High 35-104 [facility] Comment on above: Performed By: #### L 506.0400, L500.4100, L500.4050, L501.90065, L501.9520 #### [facility] [address] [place], [address] ALT [Catalytic activity/Vol] 21 U/L Normal <=34 [facility] Comment on above: Performed By: #### L 506.0400, L500.4100, L500.4050, L501.46332, L501.9520 #### [facility] [address] [place], [address] AST [Catalytic activity/Vol] 29 U/L Normal <=31 [facility] Comment on above: Performed By: #### L 506.0400, L500.4100, L500.4050, L501.42613, L501.9520 #### [facility] [address] [place], [address] Bilirubin [Mass/Vol] 1.61 mg/dL High 0.00-1.30 [facility] Comment on above: Performed By: #### L 506.0400, L500.4100, L500.4050, L501.04955, L501.9520 #### [facility] [address] [place], [address] BUN/CRE 25.1 RATIO High 10-20 [facility] Comment on above: Performed By: #### L 506.0400, L500.4100, L500.4050, L501.50880, L501.9520 #### [facility] [address] [place], [address] Calcium [Mass/Vol] 9.5 mg/dL Normal 7.6-11.0 [facility] Comment on above: Performed By: #### L 506.0400, L500.4100, L500.4050, L501.23715, L501.9520 #### [facility] [address] [place], [address] Chloride [Moles/Vol] 102 mmol/L Normal 98-108 [facility] Comment on above: Performed By: #### L 506.0400, L500.4100, L500.4050, L501.22007, L501.9520 #### [facility] [address] [place], [address] CO2 [Moles/Vol] 26.8 mmol/L Normal 21.0-32.0 [facility] Comment on above: Performed By: #### L 506.0400, L500.4100, L500.4050, L501.85328, L501.9520 #### [facility] [address] [place], [address] Creatinine [Mass/Vol] 0.97 mg/dL Normal 0.70-1.20 [facility] Comment on above: Performed By: #### L 506.0400, L500.4100, L500.4050, L501.03690, L501.9520 #### [facility] [address] [place], [address] GAP 11 Normal 5-15 [facility] Comment on above: Performed By: #### L 506.0400, L500.4100, L500.4050, L501.35084, L501.9520 #### [facility] [address] [place], [address] GFR/1.73 sq M.predicted among non-blacks MDRD (S/P/Bld) [Vol rate/Area] 59 mL/min/{1.73_m2} Low >60 [facility] Comment on above: Result Comment: mL/m in/1.73m2 CKD-EPI Creatinine Equation (2020) Performed By: #### L 506.0400, L500.4100, L500.4050, L501.30778, L501.9520 #### [facility] [address] [place], [address] Globulin (S) [Mass/Vol] 2.5 g/dL Normal 2.2-4.2 [facility] Comment on above: Performed By: #### L 506.0400, L500.4100, L500.4050, L501.50602, L501.9520 #### [facility] [address] [place], [address] Glucose [Mass/Vol] 104 mg/dL High 70-99 [facility] Comment on above: Performed By: #### L 506.0400, L500.4100, L500.4050, L501.92402, L501.9520 #### [facility] [address] [place], [address] Potassium [Moles/Vol] 4.2 mmol/L Normal 3.3-5.1 [facility] Comment on above: Performed By: #### L 506.0400, L500.4100, L500.4050, L501.25771, L501.9520 #### [facility] [address] [place], [address] Sodium [Moles/Vol] 140 mmol/L Normal 133-145 [facility] Comment on above: Performed By: #### L 506.0400, L500.4100, L500.4050, L501.53470, L501.9520 #### [facility] [address] [place], [address] T PROT 6.5 g/dL Normal 5.9-8.4 [facility] Comment on above: Performed By: #### L 506.0400, L500.4100, L500.4050, L501.41823, L501.9520 #### [facility] [address] [place], [address] Urea nitrogen [Mass/Vol] 24 mg/dL High 4-19 [facility] Comment on above: Performed By: #### L 506.0400, L500.4100, L500.4050, L501.61980, L501.9520 #### [facility] [address] [place], [address] CBC W/Diff, Automatedon 05-0 2-5 Absolute Lymph 1.48 X10 3/uL Normal 0.83-4.51 [facility] Comment on above: Performed By: #### L 503.6030, L100.0100 #### [facility] [address] [place], [address] Absolute Neut 4.4 X10 3/uL Normal 2.0-7.7 [facility] Comment on above: Performed By: #### L 503.6030, L100.0100 #### [facility] [address] [place], [address] Basophils/100 WBC (Bld) 0.5 % Normal 0-1 [facility] Comment on above: Performed By: #### L 503.6030, L100.0100 #### [facility] [address] [place], [address] Eosinophils/100 WBC (Bld) 2.4 % Normal 0-5 [facility] Comment on above: Performed By: #### L 503.6030, L100.0100 #### [facility] [address] [place], [address] Erythrocyte distribution width (RBC) [Ratio] 14.3 % Normal 11.6-14.6 [facility] Comment on above: Performed By: #### L 503.6030, L100.0100 #### [facility] [address] [place], [address] Hematocrit (Bld) [Volume fraction] 34.9 % Low 37-47 [facility] Comment on above: Performed By: #### L 503.6030, L100.0100 #### [facility] [address] [place], [address] Hemoglobin (Bld) [Mass/Vol] 11.2 g/dL Low 12.0-15.0 [facility] Comment on above: Performed By: #### L 503.6030, L100.0100 #### [facility] [address] [place], [address] IG% 0.600 Normal 0.0-0.9 [facility] Comment on above: Result Comment: IG% - Immature Granulocytes (promyelocytes, myelocytes and metamyelocytes) > 1% indicates that a LEFT SHIFT is Present. Performed By: #### L 503.6030, L100.0100 #### [facility] [address] [place], [address] Lymphocytes/100 WBC (Bld) 22.3 % Normal 19-41 [facility] Comment on above: Performed By: #### L 503.6030, L100.0100 #### [facility] [address] [place], [address] MCH (RBC) [Entitic mass] 32.1 pg High 27.0-32.0 [facility] Comment on above: Performed By: #### L 503.6030, L100.0100 #### [facility] [address] [place], [address] MCHC (RBC) [Mass/Vol] 32.1 g/dL Normal 32-36 [facility] Comment on above: Performed By: #### L 503.6030, L100.0100 #### [facility] [facility] [address] [place], [address] MCV (RBC) [Entitic vol] 100.0 fL High 81-99 [facility] Comment on above: Performed By: #### L 503.6030, L100.0100 #### [facility] [address] [place], [address] Monocytes/100 WBC (Bld) 7.2 % Normal 0-10 [facility] Comment on above: Performed By: #### L 503.6030, L100.0100 #### [facility] [address] [place], [address] Neutrophils/100 WBC (Bld) 67.0 % Normal 47-70 [facility] Comment on above: Performed By: #### L 503.6030, L100.0100 #### [facility] [address] [place], [address] Nucleated RBC (Bld) [#/Vol] 0 10*3/uL Normal 0-5 [facility] Comment on above: Performed By: #### L 503.6030, L100.0100 #### [facility] [address] [place], [address] Platelet mean volume (Bld) [Entitic vol] 10.4 fL Normal 6.2-12.0 [facility] Comment on above: Performed By: #### L 503.6030, L100.0100 #### [facility] [address] [place], [address] Platelets (Bld) [#/Vol] 232 10*3/uL Normal 150-450 [facility] Comment on above: Performed By: #### L 503.6030, L100.0100 #### [facility] [address] [place], [address] RBC (Bld) [#/Vol] 3.49 10*6/uL Low 4.2-5.4 [facility] Comment on above: Performed By: #### L 503.6030, L100.0100 #### [facility] [address] [place], [address] RDW SD 52.1 fl High 35.1-43.9 [facility] Comment on above: Performed By: #### L 503.6030, L100.0100 #### [facility] [address] [place], [address] WBC (Bld) [#/Vol] 6.6 10*3/uL Normal 4.4-11.0 [facility] Comment on above: Performed By: #### L 503.6030, L100.0100 #### [facility] [address] [place], [address] Iron+Iron Binding Capacityon 01-05-2025 IRON Normal 50-170 [facility] Comment on above: Result Comment: PER PT Performed By: #### L 503.6030, L100.0100 #### [facility] [address] [place], [address] IRON SATURATION Normal 13-59 [facility] Comment on above: Result Comment: PER PT Performed By: #### L 503.6030, L100.0100 #### [facility] [address] [place], [address] TIBC Normal 250-450 [facility] Comment on above: Result Comment: PER PT Performed By: #### L 503.6019, L100.0100 #### [facility] [address] [place], [place], [address] UIBC Normal 228-428 [facility] Comment on above: Result Comment: PER PT Performed By: #### L 503.6028, L100.0100 #### [facility] [address] [place], [address] Neurology Visit Reporton Neurology Visit Report [facility] [address], [address] [place], [place] [address] OFFICE VISIT Date of Service: 12/14/24 MR#: [id number] Acct: [id number] Name: HEATHER RED Rep #: [id number] : 1945 Provider: Dr. Keily prince MD Age/Sex: 79/F Location: [facility]. Status: Signed HPI [facility] Chief Complaint: Details: Interim History: Heather returns [...] evidence of atrial fibrillation. 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 She saw an labor specialist, Dr. Macedo, in 2023 regarding her low back pain and right lower extremity radicular pain and surgery was not recommended. She has rheumatoid arthritis. She sees a director of admissions, Dr. Neely, and is prescribed methotrexate and [...] anterolisthesis of (more content not included)... Normal [facility] Abdomen Limitedon 11-16-2024 Abdomen Limited [facility] [address] [place], [place] [address] Abdomen Limited MR#: [id number] Acct: [id number] Name: HEATHER RED Rep #: [id number] : 1945 F 79 From: Pa mejia MD PCP: Dr. Salvador Barber MD Status: REG CLI Study: Abdomen Limited Date of Exam: 11/16/24 Exam# [id number] Ordering Dr: Ade Neely MD PROCEDURE: ABDOMEN [...] No acute abnormality is seen. Reading Location: [id number] CC: Dr. Ade Neely MD; Dr. Salvador Barber MD Hair Stylist: Signed Normal [facility] CBC W/Diff, Automatedon 03-0 Absolute Lymph 1.80 X10 3/uL Normal 0.83-4.51 [facility] Comment on above: Performed By: #### L 100.0100, L500.4050 #### [facility] [address] [place], [address] Absolute Neut 4.6 X10 3/uL Normal 2.0-7.7 [facility] Comment on above: Performed By: #### L 100.0100, L500.4050 #### [facility] [address] [place], [address] Basophils/100 WBC (Bld) 0.4 % Normal 0-1 [facility] Comment on above: Performed By: #### L 100.0100, L500.4050 #### [facility] [address] [place], [address] Eosinophils/100 WBC (Bld) 2.9 % Normal 0-5 [facility] Comment on above: Performed By: #### L 100.0100, L500.4050 #### [facility] [address] [place], [address] Erythrocyte distribution width (RBC) [Ratio] 13.9 % Normal 11.6-14.6 [facility] Comment on above: Performed By: #### L 100.0100, L500.4050 #### [facility] [address] [place], [address] Hematocrit (Bld) [Volume fraction] 36.8 % Low 37-47 [facility] Comment on above: Performed By: #### L 100.0100, L500.4050 #### [facility] [address] [place], [address] Hemoglobin (Bld) [Mass/Vol] 11.8 g/dL Low 12.0-15.0 [facility] Comment on above: Performed By: #### L 100.0100, L500.4050 #### [facility] [address] [place], [address] IG% 0.300 Normal 0.0-0.9 [facility] Comment on above: Result Comment: IG% - Immature Granulocytes (promyelocytes, myelocytes and metamyelocytes) > 1% indicates that a LEFT SHIFT is Present. Performed By: #### L 100.0100, L500.4050 #### [facility] [address] [place], [address] Lymphocytes/100 WBC (Bld) 24.8 % Normal 19-41 [facility] Comment on above: Performed By: #### L 100.0100, L500.4050 #### [facility] [address] [place], [address] MCH (RBC) [Entitic mass] 32.1 pg High 27.0-32.0 [facility] Comment on above: Performed By: #### L 100.0100, L500.4050 #### [facility] [address] [place], [address] MCHC (RBC) [Mass/Vol] 32.1 g/dL Normal 32-36 [facility] Comment on above: Performed By: #### L 100.0100, L500.4050 #### [facility] [address] [place], [address] MCV (RBC) [Entitic vol] 100.0 fL High 81-99 [facility] Comment on above: Performed By: #### L 100.0100, L500.4050 #### [facility] [address] [place], [address] Monocytes/100 WBC (Bld) 7.6 % Normal 0-10 [facility] Comment on above: Performed By: #### L 100.0100, L500.4050 #### [facility] [address] [place], [address] Neutrophils/100 WBC (Bld) 64.0 % Normal 47-70 [facility] Comment on above: Performed By: #### L 100.0100, L500.4050 #### [facility] [address] [place], [address] Nucleated RBC (Bld) [#/Vol] 0 10*3/uL Normal 0-5 [facility] Comment on above: Performed By: #### L 100.0100, L500.4050 #### [facility] [address] [place], [address] Platelet mean volume (Bld) [Entitic vol] 10.5 fL Normal 6.2-12.0 [facility] Comment on above: Performed By: #### L 100.0100, L500.4050 #### [facility] [address] [place], [address] Platelets (Bld) [#/Vol] 249 10*3/uL Normal 150-450 [facility] Comment on above: Performed By: #### L 100.0100, L500.4050 #### [facility] [address] [place], [address] RBC (Bld) [#/Vol] 3.68 10*6/uL Low 4.2-5.4 [facility] Comment on above: Performed By: #### L 100.0100, L500.4050 #### [facility] [address] [place], [address] RDW SD 50.1 fl High 35.1-43.9 [facility] Comment on above: Performed By: #### L 100.0100, L500.4050 #### [facility] [address] [place], [address] WBC (Bld) [#/Vol] 7.3 10*3/uL Normal 4.4-11.0 [facility] Comment on above: Performed By: #### L 100.0100, L500.4050 #### [facility] [address] [place], [address] Comprehensive Metabolic Prof ilon 11-09-2024 Albumin [Mass/Vol] 4.3 g/dL Normal 3.4-4.8 [facility] Comment on above: Performed By: #### L 100.0100, L500.4050 #### [facility] [address] [place], [address] Albumin/Globulin [Mass ratio] 1.7 {ratio} Normal 0.9-2.4 [facility] Comment on above: Performed By: #### L 100.0100, L500.4050 #### [facility] [address] [place], [address] ALK PHOS 123 U/L High 35-104 [facility] Comment on above: Performed By: #### L 100.0100, L500.4050 #### [facility] [address] [place], [address] ALT [Catalytic activity/Vol] 26 U/L Normal <=34 [facility] Comment on above: Performed By: #### L 100.0100, L500.4050 #### [facility] [address] [place], [address] AST [Catalytic activity/Vol] 34 U/L High <=31 [facility] Comment on above: Performed By: #### L 100.0100, L500.4050 #### [facility] [address] [place], [address] Bilirubin [Mass/Vol] 1.45 mg/dL High 0.00-1.30 [facility] Comment on above: Performed By: #### L 100.0100, L500.4050 #### [facility] [address] [place], [address] BUN/CRE 25.3 RATIO High 10-20 [facility] Comment on above: Performed By: #### L 100.0100, L500.4050 #### [facility] [address] [place], [address] Calcium [Mass/Vol] 9.7 mg/dL Normal 7.6-11.0 [facility] Comment on above: Performed By: #### L 100.0100, L500.4050 #### [facility] [address] [place], [address] Chloride [Moles/Vol] 103 mmol/L Normal 98-108 [facility] Comment on above: Performed By: #### L 100.0100, L500.4050 #### [facility] [address] [place], [address] CO2 [Moles/Vol] 24.4 mmol/L Normal 21.0-32.0 [facility] Comment on above: Performed By: #### L 100.0100, L500.4050 #### [facility] [address] [place], [address] Creatinine [Mass/Vol] 1.00 mg/dL Normal 0.70-1.20 [facility] Comment on above: Performed By: #### L 100.0100, L500.4050 #### [facility] [address] [place], [address] GAP 14 Normal 5-15 [facility] Comment on above: Performed By: #### L 100.0100, L500.4050 #### [facility] [address] [place], [address] GFR/1.73 sq M.predicted among non-blacks MDRD (S/P/Bld) [Vol rate/Area] 57 mL/min/{1.73_m2} Low >60 [facility] Comment on above: Result Comment: mL/m in/1.73m2 CKD-EPI Creatinine Equation (2020) Performed By: #### L 100.0100, L500.4050 #### [facility] [address] [place], [address] Globulin (S) [Mass/Vol] 2.4 g/dL Normal 2.2-4.2 [facility] Comment on above: Performed By: #### L 100.0100, L500.4050 #### [facility] [address] [place], [address] Glucose [Mass/Vol] 119 mg/dL High 70-99 [facility] Comment on above: Performed By: #### L 100.0100, L500.4050 #### [facility] [address] [place], [address] Potassium [Moles/Vol] 4.0 mmol/L Normal 3.3-5.1 [facility] Comment on above: Performed By: #### L 100.0100, L500.4050 #### [facility] [address] [place], [address] Sodium [Moles/Vol] 142 mmol/L Normal 133-145 [facility] Comment on above: Performed By: #### L 100.0100, L500.4050 #### [facility] [address] [place], [address] T PROT 6.7 g/dL Normal 5.9-8.4 [facility] Comment on above: Performed By: #### L 100.0100, L500.4050 #### [facility] [address] [place], [address] Urea nitrogen [Mass/Vol] 25 mg/dL High 4-19 [facility] Comment on above: Performed By: #### L 100.0100, L500.4050 #### [facility] [address] [place], [address] Free T3on 10-30-2024 Free T3 [Mass/Vol] 2.0 pg/mL Low 2.18-3.98 [facility] Comment on above: Performed By: #### L 501.93458, L506.0400, L501.9520 #### [facility] [address] [place], [address] T4 Free Directon 10-30-2024 T4 FREE DIRECT 1.24 ng/dL Normal 0.76-1.46 [facility] Comment on above: Performed By: #### L 100.0100, L500.4050 #### [facility] [address] [place], [address] Thyroid Stim Hormone (TSH)on 10-30-2024 TSH 1.780 uIU/mL Normal 0.358-3.740 [facility] Comment on above: Performed By: #### L 100.0100, L500.4050 #### [facility] [address] [place], [address] CBC W/Diff, Automatedon 11-2 Absolute Lymph 1.65 X10 3/uL Normal 0.83-4.51 [facility] Comment on above: Performed By: #### L 100.0100, L500.4050 #### [facility] [address] [place], [address] Absolute Neut 5.2 X10 3/uL Normal 2.0-7.7 [facility] Comment on above: Performed By: #### L 100.0100, L500.4050 #### [facility] [address] [place], [address] Basophils/100 WBC (Bld) 0.6 % Normal 0-1 [facility] Comment on above: Performed By: #### L 100.0100, L500.4050 #### [facility] [address] [place], [address] Eosinophils/100 WBC (Bld) 3.2 % Normal 0-5 [facility] Comment on above: Performed By: #### L 100.0100, L500.4050 #### [facility] [address] [place], [address] Erythrocyte distribution width (RBC) [Ratio] 14.4 % Normal 11.6-14.6 [facility] Comment on above: Performed By: #### L 100.0100, L500.4050 #### [facility] [address] [place], [address] Hematocrit (Bld) [Volume fraction] 35.7 % Low 37-47 [facility] Comment on above: Performed By: #### L 100.0100, L500.4050 #### [facility] [address] [place], [address] Hemoglobin (Bld) [Mass/Vol] 11.6 g/dL Low 12.0-15.0 [facility] Comment on above: Performed By: #### L 100.0100, L500.4050 #### [facility] [address] [place], [address] IG% 0.500 Normal 0.0-0.9 [facility] Comment on above: Result Comment: IG% - Immature Granulocytes (promyelocytes, myelocytes and metamyelocytes) > 1% indicates that a LEFT SHIFT is Present. Performed By: #### L 100.0100, L500.4050 #### [facility] [address] [place], [address] Lymphocytes/100 WBC (Bld) 21.3 % Normal 19-41 [facility] Comment on above: Performed By: #### L 100.0100, L500.4050 #### [facility] [address] [place], [address] MCH (RBC) [Entitic mass] 32.2 pg High 27.0-32.0 [facility] Comment on above: Performed By: #### L 100.0100, L500.4050 #### [facility] [address] [place], [address] MCHC (RBC) [Mass/Vol] 32.5 g/dL Normal 32-36 [facility] Comment on above: Performed By: #### L 100.0100, L500.4050 #### [facility] [address] [place], [address] MCV (RBC) [Entitic vol] 99.2 fL High 81-99 [facility] Comment on above: Performed By: #### L 100.0100, L500.4050 #### [facility] [address] [place], [address] Monocytes/100 WBC (Bld) 7.5 % Normal 0-10 [facility] Comment on above: Performed By: #### L 100.0100, L500.4050 #### [facility] [address] [place], [address] Neutrophils/100 WBC (Bld) 66.9 % Normal 47-70 [facility] Comment on above: Performed By: #### L 100.0100, L500.4050 #### [facility] [address] [place], [address] Nucleated RBC (Bld) [#/Vol] 0 10*3/uL Normal 0-5 [facility] Comment on above: Performed By: #### L 100.0100, L500.4050 #### [facility] [address] [place], [address] Platelet mean volume (Bld) [Entitic vol] 10.3 fL Normal 6.2-12.0 [facility] Comment on above: Performed By: #### L 100.0100, L500.4050 #### [facility] [address] [place], [address] Platelets (Bld) [#/Vol] 243 10*3/uL Normal 150-450 [facility] Comment on above: Performed By: #### L 100.0100, L500.4050 #### [facility] [address] [place], [address] RBC (Bld) [#/Vol] 3.60 10*6/uL Low 4.2-5.4 [facility] Comment on above: Performed By: #### L 100.0100, L500.4050 #### [facility] [address] [place], [address] RDW SD 52.6 fl High 35.1-43.9 [facility] Comment on above: Performed By: #### L 100.0100, L500.4050 #### [facility] [address] [place], [address] WBC (Bld) [#/Vol] 7.7 10*3/uL Normal 4.4-11.0 [facility] Comment on above: Performed By: #### L 100.0100, L500.4050 #### [facility] [address] [place], [address] Comprehensive Metabolic Prof ilon 07-31-2024 Albumin [Mass/Vol] 3.6 g/dL Normal 3.2-5.0 [facility] Comment on above: Performed By: #### L 100.0100, L500.4050 #### [facility] [address] [place], [address] Albumin/Globulin [Mass ratio] 1.2 {ratio} Normal 0.9-2.4 [facility] Comment on above: Performed By: #### L 100.0100, L500.4050 #### [facility] [address] [place], [address] ALK P 112 U/L Normal 45-117 [facility] Comment on above: Performed By: #### L 100.0100, L500.4050 #### [facility] [address] [place], [address] ALT [Catalytic activity/Vol] 34 U/L Normal 13-56 [facility] Comment on above: Performed By: #### L 100.0100, L500.4050 #### [facility] [address] [place], [address] AST [Catalytic activity/Vol] 25 U/L Normal 15-37 [facility] Comment on above: Performed By: #### L 100.0100, L500.4050 #### [facility] [address] [place], [address] Bilirubin [Mass/Vol] 1.30 mg/dL High 0.20-1.00 [facility] Comment on above: Result Comment: For patients on eltrombopag therapy, use of Dimension Apex TBIL is not recommended. Performed By: #### L 100.0100, L500.4050 #### [facility] [address] [place], [address] BUN/CRE 26.4 RATIO High 10-20 [facility] Comment on above: Performed By: #### L 100.0100, L500.4050 #### [facility] [address] [place], [address] CA,Total 9.1 mg/dL Normal 8.5-10.1 [facility] Comment on above: Performed By: #### L 100.0100, L500.4050 #### [facility] [address] [place], [address] Chloride [Moles/Vol] 108 mmol/L High 98-107 [facility] Comment on above: Performed By: #### L 100.0100, L500.4050 #### [facility] [address] [place], [address] CO2 [Moles/Vol] 29.0 mmol/L Normal 21.0-32.0 [facility] Comment on above: Performed By: #### L 100.0100, L500.4050 #### [facility] [address] [place], [address] Creatinine [Mass/Vol] 0.83 mg/dL Normal 0.55-1.02 [facility] Comment on above: Result Comment: The validity of the calculated GFR GFRAA in patients over 70 years has not been determined. Clinical correlation is essential. Performed By: #### L 100.0100, L500.4050 #### [facility] [address] [place], [address] EST GFR - AA 85 mL/min Normal >60 [facility] Comment on above: Result Comment: Afri can Andorran GFR Calc Performed By: #### L 100.0100, L500.4050 #### [facility] [address] [place], [address] GAP 4 Low 5-15 [facility] Comment on above: Performed By: #### L 100.0100, L500.4050 #### [facility] [address] [place], [address] GFR/1.73 sq M.predicted among non-blacks MDRD (S/P/Bld) [Vol rate/Area] 70 mL/min/{1.73_m2} Normal >60 [facility] Comment on above: Result Comment: Non- GFR Calc Performed By: #### L 100.0100, L500.4050 #### [facility] [address] [place], [address] Globulin (S) [Mass/Vol] 3.0 g/dL Normal 2.2-4.2 [facility] Comment on above: Performed By: #### L 100.0100, L500.4050 #### [facility] [address] [place], [address] Glucose [Mass/Vol] 89 mg/dL Normal 74-106 [facility] Comment on above: Performed By: #### L 100.0100, L500.4050 #### [facility] [address] [place], [address] Potassium [Moles/Vol] 4.3 mmol/L Normal 3.5-5.1 [facility] Comment on above: Performed By: #### L 100.0100, L500.4050 #### [facility] [address] [place], [address] Sodium [Moles/Vol] 141 mmol/L Normal 136-145 [facility] Comment on above: Performed By: #### L 100.0100, L500.4050 #### [facility] [address] [place], [address] T PROT 6.6 g/dL Normal 6.4-8.2 [facility] Comment on above: Performed By: #### L 100.0100, L500.4050 #### [facility] [address] [place], [address] Urea nitrogen [Mass/Vol] 22 mg/dL High 7-18 [facility] Comment on above: Performed By: #### L 100.0100, L500.4050 #### [facility] [address] [place], [address] SCRN MAMM (CAD)W/GODFREY BILATo n 07-19-2024 SCRN MAMM (CAD)W/GODFREY BILAT [facility] Imaging Services [address] [place] [address] SCRN MAMM (CAD)W/GODFREY BILAT MR#: [id number] Acct: [id number] Name: HEATHER RED Rep #: [id number] : 1945 F 78 From: Pa mejia MD PCP: Dr. Salvador Barber MD Status: [facility] Study: SCRN MAMM (CAD)W/GODFREY BILAT Date of Exam: 07/07 11/27 Exam# [id number] Ordering Dr: Suzette Monroy SVP DIGITAL [employer] SALES -C [id number] MAMMOGRAPHY - BILATERAL SCREENING REASON FOR EXAM: [...] delay biopsy of a clinically suspicious abnormality. [id number] Electronically Signed: Pa Lewis MD at 14:51 EST , CC: Dr. Salvador Barber MD; Suzette Monroy Hair Stylist: Signed Normal [facility] Neurology Visit Reporton Neurology Visit Report [facility] [address], [address] [place] [address] OFFICE VISIT Date of Service: 07/17/24 MR#: [id number] Acct: [id number] Name: HEATHER RED Rep #: [id number] : 1945 Provider: Dr. Keily prince MD Age/Sex: 78/F Location: [facility]. Status: Signed HPI HPI Chief Complaint: Details: [...] evidence of atrial fibrillation. 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 She saw an labor specialist, Dr. Macedo, earlier in 2023 regarding her low back pain and right lower extremity radicular pain and surgery was not recommended. She sees a director of admissions, Dr. Neely, and has been diagnosed with [...] revealed mod (more content not included)... Normal [facility] Dexa Bone Density Studyon Dexa Bone Density Study [facility] Imaging Services [address] [place] [address] Dexa Bone Density Study MR#: [id number] Acct: [id number] Name: HEATHER RED Rep #: [id number] : 1945 F 78 From: Pa mejia MD PCP: Dr. Salvador Barber MD Status: [facility] Study: Dexa Bone Density Study Date of Exam: 06/21/24 Exam# [id number] Ordering Dr: Salvador Barber MD [id number] STUDY: DUAL ENERGY X-RAY ABSORPTIOMETRY / DXA [...] at 13:19 EDT , CC: Dr. Salvador Barber MD Hair Stylist: Signed Normal [facility] CBC W/Diff, Automatedon 05-08 Absolute Lymph 1.39 X10 3/uL Normal 0.83-4.51 [facility] Comment on above: Performed By: #### L 100.0100, L500.4050 #### [facility] [address] [place], [address] Absolute Neut 4.5 X10 3/uL Normal 2.0-7.7 [facility] Comment on above: Performed By: #### L 100.0100, L500.4050 #### [facility] [address] [place], [address] Basophils/100 WBC (Bld) 0.5 % Normal 0-1 [facility] Comment on above: Performed By: #### L 100.0100, L500.4050 #### [facility] [address] [place], [address] Eosinophils/100 WBC (Bld) 2.6 % Normal 0-5 [facility] Comment on above: Performed By: #### L 100.0100, L500.4050 #### [facility] [address] [place], [address] Erythrocyte distribution width (RBC) [Ratio] 13.8 % Normal 11.6-14.6 [facility] Comment on above: Performed By: #### L 100.0100, L500.4050 #### [facility] [address] [place], [address] Hematocrit (Bld) [Volume fraction] 34.3 % Low 37-47 [facility] Comment on above: Performed By: #### L 100.0100, L500.4050 #### [facility] [address], [address] Hemoglobin (Bld) [Mass/Vol] 10.9 g/dL Low 12.0-15.0 [facility] Comment on above: Performed By: #### L 100.0100, L500.4050 #### [facility] [address] [place], [address] IG% 0.500 Normal 0.0-0.9 [facility] Comment on above: Result Comment: IG% - Immature Granulocytes (promyelocytes, myelocytes and metamyelocytes) > 1% indicates that a LEFT SHIFT is Present. Performed By: #### L 100.0100, L500.4050 #### [facility] [address] [place], [address] Lymphocytes/100 WBC (Bld) 20.9 % Normal 19-41 [facility] Comment on above: Performed By: #### L 100.0100, L500.4050 #### [facility] [address] [place], [address] MCH (RBC) [Entitic mass] 31.5 pg Normal 27.0-32.0 [facility] Comment on above: Performed By: #### L 100.0100, L500.4050 #### [facility] [address] [place], [address] MCHC (RBC) [Mass/Vol] 31.8 g/dL Low 32-36 [facility] Comment on above: Performed By: #### L 100.0100, L500.4050 #### [facility] [address] [place], [address] MCV (RBC) [Entitic vol] 99.1 fL High 81-99 [facility] Comment on above: Performed By: #### L 100.0100, L500.4050 #### [facility] [address] [place], [address] Monocytes/100 WBC (Bld) 7.4 % Normal 0-10 [facility] Comment on above: Performed By: #### L 100.0100, L500.4050 #### [facility] [address] [place], [address] Neutrophils/100 WBC (Bld) 68.1 % Normal 47-70 [facility] Comment on above: Performed By: #### L 100.0100, L500.4050 #### [facility] [address] [place], [address] Nucleated RBC (Bld) [#/Vol] 0 10*3/uL Normal 0-5 [facility] Comment on above: Performed By: #### L 100.0100, L500.4050 #### [facility] [address] [place], [address] Platelet mean volume (Bld) [Entitic vol] 9.9 fL Normal 6.2-12.0 [facility] Comment on above: Performed By: #### L 100.0100, L500.4050 #### [facility] [address] [place], [address] Platelets (Bld) [#/Vol] 252 10*3/uL Normal 150-450 [facility] Comment on above: Performed By: #### L 100.0100, L500.4050 #### [facility] [address] [place], [address] RBC (Bld) [#/Vol] 3.46 10*6/uL Low 4.2-5.4 [facility] Comment on above: Performed By: #### L 100.0100, L500.4050 #### [facility] [address] [place], [address] RDW SD 49.4 fl High 35.1-43.9 [facility] Comment on above: Performed By: #### L 100.0100, L500.4050 #### [facility] [address] [place], [address] WBC (Bld) [#/Vol] 6.6 10*3/uL Normal 4.4-11.0 [facility] Comment on above: Performed By: #### L 100.0100, L500.4050 #### [facility] [address] [place], [address] Comprehensive Metabolic Prof wion 05-29-2024 Albumin [Mass/Vol] 3.7 g/dL Normal 3.2-5.0 [facility] Comment on above: Performed By: #### L 100.0100, L500.4050 #### [facility] [address] [place], [address] Albumin/Globulin [Mass ratio] 1.4 {ratio} Normal 0.9-2.4 [facility] Comment on above: Performed By: #### L 100.0100, L500.4050 #### [facility] [address] [place], [address] ALK P 117 U/L Normal 45-117 [facility] Comment on above: Performed By: #### L 100.0100, L500.4050 #### [facility] [address] [place], [address] ALT [Catalytic activity/Vol] 24 U/L Normal 13-56 [facility] Comment on above: Performed By: #### L 100.0100, L500.4050 #### [facility] [address] [place], [address] AST [Catalytic activity/Vol] 24 U/L Normal 15-37 [facility] Comment on above: Performed By: #### L 100.0100, L500.4050 #### [facility] [address] [place], [address] Bilirubin [Mass/Vol] 1.30 mg/dL High 0.20-1.00 [facility] Comment on above: Result Comment: For patients on eltrombopag therapy, use of Dimension Apex TBIL is not recommended. Performed By: #### L 100.0100, L500.4050 #### [facility] [address] [place], [address] BUN/CRE 22.9 RATIO High 10-20 [facility] Comment on above: Performed By: #### L 100.0100, L500.4050 #### [facility] [address] [place], [address] CA,Total 9.3 mg/dL Normal 8.5-10.1 [facility] Comment on above: Performed By: #### L 100.0100, L500.4050 #### [facility] [address] [place], [address] Chloride [Moles/Vol] 107 mmol/L Normal 98-107 [facility] Comment on above: Performed By: #### L 100.0100, L500.4050 #### [facility] [address] [place], [address] CO2 [Moles/Vol] 29.0 mmol/L Normal 21.0-32.0 [facility] Comment on above: Performed By: #### L 100.0100, L500.4050 #### [facility] [address] [place], [address] Creatinine [Mass/Vol] 0.96 mg/dL Normal 0.55-1.02 [facility] Comment on above: Result Comment: The validity of the calculated GFR GFRAA in patients over 70 years has not been determined. Clinical correlation is essential. Performed By: #### L 100.0100, L500.4050 #### [facility] [address] [place], [address] EST GFR - AA 72 mL/min Normal >60 [facility] Comment on above: Result Comment: Afri can Andorran GFR Calc Performed By: #### L 100.0100, L500.4050 #### [facility] [address] [place], [address] GAP 4 Low 5-15 [facility] Comment on above: Performed By: #### L 100.0100, L500.4050 #### [facility] [address] [place], [address] GFR/1.73 sq M.predicted among non-blacks MDRD (S/P/Bld) [Vol rate/Area] 59 mL/min/{1.73_m2} Low >60 [facility] Comment on above: Result Comment: Non- GFR Calc Performed By: #### L 100.0100, L500.4050 #### [facility] [address] [place], [address] Globulin (S) [Mass/Vol] 2.7 g/dL Normal 2.2-4.2 [facility] Comment on above: Performed By: #### L 100.0100, L500.4050 #### [facility] [address] [place], [address] Glucose [Mass/Vol] 101 mg/dL Normal 74-106 [facility] Comment on above: Result Comment: Fast ing Glucose result from 100 to 125 mg/dL suggests IMPAIRED HOMEOSTASIS per A.D.A. criteria. Performed By: #### L 100.0100, L500.4050 #### [facility] [address] [place], [address] Potassium [Moles/Vol] 4.2 mmol/L Normal 3.5-5.1 [facility] Comment on above: Performed By: #### L 100.0100, L500.4050 #### [facility] [address] [place], [address] Sodium [Moles/Vol] 140 mmol/L Normal 136-145 [facility] Comment on above: Performed By: #### L 100.0100, L500.4050 #### [facility] [address] [place], [address] T PROT 6.4 g/dL Normal 6.4-8.2 [facility] Comment on above: Performed By: #### L 100.0100, L500.4050 #### [facility] [address] [place], [address] Urea nitrogen [Mass/Vol] 22 mg/dL High 7-18 [facility] Comment on above: Performed By: #### L 100.0100, L500.4050 #### [facility] [address] [place], [address] Inital Evaluation (1) - PTon 05-24-2024 Inital Evaluation (1) - PT [facility] Physical Therapy [facility] [place] [address] / REHABILITATION SERVICES INITIAL EVALUATION MR#: [id number] Acct: [id number] Name: HEATHER RED Rep #: [id number] : 1945 78 From: Vern Blanton PT. MD More[place], OCS Referring Dr.: Dr. Herson Macedo MD [...] reduce ri (more content not included)... Normal [facility] L/S Spine Min 4 Viewson 04-07 L/S Spine Min 4 Views [facility] [address] [place] [address] L/S Spine Min 4 Views MR#: [id number] Acct: [id number] Name: HEATHER RED Rep #: [id number] : 1945 F 78 From: Galen coats MD PCP: Dr. Salvador Barber MD Status: DEP AMB Study: L/S Spine Min 4 Views Date of Exam: 05/04/24 Exam# [id number] Ordering Dr: Almaz Paz [id number] STUDY: X-RAY - LUMBAR SPINE REASON FOR [...] Signed: Galen Reynolds MD at 16:44 EDT Reading Location ID and State: [address] [facility] , Service support , CC: HOMA Campos; Dr. Salvador Barber MD Hair Stylist: Signed Normal [facility] Orthopedic Visit Reporton Orthopedic Visit Report [facility] [address] [place] [address] [address] [place] [address] OFFICE VISIT Date of Service: 05/04/24 MR#: [id number] Acct: [id number] Name: HEATHER RED Rep #: [id number] : 1945 Provider: Dr. Herson Macedo MD Age/Sex: 78/F Location: [facility] Status: Signed Intake Vital Signs 03/07/24 13:03 [...] you fallen in the past year?: No [facility] Medical History Sacroiliitis Wears partial dentures Arthritis Urinary incontinence Restless legs Injury of head and neck Gastric reflux Non-smoker History of stress test History of echocardiogram Leg cramps History of edema Cardiology follow-up encounter Nosebleed Degenerative disc disease, cervical Occipital headache [id number] ultra-rapid metabolizer Obstructive sleep apnea on CPAP [...] Smoking Stat (more content not included)... Normal [facility] Comprehensive Metabolic Prof wion 04-03-2024 Albumin [Mass/Vol] 3.7 g/dL Normal 3.2-5.0 [facility] Comment on above: Performed By: #### L 100.0100, L500.4050 #### [facility] [address] [place], [address] Albumin/Globulin [Mass ratio] 1.2 {ratio} Normal 0.9-2.4 [facility] Comment on above: Performed By: #### L 100.0100, L500.4050 #### [facility] [address] [place], [address] ALK P 122 U/L High 45-117 [facility] Comment on above: Performed By: #### L 100.0100, L500.4050 #### [facility] [address] [place], [address] ALT [Catalytic activity/Vol] 37 U/L Normal 13-56 [facility] Comment on above: Performed By: #### L 100.0100, L500.4050 #### [facility] [address] [place], [address] AST [Catalytic activity/Vol] 35 U/L Normal 15-37 [facility] Comment on above: Performed By: #### L 100.0100, L500.4050 #### [facility] [address] [place], [address] Bilirubin [Mass/Vol] 1.20 mg/dL High 0.20-1.00 [facility] Comment on above: Result Comment: For patients on eltrombopag therapy, use of Dimension Apex TBIL is not recommended. Performed By: #### L 100.0100, L500.4050 #### [facility] [address] [place], [address] BUN/CRE 21.2 RATIO High 10-20 [facility] Comment on above: Performed By: #### L 100.0100, L500.4050 #### [facility] [address] [place], [address] CA,Total 9.1 mg/dL Normal 8.5-10.1 [facility] Comment on above: Performed By: #### L 100.0100, L500.4050 #### [facility] [address] [place], [address] Chloride [Moles/Vol] 105 mmol/L Normal 98-107 [facility] Comment on above: Performed By: #### L 100.0100, L500.4050 #### [facility] [address] [place], [address] CO2 [Moles/Vol] 29.0 mmol/L Normal 21.0-32.0 [facility] Comment on above: Performed By: #### L 100.0100, L500.4050 #### [facility] [address] [place], [address] Creatinine [Mass/Vol] 0.99 mg/dL Normal 0.55-1.02 [facility] Comment on above: Result Comment: The validity of the calculated GFR GFRAA in patients over 70 years has not been determined. Clinical correlation is essential. Performed By: #### L 100.0100, L500.4050 #### [facility] [address] [place], [address] EST GFR - AA 69 mL/min Normal >60 [facility] Comment on above: Result Comment: Afri can Andorran GFR Calc Performed By: #### L 100.0100, L500.4050 #### [facility] [address] [place], [address] GAP 6 Normal 5-15 [facility] Comment on above: Performed By: #### L 100.0100, L500.4050 #### [facility] [address] [place], [address] GFR/1.73 sq M.predicted among non-blacks MDRD (S/P/Bld) [Vol rate/Area] 57 mL/min/{1.73_m2} Low >60 [facility] Comment on above: Result Comment: Non- GFR Calc Performed By: #### L 100.0100, L500.4050 #### [facility] [address] [place], [address] Globulin (S) [Mass/Vol] 3.1 g/dL Normal 2.2-4.2 [facility] Comment on above: Performed By: #### L 100.0100, L500.4050 #### [facility] [address] [place], [address] Glucose [Mass/Vol] 153 mg/dL High 74-106 [facility] Comment on above: Result Comment: Fast ing Glucose result greater than or equal to 126 mg/dL suggests DIABETES MELLITUS per A.D.A. criteria. Performed By: #### L 100.0100, L500.4050 #### [facility] [address] [place], [address] Potassium [Moles/Vol] 3.9 mmol/L Normal 3.5-5.1 [facility] Comment on above: Performed By: #### L 100.0100, L500.4050 #### [facility] [address] [place], [address] Sodium [Moles/Vol] 140 mmol/L Normal 136-145 [facility] Comment on above: Performed By: #### L 100.0100, L500.4050 #### [facility] [address] [place], [address] T PROT 6.8 g/dL Normal 6.4-8.2 [facility] Comment on above: Performed By: #### L 100.0100, L500.4050 #### [facility] [address] [place], [address] Urea nitrogen [Mass/Vol] 21 mg/dL High 7-18 [facility] Comment on above: Performed By: #### L 100.0100, L500.4050 #### [facility] [address] [place], [address] US BREAST LEFT LIMITEDon US BREAST LEFT LIMITED ORIGINAL FROM: [address] [address] PROCEDURE FOR: HEATHER RED [address] [place] [address] Home: PID#: [id number] Exam#: [id number] : 1945 Age: 77 TO: SALVADOR Leyva [address] [place] [address] EXAMINATION: ULTRASOUND OF THE LEFT BREAST 08/02/2023 [...] there is a heterogeneous area with a "chalk on edge" appearance that has decreased in prominence and [...] Date: 08/02/2023 1:44:15 PM Ordering Provider: SALVADOR BARBER CLINICAL: 6 MONTHS FOLLOW-UP. Heavy Lift Rigger: BRYAN PERDOMO(Zoe) RDMS letter sent: Normal BI-RADS 1 and 2 Ultrasound BI-RADS: 2 Benign Normal [facility] ([place]) [place] MAMMOGRAM DIAGNOSTIC BILA TERAL W/TOMOon 07-16-2023 MA MAMMOGRAM DIAGNOSTIC BILATERAL W/GODFREY ORIGINAL FROM: [address] [address] PROCEDURE FOR: HEATHER RED [address] [place] [address] Home: PID#: [id number] Exam#: [id number] : 1945 Age: 77 TO: SALVADOR Leyva E [address] ALMANZA [facility] [address] [place] [address] EXAMINATION: DIAGNOSTIC BILATERAL MAMMOGRAM WITH TOMOSYNTHESIS, 07/16/2023 [...] A 1 year screening mammogram is recommended. [facility] risk calculations, generated with the history provided, [...] addition to annual mammographic screening per the [place] [employer]. BIRADS: MAMMOGRAM BI-RADS: 2: Benign finding RECALL: 1 year screening RECALL TYPE: mammo LETTER SENT: Normal BI-RADS 1 and 2 Interpreted by: Thomas Oliver MD Preliminary Report By: Thomas Oliver MD Electronically signed By Thomas Oliver MD Dictated Date: 07/16/2023 10:20:24 AM Prelim Date: 07/16/2023 10:23:12 AM Sign Date: 07/16/2023 10:23:12 AM Ordering Provider: SALVADOR BARBER CLINICAL: 6 MONTHS FOLLOW-UP MAMMOGRAPHIC DENSITY LEFT BREAST. Heavy Lift Rigger: MIGUEL ALMANZAR RT (R) (M) (CT) letter sent: Normal BI-RADS 1 and 2 Mammogram BI-RADS: 2 Benign Normal [facility] ([place]) US BREAST LEFT LIMITEDon US BREAST LEFT LIMITED ORIGINAL FROM: [facility] [address], [place] [address] PROCEDURE FOR: HEATHER RED [address] [place] [address] Home: PID#: [id number] Exam#: [id number] : 1945 Age: 77 TO: SALVADOR BARBER MD [address] [place] [address] EXAMINATION: ULTRASOUND OF THE LEFT BREAST 01/01/2023 [...] Date: 01/01/2023 10:36:35 AM Ordering Provider: SALVADOR BARBER CLINICAL: 6 MONTHS FOLLOW-UP. 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 Lift Rigger: BRYAN AARON RT(R) RDMS letter sent: Probably Benign BI-RADS 3 Ultrasound BI-RADS: 3 Probably benign Normal [facility] ([place]) LABORATORYOrdered By: SYSTEM SYSTEM on 09-12-2022 Albumin [...] Invalid Interpretation Code 82 - 115 mg/dL [facility] Vital Signs Date Time Vital Sign Value Performing Clinician Dustin vargas 09-12-2022 09:56-0500 Diastolic Blood Pressure Non-Invasive 60 1 DALE FLORES APRNMolecular Imaging [facility] 09-12-2022 09:56-0500 Heart rate 72 /min DALE FLORES PICKING MACHINE OPERATOR HELPERMolecular Imaging [facility] 09-12-2022 09:56-0500 Respiratory rate 16 /min DALE FLORES APRNMolecular Imaging [facility] 09-12-2022 09:56-0500 Systolic Blood Pressure Non-Invasive 118 1 DALE FLORES PICKING MACHINE OPERATOR HELPER-SENIOR ANIMATOR [facility] 09-12-2022 08:51-0500 Heart rate 92 /min DALE FLORES PICKING MACHINE OPERATOR HELPER-SENIOR ANIMATOR [facility] 09-12-2022 08:21-0500 Body temperature 98.42 [degF] DALE RIVERON PICKING MACHINE OPERATOR HELPER-SENIOR ANIMATOR [facility] 09-12-2022 08:21-0500 Diastolic Blood Pressure Non-Invasive 92 1 DALE RIVERON PICKING MACHINE OPERATOR HELPER-SENIOR ANIMATOR [facility] 09-12-2022 08:21-0500 Heart rate 62 /min DALE RIVERON PICKING MACHINE OPERATOR HELPER-SENIOR ANIMATOR [facility] 09-12-2022 08:21-0500 Respiratory rate 16 /min DALE FLORES PICKING MACHINE OPERATOR HELPER-SENIOR ANIMATOR [facility] 09-12-2022 08:21-0500 Systolic Blood Pressure Non-Invasive 180 1 DALE RIVERON PICKING MACHINE OPERATOR HELPER-SENIOR ANIMATOR [facility] 09-12-2022 05:40-0500 Body temperature 97.52 [degF] DALE RIVERON PICKING MACHINE OPERATOR HELPER-SENIOR ANIMATOR [facility] 09-12-2022 05:40-0500 Diastolic Blood Pressure Non-Invasive 69 1 DALE RIVERON PICKING MACHINE OPERATOR HELPER-SENIOR ANIMATOR [facility] 09-12-2022 05:40-0500 Heart rate 68 /min DALE RIVERON PICKING MACHINE OPERATOR HELPER-SENIOR ANIMATOR [facility] 09-12-2022 05:40-0500 Respiratory rate 18 /min DALE RIVEROZackery PICKING MACHINE OPERATOR HELPER-SENIOR ANIMATOR [facility] 09-12-2022 05:40-0500 Systolic Blood Pressure Non-Invasive 110 1 DALE RIVERON PICKING MACHINE OPERATOR HELPER-SENIOR ANIMATOR [facility] 09-11-2022 23:08-0500 Body temperature 98.06 [degF] DALEMILLA RIVERON PICKING MACHINE OPERATOR HELPER-SENIOR ANIMATOR [facility] 09-11-2022 23:08-0500 Heart rate 81 /min DALE RIVERON PICKING MACHINE OPERATOR HELPER-SENIOR ANIMATOR [facility] 09-11-2022 19:45-0500 Heart rate 69 /min DALEMILLA RIVERON PICKING MACHINE OPERATOR HELPER-SENIOR ANIMATOR [facility] 09-11-2022 16:27-0500 Heart rate 69 /min DALEMILLA RIVERON PICKING MACHINE OPERATOR HELPER-SENIOR ANIMATOR [facility] 09-11-2022 16:02-0500 Body height 162.6 cm DALEMILLA RIVERON PICKING MACHINE OPERATOR HELPER-SENIOR ANIMATOR [facility] 09-11-2022 16:02-0500 Body weight 74.2 kg DALEMILLA RIVERON PICKING MACHINE OPERATOR HELPER-SENIOR ANIMATOR [facility] 09-11-2022 16:02-0500 Body weight 28.06 kg/m2 DALE RIVERON PICKING MACHINE OPERATOR HELPER-SENIOR ANIMATOR [facility] 09-11-2022 09:44-0500 Body height 162.6 cm DALEMILLA RIVERON PICKING MACHINE OPERATOR HELPER-SENIOR ANIMATOR [facility] 09-11-2022 09:44-0500 Body weight 74.2 kg DALEMILLA RIVERON PICKING MACHINE OPERATOR HELPER-SENIOR ANIMATOR [facility] Encounters Encounter Date Encounter Type Care Provider Facility Start: 03-29-2025 [facility] Sunil Facility:[facility] Start: 03-20-2025 End: 03-20-2025 ambulatory Salvador Barber Facility:[facility] Start: 03-20-2025 End: 03-20-2025 ambulatory Annalisejohnny Salazar Facility:[facility] Start: 03-15-2025 End: 03-15-2025 Emergency department patient visit Kobi Drake Facility:[facility] Start: 03-06-2025 End: 03-06-2025 ambulatory Keri Brandtdevora Facility:[facility] Start: 03-01-2025 End: 03-01-2025 ambulatory Kerijackie Carltondevora Facility:[facility] Start: 03-01-2025 End: 03-01-2025 ambulatory Keri Hartman Facility:[facility] Start: 02-02-2025 End: 02-02-2025 ambulatory Salvador Barber Facility:[facility] Start: 01-11-2025 End: 01-11-2025 ambulatory Ade Chin Facility:[facility] Start: 01-05-2025 End: 01-05-2025 ambulatory Holly Rothman Facility:[facility] Start: 12-14-2024 End: 12-14-2024 ambulatory Keily Winter Facility:[facility] Start: 11-16-2024 End: 11-16-2024 ambulatory Ade Chin Facility:[facility] Start: 11-09-2024 End: 11-09-2024 ambulatory Salvador Barber Facility:[facility] Start: 10-30-2024 End: 10-30-2024 ambulatory Salvador Barber Facility:[facility] Start: 07-31-2024 End: 07-31-2024 ambulatory Salvador Barber Facility:[facility] Start: 07-19-2024 End: 07-19-2024 ambulatory Salvador Barber Facility:[facility] Start: 07-17-2024 End: 07-17-2024 ambulatory Salvador Barber Facility:[facility] Start: 06-27-2024 End: 06-27-2024 ambulatory Herson Macedo Facility:[facility] Start: 06-21-2024 End: 06-21-2024 ambulatory Salvador Barber Facility:[facility] Start: 05-29-2024 End: 05-29-2024 ambulatory Salvador Barber Facility:[facility] Start: 05-04-2024 End: 05-04-2024 ambulatory Herson Macedo Facility:[facility] Start: 04-03-2024 End: 04-03-2024 ambulatory Ade Neely Facility:[facility] Start: 08-02-2023 End: 08-03-[address] SALVADOR BARBER MD Facility:[facility] Start: 07-16-2023 End: 07-17-[address] SALVADOR BARBER MD Facility:[facility] Start: 07-16-2023 End: 07-16-[address] SALVADOR BARBER MD [facility] Start: 01-01-2023 End: 01-02-[address] SALVADOR BARBER MD Facility:[facility] Start: 01-01-2023 End: 01-01-[address] SALVADOR BRABER MD [facility] Start: 09-21-2022 End: 10-14-2022 Physical therapy management KEILY WINTER MD. [facility] Start: 09-11-2022 End: 09-12-2022 Observation DALE FLORES APRN-SENIOR ANIMATOR [facility] Start: 09-08-2022 End: 09-08-[address] SALVADOR BARBER MD [facility] Start: 05-19-2022 End: 05-19-[address] SALVADOR BARBER MD [facility] Start: 05-13-2022 End: 05-13-[address] SALVADOR BARBER MD [facility] Procedures Date Procedure Procedure Detail Performing Clinician Start: 09-06-2021 Back structure, excl uding neck (body structure) DR SALVADOR BARBER MD Start: 09-06-2020 Stress test treadmil l (physical object) DALE FLORES APRNProject RepatSENIOR ANIMATOR Start: 09-11-2009 Total knee replacement DALE FLORES APRNProject RepatSENIOR ANIMATOR Start: 09-11-2004 Cholecystectomy DALE FLORES APRNProject RepatSENIOR ANIMATOR Start: 09-11-1979 Arthroscopy of knee DANGELO FLORES PICKING MACHINE OPERATOR HELPERProject RepatSENIOR ANIMATOR Start: 09-11-1974 section DALE FLORES APRNProject RepatSENIOR ANIMATOR Bilateral cataracts (disorder) DR SALVADOR BARBER MD Carpal tunnel syndro me (disorder) DR SALVADOR BARBER MD Decompression of med tacho nerve DALE FLORES APRNProject RepatSENIOR ANIMATOR Dilation and curettage DR HOMA BARBER MD Heel structure (body structure) DR SALVADOR BARBER MD Comment on above: heel spur removed Removal of ovarian cyst DR Anneliese BARBER MD Comment on above: right Repair of musculoten dinous cuff of shoulder DR SALVADOR BARBER MD Immunizations Immunization Date Immunization Notes Care Provider Fa [facility] 06-05-2022 influenza virus vaccine, unspecified formulation DALE FLORES APRN-SENIOR ANIMATOR [facility] 12-23-2021 SARS-CoV-2 (COVID-19 ) mRNA1273 vaccine DALE FLORES APRN-SENIOR ANIMATOR [facility] 07-04-2021 influenza virus vaccine, unspecified formulation DALE FLORES APRN-SENIOR ANIMATOR [facility] 06-30-2021 SARS-CoV-2 (COVID-19 ) mRNA-1273 vaccine DALE HALLENEN PICKING MACHINE OPERATOR HELPER-SENIOR ANIMATOR [facility] 04-16-2021 zoster vaccine recombinant DALE HALLENEN PICKING MACHINE OPERATOR HELPER-SENIOR ANIMATOR [facility] 12-03-2020 SARS-CoV-2 (COVID-19 ) mRNA-1273 vaccine DALE HALLENEN PICKING MACHINE OPERATOR HELPER-SENIOR ANIMATOR [facility] 11-05-2020 SARS-CoV-2 (COVID-19 ) mRNA-1273 vaccine DALE HALLENEN PICKING MACHINE OPERATOR HELPER-SENIOR ANIMATOR [facility] 06-23-2019 influenza virus vaccine, unspecified formulation DALE HALLENEN PICKING MACHINE OPERATOR HELPER-SENIOR ANIMATOR [facility] 06-12-2019 zoster vaccine recombinant DALEMILLA NERINEN PICKING MACHINE OPERATOR HELPER-SENIOR ANIMATOR [facility] 06-08-2018 tetanus toxoid, redu naye diphtheria toxoid, and acellular pertussis vaccine, adsorbed; Translations: [Boostrix (Tdap)] DR SALVADOR BARBER MD [facility] 05-31-2018 influenza virus vaccine, unspecified formulation DALE HALLENEN PICKING MACHINE OPERATOR HELPER-SENIOR ANIMATOR [facility] 06-04-2017 influenza virus vaccine, unspecified formulation DALE HALLENEN PICKING MACHINE OPERATOR HELPER-SENIOR ANIMATOR [facility] 06-04-2016 influenza virus vaccine, unspecified formulation DALE KENNEN PICKING MACHINE OPERATOR HELPER-SENIOR ANIMATOR [facility] Payers Date Payer Category Payer Self-pay 2022 Medicare [id number] 2022 Private Health Insurance [id number] 1945 Unknown [id number] 2.16.8 [id number] 1945 Unknown [id number] 2.16.8 40.1.887733.3.579.2.627 1945 Unknown [id number] 2.16.8 40.1.792904.3.579.2.627 1945 Unknown [id number] 2.16.8 40.1.092673.3.579.2.627 Unknown [id number] 2.16.8 40.1.060370.3.579.2.462 Unknown [id number] 2.16.8 40.1.152449.3.579.2.462 Unknown [id number] 2.16.8 40.1.773513.3.579.2.462 Unknown [id number] 2.16.8 40.1.729766.3.579.2.462 Unknown [id number] 2.16.8 40.1.487592.3.579.2.462 Unknown [id number] 2.16.8 40.1.831148.3.579.2.462 Unknown [id number] 2.16.8 40.1.282466.3.579.2.462 Unknown [id number] 2.16.8 40.1.889922.3.579.2.462 Unknown [id number] 2.16.8 40.1.680088.3.579.2.462 Unknown [id number] 2.16.8 40.1.136469.3.579.2.462 Unknown [id number] 2.16.8 40.1.239250.3.579.2.462 Unknown [id number] 2.16.8 40.1.858344.3.579.2.462 Unknown [id number] 2.16.8 40.1.632342.3.579.2.462 Unknown [id number] 2.16.8 40.1.277873.3.579.2.462 Unknown [id number] 2.16.8 40.1.367505.3.579.2.462 Unknown [id number] 2.16.8 40.1.213000.3.579.2.462 Unknown [id number] 2.16.8 40.1.044928.3.579.2.462 Unknown [id number] 2.16.8 40.1.448971.3.579.2.462 Unknown [id number] 2.16.8 40.1.768976.3.579.2.462 Unknown [id number] 2.16.8 40.1.192183.3.579.2.462 Unknown [id number] 2.16.8 40.1.417698.3.579.2.462 Unknown [id number] 2.16.8 40.1.762677.3.579.2.462 Unknown [id number] 2.16.8 40.1.574816.3.579.2.462 Social History Date Type Detail Facility Start: 09-11-2022 Tobacco smoking status Never s moked tobacco (finding) [facility] Sex Assigned At Female [facility] Functional Status Date Assessment Result Facility 09-21-2022 Functional Status OBJECTIVE BP: 125/72 Gait: no marked deficits with no AD Transfers: WNL Sensation: no abnormalities or asymmetries Reflexes: NT MMT: 4+/5 grossly Activities - specifc balance confidence scale: 85% m-cstib composite/avg score: 1.94, 7% impairment orthostatic hypotension screening: negative - supine 108/62, standing 123/70 [facility] 09-12-2022 Functional Status Room check performed [facility] 09-12-2022 Functional Status Independent [facility] 09-12-2022 Functional Status [facility] 09-12-2022 Functional Status [facility] 09-12-2022 Functional Status [facility] 09-12-2022 Functional Status [facility] 09-11-2022 Functional Status Sensory Deficits None [facility] Mental Status Date Assessment Result Facility 09-12-2022 Mental Status Orientation Oriented x 4 [facility] 09-12-2022 Mental Status [facility] 09-11-2022 Mental Status [facility] 09-11-2022 Mental Status Orientation Asse ssment Oriented x 4 [facility] Clinical Notes 09-11-2022 to 07-16-2023 Note Date & Type Note Facility 07-16-2023 Note ORIGINAL FROM: [facility] [address], [place] [address] PROCEDURE FOR: HEATHER RED [address] [place] [address] Home: PID#: [id number] Exam#: [id number] : 1945 Age: 77 TO: SALVADOR BARBER MD [address] [facility] [address] [place] [address] EXAMINATION: DIAGNOSTIC BILATERAL MAMMOGRAM WITH TOMOSYNTHESIS, 07/16/2023 [...] addition to annual mammographic screening per the [place] [employer]. BIRADS: MAMMOGRAM BI-RADS: 2: Benign finding RECALL: 1 year screening RECALL TYPE: mammo LETTER SENT: Normal BI-RADS 1 and 2 Interpreted by: Thomas Oliver MD Preliminary Report By: Thomas Oliver MD Electronically signed By Thomas Oliver MD Dictated Date: 07/16/2023 10:20:24 AM Prelim Date: 07/16/2023 10:23:12 AM Sign Date: 07/16/2023 10:23:12 AM Ordering Provider: SALVADOR BARBER CLINICAL: 6 MONTHS FOLLOW-UP MAMMOGRAPHIC DENSITY LEFT BREAST. Heavy Lift Rigger: MIGUEL ALMANZAR RT (R) (M) (CT) letter sent: Normal BI-RADS 1 and 2 Mammogram BI-RADS: 2 Benign [facility] 01-01-2023 Note ORIGINAL FROM: [place] [address] PROCEDURE FOR: HEATHER RED [address] [place] [address] Home: PID#: [id number] Exam#: [id number] : 1945 Age: 77 TO: SALVADOR BARBER MD [address] [facility] [place] [address] EXAMINATION: ULTRASOUND OF THE LEFT BREAST 01/01/2023 [...] Date: 01/01/2023 10:36:35 AM Ordering Provider: SALVADOR BARBER CLINICAL: 6 MONTHS FOLLOW-UP. Heavy Lift Rigger: BRYAN PERDOMO(R) ARCHIECA letter sent: Probably Benign BI-RADS 3 Ultrasound BI-RADS: 3 Probably benign [facility] 01-01-2023 Note ORIGINAL FROM: [facility] [address] [place] [address] PROCEDURE FOR: HEATHER RED [address] [place] [address] Home: PID#: [id number] Exam#: [id number] : 1945 Age: 77 TO: SALVADOR LOMAS [place] [id number] EXAMINATION: ULTRASOUND OF THE LEFT BREAST 01/01/2023 [...] Date: 01/01/2023 10:36:35 AM Ordering Provider: SALVADOR BARBER CLINICAL: 6 MONTHS FOLLOW-UP. Heavy Lift Rigger: BRYAN WALKER RT(Zoe) RDMS letter sent: Probably Benign BI-RADS 3 Ultrasound BI-RADS: 3 Probably benign [facility] 09-12-2022 Hospital Discharge instructions Patient Education 09/12/2022 13:30:15 Transient Ischemic Attack Transient Ischemic Attack A transient ischemic attack (TIA) is a "warning stroke" that causes stroke-like symptoms that then go [...] Follow these instructions at home: Medicines Take bocf-nae-bagqtrj and prescription medicines only as told by [...] is important. Where to find more information [place] [employer] Association: www.strokeassociation.org National Stroke Association: www.stroke.org [...] 06/02/2006 Document Revised: 02/28/2019 Document Reviewed: 10/05/2017 [employer] Patient Education 2020 [employer]. Follow Up Care 09/11/2022 09:19:42 With:SALVADOR BARBER MD Address: [address] [place] [address] [phone] When:3[facility] Note Discharge Instructions Thank you for allowing [facility] to assist you with your healthcare needs. The following is important discharge information regarding your hospital visit. Your Diagnosis TIA (transient ischemic attack) High blood pressure Hypercholesterolemia What to do next Follow Up Appointments Follow Up with SALVADOR BARBER MD When Within 3-5 days Where: [address] [place] [address] [phone] The Following Activity and Diet Have Been [...] A transient ischemic attack (TIA) is a "warning stroke" that causes stroke-like symptoms that then go [...] Follow these instructions at home: Medicines Take qzka-dvx-rhrxiup and prescription medicines only as told by [...] is important. Where to find more information [place] [employer] Association: www.strokeassociation.org National Stroke Association: www.stroke.org [...] 06/02/2006 Document Revised: 02/28/2019 Document Reviewed: 10/05/2017 Elsevier Patient Education 2020 [employer] Additional Information VACCINATE! IT SAVES LIVES! Members of the community who have not yet received the COVID-19 vaccine and would like to receive it can visit one of [facility] vaccine clinics. There are many vaccine clinic locations within the [facility]. For locations and available times, please visit [email or web address] .[email or web address] It is important to note that some COVID mobile vaccine clinics are held outdoors and may be canceled in rainy or stormy conditions. To learn more about pediatric vaccinations (ages 5-11), we invite you to visit the [facility] webpage. [email or web address]/page [email or web address]-[email or web address]-Xufwnabjzfu-Frequently -Asked-Questions.html To learn more about the COVID-19 vaccine, we invite you to visit the [facility] website for a list of frequently asked questions. [email or web address]/assets/Patients -and-Visitors/abvnu-Mmxaaax-Ybihgyx tly_Asked-Questions.pdf [facility] Patient Portal Access Instructions: Stay connected with your healthcare team and access your personal medical information anytime with the [facility] Patient Portal.If you would like a full copy of your medical records, please contact the [facility] Medical Records Department, Wednesday through Wednesday between 8a.m. and 4:30p.m. Please follow the directions below to access the portal: 1.Access the email account you provided upon registration to the [facility].2.Look for an invitation email from [facility].3.Open the email and access the invitation link: Accept Invitation to [facility]4.Fill in the required childers to create your account. Sign into www.[employer] with your username and password that you [...] you will allow to register on the [facility] Patient Portal for access to your information. You can also access the [employer] [facility] Patient Portal on the misterbnb. Simply click on "Health Records" under "Health Data" and then click on the [employer] logo. HOW TO SAFELY DISPOSE OF PRESCRIPTION [...] Call your local pharmacy or go to [email or web address].PixelPlay/6F0Ut8v to find one close to you.3.Make use of household items: Use cat litter or old coffee grounds to dispose medications if other options are not available. Mix your drugs with these household products, seal them in an airtight container and throw it into the garbage. Call [facility]: [phone] to be sure your drugs can be [...] aware that I should contact my doctor. 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 Patient presented to [facility] emergency department on 09/11/2022 with reports of feeling unsteady and leaning to the right side since she woke up at 7 AM. Patient was last normal at 11 PM the night before. Patient has a prior history of CVA and TIAs. Patient follows with neurology at [facility]. Last seen at the beginning of August [...] follow-up imaging isrecommended.Reference: J Am Radha Radiol. 2015 Oct;12(2): 143-50 CT Angiography Head w/ Contrast Result [...] for echocardiogram as this was done at [facility] 3 weeks ago. Obtain lipid panel and A1c. Patient does already follow with neurology at [facility]. Echocardiogram From 08/25/2022 demonstrates LVEF 60%, apical [...] by DALE FLORES on 09/11/2022 06:39 PM [facility] 09-11-2022 Evaluation + Plan note Extrac marilyn [...] for echocardiogram as this was done at [facility] 3 weeks ago. Obtain lipid panel and A1c. Patient does already follow with neurology at [facility]. Echocardiogram From 08/25/2022 demonstrates LVEF 60%, apical [...] and may include grammatical and/or spelling errors. [facility] 01-06-2023 Note ORIGINAL EXAMINATION: CT Angiogram of [...] 09/11/2022 1:44:15 PM Ordering Provider: SOLIS MINA [facility]01-06-2023 Note ORIGINAL EXAMINATION: CTA neck: TECHNIQUE: Contiguous [...] 09/11/2022 1:05:09 PM Ordering Provider: SOLIS MINA [facility]01-06-2023 Note ORIGINAL EXAMINATION: CT Angiogram of the [...] Date: 09/11/2022 1:44:15 PM [facility]ing [id number] Note ORIGINAL EXAMINATION: CTA neck: TECHNIQUE: Contiguous [...] Sign Date: 09/11/2022 1:05:09 PM Ordering Provider: [facility]01-06-2023 Note ORIGINAL HISTORY: Chest pain, short [...] Sign Date: 09/11/2022 11:11:02 AM Ordering Provider: [facility]01-06-2023 Note ORIGINAL HISTORY: Chest pain, short [...] Sign Date: 09/11/2022 11:11:02 AM Ordering Provider: [facility]01-06-2023 Note ORIGINAL HISTORY: Change in mental [...] Date: 09/11/2022 10:50:07 AM Ordering Provider: SOLIS CoatsJillianEZEQUIEL [facility]01-06-2023 Note ORIGINAL HISTORY: Change in mental status, [...] Date: 09/11/2022 10:50:07 AM Ordering Provider: [facility] No data available for this section [facility] Discharge instructions No data available for this section [facility] Progress note No data available for this section [facility] Summary Purpose Family History No Family History Records Found Advance Directives No Advanced Directives Records FoundNo Advanced Directives Records Found Additional Source Comments Care Team (unrecognized sect ion and content) Care Team Personnel Name: Bryan Dhaliwal PT Position: P3 Scheduling - Hog Trader Advanced Member Role: Other Name: SALVADOR BARBER MD Member Role: Primary Care Physician Address: Address: [address] [place] [address] [place] [id number] [place] Care Team Related Persons Name: FEDE RED Address: [address] [place] [address] [place] Care Team Personnel Name: Bryan Dhaliwalrgiorgio Valdovinos PT Position: P3 Scheduling - Hog Trader Advanced Member Role: Other Name: SALVADOR BARBER MD Member Role: Primary Care Physician Address: Address: [address] [facility] [address] [place] [phone] [place] Name: NITHYA Rosas Position: AO RN Member Role: ED RN Name: MD MINA TIMOTHY MD Position: ED Physician Member Role: ED Physician Address: Address: [address] Care Team Related Persons Name: FEDE RED Address: [address] [place] [address] [place] Care Team Personnel Name: Bryan Dhaliwal Clergiorgio Valdovinos PT Position: P3 Scheduling - Hog Trader Advanced Member Role: Other Name: SALVADOR BARBER MD Member Role: Primary Care Physician Address: Address: [address] [facility] [facility] [address] [place] [id number] [place] Care Team Related Persons Name: FEDE RED Address: Home [address] Patient Care team informatio n (unrecognized section and content) Care Team Personnel Name: Bryan Dhaliwal PT Position: P3 Scheduling - Hog Trader Advanced Member Role: Other Name: SALVADOR BARBER MD Member Role: Primary Care Physician Address: Address: [address] [facility] [facility] [address] [place] [phone] [place] Care Team Related Persons Name: FEDE RED Address: Home [address] [place] [address] [place] Care Team Personnel Name: Bryan Dhaliwalrk Aruna PT Position: P3 Scheduling - Hog Trader Advanced Member Role: Other Name: SALVADOR BARBER MD Member Role: Primary Care Physician Address: Address: [address] [facility] [address] [place] [phone] [place] Care Team Related Persons Name: FEDE RED Address: Home [address] [place], [place] [id number] [place] Care Team Personnel Name: Bryan Dhaliwalrgiorgio Valdovinos PT Position: P3 Scheduling - Hog Trader Advanced Member Role: Other Name: SALVADOR BARBER MD Member Role: Primary Care Physician Address: Address: [address] [facility] [address] [place] [address] [place] Care Team Related Persons Name: FEDE RED Address: Home [address] [place], [place] [id number] [place] INFORMATION SOURCE (unrecogn ized section and content) DATE CREATED AUTHOR 11/12/2023 [facility] [place] [facility] DATE CREATED AUTHOR AUTHOR'S ORGANIZ ATION 03/29/2025 [facility] FOR RECORDS PERTAINING TO PATIENTS WHO [...] BE BASED ON THE PRIMARY CLINICAL RECORDS. [facility]. provides no warranty or guarantee of the accuracy or completeness of information in this document.
== END | disposition home or self-care (01) ==
LOC: MFPLAB 16:27
PROVIDERS: PCP Family Medicine; Referring Provider Family Medicine; Visit Provider Family Medicine
DX: R25.2 Cramp and spasm (principal)
CPT/HCPCS: 36415; 80048; 83735

== ENCOUNTER 2025-04-06 08:35 | Inpatient (IN) | payer MEDICARE, OTHER, SELFPAY ==
[2025-04-06 08:35] VITALS: BP 154/76; PULSE 97; RESP 18; TEMP 36.9; O2SAT 95; BMI 34.2
--- NOTE | 2025-04-06 09:15 | CT_ITS ---
PROCEDURE: ABDOMEN/PELVIS W IV CONT ONLY 04/06/2025 REASON FOR EXAM: ABDOMINAL PAIN, RECENT CERVICAL/UTERINE BIOPSY TECHNIQUE: ABDOMEN/PELVIS W IV CONT ONLY Coronal and Sagittal reconstruction series were provided. CONTRAST: Isovue 370 VOLUME: 100 mL One or more dose reduction techniques were used (e.g., Automated exposure control, adjustment of the mA and/or kV according to patient size, use of iterative reconstruction technique. RADIATION DOSE SUMMARY: CTDlvol: 25.99 mGy DLP: 1030.02 mGycm COMPARISON: 2021 FINDINGS: Lung bases: Mild dependent atelectasis. Calcified coronary vessels noted. Liver: Liver is unremarkable aside from intrahepatic biliary dilatation, likely sequela from remote cholecystectomy Gallbladder: Surgically removed Spleen: Normal size. Pancreas: Normal size without evidence of mass surrounding inflammation or ductal dilation. Adrenals: Unremarkable Kidneys: No obstructive uropathy or suspicious solid renal lesion, there are simple cortical cysts in both kidneys. Bladder: Unremarkable Reproductive Organs: Uterus is present, the endometrium can not be accurately evaluated with CT, there is CT evidence of low-density fluid within the endometrium which may be from recent biopsy. No suspicious cystic mass or free fluid. Bowel: Bowel loops are unremarkable, no CT evidence of ileus or obstruction. No acute inflammation. There are scattered colonic diverticula without CT evidence of acute diverticulitis. Appendix: Normal appendix seen on coronal recon images 48 through 54. 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 No acute fracture or suspicious osseous lesion. Injection granulomas noted in the right gluteus, left pain neurostimulator free of complication CT/Abdomen/Pelvis W IV Cont ONLY IMPRESSION: Uterus is present with low-density fluid noted in the endometrium which is like ly due to recent biopsy. No suspicious mass within the uterus. No suspicious enlarged cystic mass or free fluid. No infla mmation around the periphery of the uterus to suspect inflammatory process or abscess. No suspicious solid organ abnormality, sequela from remote cholecystectomy. Th ere are simple renal cysts which need no specific follow-up No free intraperitoneal fluid, air, or suspicious adenopathy, normal appendix v isualized Scattered colonic diverticula, no CT evidence of acute diverticulitis Degenerative bony changes with rotatory scoliosis Reading Location: [id number]
--- NOTE | 2025-04-06 09:15 | EX.ED.DYSGE1 ---
HPI History of Present Illness Chief Complaint: Abd Pain Narrative Narrative: Patient is a 79-year-old female with past medical history of GERD, CVA, hypertension, TIA, dyslipidemia, hyperlipidemia who presented to the emergency department with a chief complaint of abdominal pain. Patient states that she had a biopsy in March on her uterus. States that her doctor on Wednesday called her and put her on doxycycline for an infection patient notes that she cannot get rid of the pain which has been going on for several days prompting her to come here for further evaluation management. Patient states that she has not been passing gas much and having very little bowel movements. Patient denies any black stools or any blood in her stool [facility] Medical History Sacroiliitis Wears partial dentures Arthritis Urinary incontinence Restless legs Injury of head and neck Gastric reflux Non-smoker History of stress test History of echocardiogram Leg cramps History of edema Cardiology follow-up encounter Nosebleed Degenerative disc disease, cervical Occipital headache [id number] ultra-rapid metabolizer Obstructive sleep apnea on CPAP Adjustment disorder with mixed anxiety and depressed mood Generalized anxiety disorder Stroke History of torn meniscus of right knee Rotator cuff insufficiency of right shoulder Bone spur of ankle Hyperlipidemia Patent foramen ovale HTN (hypertension) TIA (transient ischemic attack) Dyslipidemia Home Medications ?Medication ?Instructions ?Recorded ?Last Taken ?Type losartan 100 mg tablet 100 mg PO QHS HTN 05/13/14 03/15/22 History cholecalciferol (vitamin D3) 50 2,000 unit PO LUNCH supplement 10/21/18 03/15/22 History mcg (2,000 unit) capsule multivitamin 1 tab PO DAILY supplement 10/21/18 03/15/22 History ascorbic acid (vitamin C) 500 mg 500 mg PO BID supplement 03/07/21 03/15/22 History capsule,extended release (Vitamin C) atorvastatin 80 mg tablet 80 mg PO QHS cholesterol 90 days 03/07/21 03/15/22 History #90 tabs calcium carbonate (Calcium 600) 1,200 mg PO LUNCH supplement 03/07/21 03/15/22 History levothyroxine 125 mcg tablet 112 mcg PO DAILY thyroid 03/07/21 03/16/22 History clonazepam 0.5 mg tablet 0.5 mg PO BID anxiety 08/12/21 03/15/22 History trazodone 150 mg tablet 150 mg PO QHS rest 08/12/21 03/15/22 History polyethylene glycol 3350 17 17 g PO QHS stool softener 03/02/22 03/15/22 History gram/dose oral powder (Miralax) triamcinolone acetonide 55 55 mcg intranasal QHS nasal 03/02/22 03/15/22 History mcg/actuation nasal spray,aerosol congestion mv-mn-folic 200 mcg-vit K 15 cap PO 02/25/23 Unknown History mcg-lutein 5 mg-zeaxanthin 1 mg capsule (PreserVision AREDS 2 Plus Multivit) duloxetine 60 mg capsule,delayed 60 mg PO DAILY 09/23/23 Unknown History release folic acid 1 mg tablet 2 mg PO DAILY 09/23/23 Unknown History furosemide 20 mg tablet 20 mg PO DAILY 09/23/23 Unknown History montelukast 10 mg tablet 10 mg PO QHS 09/23/23 Unknown History cetirizine 10 mg capsule (Zyrtec) 10 mg PO DAILY PRN 05/04/24 Unknown History oxycodone-acetaminophen 5 mg-325 1 tab PO TID PRN 05/04/24 Unknown History mg tablet sennosides 8.6 mg tablet (Senna 8.6 mg PO QDAY 05/04/24 Unknown History Laxative) clopidogrel 75 mg tablet 75 mg PO .Every other day #45 tabs 12/14/24 Unknown Rx pantoprazole 20 mg tablet,delayed 20 mg PO DAILY #90 tabs 12/24/24 Unknown Rx release baclofen 20 mg tablet 10 mg PO QDAY PRN muscle 03/01/25 Unknown History pain/muscle spasm ropinirole 0.25 mg tablet 0.25 mg PO QHS 03/01/25 Unknown History fluconazole 150 mg tablet 150 mg PO Q3D 2 doses #2 tabs 03/05/25 Unknown Rx doxycycline monohydrate 100 mg 100 mg PO BID 7 days #14 caps 04/02/25 Unknown Rx capsule ondansetron 4 mg disintegrating 4 mg PO Q6H PRN nausea and 04/06/25 Unknown Rx tablet vomiting #20 tabs oxycodone-acetaminophen 2.5 mg-325 1 tab PO Q6H PRN pain 2 days #8 04/06/25 Unknown Rx mg tablet tabs Allergy/AdvReac Type Severity Reaction Status Date / Time oxycodone (From Percocet) Allergy Other Verified 04/06/25 08:35 codeine AdvReac Severe Nausea Verified 04/06/25 08:35 morphine AdvReac Severe Nausea Verified 04/06/25 08:35 Family History Father Non-Hodgkin lymphoma Heart disease Brother Leukemia Sister Breast cancer Mother Uterine cancer Other Cancer Surgical History History of cataract extraction (~02/2023) History of back surgery History of hip surgery History of meniscectomy of right knee History of rotator cuff surgery History of Achilles tendon repair History of nasal surgery History of bilateral carpal tunnel release History of left knee replacement History of cholecystectomy H/O left knee surgery H/O section Social History household members: spouse Smoking Status: Never smoker second hand exposure: No alcohol intake: current alcohol intake frequency: holidays/special occasions only substance use type: does not use caffeine: Yes Type: other Number of servings: 2 dianna/druze: Voodoo seatbelt use: always ROS ROS ED ROS Narrative Constitutional: Denies any fevers, chills, headaches, lightness, dizziness Eyes: Denies change in vision double vision blurry vision Cardiovascular: Denies chest pain Respiratory: Denies coughing wheezing shortness of breath Abdomen: Complains of abdominal pain as noted above as well as nausea denies vomiting : Denies any urinary symptoms Neurological: Denies numbness, weakness, tingling Musculoskeletal: Denies back pain Skin: Denies any rashes or lesions EXAM Physical Exam Narrative Exam Narrative: General: Patient lying in bed rest comfortably did not appear to be acute distress Head: Atraumatic, normocephalic Eyes: PERRL bilaterally, EOMI bilaterally no conjunctival injection noted Neck: Soft, supple, trachea midline Cardiovascular: Regular rate and rhythm Respiratory: Clear to auscultation bilaterally Abdomen: Soft, nondistended, diffuse tenderness to palpation no rebound or guarding on exam Extremities: +5/5 strength noted in the bilateral upper and lower extremities, radial pulses +2/4 in the bilateral extremities Neurological: Patient follow commands knew that she was at [facility] year is 2024 Skin: Warm, dry, tact no rashes or lesions noted Const Vital Signs: 04/06/25 08:35 04/06/25 09:48 04/06/25 10:37 Temperature 98.5 F 98.5 F Temperature Source Temporal Temporal Pulse Rate 97 97 88 Respiratory Rate 18 18 16 Blood Pressure 154/76 H 157/76 H Blood Pressure Mean 102 103 Pulse Ox 95 95 98 Oxygen Delivery Method Room Air Room Air MDM MDM MDM Narrative Medical decision making narrative: Patient is a 79-year-old female who presented to the emergency department chief complaint of abdominal pain. On the differential diagnosis includes but not limited to bowel obstruction, pancreatitis, appendicitis, cholecystitis, viral gastroenteritis. Once workup is obtained and reviewed she will be reevaluated. Patient be given IV fluids, Zofran and Bentyl. Patient CBC reviewed showed a leukocytosis of 13,000, hemoglobin 12.2, platelet count of 273. Patient sodium is 137, potassium normal at 4, creatinine normal 0.80. Patient AST and ALT are 29 and 18 respectively total bilirubin normal at 1.06. Patient lipase elevated to 144, urinalysis reviewed showed no evidence of infection. Patient CT ab pelvis with IV contrast reviewed and showed uterus is present with low-density fluid noted in the endometrium which is likely due to recent biopsy no suspicious mass within the uterus no suspicious in the large cystic mass or free fluid. No inflammation around the periphery of the uterus to suspect inflammatory process or abscess. No suspicious solid organ abnormality sequelae from remote cholecystectomy. No free intraperitoneal fluid. Scattered colonic diverticula no evidence of diverticulitis. Degenerative bony changes with rotatory scoliosis noted. On reevaluation the patient she is still having abdominal pain specifically epigastric region no rebound or guarding on exam this was done at 11:45 AM. I discussed the results with the patient and I offered her admission for her pancreatitis, abdominal pain and not tolerating anything by mouth. She states that she does not want to be admitted she wants to go home and she states that if things worsen she will return to the emergency department. Patient will given prescriptions for Zofran ODT as well as Endocet. She was advised to start with a bland diet advance as tolerated. She is agreeable this plan as well as significant other bedside all question concerns answered she was discharged home in stable condition. Lab Data Labs: Laboratory Results - last 24 hr 04/06/25 04/06/25 09:00 10:34 WBC 13.3 H RBC 3.82 L Hgb 12.2 Hct 37.0 MCV 96.9 MCH 31.9 MCHC 33.0 RDW Std Deviation 47.9 H RDW Coeff of Dalila 13.6 Plt Count 273 MPV 10.1 Immature Gran % (Auto) 0.500 Neut % (Auto) 83.9 H Lymph % (Auto) 9.8 L [place] % (Auto) 5.1 Eos % (Auto) 0.5 Baso % (Auto) 0.2 Absolute Neuts (auto) 11.2 H Absolute Lymphs (auto) 1.30 Nucleated RBC % 0 Sodium 137 Potassium 4.0 Chloride 102 Carbon Dioxide 23.0 Anion Gap 12 BUN 15 Creatinine 0.80 Estim Creat Clear Calc 57.85 Est GFR (MDRD) Non-Af 75 BUN/Creatinine Ratio 19.0 Glucose 143 H Calcium 8.8 Total Bilirubin 1.06 AST 29 ALT 18 Alkaline Phosphatase 115 H Total Protein 6.2 Albumin 3.5 Globulin 2.8 Albumin/Globulin Ratio 1.3 Lipase 144 H Urine Color Yellow Urine Clarity Sl. Cloudy Urine pH 6.5 Ur Specific [place] 1.010 Urine Protein 15 H Urine Glucose (UA) Normal Urine Ketones Negative Urine Occult Blood Negative Urine Nitrite Negative Urine Bilirubin Negative Urine Urobilinogen Normal Ur Leukocyte Esterase Negative Urine RBC 0 SEEN Urine WBC 0 SEEN Ur Squamous Epith Cells 0-5 SEEN Urine Bacteria 0 SEEN Urine Mucus 0 SEEN Radiography Diagnostic Testing: Clinical Impression(s) from Imaging Studies Abdomen/Pelvis CT 04/06/25 09:15 IMPRESSION: Uterus is present with low-density fluid noted in the endometrium which is likely due to recent biopsy. No suspicious mass within the uterus. No suspicious enlarged cystic mass or free fluid. No inflammation around the periphery of the uterus to suspect inflammatory process or abscess. No suspicious solid organ abnormality, sequela from remote cholecystectomy. There are simple renal cysts which need no specific follow-up No free intraperitoneal fluid, air, or suspicious adenopathy, normal appendix visualized Scattered colonic diverticula, no CT evidence of acute diverticulitis Degenerative bony changes with rotatory scoliosis Reading Location: [facility] Discharge Plan Triage Chief Complaint: Abd Pain ED Provider: Chepe Arzate Dx/Rx/DC Orders Clinical Impression: Abdominal pain, HTN (hypertension), Pancreatitis Prescriptions: New oxycodone-acetaminophen 2.5-325 mg tablet 1 tab PO Q6H PRN (Reason: pain) 2 Days Qty: 8 0RF ondansetron 4 mg tablet,disintegrating 4 mg PO Q6H PRN (Reason: nausea and vomiting) Qty: 20 0RF No Action multivitamin tablet 1 tab PO DAILY cholecalciferol (vitamin D3) 2,000 unit capsule 2,000 unit PO LUNCH atorvastatin 80 mg tablet 80 mg PO QHS 90 Days Qty: 90 calcium carbonate [Calcium 600] 600 mg calcium (1,500 mg) tablet 1,200 mg PO LUNCH ascorbic acid (vitamin C) [Vitamin C] 500 mg capsule, extended release 500 mg PO BID levothyroxine 125 mcg tablet 112 mcg PO DAILY trazodone 150 mg tablet 150 mg PO QHS clonazepam 0.5 mg tablet 0.5 mg PO BID PreserVision AREDS 2 Plus MV 200 mcg-15 mcg- 5 mg-1 mg capsule PO montelukast 10 mg tablet 10 mg PO QHS Patient Comments: 1 TABLET DAILY folic acid 1 mg tablet 2 mg PO DAILY Rx Instructions: Take for 30 days furosemide 20 mg tablet 20 mg PO DAILY duloxetine 60 mg capsule,delayed release(DR/EC) 60 mg PO DAILY sennosides [Senna Laxative] 8.6 mg tablet 8.6 mg PO QDAY oxycodone-acetaminophen 5-325 mg tablet 1 tab PO TID PRN Zyrtec 10 mg capsule 10 mg PO DAILY PRN clopidogrel 75 mg tablet 75 mg PO .Every other day Qty: 45 1RF pantoprazole 20 mg tablet,delayed release (DR/EC) 20 mg PO DAILY Qty: 90 1RF baclofen 20 mg tablet 10 mg PO QDAY PRN (Reason: muscle pain/muscle spasm) ropinirole 0.25 mg tablet 0.25 mg PO QHS losartan 100 MG tablet 100 mg PO QHS polyethylene glycol 3350 [Miralax] 17 gram/dose Powder 17 g PO QHS Nasacort 55 mcg/actuation Aerosol 55 mcg INTRANASAL QHS fluconazole 150 mg tablet 150 mg PO Q3D Qty: 2 0RF Rx Instructions: may repeat second dose 72 hrs after first dose if symptoms persist doxycycline monohydrate 100 mg capsule 100 mg PO BID 7 Days Qty: 14 0RF Primary Care Provider: Salvador Barber Referrals: Salvador Barber MD [Primary Care Provider] - Activity Restrictions/Additional Instructions: Take the Percocet/Endocet that was prescribed ensure that you take the Zofran/ondansetron with this as prescribed as this will upset your stomach and make you nauseous. Start with a bland diet and advance as tolerated. Return with worsening symptoms or any other concerns. Your blood work did show evidence that you have pancreatitis. Your CT scan did not show any acute findings. Print Language: Occitan Disposition Disposition: Home, Self Care
[2025-04-06 09:22] LABS: Hematocrit 37.0 % (37-47); Hemoglobin 12.2 g/dL (12.0-15.0); Immature Granulocytes Count 0.060 X10^3/uL (0.0-0.0); Mean Corp Hgb Conc 33.0 g/dL (32-36); Mean Corpuscular Volume 96.9 fL (81-99); Mean Platelet Vol. 10.1 fl (6.2-12.0); NRBC Flagged by Analyzer 0 % (0-5); Platelet Count 273 K/mm3 (150-450); RBC Distribution Width CV 13.6 % (11.6-14.6); RBC Distribution Width SD 47.9 fl (35.1-43.9); Red Blood Count 3.82 M/mm3 (4.2-5.4); White Blood Count 13.3 K/mm3 (4.4-11.0)
[2025-04-06] MEDS: 0.9% Normal Saline (1000mL) 1,000 ML 999 ML IV (09:30)
[2025-04-06 09:48] VITALS: BP 157/76; PULSE 97; RESP 18; TEMP 36.9; O2SAT 95
[2025-04-06 09:53] LABS: AST(SGOT) 29 U/L (<=31); Alanine Aminotransfer ALT/SGPT 18 U/L (<=34); Albumin, Serum 3.5 g/dL (3.4-4.8); Alkaline Phosphatase 115 U/L (35-104); Anion Gap 12 (5-15); BUN 15 mg/dL (4-19); BUN/Creat Ratio 19.0 RATIO (10-20); Calcium,Total 8.8 mg/dL (7.6-11.0); Carbon Dioxide 23.0 mmol/L (21.0-32.0); Chloride 102 mmol/L (98-108); Estimated Creatinine Clearance 57.85 ml/min (50-250); Globulin 2.8 g/dL (2.2-4.2); Glucose 143 mg/dL (70-99); Lipase 144 U/L (13-75); Potassium 4.0 mmol/L (3.3-5.1)
[2025-04-06 10:37] VITALS: PULSE 88; RESP 16; O2SAT 98
[2025-04-06 10:37] LABS: Mucous, Urine 0 SEEN /hpf (<or=2+); Red Blood Cells-Urine 0 SEEN /hpf (0-5)
[2025-04-06 11:04] LABS: Color, Urine Yellow (Yellow); Glucose, Dipstick Normal (Normal); Ketone-Dipstick Negative (Negative); Leukocyte Esterase-Dipstick Negative /ul (Negative); Nitrite-Dipstick Negative (Negative); Occult Blood-Urine Negative /ul (Negative); Protein-Dipstick 15 mg/dl (Negative); Specific Gravity, Urine 1.010 (1.002-1.030); Urine Bilirubin Dipstick Negative (Negative)
[2025-04-06 11:19] LABS: Squamous Epithelial Cells - UA 0-5 SEEN /hpf (5-10)
[2025-04-06 12:57] VITALS: BP 149/77; PULSE 79; RESP 16; TEMP 36.9; O2SAT 98
--- NOTE | 2025-04-06 13:08 | PCM.HP.STD ---
HPI - General General Date of Admission: 04/06/25 Date of Service: 04/06/25 Chief Complaint: Abdominal pain and nausea HPI Narrative DONOVAN RED, is a 79 y/o female w/ hx of GERD, CVA, HTN, hypothyroidism, depression, postmenopausal bleeding status post endometrial biopsy last month who presented to [facility] ED 04/06/25 w/ epigastric abdominal pain. In the ED temp 98.5, HR 97, BP 154/76, RR 18 and pulse ox 95% on room air. CBC w/ WBC 13.3, hgb WNL, UA normal, CMP with slightly elevated glucose of 143 and alk phos 115 otherwise within normal limits, lipase 144. CT abdomen pelvis with low-density fluid in the endometrium likely d/t recent biopsy. Given patient's epigastric pain radiating to the back and elevated lipase hospitalist contacted for admission for presumed pancreatitis. Patient evaluated at bedside. Confirmed she had an endometrial biopsy last month due to postmenopausal bleeding, reports that she was put on doxycycline for acquired infection and after she had taken 3 doses she developed abdominal pain that she is unable to describe but reports it continued to get worse and then this a.m. she had nausea prompting her to come to the ED. The pain is in her epigastric region and radiates to her back, yesterday had a couple small loose-yue bowel movements but denies any overt diarrhea or constipation, denies any urinary complaints. No fevers or chills. Denies any suprapubic or lower abdominal pain. Right now feels her nausea is better, still having some of the pain but feels better than when she arrived in the ED. Notes that nothing necessarily makes the symptoms better or worse. [facility] Medical History Sacroiliitis Wears partial dentures Arthritis Urinary incontinence Restless legs Injury of head and neck Gastric reflux Non-smoker History of stress test History of echocardiogram Leg cramps History of edema Cardiology follow-up encounter Nosebleed Degenerative disc disease, cervical Occipital headache [id number] ultra-rapid metabolizer Obstructive sleep apnea on CPAP Adjustment disorder with mixed anxiety and depressed mood Generalized anxiety disorder Stroke History of torn meniscus of right knee Rotator cuff insufficiency of right shoulder Bone spur of ankle Hyperlipidemia Patent foramen ovale HTN (hypertension) TIA (transient ischemic attack) Dyslipidemia Home Medications ?Medication ?Instructions ?Recorded ?Last Taken ?Type losartan 100 mg tablet 100 mg PO QHS HTN 05/13/14 03/15/22 History cholecalciferol (vitamin D3) 50 2,000 unit PO LUNCH supplement 10/21/18 03/15/22 History mcg (2,000 unit) capsule multivitamin 1 tab PO DAILY supplement 10/21/18 03/15/22 History ascorbic acid (vitamin C) 500 mg 500 mg PO BID supplement 03/07/21 03/15/22 History capsule,extended release (Vitamin C) atorvastatin 80 mg tablet 80 mg PO QHS cholesterol 90 days 03/07/21 03/15/22 History #90 tabs calcium carbonate (Calcium 600) 1,200 mg PO LUNCH supplement 03/07/21 03/15/22 History levothyroxine 125 mcg tablet 112 mcg PO DAILY thyroid 03/07/21 03/16/22 History clonazepam 0.5 mg tablet 0.5 mg PO BID anxiety 08/12/21 03/15/22 History trazodone 150 mg tablet 150 mg PO QHS rest 08/12/21 03/15/22 History polyethylene glycol 3350 17 17 g PO QHS stool softener 03/02/22 03/15/22 History gram/dose oral powder (Miralax) triamcinolone acetonide 55 55 mcg intranasal QHS nasal 03/02/22 03/15/22 History mcg/actuation nasal spray,aerosol congestion mv-mn-folic 200 mcg-vit K 15 cap PO 02/25/23 Unknown History mcg-lutein 5 mg-zeaxanthin 1 mg capsule (PreserVision AREDS 2 Plus Multivit) duloxetine 60 mg capsule,delayed 60 mg PO DAILY 09/23/23 Unknown History release folic acid 1 mg tablet 2 mg PO DAILY 09/23/23 Unknown History furosemide 20 mg tablet 20 mg PO DAILY 09/23/23 Unknown History montelukast 10 mg tablet 10 mg PO QHS 09/23/23 Unknown History cetirizine 10 mg capsule (Zyrtec) 10 mg PO DAILY PRN allergy symptoms 05/04/24 Unknown History oxycodone-acetaminophen 5 mg-325 1 tab PO TID PRN 05/04/24 Unknown History mg tablet clopidogrel 75 mg tablet 75 mg PO .Every other day #45 tabs 12/14/24 Unknown Rx pantoprazole 20 mg tablet,delayed 20 mg PO DAILY #90 tabs 12/24/24 Unknown Rx release baclofen 20 mg tablet 10 mg PO QDAY PRN muscle 03/01/25 Unknown History pain/muscle spasm ropinirole 0.25 mg tablet 0.25 mg PO QHS 03/01/25 Unknown History fluconazole 150 mg tablet 150 mg PO Q3D 2 doses #2 tabs 03/05/25 Unknown Rx doxycycline monohydrate 100 mg 100 mg PO BID 7 days #14 caps 04/02/25 Unknown Rx capsule ondansetron 4 mg disintegrating 4 mg PO Q6H PRN nausea and 04/06/25 Unknown Rx tablet vomiting #20 tabs oxycodone-acetaminophen 2.5 mg-325 1 tab PO Q6H PRN pain 2 days #8 04/06/25 Unknown Rx mg tablet tabs Allergy/AdvReac Type Severity Reaction Status Date / Time oxycodone (From Percocet) Allergy Other Verified 04/06/25 08:35 codeine AdvReac Severe Nausea Verified 04/06/25 08:35 morphine AdvReac Severe Nausea Verified 04/06/25 08:35 Family History Father Non-Hodgkin lymphoma Heart disease Brother Leukemia Sister Breast cancer Mother Uterine cancer Other Cancer Surgical History History of cataract extraction (~02/2023) History of back surgery History of hip surgery History of meniscectomy of right knee History of rotator cuff surgery History of Achilles tendon repair History of nasal surgery History of bilateral carpal tunnel release History of left knee replacement History of cholecystectomy H/O left knee surgery H/O section Social History household members: spouse Smoking Status: Never smoker second hand exposure: No alcohol intake: current alcohol intake frequency: holidays/special occasions only substance use type: does not use caffeine: Yes Type: other Number of servings: 2 dianna/protestant: Advent seatbelt use: always ROS ROS Narrative General: Denies fever/chills HENT: Denies headache, denies stuffy nose, denies sore throat EYES: Denies changes in vision Resp: Denies cough, denies shortness of breath Cardiac: Denies chest pain GI: Some epigastric abdominal pain around the sides into the back, couple loose stools but no overt diarrhea, nausea earlier today that is improved : Denies changes in urination Extremity: Denies swelling MSK: Feels a little bit generally weak neuro: Denies any numbness/tingling Heme: Denies any bleeding or bruising Skin: Denies rashes Psychiatric: No complaints voiced Vital Signs Vital Signs Vital Signs: 04/06/25 08:35 04/06/25 09:48 04/06/25 10:37 Temperature 98.5 F 98.5 F Temperature Source Temporal Temporal Pulse Rate 97 97 88 Respiratory Rate 18 18 16 Blood Pressure 154/76 H 157/76 H Blood Pressure Mean 102 103 Pulse Ox 95 95 98 Oxygen Delivery Method Room Air Room Air 04/06/25 12:57 Temperature 98.5 F Temperature Source Pulse Rate 79 Respiratory Rate 16 Blood Pressure 149/77 H Blood Pressure Mean 101 Pulse Ox 98 Oxygen Delivery Method Weight Weight: 87.498 kg Body Mass Index (BMI) 34.2 Physical Exam Narrative General: Alert, oriented, no apparent distress HEENT: Atraumatic, normocephalic Eyes: Anicteric, normal conjunctiva, extraocular movements grossly intact Neck: Supple Respiratory: Clear to auscultation bilaterally, normal respiratory effort Cardiovascular: Regular rate GI: Soft, no suprapubic tenderness, does have some epigastric tenderness with voluntary guarding with deep palpation without rebound, guarding, rigidity Extremities: No edema Musculoskeletal: Moving all extremities Neuro: No overt focal neurological deficits Skin: No rashes appreciated Psych: Cooperative Results Lab / Micro Data 04/06/25 09:00 04/06/25 09:00 Labs: Laboratory Results - last 24 hr 04/06/25 09:00: WBC 13.3 H, RBC 3.82 L, Hgb 12.2, Hct 37.0, MCV 96.9, MCH 31.9, MCHC 33.0, RDW Std Deviation 47.9 H, RDW Coeff of Dalila 13.6, Plt Count 273, MPV 10.1, Immature Gran % (Auto) 0.500, Neut % (Auto) 83.9 H, Lymph % (Auto) 9.8 L, [place] % (Auto) 5.1, Eos % (Auto) 0.5, Baso % (Auto) 0.2, Absolute Neuts (auto) 11.2 H, Absolute Lymphs (auto) 1.30, Nucleated RBC % 0, Sodium 137, Potassium 4.0, Chloride 102, Carbon Dioxide 23.0, Anion Gap 12, BUN 15, Creatinine 0.80, Estim Creat Clear Calc 57.85, Est GFR (MDRD) Non-Af 75, BUN/Creatinine Ratio 19.0, Glucose 143 H, Calcium 8.8, Total Bilirubin 1.06, AST 29, ALT 18, Alkaline Phosphatase 115 H, Total Protein 6.2, Albumin 3.5, Globulin 2.8, Albumin/Globulin Ratio 1.3, Lipase 144 H 04/06/25 10:34: Urine Color Yellow, Urine Clarity Sl. Cloudy, Urine pH 6.5, Ur Specific [place] 1.010, Urine Protein 15 H, Urine Glucose (UA) Normal, Urine Ketones Negative, Urine Occult Blood Negative, Urine Nitrite Negative, Urine Bilirubin Negative, Urine Urobilinogen Normal, Ur Leukocyte Esterase Negative, Urine RBC 0 SEEN, Urine WBC 0 SEEN, Ur Squamous Epith Cells 0-5 SEEN, Urine Bacteria 0 SEEN, Urine Mucus 0 SEEN Imaging Radiology Impression Abdomen/Pelvis CT 04/06/25 09:15 IMPRESSION: Uterus is present with low-density fluid noted in the endometrium which is likely due to recent biopsy. No suspicious mass within the uterus. No suspicious enlarged cystic mass or free fluid. No inflammation around the periphery of the uterus to suspect inflammatory process or abscess. No suspicious solid organ abnormality, sequela from remote cholecystectomy. There are simple renal cysts which need no specific follow-up No free intraperitoneal fluid, air, or suspicious adenopathy, normal appendix visualized Scattered colonic diverticula, no CT evidence of acute diverticulitis Degenerative bony changes with rotatory scoliosis Reading Location: [id number] Assessment & Plan Assessment/Plan (1) Abdominal pain: PLAN: Plan # Abdominal pain and nausea with concerns for pancreatitis - Patient does have epigastric pain that goes to her back and elevated lipase, CT did not show changes consistent with pancreatitis and lipase is technically not 3 times the upper limit of normal but no other abnormalities found - Possible that the doxycycline caused or contributed, this has been discontinued - IV fluids -Hold furosemide at this time - Clear liquid diet and advance as tolerated - Hope to DC in next 1 to 2 days if symptoms improve # Postmenopausal bleeding with recent endometrial biopsy - Endometrial biopsy showed chronic Endocervicitis for which she was placed on doxycycline 2 days ago - Discussed with OB physician on-call, no indication to treat chronic cervicitis, confirmed that pathology does not say endometritis - Okay to DC antibiotics and not start other antibiotics - Can follow-up outpatient # History of CVA - Continue statin and clopidogrel #Depression/anxiety -Continue home medications #GERD -Continue PPI - If no improvement in symptoms will consider GI cocktail though no reflux or GERD symptoms to suggest this being the primary etiology # Restless leg syndrome -continue patient's home medication regimen #Hypertension - Continue home antihypertensives #Hypothyroidism -Continue Synthroid #DVT ppx: SCDs Denia Shaw MD Charges/Coding Visit Charges Inpatient E&M: 77363 Init Hosp L2
[2025-04-06 15:21] VITALS: BMI 34.2
[2025-04-06] MEDS: HYDROmorphone Inj 0.2 MG/ML SYRINGE IV ×2 (15:46→18:48)
[2025-04-06] MEDS: 0.9% Normal Saline (1000mL) 1,000 ML 100 ML IV (16:43)
--- NOTE | 2025-04-06 17:30 | CASEMGMT ---
Addendum entered by Reji Sanabria 04/07/25 11:20: Pt would like to get any new Rx's from [facility] in [place] @ [place] [employer] updated. Original Note: RN?CM?ASSESSMENT ? RN?CM?to room to meet with patient for initial transition planning/care coordination?assessment.?RN?CM?introduced self and role at [facility].? Pt voices understanding and consents to?assessment?at this time.? Pt resting in bed in no distress at this time.? Pt is A/O at this time and answers all questions appropriately.?? Care providers, pharmacy, and demographics verified/updated at this time. ? PCP: Dr Barber Specialists: Dr Rincon-neuro, Dr Rothman-pulm, Dr Dickey-pain mgnt, Dr Neely-final assembler, Dr Salazar-DATA ANALYST REPORT WRITER Insurance: [employer] Prescription Benefit:?yes LNOK: , Jaziel. Daughter, Ruben (lives in [place]). Son (lives in [place]) Living Arrangements: Lives w/her in one-story home w/2 steps to enter w/railing on both sides. Pt is indep w/ADL's & manages her own medications. She does most of the home mgnt tasks, assists w/cleaning. Transportation:?Pt states drives self and states no transportation concerns at this time.? also drives. DME: ?States has the following DME:?shower chair, comfort height commode, grab bars, CPAP, walker available (but does not use), cane (uses outside or for community distances) ?Pt states no need for further DME at this time.? HHC/SNF: No hx of either. Has done OP therapy in the past. ? Pt wishes to return home and states has no concerns with going home at time of discharge. She declines wanting HHC or OP therapy. She was made aware to f/u with PCP if she changes her mind once returning home. PLAN:??Home ? Ramila BSN?RN?CM ? ?
[2025-04-06 21:00] VITALS: BP 162/77; PULSE 94; RESP 16; TEMP 36.6; O2SAT 94
[2025-04-06] MEDS: MELATONIN 10 MG TABLET PO (21:50)
[2025-04-06] MEDS: Pramipexole Di-HCl 0.125 MG Tablet PO (21:50)
[2025-04-07 03:00] VITALS: BP 155/74; PULSE 74; RESP 18; TEMP 36.8; O2SAT 98
[2025-04-07] MEDS: 0.9% Normal Saline (1000mL) 1,000 ML 100 ML IV (04:06)
[2025-04-07] MEDS: HYDROmorphone Inj 0.2 MG/ML SYRINGE IV (04:06)
[2025-04-07 06:45] LABS: Anion Gap 11 (5-15); BUN 11 mg/dL (4-19); BUN/Creat Ratio 15.7 RATIO (10-20); Calcium,Total 8.2 mg/dL (7.6-11.0); Carbon Dioxide 22.8 mmol/L (21.0-32.0); Chloride 104 mmol/L (98-108); Estimated Creatinine Clearance 57.85 ml/min (50-250); Glucose 114 mg/dL (70-99); Potassium 3.9 mmol/L (3.3-5.1)
[2025-04-07 07:08] LABS: Hematocrit 33.7 % (37-47); Hemoglobin 11.1 g/dL (12.0-15.0); Immature Granulocytes Count 0.060 X10^3/uL (0.0-0.0); Mean Corp Hgb Conc 32.9 g/dL (32-36); Mean Corpuscular Volume 96.8 fL (81-99); Mean Platelet Vol. 10.1 fl (6.2-12.0); NRBC Flagged by Analyzer 0 % (0-5); Platelet Count 258 K/mm3 (150-450); RBC Distribution Width CV 13.6 % (11.6-14.6); RBC Distribution Width SD 48.5 fl (35.1-43.9); Red Blood Count 3.48 M/mm3 (4.2-5.4); White Blood Count 12.4 K/mm3 (4.4-11.0)
[2025-04-07 08:04] LABS: Lipase 49 U/L (13-75)
[2025-04-07 10:28] VITALS: BP 147/73; PULSE 76; RESP 18; TEMP 36.6; O2SAT 95
--- NOTE | 2025-04-07 13:18 | PCM.DC ---
Discharge Instructions DC O2, CPAP, BIPAP needs Home O2 Discharge instructions: No Dressing / Incision Discharge Activity: - (Increase activity as tolerated) Follow Up Care Test Results: Test results from this visit will be discussed in further detail at your follow-up appointment, if applicable. Discharge Plan Admission Admit Date/Time: 04/06/25 13:08 Primary Reason for Your Visit: Abdominal pain Attending Provider: Denia Shaw Primary Care Provider: Salvador Barber Instructions Patient Instructions: ED Diet, [place] (Adult) Additional Instructions / Restrictions: - Start with a light diet and advance as tolerated - You will stop your doxycycline -Please call your primary care provider's office upon discharge to schedule a hospital follow up within 1 week. -For any concerning signs or symptoms please call 911 or proceed to the nearest emergency department Discharge Orders/Prescriptions Prescriptions: New ondansetron 4 mg tablet,disintegrating 4 mg PO Q6H PRN (Reason: nausea and vomiting) Qty: 20 0RF Continued multivitamin tablet 1 tab PO DAILY cholecalciferol (vitamin D3) 2,000 unit capsule 2,000 unit PO LUNCH atorvastatin 80 mg tablet 80 mg PO QHS 90 Days Qty: 90 calcium carbonate [Calcium 600] 600 mg calcium (1,500 mg) tablet 1,200 mg PO LUNCH ascorbic acid (vitamin C) [Vitamin C] 500 mg capsule, extended release 500 mg PO BID levothyroxine 125 mcg tablet 112 mcg PO DAILY trazodone 150 mg tablet 150 mg PO QHS clonazepam 0.5 mg tablet 0.5 mg PO BID PreserVision AREDS 2 Plus MV 200 mcg-15 mcg- 5 mg-1 mg capsule PO montelukast 10 mg tablet 10 mg PO QHS Patient Comments: 1 TABLET DAILY folic acid 1 mg tablet 2 mg PO DAILY Rx Instructions: Take for 30 days furosemide 20 mg tablet 20 mg PO DAILY duloxetine 60 mg capsule,delayed release(DR/EC) 60 mg PO DAILY Zyrtec 10 mg capsule 10 mg PO DAILY PRN (Reason: allergy symptoms) clopidogrel 75 mg tablet 75 mg PO .Every other day Qty: 45 1RF pantoprazole 20 mg tablet,delayed release (DR/EC) 20 mg PO DAILY Qty: 90 1RF baclofen 20 mg tablet 10 mg PO QDAY PRN (Reason: muscle pain/muscle spasm) ropinirole 0.25 mg tablet 0.25 mg PO QHS losartan 100 MG tablet 100 mg PO QHS polyethylene glycol 3350 [Miralax] 17 gram/dose Powder 17 g PO QHS triamcinolone acetonide 55 mcg/actuation Aerosol 55 mcg INTRANASAL QHS Discontinued oxycodone-acetaminophen 5-325 mg tablet 1 tab PO TID PRN fluconazole 150 mg tablet 150 mg PO Q3D Qty: 2 0RF Rx Instructions: may repeat second dose 72 hrs after first dose if symptoms persist doxycycline monohydrate 100 mg capsule 100 mg PO BID 7 Days Qty: 14 0RF Referrals / Follow Up: Salvador Barber MD [Primary Care Provider] - Within 1 Week Disposition Disposition (needs filled in before D/C Order can be placed): Home, Self Care
--- NOTE | 2025-04-07 13:26 | PCM.DC.SUM ---
Providers Date of Admission: 04/06/25 Date of Discharge: 04/07/25 Primary Care Physician: Dr. Salvador Barber MD Reason For Visit: ABDOMINAL PAIN Diagnosis Discharge Diagnosis (1) Abdominal pain: Status: Acute Code(s): R10.9 - Unspecified abdominal pain Plan # Abdominal pain secondary to doxycycline # Postmenopausal bleeding with recent endometrial biopsy # History of CVA #Depression/anxiety #GERD # Restless leg syndrome #Hypertension #Hypothyroidism Medications at Discharge Home Medications losartan 100 mg tablet 100 mg PO QHS HTN 05/13/14 cholecalciferol (vitamin D3) 50 mcg (2,000 unit) capsule 2,000 unit PO LUNCH supplement 10/21/18 multivitamin 1 tab PO DAILY supplement 10/21/18 ascorbic acid (vitamin C) 500 mg capsule,extended release (Vitamin C) 500 mg PO BID supplement 03/07/21 atorvastatin 80 mg tablet 80 mg PO QHS cholesterol 90 days #90 tabs 03/07/21 calcium carbonate (Calcium 600) 1,200 mg PO LUNCH supplement 03/07/21 levothyroxine 125 mcg tablet 112 mcg PO DAILY thyroid 03/07/21 clonazepam 0.5 mg tablet 0.5 mg PO BID anxiety 08/12/21 trazodone 150 mg tablet 150 mg PO QHS rest 08/12/21 polyethylene glycol 3350 17 gram/dose oral powder (Miralax) 17 g PO QHS stool softener 03/02/22 triamcinolone acetonide 55 mcg/actuation nasal spray,aerosol 55 mcg intranasal QHS nasal congestion 03/02/22 mv-mn-folic 200 mcg-vit K 15 mcg-lutein 5 mg-zeaxanthin 1 mg capsule (PreserVision AREDS 2 Plus Multivit) cap PO 02/25/23 duloxetine 60 mg capsule,delayed release 60 mg PO DAILY 09/23/23 folic acid 1 mg tablet 2 mg PO DAILY 09/23/23 furosemide 20 mg tablet 20 mg PO DAILY 09/23/23 montelukast 10 mg tablet 10 mg PO QHS 09/23/23 cetirizine 10 mg capsule (Zyrtec) 10 mg PO DAILY PRN allergy symptoms 05/04/24 clopidogrel 75 mg tablet 75 mg PO .Every other day #45 tabs 12/14/24 pantoprazole 20 mg tablet,delayed release 20 mg PO DAILY #90 tabs 12/24/24 baclofen 20 mg tablet 10 mg PO QDAY PRN muscle pain/muscle spasm 03/01/25 ropinirole 0.25 mg tablet 0.25 mg PO QHS 03/01/25 ondansetron 4 mg disintegrating tablet 4 mg PO Q6H PRN nausea and vomiting #20 tabs 04/06/25 Hospital Course Summary of Care Provided Minutes Spent on Discharge: 25 Hospital Course: Per HPI: DONOVAN RED, is a 79 y/o female w/ hx of GERD, CVA, HTN, hypothyroidism, depression, postmenopausal bleeding status post endometrial biopsy last month who presented to [facility] ED 04/06/25 w/ epigastric abdominal pain. In the ED temp 98.5, HR 97, BP 154/76, RR 18 and pulse ox 95% on room air. CBC w/ WBC 13.3, hgb WNL, UA normal, CMP with slightly elevated glucose of 143 and alk phos 115 otherwise within normal limits, lipase 144. CT abdomen pelvis with low-density fluid in the endometrium likely d/t recent biopsy. Given patient's epigastric pain radiating to the back and elevated lipase hospitalist contacted for admission for presumed pancreatitis. Patient evaluated at bedside. Confirmed she had an endometrial biopsy last month due to postmenopausal bleeding, reports that she was put on doxycycline for acquired infection and after she had taken 3 doses she developed abdominal pain that she is unable to describe but reports it continued to get worse and then this a.m. she had nausea prompting her to come to the ED. The pain is in her epigastric region and radiates to her back, yesterday had a couple small loose-yue bowel movements but denies any overt diarrhea or constipation, denies any urinary complaints. No fevers or chills. Denies any suprapubic or lower abdominal pain. Right now feels her nausea is better, still having some of the pain but feels better than when she arrived in the ED. Notes that nothing necessarily makes the symptoms better or worse. INTERVAL HISTORY: Patient was started on IV fluids and taken off of doxycycline, symptoms completely resolved, did not think that this was pancreatitis given patient did not technically meet criteria and symptoms resolved by the next day with cessation of doxycycline. Discussed this with patient. Had discussed with the cause analyst on-call and it was advised that patient did not need doxycycline based on the pathology and that she did not need further antibiotics these were discontinued altogether. On day of discharge patient feeling much better with no further abdominal pain, nausea improved, main complaint was neck and back pain from sleeping in the bed patient comfortable with plan to go home Physical Exam Narrative General: Alert, oriented, no apparent distress HEENT: Atraumatic, normocephalic Eyes: Anicteric, normal conjunctiva, extraocular movements grossly intact Neck: Supple Respiratory: Clear to auscultation bilaterally, normal respiratory effort Cardiovascular: Regular rate GI: Soft, nontender, no rebound, guarding, rigidity, no tenderness palpation epigastric region Extremities: No edema Musculoskeletal: Moving all extremities Neuro: No overt focal neurological deficits Skin: No rashes appreciated Psych: Cooperative Weight / BMI Weight Weight: 87.498 kg Body Mass Index (BMI) 34.2 ABG / Lab / Microbiology Data 04/07/25 05:23 04/07/25 05:23 Laboratory: Laboratory Results - last 24 hr 04/07/25 05:23: WBC 12.4 H, RBC 3.48 L, Hgb 11.1 L, Hct 33.7 L, MCV 96.8, MCH 31.9, MCHC 32.9, RDW Std Deviation 48.5 H, RDW Coeff of Dalila 13.6, Plt Count 258, MPV 10.1, Immature Gran % (Auto) 0.500, Neut % (Auto) 87.0 H, Lymph % (Auto) 6.5 L, [place] % (Auto) 5.5, Eos % (Auto) 0.3, Baso % (Auto) 0.2, Absolute Neuts (auto) 10.8 H, Absolute Lymphs (auto) 0.81 L, Nucleated RBC % 0, Sodium 137, Potassium 3.9, Chloride 104, Carbon Dioxide 22.8, Anion Gap 11, BUN 11, Creatinine 0.70, Estim Creat Clear Calc 57.85, Est GFR (MDRD) Non-Af 87, BUN/Creatinine Ratio 15.7, Glucose 114 H, Calcium 8.2, Lipase 49 D/C Instructions DC O2, CPAP, BIPAP Needs Home O2 Discharge instructions: No Meaningful Use Info Meaningful Use Meaningful Use Diagnoses (Choose all that apply): None applicable Discharge Plan Admission Admit Date/Time: 04/06/25 13:08 Primary Reason for Your Visit: Abdominal pain Attending Provider: Denia Shaw Primary Care Provider: Salvador Barber Instructions Patient Instructions: ED Diet, [place] (Adult) Additional Instructions / Restrictions: - Start with a light diet and advance as tolerated - You will stop your doxycycline -Please call your primary care provider's office upon discharge to schedule a hospital follow up within 1 week. -For any concerning signs or symptoms please call 911 or proceed to the nearest emergency department Discharge Orders/Prescriptions Prescriptions: New ondansetron 4 mg tablet,disintegrating 4 mg PO Q6H PRN (Reason: nausea and vomiting) Qty: 20 0RF Continued multivitamin tablet 1 tab PO DAILY cholecalciferol (vitamin D3) 2,000 unit capsule 2,000 unit PO LUNCH atorvastatin 80 mg tablet 80 mg PO QHS 90 Days Qty: 90 calcium carbonate [Calcium 600] 600 mg calcium (1,500 mg) tablet 1,200 mg PO LUNCH ascorbic acid (vitamin C) [Vitamin C] 500 mg capsule, extended release 500 mg PO BID levothyroxine 125 mcg tablet 112 mcg PO DAILY trazodone 150 mg tablet 150 mg PO QHS clonazepam 0.5 mg tablet 0.5 mg PO BID PreserVision AREDS 2 Plus MV 200 mcg-15 mcg- 5 mg-1 mg capsule PO montelukast 10 mg tablet 10 mg PO QHS Patient Comments: 1 TABLET DAILY folic acid 1 mg tablet 2 mg PO DAILY Rx Instructions: Take for 30 days furosemide 20 mg tablet 20 mg PO DAILY duloxetine 60 mg capsule,delayed release(DR/EC) 60 mg PO DAILY Zyrtec 10 mg capsule 10 mg PO DAILY PRN (Reason: allergy symptoms) clopidogrel 75 mg tablet 75 mg PO .Every other day Qty: 45 1RF pantoprazole 20 mg tablet,delayed release (DR/EC) 20 mg PO DAILY Qty: 90 1RF baclofen 20 mg tablet 10 mg PO QDAY PRN (Reason: muscle pain/muscle spasm) ropinirole 0.25 mg tablet 0.25 mg PO QHS losartan 100 MG tablet 100 mg PO QHS polyethylene glycol 3350 [Miralax] 17 gram/dose Powder 17 g PO QHS triamcinolone acetonide 55 mcg/actuation Aerosol 55 mcg INTRANASAL QHS Discontinued oxycodone-acetaminophen 5-325 mg tablet 1 tab PO TID PRN fluconazole 150 mg tablet 150 mg PO Q3D Qty: 2 0RF Rx Instructions: may repeat second dose 72 hrs after first dose if symptoms persist doxycycline monohydrate 100 mg capsule 100 mg PO BID 7 Days Qty: 14 0RF Referrals / Follow Up: Salvador Barber MD [Primary Care Provider] - Within 1 Week Disposition Disposition (needs filled in before D/C Order can be placed): Home, Self Care Charges/Coding Visit Charges Inpatient E&M: 03767 Disch Hosp
[2025-04-07 15:52] VITALS: BP 165/74; PULSE 71; RESP 18; TEMP 36.5; O2SAT 95
== END 2025-04-07 16:52 | disposition home or self-care (01) | DRG 392 ==
LOC: ED 12:34 → MS3 13:26
PROVIDERS: Admitting Provider Internal Medicine; Emergency Provider Emergency Medicine; PCP Family Medicine; Visit Provider Internal Medicine
DX: R10.13 Epigastric pain (principal); E03.9 Hypothyroidism, unspecified; G25.81 Restless legs syndrome; F32.A Depression, unspecified; I10 Essential (primary) hypertension; E78.5 Hyperlipidemia, unspecified; K21.9 Gastro-esophageal reflux disease without esophagitis; G47.33 Obstructive sleep apnea (adult) (pediatric); F41.9 Anxiety disorder, unspecified; N95.0 Postmenopausal bleeding; T36.4X5A Adverse effect of tetracyclines, initial encounter; Z79.899 Other long term (current) drug therapy; Z79.02 Long term (current) use of antithrombotics/antiplatelets; Z86.73 Personal history of transient ischemic attack (TIA), and cerebral infarction without residual deficits
CPT/HCPCS: 36415; 74177; 80048; 80053; 81001; 83690; 85025; 99284; Q9967; A4216; J2405

== ENCOUNTER → 2025-04-12 | Outpatient (CLI) | payer MEDICARE, OTHER, SELFPAY ==
[2025-04-12 18:18] LABS: Hematocrit 36.0 % (37-47); Hemoglobin 11.8 g/dL (12.0-15.0); Immature Granulocytes Count 0.110 X10^3/uL (0.0-0.0); Mean Corp Hgb Conc 32.8 g/dL (32-36); Mean Corpuscular Volume 96.8 fL (81-99); Mean Platelet Vol. 10.3 fl (6.2-12.0); NRBC Flagged by Analyzer 0 % (0-5); Platelet Count 373 K/mm3 (150-450); RBC Distribution Width CV 13.3 % (11.6-14.6); RBC Distribution Width SD 47.1 fl (35.1-43.9); Red Blood Count 3.72 M/mm3 (4.2-5.4); White Blood Count 8.9 K/mm3 (4.4-11.0)
[2025-04-12 18:30] LABS: AST(SGOT) 32 U/L (<=31); Alanine Aminotransfer ALT/SGPT 22 U/L (<=34); Albumin, Serum 3.8 g/dL (3.4-4.8); Alkaline Phosphatase 109 U/L (35-104); Anion Gap 17 (5-15); BUN 19 mg/dL (4-19); BUN/Creat Ratio 18.8 RATIO (10-20); Calcium,Total 9.1 mg/dL (7.6-11.0); Carbon Dioxide 22.8 mmol/L (21.0-32.0); Chloride 101 mmol/L (98-108); Globulin 2.9 g/dL (2.2-4.2); Glucose 215 mg/dL (70-99); Potassium 4.1 mmol/L (3.3-5.1)
== END | disposition home or self-care (01) ==
LOC: MTLAB 15:52
PROVIDERS: PCP Family Medicine; Referring Provider Internal Medicine Rheumatology; Visit Provider Internal Medicine Rheumatology
DX: M06.4 Inflammatory polyarthropathy (principal); Z79.899 Other long term (current) drug therapy
CPT/HCPCS: 36415; 80053; 85025

== ENCOUNTER → 2025-04-19 | Outpatient (CLI) | payer MEDICARE, OTHER, SELFPAY ==
--- NOTE | 2025-04-19 13:15 | RAD_ITS ---
PROCEDURE: CERV SPINE OBL/FLEX/EXT COMP 04/19/2025 REASON FOR EXAM: NECK PAIN TECHNIQUE: CERV SPINE OBL/FLEX/EXT COMP COMPARISON: None FINDINGS: Vertebrae: Spondylosis. disc spaces: Multilevel disc space narrowing worse at the C5-C6 and C6-C7 levels. Neural foraminal stenosis. Alignment: Minimal anterior listhesis of C4 on C5 due to facet joint osteoarthritis. soft tissues: Unremarkable Other: RAD/Cerv Spine Obl/Flex/Ext Comp IMPRESSION: Multilevel disc space narrowing and spondylosis as well as facet joint osteoart hritis. Neural foraminal stenosis. Disclaimer: Reading Location: [facility]
== END | disposition home or self-care (01) ==
LOC: MTRAD 13:10
PROVIDERS: PCP Family Medicine; Referring Provider Anesthesiology Pain Medicine; Visit Provider Anesthesiology Pain Medicine
DX: M54.2 Cervicalgia (principal)
CPT/HCPCS: 72052

== ENCOUNTER → 2025-06-04 | Outpatient (CLI) | payer MEDICARE, OTHER, SELFPAY ==
[2025-06-04 18:27] LABS: Anion Gap 12 (5-15); BUN 17 mg/dL (4-19); BUN/Creat Ratio 21.4 RATIO (10-20); Calcium,Total 9.1 mg/dL (7.6-11.0); Carbon Dioxide 25.3 mmol/L (21.0-32.0); Chloride 105 mmol/L (98-108); Free T3 2.8 pg/mL (2.18-3.98); Glucose 84 mg/dL (70-99); Potassium 4.0 mmol/L (3.3-5.1)
== END | disposition home or self-care (01) ==
LOC: MFPLAB 13:52
PROVIDERS: PCP Family Medicine; Visit Provider Family Medicine
DX: E03.9 Hypothyroidism, unspecified (principal); R25.2 Cramp and spasm
CPT/HCPCS: 36415; 80048; 84439; 84443; 84481

== ENCOUNTER → 2025-07-18 | Outpatient (CLI) | payer MEDICARE, OTHER, SELFPAY ==
[2025-07-18 12:25] LABS: Hematocrit 34.8 % (37-47); Hemoglobin 11.1 g/dL (12.0-15.0); Immature Granulocytes Count 0.010 X10^3/uL (0.0-0.0); Mean Corp Hgb Conc 31.9 g/dL (32-36); Mean Corpuscular Volume 98.0 fL (81-99); Mean Platelet Vol. 10.7 fl (6.2-12.0); NRBC Flagged by Analyzer 0 % (0-5); Platelet Count 232 K/mm3 (150-450); RBC Distribution Width CV 13.9 % (11.6-14.6); RBC Distribution Width SD 50.3 fl (35.1-43.9); Red Blood Count 3.55 M/mm3 (4.2-5.4); White Blood Count 5.7 K/mm3 (4.4-11.0)
[2025-07-18 12:59] LABS: AST(SGOT) 34 U/L (<=31); Alanine Aminotransfer ALT/SGPT 31 U/L (<=34); Albumin, Serum 4.0 g/dL (3.4-4.8); Alkaline Phosphatase 112 U/L (35-104); Anion Gap 9 (5-15); BUN 21 mg/dL (4-19); BUN/Creat Ratio 25.8 RATIO (10-20); Calcium,Total 9.6 mg/dL (7.6-11.0); Carbon Dioxide 28.0 mmol/L (21.0-32.0); Chloride 103 mmol/L (98-108); Globulin 2.3 g/dL (2.2-4.2); Glucose 105 mg/dL (70-99); Potassium 4.4 mmol/L (3.3-5.1)
== END | disposition home or self-care (01) ==
LOC: MFPLAB 10:32
PROVIDERS: PCP Family Medicine; Visit Provider Internal Medicine Rheumatology
DX: M06.4 Inflammatory polyarthropathy (principal); Z79.899 Other long term (current) drug therapy
CPT/HCPCS: 36415; 80053; 85025

== ENCOUNTER → 2025-07-25 | Outpatient (CLI) | payer MEDICARE, OTHER, SELFPAY ==
--- NOTE | 2025-07-25 15:33 | RAD_ITS ---
PROCEDURE: SHOULDER MIN 2 VIEWS 07/25/2025 REASON FOR EXAM: SHOULDER PAIN TECHNIQUE: Procedure Code: RADSH Modality: DX Procedure: SHOULDER MIN 2 VIEWS Right shoulder four views COMPARISON: December 19, 2020 FINDINGS: Suture anchors are noted in the humeral head consistent with prior rotator cuff repair. There is AC joint separation with degenerative calcifications, similar to the prior. No acute fracture or dislocation is identified. Osteopenia is noted. Vascular calcifications are visible. A spinal stimulator is noted in the lower thoracic region. RAD/Shoulder min 2 Views IMPRESSION: Suture anchors are noted in the humeral head consistent with prior rotator cuff repair. There is AC joint separation with degenerative calcifications, similar to the p rior. No acute fracture or dislocation is identified. Reading Location: [facility]
== END | disposition home or self-care (01) ==
LOC: MTRAD 15:32
PROVIDERS: PCP Family Medicine; Referring Provider Family Medicine; Visit Provider Family Medicine
DX: M25.511 Pain in right shoulder (principal)
CPT/HCPCS: 73030